=== PATIENT | female | born 1945 | race Caucasian/White ===

== ENCOUNTER 2023-04-15 13:40 | Outpatient (AMB) | payer MEDICARE, SELFPAY ==
--- NOTE | 2023-04-15 13:45 | A.OFFVIS_ITS ---
Intake Vital Signs 04/15/23 14:01 Weight 102 lb BP 136/82 Blood Pressure Location Rt brachial Position Sitting Respiration 14 Pulse 86 Pulse Source Pulse Oximeter Pulse Oximetry (%) 94 Oxygen Delivery Method Nasal Cannula Oxygen Flow Rate 2 Intake Visit Reasons: Chronic Pain, ITDD Fill Consult Intake Note: patient comes in for initial visit was referred by [facility]. Allergies No Known Allergies Allergy (Verified 04/15/23 13:49) HPI HPI Comments History of Present Illness Details Vania is very pleasant 77 years old female who presents today in my office with complains on pain in the lumbar spine with radiation of the pain into the front of the suprapubic area. She reports this pain is result of postlaminectomy syndrome. She reported surgery was performed twice on her lumbar spine in 2015 and 2017. For the treatment of postlaminectomy syndrome she received implantation of the [employer] SynchroMed 2. Pain pump in 2017. She is here in my office today requesting assistance with pump refills and possibly pump replacement in 2024. Her past medical history significant for COPD which is severe enough with oxygen running 247 2 L through nasal cannula. She is under care of hotel associate and vascular surgeon for carotid artery she had left carotid stroke in 2012 and she had carotid stent and after that 1 year after she received carotid endarterectomy. She admits problems with diverticulosis diverticulitis she had a surgery on the diverticulitis in the past. She reports her pain in terms of tissue damage is pinching, cramping, crushing, sore, Ahmadi, heavy, tiring, exhausting. She reports that she is on tramadol mg 4 times a day to help her pain as well. Her past social history she is retired individual she stop smoking long time ago she denies drinking alcohol she denies recreational drugs. Review of Systems Const Reports fatigue, Reports lethargy, Reports weakness and Reports weight loss Card Reports as per HPI Resp Reports as per HPI GI Reports as per HPI Musc Reports as per HPI Neuro Reports as per HPI and Reports weakness Endo Reports fatigue Physical Exam Vital Signs: Last Vital Signs Pulse 86 04/15/23 14:01 Resp 14 04/15/23 14:01 BP 136/82 04/15/23 14:01 Pulse Ox 94 04/15/23 14:01 Oxygen Delivery Method Nasal Cannula 04/15/23 14:01 Oxygen Flow Rate 2 04/15/23 14:01 Const General: cooperative, comfortable and no acute distress Nutritional Appearance: thin and underweight Orientation/consciousness: patient oriented x3 Chest Chest palpation & inspection: normal inspection of the chest Resp Effort & Inspection: not able to speak in complete sentences, abnormal respiratory pattern, decreased respiratory effort, grunting, labored and nasal flaring Cardio Jugular venous distension: no JVD GI Other: On the SPECT plunkett of the patient's abdomen she has left-sided implanted int rathecal drug delivery system pain pump the scar of implantation is very well- healed. There is no swelling in the area of the pain pump. Back/Spine/Pelvis Other: There is 1 very long incision in the projection of the approximately L3-L4 L5 and S1 lumbar vertebra spinous processes of this patient's back. There also to incisions of iliac crest harvesting on bilaterally from the incision. There is also severe tenderness on palpation in the projection of the L4-5 S1 lumbar vertebras Neuro General: patient oriented x3 Assessment & Plan Assessment & Plan (1) Postlaminectomy syndrome: Code(s): M96.1 - Postlaminectomy syndrome, not elsewhere classified (2) Chronic pain syndrome: Code(s): G89.4 - Chronic pain syndrome (3) COPD (chronic obstructive pulmonary disease): Code(s): J44.9 - Chronic obstructive pulmonary disease, unspecified Plan I explained the patient that the fact that she is taking oral tramadol is increasing her tolerance on her pain pump. I recommended her to try to minimize tramadol doses or at the best wean herself off of it. She got schedule herself for the pump refill in [place]. After that when she will know the date of the next refill she needs to call us and we will order medication for her to be field the same concentration. She is currently on morphine 10 milligrams/mL and bupivacaine 20 milligrams/mL. Her pain pump is 40 cc of volume. She needs to give us a call and schedule her next refill appointment with us when her date of the refill will be known after her pump will be refilled in her previous [facility] office. Coding Level of Care Code New Pt Level 3 (59042) Diagnoses Postlaminectomy syndrome M96.1 Chronic pain syndrome G89.4 COPD (chronic obstructive pulmonary disease) J44.9
[2023-04-15 14:01] VITALS: BP 136/82; PULSE 86; RESP 14; O2SAT 94
== END 2023-04-15 14:20 | disposition home or self-care (01) ==
PROVIDERS: PCP Internal Medicine; Visit Provider Anesthesiology
DX: M96.1 Postlaminectomy syndrome, not elsewhere classified (principal); G89.4 Chronic pain syndrome; J44.9 Chronic obstructive pulmonary disease, unspecified
CPT/HCPCS: 99203

== ENCOUNTER → 2023-04-15 13:40 | Outpatient (BNVA) | payer MEDICARE, SELFPAY | PROVIDERS: PCP Internal Medicine; Visit Provider Anesthesiology ==

== ENCOUNTER 2023-07-01 09:42 | Outpatient (AMB) | payer MEDICARE, SELFPAY ==
--- NOTE | 2023-07-01 09:45 | A.OFFVIS_ITS ---
Intake Vital Signs 07/01/23 10:05 Weight 103 lb BP 130/60 Blood Pressure Location Lt brachial Position Sitting Respiration 14 Pulse 77 Pulse Source Pulse Oximeter Pulse Oximetry (%) 97 Oxygen Delivery Method Nasal Cannula Oxygen Flow Rate 2 Intake Visit Reasons: Review pain pump refill/lvm Allergies No Known Allergies Allergy (Verified 07/01/23 10:04) HPI HPI Comments History of Present Illness Details Vania is very pleasant 77 years old female who recently moved to [place] from [facility]. She is intrathecal pain pump patient, she is suffering from postlaminectomy syndrome. The pump was implanted 1 year ago. April 16 she came here for than appointment with request to assume care of her intrathecal pain pump. She reported to us that she has her last refill scheduled on [place]. She told us that she will attend that refilled. Today she came to the office and her pump was read. It demonstrated warning sign that pump is completely empty. In this situation unfortunately I cannot safely perform pump refill without fluoroscopy. I need to take patient to the operating room. I need to position her on the operating table. I need to observe the intrathecal pump action. On itself it is not guaranteed that normal action of the rotor in the pump with resulted in normal delivery of the intrathecal medication however it would give us some assurance that the pump is not completely damaged. Also if on the operating table I will place the noncoring needle inside the pump in will not be a able to aspirate any medicine back into my syringe injection of the contrast into the pump potentially could assure me that my needle is located in the proper position inside the reservoir of the pump. It is even more important because the concentration of the morphine in this patient's medication is 10 milligrams/milliliter it means that if I will administer 40 cc of 10 mg of morphine outside of the intrathecal pump patient will receive 400 mg of morphine into soft tissues. This may result in immediate respiratory arrest and heart arrest and it may require immediate resuscitation, intubation, and placement of the patient on the ventilatory support and cardiac support until the medication is not longer in the system of the patient. I will schedule this patient for the refill of the intrathecal pump under fluoroscopy guidance, I will request assistance of the [employer] patient account representative Adina to be present with me during this procedure. Review of Systems Const Reports fatigue, Reports lethargy, Reports weakness and Reports weight loss Card Reports as per HPI Resp Reports as per HPI GI Reports as per HPI Musc Reports as per HPI Neuro Reports as per HPI and Reports weakness Endo Reports fatigue Physical Exam Vital Signs: Last Vital Signs Pulse 77 07/01/23 10:05 Resp 14 07/01/23 10:05 BP 130/60 07/01/23 10:05 Pulse Ox 97 07/01/23 10:05 Oxygen Delivery Method Nasal Cannula 07/01/23 10:05 Oxygen Flow Rate 2 07/01/23 10:05 Const General: cooperative, comfortable and no acute distress Nutritional Appearance: thin and underweight Orientation/consciousness: patient oriented x3 Chest Chest palpation & inspection: normal inspection of the chest Resp Effort & Inspection: not able to speak in complete sentences, abnormal respiratory pattern, decreased respiratory effort, grunting, labored and nasal flaring Cardio Jugular venous distension: no JVD GI Other: Inspection of the patient's abdomen she has left-sided implanted intrathecal [employer]eron[employer] g delivery system pain pump the scar of implantation is very well-healed. There is no swelling in the area of the pain pump. Back/Spine/Pelvis Other: There is 1 very long incision in the projection of the approximately L3-L4 L5 and S1 lumbar vertebra spinous processes of this patient's back. There also to incisions of iliac crest harvesting on bilaterally from the incision. There is also severe tenderness on palpation in the projection of the L4-5 S1 lumbar vertebras Neuro General: patient oriented x3 Assessment & Plan Assessment & Plan (1) Postlaminectomy syndrome: Code(s): M96.1 - Postlaminectomy syndrome, not elsewhere classified (2) Chronic pain syndrome: Code(s): G89.4 - Chronic pain syndrome (3) COPD (chronic obstructive pulmonary disease): Code(s): J44.9 - Chronic obstructive pulmonary disease, unspecified Plan I will schedule this patient for an appointment in the operating room to perform the refill procedure. My argument for performance of this procedure in the operating room is as above. From that day on I will assume care of the patient. We would need to see if her pain pump is in working condition. If not it needs to be replaced. Patient Instructions: I here by testify that this visit today of this patient to my office took significant period of time an argument about patient's condition, patient's requirements, scheduling patient in the operating room, ordering new medication for the patient, and planning the procedure on Thursday which would require at least 50 minutes in total and some additional time to organized this note. Coding Level of Care Code Est Pt Level 5 (80180) Diagnoses Postlaminectomy syndrome M96.1 Chronic pain syndrome G89.4 COPD (chronic obstructive pulmonary disease) J44.9
[2023-07-01 10:05] VITALS: BP 130/60; PULSE 77; RESP 14; O2SAT 97
== END 2023-07-01 10:29 | disposition home or self-care (01) ==
PROVIDERS: PCP Internal Medicine; Visit Provider Anesthesiology
DX: M96.1 Postlaminectomy syndrome, not elsewhere classified (principal); G89.4 Chronic pain syndrome; J44.9 Chronic obstructive pulmonary disease, unspecified; Z45.1 Encounter for adjustment and management of infusion pump
CPT/HCPCS: 99215

== ENCOUNTER → 2023-07-01 09:42 | Outpatient (BNVA) | payer MEDICARE, SELFPAY | PROVIDERS: PCP Internal Medicine; Visit Provider Anesthesiology | DX: M96.1 Postlaminectomy syndrome, not elsewhere classified (principal); J44.9 Chronic obstructive pulmonary disease, unspecified; G89.4 Chronic pain syndrome; Z96.89 Presence of other specified functional implants | CPT/HCPCS: 99212 ==

== ENCOUNTER 2023-07-03 10:47 | Day surgery (SDC) | payer MEDICARE, SELFPAY ==
--- NOTE | ~2023-07-03 | FL_ITS ---
EXAMINATION: XR FLUOROSCOPY WITH IMAGES CLINICAL INFORMATION: ITDD dye study and pump refill. COMPARISON: None available. TECHNIQUE: Fluoroscopy Supervised By: Dr. Thaddeus Rainey. Fluoroscopy Time: 0.0 (less than 1 minute). Cumulative Dose: 0.631 mGy. DAP: 0.172 Gycm2. Images: 1. FINDINGS: Fluoroscopy guidance provided for ITDD dye study and pump refill. See procedure note for details. FL/FL guidance in OR IMPRESSION: Fluoroscopy guidance provided for ITDD dye study and pump refill.
[2023-07-03 10:51] VITALS: BMI 21.5
[2023-07-03 11:27] VITALS: BP 138/72; PULSE 71; RESP 16; TEMP 37.2; O2SAT 96
[2023-07-03 13:00] VITALS: BP 102/56; PULSE 72; RESP 16; TEMP 37.2; O2SAT 97
--- NOTE | 2023-07-03 13:10 | PM.OP ---
Brief Operative Note Date of Service: 07/03/23 Pre-op diagnosis: postlaminectomy syndrome, chronic pain syndrome, presence of the intrathecal drug delivery pain pump. Post-op diagnosis: same Surgeon: Thaddeus Rainey MD Anesthesia: local Was an Statistical Technician used for this Procedure?: No Estimated blood loss (mL): 0 Condition: stable Disposition: PACU
--- NOTE | 2023-07-03 13:11 | P.OP_ITS ---
Operative Note Operative Note Date of Service: 07/03/23 Narrative: Intrathecal pump refill. THE PATIENT CAME TODAY in the OR FOR THE CHANGE OF THE MEDICATION IN her PAIN PUMP. SHE IS VERY PLEASANT 77 YEARS OLD FEMALE WHO JUST RECENTLY MOVED FROM [place] TO [facility]. Last time she had her pump refilled in [facility]. Two days ago she came to my office for pump refill in her pump refill was not done because the reading of the pump demonstrated that pump was empty. To prevent inadvertent administration of the wrong medication to run direction we brought her today to the operating room to perform the refill of the intrathecal pump. The informed consent was obtained from the patient. Risks and benefits were explained.The name and date of were verified . ?The pump was interrogated again and device showed at the pump is empty. The patient was positioned supine on the operating table AND THE AREA OF THE INTRATHECAL PUMP WAS PREPPED WITH CHLORAPREP twice. the pump area was draped with sterile safe adhesive utility towels. C-arm was brought of the operating field and sq picture of the pain pump was demonstrated on the screen. Under live x-ray guidance 22 gauge 2 in noncoring needle was directed to the center of the plug of the intrathecal pump. Sterile gloves were worn and of the aspiration system was assembled containing 2 in 22 gauge noncoring needle, the needle was connected to extension tubing which was connected to the 20 cc sterile syringe. Under live x-ray guidance 22 gauge 2 in noncoring needle was directed to the center of the plug of the intrathecal pump. when needle med the resistance the the operation was performed and 1.8 cc of the medication was aspirated from the intrathecal pump. 10 cc of preservative-free normal saline was sterilely obtained and it was injected into the needle / Tubing assembly. Immediately after that it was aspirated back into the syringe and I was able to remove 9.8 mL of saline back into the syringe. That gave me assurance that my needle in fact is in the reservoir of the pump. After that a new batch? of medication was obtained which was containing medication Morphine in concentration 10 mg per mL with bupivacaine 20 milligrams/mL. The admixture was made in the two 20 cc syringe prepared by [facility] compounding pharmacy. The syringe was connected to the bacterial filter, and then connected to the extension tubing. After that the medication in the syringe was slowly instilled into the pump with aspirations at 35, 25, 15 and 5 cc soriano.? The pump was reprogrammed for the doses of morphine 5.534 (?) mg a day with corresponding dose of bupivacaine continuous rate. she lost her PTM device and therefore PTM was not program today. She will be getting into contact with [employer] and she will be set up with new PTM device.
[2023-07-03 13:15] VITALS: BP 117/53; PULSE 70; RESP 16; TEMP 37.3; O2SAT 97
== END 2023-07-03 13:25 | disposition home or self-care (01) ==
PROVIDERS: PCP Internal Medicine; Visit Provider Anesthesiology
PROC: (CPT 62370; principal; 2023-07-03 12:40)
DX: Z45.1 Encounter for adjustment and management of infusion pump (principal); Z46.89 Encounter for fitting and adjustment of other specified devices; M96.1 Postlaminectomy syndrome, not elsewhere classified; G89.4 Chronic pain syndrome; Z97.8 Presence of other specified devices
CPT/HCPCS: 62370; Q9965; Q9967

== ENCOUNTER → 2023-07-03 10:47 | Outpatient (BNV) | payer MEDICARE, SELFPAY | PROVIDERS: PCP Internal Medicine; Visit Provider Anesthesiology | DX: Z45.1 Encounter for adjustment and management of infusion pump (principal) | CPT/HCPCS: 62370 ==

== ENCOUNTER 2023-09-10 09:57 | Outpatient (AMB) | payer MEDICARE, SELFPAY ==
--- NOTE | 2023-09-10 10:00 | MHC.OFFVIS ---
Intake Vital Signs 09/10/23 11:28 Height 4 ft 10 in Weight 114 lb 2 oz BMI 23.8 BP 122/66 Blood Pressure Location Lt brachial Position Sitting Respiration 12 Pulse 78 Pulse Source Pulse Oximeter Pulse Oximetry (%) 90 L Oxygen Delivery Method Nasal Cannula Oxygen Flow Rate 1.5 Intake Visit Reasons: ITDD refill/lvm Intake Note: Patient comes in for intrathecal medication refill. Reports pain 08/29. Allergies No Known Allergies Allergy (Verified 09/10/23 11:30) HPI HPI Comments History of Present Illness Details Vania is very pleasant 77 years old female who recently moved to [place] from [facility]. She is intrathecal pain pump patient, she is suffering from postlaminectomy syndrome. The pump was implanted 1 year ago. She came today to the office for the refill of the pain pump. Her medications are morphine 10 milligrams/mL and bupivacaine 20 milligrams/mL. She came today for the pump refill and we discovered the almost 3 mL of the difference between the calculated injected does and the actual residual amount of the medication which was taken out of the pump. See the full refill report below. I discussed with the patient possibility of granuloma of the catheter. I told her that the next time if she will exhibit the same deficit of the medication I would be compelled to perform a dye study. I also explained to the patient possibility of treatment of her pain with Prialt/ziconotide. I explained to her that the refill might be 4 times a year, the pain relief might be better than morphine, the co-pay would be 600 dollars or less if she will provide her tax returned to my compounding intrathecal drug company. She appears to be interested but she wants to research this medication. I told her that she needs to give me a call before October 21, 2023 so I can order the Prialt medication on time. She is also currently not on PTM because she lost 1 of the components of the PTM. She wants me to sign the script for PTM and then she can purchase it. [facility] Social History Patient Tobacco Use Status: Never used Tobacco Review of Systems Const All systems reviewed & are unremarkable except as noted in HPI and below Physical Exam Vital Signs: Last Vital Signs Pulse 78 09/10/23 11:28 Resp 12 09/10/23 11:28 BP 122/66 09/10/23 11:28 Pulse Ox 90 L 09/10/23 11:28 Oxygen Delivery Method Nasal Cannula 09/10/23 11:28 Oxygen Flow Rate 1.5 09/10/23 11:28 BMI result Body Mass Index 23.8 Const General: cooperative, comfortable and no acute distress Nutritional Appearance: thin and underweight Orientation/consciousness: patient oriented x3 Chest Chest palpation & inspection: normal inspection of the chest Resp Effort & Inspection: not able to speak in complete sentences, abnormal respiratory pattern, decreased respiratory effort, grunting, labored and nasal flaring Cardio Jugular venous distension: no JVD GI Other: Inspection of the patient's abdomen she has left-sided implanted intrathecal drug delivery system pain pump the scar of implantation is very well-healed. There is no swelling in the area of the pain pump. Back/Spine/Pelvis Other: There is 1 very long incision in the projection of the approximately L3-L4 L5 and S1 lumbar vertebra spinous processes of this patient's back. There also to incisions of iliac crest harvesting on bilaterally from the incision. There is also severe tenderness on palpation in the projection of the L4-5 S1 lumbar vertebras Neuro General: patient oriented x3 Assessment & Plan Assessment & Plan (1) Postlaminectomy syndrome: Code(s): M96.1 - Postlaminectomy syndrome, not elsewhere classified (2) Chronic pain syndrome: Code(s): G89.4 - Chronic pain syndrome Plan: The PTM device is lost. I will write a script for her to get her PTM device purchased. Stephane discussed. She thinks that the co-payment cost is acceptable for her. She will research [employer] and let me know. I will schedule her for next pump refill on on before 11/20/2023. The deficiency needs to be addressed today she came with 3 cc extra in her pump compared to the electronic record. If this will continue I would be compelled to do a dye study and possibly MRI to rule out granuloma. (3) COPD (chronic obstructive pulmonary disease): Code(s): J44.9 - Chronic obstructive pulmonary disease, unspecified Plan ? Intrathecal pump refill. The patient came today in the office FOR THE CHANGE OF THE MEDICATION IN her PAIN PUMP. The name and date of were verified and informed consent was obtained for the procedure. The pump was interrogated and the residual amount of fluid was found to be 3.3 mL. She was positioned prone on the bed AND THE AREA OF THE INTRATHECAL PUMP WAS PREPPED WITH CHLORAPREP. The fenestrated drape was sterilely applied over the area of the pump. Sterile gloves were worn and of the aspiration system was assembled containing 2 in 22 gauge noncoring needle, the needle was connected to extension tubing which was connected to the 20 cc sterile syringe. The pain pump was palpated under the skin in the patient's left abdominal area. The needle was inserted through the skin and the central plug of the pain pump and fluid was aspirated. The clear fluid was going into the syringe the total amount of the fluid was 6.1 mL .. After that a new batch? of medication was obtained which was containing morphine 10 milligrams/mL and bupivacaine 20 milligrams/mL. The syringe was connected to the bacterial filter, and then connected to the extension tubing. After that the medication in the syringe was slowly instilled into the pump with aspirations at 15 and 5 cc soriano.? The pump was reprogrammed for the doses of morphine 5.341 mg per day with corresponding dose of bupivacaine of 10.682 mg per day. Unfortunately at this time patient does not have the personal speech therapy director device and she requests me to sign the script for her for her insurance company to provide the payment for [employer] which will issue the replacement of PTM. Coding Level of Care Code Est Pt Level 4 (34486) Procedure Only Diagnoses Postlaminectomy syndrome M96.1 Chronic pain syndrome G89.4 COPD (chronic obstructive pulmonary disease) J44.9
[2023-09-10 11:28] VITALS: BP 122/66; PULSE 78; RESP 12; O2SAT 90; BMI 23.8
== END 2023-09-10 10:41 | disposition home or self-care (01) ==
PROVIDERS: PCP Internal Medicine; Visit Provider Anesthesiology
DX: M96.1 Postlaminectomy syndrome, not elsewhere classified (principal); G89.4 Chronic pain syndrome; J44.9 Chronic obstructive pulmonary disease, unspecified; Z45.1 Encounter for adjustment and management of infusion pump
CPT/HCPCS: 62370; 99214

== ENCOUNTER → 2023-09-10 09:57 | Outpatient (BNVA) | payer MEDICARE, SELFPAY | PROVIDERS: PCP Internal Medicine; Visit Provider Anesthesiology | DX: M96.1 Postlaminectomy syndrome, not elsewhere classified (principal); J44.9 Chronic obstructive pulmonary disease, unspecified; G89.4 Chronic pain syndrome | CPT/HCPCS: 62370; 99212 ==

== ENCOUNTER 2023-11-19 10:10 | Outpatient (AMB) | payer MEDICARE, SELFPAY ==
--- NOTE | 2023-11-19 10:11 | A.OFFVIS_ITS ---
Vital Signs 11/19/23 11:00 Height 40 ft 1 in Weight 113 lb 8 oz BMI 0.3 BP 136/82 Blood Pressure Location Lt brachial Position Sitting Respiration 12 Pulse 74 Pulse Source Pulse Oximeter Pulse Oximetry (%) 92 Oxygen Delivery Method Nasal Cannula Oxygen Flow Rate 2 Intake Visit Reasons: ITDD Refill Intake Note: Patient comes in for intrathecal medication refill. Reports pain 5/10. Allergies No Known Allergies Allergy (Verified 11/19/23 11:02) HPI Comments Details: Vania is back in my office for pump refill. She is currently under observation and medication refill with morphine and bupivacaine. The concentration of morphine is 10 milligrams/mL the concentration of bupivacaine 20 milligrams/mL. She is interested in addition of the Prialt in her admixture. She reports that she can afford co-pay of 600 dollars on Prialt. I will start her next time on Prialt 1 micro g a day and for that purpose I need to add to admixture 1.827 micro g of ziconotide/Prialt per mL in her next admixture. She has 40 cc pump. There was also 3 mL discrepancy between the pump reading and actual medication obtained from the pump. Therefore there is some obstacle on the medication delivery most likely in the catheter or maybe granuloma outside of the catheter. We discussed possibility of investigating this in the future. She is very reluctant to go for dye study however she understood today that it might be nec essary if the discrepancy will increase in the future. She also was prescribed PTM device but if she is good on continuous Prialt administration she might not need PTM after all. Prior: very pleasant 77 years old female who recently moved to [place] from [facility]. History of postlaminectomy syndrome. The pump was implanted 1 year ago. [facility] Social History Patient Tobacco Use Status: Never used Tobacco Review of Systems Const All systems reviewed & are unremarkable except as noted in HPI and below Physical Exam Vital Signs: Last Vital Signs Pulse 74 11/19/23 11:00 Resp 12 11/19/23 11:00 BP 136/82 11/19/23 11:00 Pulse Ox 92 11/19/23 11:00 Oxygen Delivery Method Nasal Cannula 11/19/23 11:00 Oxygen Flow Rate 2 11/19/23 11:00 BMI result Body Mass Index 0.3 Const General: cooperative, comfortable and no acute distress Nutritional Appearance: thin and underweight Orientation/consciousness: patient oriented x3 Chest Chest palpation & inspection: normal inspection of the chest Resp Effort & Inspection: not able to speak in complete sentences, abnormal respiratory pattern, decreased respiratory effort, grunting, labored and nasal flaring Cardio Jugular venous distension: no JVD GI Other: Inspection of the patient's abdomen she has left-sided implanted intrathecal drug delivery system pain pump the scar of implantation is very well-healed. There is no swelling in the area of the pain pump. Back/Spine/Pelvis Other: There is 1 very long incision in the projection of the approximately L3-L4 L5 and S1 lumbar vertebra spinous processes of this patient's back. There also to incisions of iliac crest harvesting on bilaterally from the incision. There is also severe tenderness on palpation in the projection of the L4-5 S1 lumbar vertebras Neuro General: patient oriented x3 Assessment & Plan Assessment & Plan (1) Postlaminectomy syndrome: Code(s): M96.1 - Postlaminectomy syndrome, not elsewhere classified Category: Medical (2) Chronic pain syndrome: Code(s): G89.4 - Chronic pain syndrome Category: Medical Plan: The PTM device is lost. I will write a script for her to get her PTM device purchased. Stephane discussed. She thinks that the co-payment cost is acceptable for her. I will schedule her for next pump refill on on before 11/20/2023. The deficiency needs to be addressed today she came with 3 cc extra in her pump compared to the electronic record. If this will continue I would be compelled to do a dye study and possibly MRI to rule out granuloma. (3) COPD (chronic obstructive pulmonary disease): Code(s): J44.9 - Chronic obstructive pulmonary disease, unspecified Category: Medical Plan ? Intrathecal pump refill. The patient came today in the office FOR THE CHANGE OF THE MEDICATION IN her PAIN PUMP. The name and date of were verified and informed consent was obtained for the procedure. The pump was interrogated and the residual amount of fluid was found to be 2.2mL. She was positioned prone on the bed AND THE AREA OF THE INTRATHECAL PUMP WAS PREPPED WITH CHLORAPREP. The fenestrated drape was sterilely applied over the area of the pump. Sterile gloves were worn and of the aspiration system was assembled containing 2 in 22 gauge noncoring needle, the needle was connected to extension tubing which was connected to the 20 cc sterile syringe. The pain pump was palpated under the skin in the patient's left abdominal area. The needle was inserted through the skin and the central plug of the pain pump and fluid was aspirated. The clear fluid was going into the syringe the total amount of the fluid was 5.2 mL .. After that a new batch? of medication was obtained which was containing morphine 10 milligrams/mL and bupivacaine 20 milligrams/mL. The syringe was connected to the bacterial filter, and then connected to the extension tubing. After that the medication in the syringe was slowly instilled into the pump with aspirations at 15 and 5 cc soriano.? The pump was reprogrammed for the doses of morphine 5.341 mg per day with corresponding dose of bupivacaine of 10.682 mg per day. She might not have to use ptm on prialt therapy. Coding Level of Care Code Est Pt Level 3 (70465) Procedure Only Diagnoses Postlaminectomy syndrome M96.1 Chronic pain syndrome G89.4 COPD (chronic obstructive pulmonary disease) J44.9
[2023-11-19 11:00] VITALS: BP 136/82; PULSE 74; RESP 12; O2SAT 92
== END 2023-11-19 10:48 | disposition home or self-care (01) ==
PROVIDERS: PCP Internal Medicine; Visit Provider Anesthesiology
DX: M96.1 Postlaminectomy syndrome, not elsewhere classified (principal); G89.4 Chronic pain syndrome; J44.9 Chronic obstructive pulmonary disease, unspecified; Z45.1 Encounter for adjustment and management of infusion pump
CPT/HCPCS: 62370; 99213

== ENCOUNTER → 2023-11-19 10:10 | Outpatient (BNVA) | payer MEDICARE, SELFPAY | PROVIDERS: PCP Internal Medicine; Visit Provider Anesthesiology | DX: M96.1 Postlaminectomy syndrome, not elsewhere classified (principal); J44.9 Chronic obstructive pulmonary disease, unspecified; G89.4 Chronic pain syndrome | CPT/HCPCS: 62370; 99212 ==

== ENCOUNTER 2024-01-28 10:57 | Outpatient (AMB) | payer MEDICARE, SELFPAY ==
--- NOTE | 2024-01-28 11:00 | MHC.OFFVIS ---
Vital Signs 01/28/24 11:15 Height 4 ft 10 in Weight 113 lb 8 oz BMI 23.7 BP 140/72 H Blood Pressure Location Lt brachial Position Sitting Respiration 12 Pulse 68 Pulse Source Pulse Oximeter Pulse Oximetry (%) 94 Oxygen Delivery Method Nasal Cannula Oxygen Flow Rate 2 Intake Visit Reasons: ITDD REFILL Allergies No Known Allergies Allergy (Verified 01/28/24 11:15) HPI Comments Details: Vania came today to my office with the hope to receive her new medication containing Prialt. Unfortunately [facility] pharmacy was not able to dispatch the medication. The issue was that the patient's insurance did not approve the medication. However the patient was able to cover medication out of pocket. No information was sent to the patient. [facility] states that they sent the notification email to [facility] pain management staff however no one received the email from [facility]. I contacted [facility] today the patient will be able to pay for the medication and it will be cali in service tomorrow. I will fill up her pump tomorrow. This is new medication containing Prialt. It needs to be refrigerated. I will fill it up tomorrow. is back in my office for pump refill. Prior: very pleasant 77 years old female who recently moved to [place] from [facility]. History of postlaminectomy syndrome. The pump was implanted 1 year ago. [facility] Social History Patient Tobacco Use Status: Never used Tobacco Review of Systems Const All systems reviewed & are unremarkable except as noted in HPI and below Physical Exam Vital Signs: Last Vital Signs Pulse 68 01/28/24 11:15 Resp 12 01/28/24 11:15 BP 140/72 H 01/28/24 11:15 Pulse Ox 94 01/28/24 11:15 Oxygen Delivery Method Nasal Cannula 01/28/24 11:15 Oxygen Flow Rate 2 01/28/24 11:15 BMI result Body Mass Index 23.7 Const General: cooperative, comfortable and no acute distress Nutritional Appearance: thin and underweight Orientation/consciousness: patient oriented x3 Chest Chest palpation & inspection: normal inspection of the chest Resp Effort & Inspection: not able to speak in complete sentences, abnormal respiratory pattern, decreased respiratory effort, grunting, labored and nasal flaring Cardio Jugular venous distension: no JVD GI Other: Inspection of the patient's abdomen she has left-sided implanted intrathecal drug delivery system pain pump the scar of implantation is very well-healed. There is no swelling in the area of the pain pump. Back/Spine/Pelvis Other: There is 1 very long incision in the projection of the approximately L3-L4 L5 and S1 lumbar vertebra spinous processes of this patient's back. There also to incisions of iliac crest harvesting on bilaterally from the incision. There is also severe tenderness on palpation in the projection of the L4-5 S1 lumbar vertebras Neuro General: patient oriented x3 Assessment & Plan Assessment & Plan (1) Postlaminectomy syndrome: Code(s): M96.1 - Postlaminectomy syndrome, not elsewhere classified Category: Medical (2) Chronic pain syndrome: Code(s): G89.4 - Chronic pain syndrome Category: Medical Plan: The medication will be delivered tomorrow. I will refill this medication into her pump tomorrow. (3) COPD (chronic obstructive pulmonary disease): Code(s): J44.9 - Chronic obstructive pulmonary disease, unspecified Category: Medical Plan I here by testify that I spent 1 hour today in conversation with this patient as well as [facility], as well as trying to adjust the schedule to refill her medication tomorrow. Coding Level of Care Code Est Pt Level 5 (67200) Diagnoses Postlaminectomy syndrome M96.1 Chronic pain syndrome G89.4 COPD (chronic obstructive pulmonary disease) J44.9
[2024-01-28 11:15] VITALS: BP 140/72; PULSE 68; RESP 12; O2SAT 94; BMI 23.7
== END 2024-01-28 12:07 | disposition home or self-care (01) ==
PROVIDERS: PCP Internal Medicine; Visit Provider Anesthesiology
DX: M96.1 Postlaminectomy syndrome, not elsewhere classified (principal); G89.4 Chronic pain syndrome; J44.9 Chronic obstructive pulmonary disease, unspecified
CPT/HCPCS: 99215

== ENCOUNTER → 2024-01-28 10:57 | Outpatient (BNVA) | payer MEDICARE, SELFPAY | PROVIDERS: PCP Internal Medicine; Visit Provider Anesthesiology | DX: M96.1 Postlaminectomy syndrome, not elsewhere classified (principal); J44.9 Chronic obstructive pulmonary disease, unspecified; G89.4 Chronic pain syndrome | CPT/HCPCS: 99212 ==

== ENCOUNTER 2024-01-29 15:00 | Outpatient (AMB) | payer MEDICARE, SELFPAY ==
--- NOTE | 2024-01-29 15:06 | A.OFFVIS_ITS ---
Vital Signs 01/29/24 15:13 Height 4 ft 10 in Weight 113 lb BMI 23.6 BP 146/67 H Blood Pressure Location Lt brachial Position Sitting Pulse 76 Pulse Source Pulse Oximeter Pulse Oximetry (%) 92 Oxygen Delivery Method Nasal Cannula Oxygen Flow Rate 2 Intake Visit Reasons: ITDD refill Intake Note: Pain today 10/27 Cmm Programmer Required: No Accompanied by: Self / Same As Patient Allergies No Known Allergies Allergy (Verified 01/29/24 15:14) HPI Comments Details: Vania came today to my office with the hope to receive her new medication containing Prialt. I have chosen Prialt for this patient because she is suffering from severe COPD, oxygen dependent, obviously on high oxygen flow, her tape weaver is planning to supplement her with CPAP machine to decrease the level of carbon dioxide in her blood. Her brain is functioning on high level of the carbon dioxide and therefore very susceptible for respiratory depression. Prolonged and careful discussion was held today. Risks of the Prialt were explained to the patient. However in my opinion they are outweighing the risk of continuous escalation of the opioid medication with revision of the patient to have PTM device. The pump refill is as below. The concentrations are as below. There is also small discrepancy between the recorded delivery of the medication and actual left over of the medication in the pump. In the future if this will continue we would have to consider catheter dye study. Prior: very pleasant 77 years old female who recently moved to [place] from [facility]. History of postlaminectomy syndrome. The pump was implanted 1 year ago. PFS Social History Patient Tobacco Use Status: Never used Tobacco Review of Systems Const All systems reviewed & are unremarkable except as noted in HPI and below Physical Exam Vital Signs: Last Vital Signs Pulse 76 01/29/24 15:13 BP 146/67 H 01/29/24 15:13 Pulse Ox 92 01/29/24 15:13 Oxygen Delivery Method Nasal Cannula 01/29/24 15:13 Oxygen Flow Rate 2 01/29/24 15:13 BMI result Body Mass Index 23.6 Const General: cooperative, comfortable and no acute distress Nutritional Appearance: thin and underweight Orientation/consciousness: patient oriented x3 Chest Chest palpation & inspection: normal inspection of the chest Resp Effort & Inspection: not able to speak in complete sentences, abnormal respiratory pattern, decreased respiratory effort, grunting, labored and nasal flaring Cardio Jugular venous distension: no JVD GI Other: Inspection of the patient's abdomen she has left-sided implanted intrathecal drug delivery system pain pump the scar of implantation is very well-healed. There is no swelling in the area of the pain pump. Back/Spine/Pelvis Other: There is 1 very long incision in the projection of the approximately L3-L4 L5 and S1 lumbar vertebra spinous processes of this patient's back. There also to incisions of iliac crest harvesting on bilaterally from the incision. There is also severe tenderness on palpation in the projection of the L4-5 S1 lumbar vertebras Neuro General: patient oriented x3 Assessment & Plan Assessment & Plan (1) Postlaminectomy syndrome: Code(s): M96.1 - Postlaminectomy syndrome, not elsewhere classified Category: Medical (2) Chronic pain syndrome: Code(s): G89.4 - Chronic pain syndrome Category: Medical Plan: She received the PTM device however I am reluctant to introduce the PTM doses for this patient because of her severe COPD. We will try Prialt 1st. If no side effects escalation of the Prialt may provide necessary pain relief for the patient. We will also contact Prialt visual display manager [employer] and try to reduce the cost of the therapy for the patient. The deficiency needs to be addressed: today she came with 3.5 cc extra in her pump compared to the electronic record. If this will continue I would be compelled to do a dye study and possibly MRI to rule out granuloma. (3) COPD (chronic obstructive pulmonary disease): Code(s): J44.9 - Chronic obstructive pulmonary disease, unspecified Category: Medical Plan ? Intrathecal pump refill. The patient came today in the office FOR THE CHANGE OF THE MEDICATION IN her PAIN PUMP. The name and date of were verified and informed consent was obtained for the procedure. The pump was interrogated and the residual amount of fluid was found to be 1.5 mL. She was positioned prone on the bed AND THE AREA OF THE INTRATHECAL PUMP WAS PREPPED WITH CHLORAPREP. The fenestrated drape was sterilely applied over the area of the pump. Sterile gloves were worn and of the aspiration system was assembled containing 2 in 22 gauge noncoring needle, the needle was connected to extension tubing which was connected to the 20 cc sterile syringes. The pain pump was palpated under the skin in the patient's left abdominal area. The needle was inserted through the skin and the central plug of the pain pump and fluid was aspirated. The clear fluid was going into the syringe the total amount of the fluid was 4.9 mL .. After that a new batch? of medication was obtained which was containing morphine 10 milligrams/mL and bupivacaine 20 milligrams/mL, Prialt 1.8 micro g per mL. . The syringe was connected to the bacterial filter, and then connected to the extension tubing. After that the medication in the syringe was slowly instilled into the pump with aspirations at 15 and 5 cc soriano.? The pump was reprogrammed for the doses of morphine 5.341 mg per day with corresponding dose of bupivacaine of 10.682 mg per day. This time she will also receive 0.9614 micro g of Prialt a day. She might not have to use ptm on prialt therapy. Patient Instructions: I here by testify that I spent 35 minutes in conversation with this patient as well as planning her care and organizing this note. Coding Level of Care Code Est Pt Level 4 (55161) Procedure Only Diagnoses Postlaminectomy syndrome M96.1 Chronic pain syndrome G89.4 COPD (chronic obstructive pulmonary disease) J44.9
[2024-01-29 15:13] VITALS: BP 146/67; PULSE 76; O2SAT 92; BMI 23.6
== END 2024-01-29 16:06 | disposition home or self-care (01) ==
PROVIDERS: PCP Internal Medicine; Visit Provider Anesthesiology
DX: M96.1 Postlaminectomy syndrome, not elsewhere classified (principal); G89.4 Chronic pain syndrome; J44.9 Chronic obstructive pulmonary disease, unspecified; Z45.1 Encounter for adjustment and management of infusion pump
CPT/HCPCS: 62370; 99214

== ENCOUNTER → 2024-01-29 15:00 | Outpatient (BNVA) | payer MEDICARE, SELFPAY | PROVIDERS: PCP Internal Medicine; Visit Provider Anesthesiology | DX: Z45.89 Encounter for adjustment and management of other implanted devices (principal); M96.1 Postlaminectomy syndrome, not elsewhere classified; J44.9 Chronic obstructive pulmonary disease, unspecified; G89.4 Chronic pain syndrome | CPT/HCPCS: 62370; 99212 ==

== ENCOUNTER 2024-04-08 11:06 | Outpatient (AMB) | payer MEDICARE, SELFPAY ==
--- NOTE | 2024-04-08 13:22 | MHC.OFFVIS ---
Intake Visit Reasons: ITDD refill Allergies No Known Allergies Allergy (Verified 04/11/24 12:13) HPI HPI ITDD refill: Details: 78-year-old female who presents today to the office for an ITDD refill. She states that she does not want intrathecal medication with Prialt. She states that she has informed this to Dr. Rainey on the last visit. She discussed different medication alternatives without Prialt. [facility] Social History Patient Tobacco Use Status: Never used Tobacco Review of Systems Const All systems reviewed & are unremarkable except as noted in HPI and below Physical Exam General: Appears afebrile. Alert and oriented. Mood and affect appropriate. Follows and participates in conversation appropriately. Respiratory effort is unlabored. Able to transition from sit to stand unassisted. Ambulates with bilaterally normal heel strike and toe off. Results Reviewed Results Reviewed: No imaging is available for review. Assessment & Plan Assessment & Plan (1) Chronic pain syndrome: Code(s): G89.4 - Chronic pain syndrome Category: Medical Plan She requested ordering intrathecal medication without Prialt. We ordered that medication for her and it will arrive on Thursday. She will follow up on Thursday for refill. ? Scribed for Dr. Drummond by Matthew Antony, biomedical repair technician, on 04/08/2024. I, Dr. Drummond, have personally reviewed and agree with the information entered by the scribe. Coding Level of Care Code Est Pt Level 3 (95269) Diagnoses Chronic pain syndrome G89.4
== END 2024-04-08 12:10 | disposition home or self-care (01) ==
PROVIDERS: PCP Internal Medicine; Visit Provider Internal Medicine
DX: G89.4 Chronic pain syndrome (principal)
CPT/HCPCS: 99213

== ENCOUNTER → 2024-04-08 11:06 | Outpatient (BNVA) | payer MEDICARE, SELFPAY | PROVIDERS: PCP Internal Medicine; Visit Provider Internal Medicine | DX: G89.4 Chronic pain syndrome (principal) | CPT/HCPCS: 99212 ==

== ENCOUNTER 2024-04-11 11:47 | Outpatient (AMB) | payer MEDICARE, SELFPAY ==
--- NOTE | 2024-04-11 12:07 | MHC.OFFVIS ---
Vital Signs 04/11/24 12:09 Height 4 ft 10 in BP 145/63 H Blood Pressure Location Lt brachial Position Sitting Respiration 16 Pulse 73 Pulse Source Pulse Oximeter Intake Visit Reasons: ITDD REFILL Allergies No Known Allergies Allergy (Verified 04/11/24 12:13) Medication List - Last Reconciled 04/11/24 by Ramila Belle LPN albuterol sulfate 90 mcg/actuation inhalation atorvastatin 20 mg PO DAILY biotin 10,000 mcg PO DAILY zrchdowlgz-otkrelqq-fzfbllhjzc 160-9-4.8 mcg/actuation (Breztri Aerosphere) inhalations inhalation clopidogrel 75 mg PO DAILY duloxetine 60 mg PO DAILY folic acid 0.8 mg PO DAILY gabapentin 600 mg PO TID latanoprost 0.005% drps ophthalmic (eye) mirtazapine 45 mg PO BEDTIME mirtazapine mg PO multivitamin (Daily Multi-Vitamin tablet) 1 tab PO DAILY tramadol 50 mg PO NEEDED HPI HPI ITDD REFILL: Details: 78-year-old female who presents today to the office for a ITDD refill. Denies any recent cough, cold, infection, fever or other significant changes in medical history since last office visit.? PFSH Social History Patient Tobacco Use Status: Never used Tobacco Review of Systems Const All systems reviewed & are unremarkable except as noted in HPI and below Physical Exam Vital Signs: Last Vital Signs Pulse 73 04/11/24 12:09 Resp 16 04/11/24 12:09 BP 145/63 H 04/11/24 12:09 General: Appears afebrile. Alert and oriented. Mood and affect appropriate. Follows and participates in conversation appropriately. Respiratory effort is unlabored. Able to transition from sit to stand unassisted. Ambulates with bilaterally normal heel strike and toe off. Office Procedures Details: The name and date of were verified, and informed consent was obtained for the procedure. The pump was interrogated, and the residual amount of fluid was removed. Patient was positioned prone on the bed and the area of the intrathecal pump was prepped with chloraprep. The fenestrated drape was sterilely applied over the area of the pump. Sterile gloves were worn and the aspiration system was assembled containing 2 22-gauge noncoring needle; the needle was connected to extension tubing which was connected to the 20-cc sterile syringe. The extension tubing was clamped. The pain pump was palpated under the skin in the patient's buttock. The needle was inserted through the skin and the central plug of the pain pump and clear fluid was aspirated. After that, a new batch of medication was obtained. The admixture was premixed in a 40cc syringe by [facility] compounding pharmacy. The syringe was connected to the bacterial filter, and then connected to the extension tubing. After that, the medication in the syringe was slowly instilled into the pump with aspirations. 20 mL?of?morphine at 10?milligrams?per?mL?and?bupivacaine?20?milligrams?per?mL. The pump was programmed and updated per the latest parameters. The details of this program are available in the pump log that was saved and uploaded to the EMR. 37055 - Refill Procedure code (CPT) selection complete Results Reviewed Results Reviewed: No imaging is available for review. Assessment & Plan Assessment & Plan (1) Postlaminectomy syndrome: Code(s): M96.1 - Postlaminectomy syndrome, not elsewhere classified Category: Medical (2) Chronic pain syndrome: Code(s): G89.4 - Chronic pain syndrome Category: Medical Plan Patient is status post intrathecal pump relief. Patient tolerated procedure well and was discharged home in stable condition with discharge instructions.? All questions were answered. We will follow-up in two months for refill. I increased her simple continuous infusion by 5% and removed Prialt from her drug mixture, So, it only contains 40 mL of morphine at 10 milligrams per mL and bupivacaine 20 milligrams per mL. Scribed for Dr. Drummond by Matthew Antony, behavioral medical director, on 04/11/2024. I, Dr. Drummond, have personally reviewed and agree with the information entered by the scribe. Coding Level of Care Code Procedure Only Diagnoses Postlaminectomy syndrome M96.1 Chronic pain syndrome G89.4 CPT Codes Intraethecal Drug Delivery System - CPT: 26241 - Refill ([id number])
[2024-04-11 12:09] VITALS: BP 145/63; PULSE 73; RESP 16
== END 2024-04-11 12:58 | disposition home or self-care (01) ==
PROVIDERS: PCP Internal Medicine; Visit Provider Internal Medicine
DX: M96.1 Postlaminectomy syndrome, not elsewhere classified (principal); G89.4 Chronic pain syndrome; Z45.1 Encounter for adjustment and management of infusion pump
CPT/HCPCS: 62370

== ENCOUNTER → 2024-04-11 11:47 | Outpatient (BNVA) | payer MEDICARE, SELFPAY | PROVIDERS: PCP Internal Medicine; Visit Provider Internal Medicine | DX: M96.1 Postlaminectomy syndrome, not elsewhere classified (principal); G89.4 Chronic pain syndrome; Z45.1 Encounter for adjustment and management of infusion pump | CPT/HCPCS: 62370 ==

== ENCOUNTER 2024-06-08 12:50 | Outpatient (AMB) | payer MEDICARE, SELFPAY ==
--- NOTE | 2024-06-08 12:51 | MHC.OFFVIS ---
Vital Signs 06/08/24 12:55 Height 4 ft 10 in Weight 113 lb BMI 23.6 BP 141/65 H Blood Pressure Location Lt brachial Position Sitting Respiration 16 Pulse 77 Pulse Source Pulse Oximeter Pulse Oximetry (%) 93 Oxygen Delivery Method Nasal Cannula Intake Visit Reasons: Pump refill Allergies No Known Allergies Allergy (Verified 06/08/24 12:56) Medication List - Last Reconciled 06/08/24 by Ramila Belle LPN albuterol sulfate 90 mcg/actuation inhalation atorvastatin 20 mg PO DAILY biotin 10,000 mcg PO DAILY vfblvzerqj-oojldzpa-pdghpakhgf 160-9-4.8 mcg/actuation (Breztri Aerosphere) inhalations inhalation clopidogrel 75 mg PO DAILY duloxetine 60 mg PO DAILY folic acid 0.8 mg PO DAILY gabapentin 600 mg PO TID latanoprost 0.005% drps ophthalmic (eye) mirtazapine 45 mg PO BEDTIME mirtazapine mg PO multivitamin (Daily Multi-Vitamin tablet) 1 tab PO DAILY tramadol 50 mg PO NEEDED HPI Comments Details: Vania came today to my office for the medication exchange in her intrathecal pain pump. She does not complain on increase level of pain. The intrathecal pain pump refill is as below. Prior: very pleasant 77 years old female who recently moved to [place] from [facility]. History of postlaminectomy syndrome. The pump was implanted 1 year ago. [facility] Social History Patient Tobacco Use Status: Never used Tobacco Review of Systems Const All systems reviewed & are unremarkable except as noted in HPI and below Physical Exam Vital Signs: Last Vital Signs Pulse 77 06/08/24 12:55 Resp 16 06/08/24 12:55 BP 141/65 H 06/08/24 12:55 Pulse Ox 93 06/08/24 12:55 Oxygen Delivery Method Nasal Cannula 06/08/24 12:55 BMI result Body Mass Index 23.6 Const General: cooperative, comfortable and no acute distress Nutritional Appearance: thin and underweight Orientation/consciousness: patient oriented x3 Chest Chest palpation & inspection: normal inspection of the chest Resp Effort & Inspection: not able to speak in complete sentences, abnormal respiratory pattern, decreased respiratory effort, grunting, labored and nasal flaring Cardio Jugular venous distension: no JVD GI Other: Inspection of the patient's abdomen she has left-sided implanted intrathecal drug delivery system pain pump the scar of implantation is very well-healed. There is no swelling in the area of the pain pump. Back/Spine/Pelvis Other: There is 1 very long incision in the projection of the approximately L3-L4 L5 and S1 lumbar vertebra spinous processes of this patient's back. There also to incisions of iliac crest harvesting on bilaterally from the incision. There is also severe tenderness on palpation in the projection of the L4-5 S1 lumbar vertebras Neuro General: patient oriented x3 Assessment & Plan Assessment & Plan (1) Postlaminectomy syndrome: Code(s): M96.1 - Postlaminectomy syndrome, not elsewhere classified Category: Medical (2) Chronic pain syndrome: Code(s): G89.4 - Chronic pain syndrome Category: Medical Plan: The patient did not want Prialt as a part of her therapy. She does not complain on worsening of the pain in the continuous treatment with morphine and bupivacaine. Her PTM device is disconnected. (3) COPD (chronic obstructive pulmonary disease): Code(s): J44.9 - Chronic obstructive pulmonary disease, unspecified Category: Medical Plan ? Intrathecal pump refill. The patient came today in the office FOR THE CHANGE OF THE MEDICATION IN her PAIN PUMP. The name and date of were verified and informed consent was obtained for the procedure. The pump was interrogated and the residual amount of fluid was found to be 7.5 mL. She was positioned prone on the bed AND THE AREA OF THE INTRATHECAL PUMP WAS PREPPED WITH CHLORAPREP. The fenestrated drape was sterilely applied over the area of the pump. Sterile gloves were worn and of the aspiration system was assembled containing 2 in 22 gauge noncoring needle, the needle was connected to extension tubing which was connected to the 20 cc sterile syringes. The pain pump was palpated under the skin in the patient's left abdominal area. The needle was inserted through the skin and the central plug of the pain pump and fluid was aspirated. The clear fluid was going into the syringe the total amount of the fluid was 10 mL .. After that a new batch? of medication was obtained which was containing morphine 10 milligrams/mL and bupivacaine 20 milligrams/mL . The syringe was connected to the bacterial filter, and then connected to the extension tubing. After that the medication in the syringe was slowly instilled into the pump with aspirations at 15 and 5 cc soriano.? The pump was reprogrammed for the doses of morphine 5.608 mg per day with corresponding dose of bupivacaine of 11.216 mg per day. Coding Level of Care Code Est Pt Level 3 (76161) Procedure Only Diagnoses Postlaminectomy syndrome M96.1 Chronic pain syndrome G89.4 COPD (chronic obstructive pulmonary disease) J44.9
[2024-06-08 12:55] VITALS: BP 141/65; PULSE 77; RESP 16; O2SAT 93; BMI 23.6
== END 2024-06-08 13:22 | disposition home or self-care (01) ==
PROVIDERS: PCP Internal Medicine; Visit Provider Anesthesiology
DX: G89.4 Chronic pain syndrome (principal); M96.1 Postlaminectomy syndrome, not elsewhere classified; J44.9 Chronic obstructive pulmonary disease, unspecified; Z45.1 Encounter for adjustment and management of infusion pump
CPT/HCPCS: 62370; 99213

== ENCOUNTER → 2024-06-08 12:50 | Outpatient (BNVA) | payer MEDICARE, SELFPAY | PROVIDERS: PCP Internal Medicine; Visit Provider Anesthesiology | DX: Z45.1 Encounter for adjustment and management of infusion pump (principal); M96.1 Postlaminectomy syndrome, not elsewhere classified; G89.4 Chronic pain syndrome; J44.9 Chronic obstructive pulmonary disease, unspecified | CPT/HCPCS: 62370; 99212 ==

== ENCOUNTER 2024-08-15 13:28 | Outpatient (AMB) | payer MEDICARE, SELFPAY ==
--- NOTE | 2024-08-15 13:59 | MHC.OFFVIS ---
Vital Signs 08/15/24 14:00 Height 4 ft 10 in Weight 111 lb BMI 23.2 BP 158/70 H Blood Pressure Location Lt brachial Position Sitting Pulse 85 Pulse Source Pulse Oximeter Pulse Oximetry (%) 95 Oxygen Delivery Method Nasal Cannula Oxygen Flow Rate 2 Intake Visit Reasons: ITDD refill Intake Note: Pain today Bilingual Speech Therapist Required: No Accompanied by: Self / Same As Patient Allergies No Known Allergies Allergy (Verified 08/15/24 14:00) HPI Comments Details: Vania came today to my office for the medication exchange in her intrathecal pain pump. She does not complain on increase level of pain. The intrathecal pain pump refill is as below. Today she expressed concern that she is running low on her medication. I do not mind to see her days earlier to prevent this from happening. For example today the pump refill will be scheduled 10/21/2024 instead I will invite her refill the pump on 10/17/2024. Prior: very pleasant 77 years old female who recently moved to [place] from [facility]. History of postlaminectomy syndrome. [facility] Social History Patient Tobacco Use Status: Never used Tobacco Review of Systems Const All systems reviewed & are unremarkable except as noted in HPI and below Physical Exam Vital Signs: Last Vital Signs Pulse 85 08/15/24 14:00 BP 158/70 H 08/15/24 14:00 Pulse Ox 95 08/15/24 14:00 Oxygen Delivery Method Nasal Cannula 08/15/24 14:00 Oxygen Flow Rate 2 08/15/24 14:00 BMI result Body Mass Index 23.2 Const General: cooperative, comfortable and no acute distress Nutritional Appearance: thin and underweight Orientation/consciousness: patient oriented x3 Chest Chest palpation & inspection: normal inspection of the chest Resp Effort & Inspection: not able to speak in complete sentences, abnormal respiratory pattern, decreased respiratory effort, grunting, labored and nasal flaring Cardio Jugular venous distension: no JVD GI Other: Inspection of the patient's abdomen she has left-sided implanted intrathecal drug delivery system pain pump the scar of implantation is very well-healed. There is no swelling in the area of the pain pump. Back/Spine/Pelvis Other: There is 1 very long incision in the projection of the approximately L3-L4 L5 and S1 lumbar vertebra spinous processes of this patient's back. There also to incisions of iliac crest harvesting on bilaterally from the incision. There is also severe tenderness on palpation in the projection of the L4-5 S1 lumbar vertebras Neuro General: patient oriented x3 Assessment & Plan Assessment & Plan (1) Postlaminectomy syndrome: Code(s): M96.1 - Postlaminectomy syndrome, not elsewhere classified Category: Medical (2) Chronic pain syndrome: Code(s): G89.4 - Chronic pain syndrome Category: Medical Plan: Continue as previous doses of the morphine and bupivacaine. Continue with the same concentration. Next pump refill is 10/17/2024. (3) COPD (chronic obstructive pulmonary disease): Code(s): J44.9 - Chronic obstructive pulmonary disease, unspecified Category: Medical Plan ? Intrathecal pump refill. The patient came today in the office FOR THE CHANGE OF THE MEDICATION IN her PAIN PUMP. The name and date of were verified and informed consent was obtained for the procedure. The pump was interrogated and the residual amount of fluid was found to be 1.5 mL. She was positioned prone on the bed AND THE AREA OF THE INTRATHECAL PUMP WAS PREPPED WITH CHLORAPREP. The fenestrated drape was sterilely applied over the area of the pump. Sterile gloves were worn and of the aspiration system was assembled containing 2 in 22 gauge noncoring needle, the needle was connected to extension tubing which was connected to the 20 cc sterile syringes. The pain pump was palpated under the skin in the patient's left abdominal area. The needle was inserted through the skin and the central plug of the pain pump and fluid was aspirated. The clear fluid was going into the syringe the total amount of the fluid was 5.5 mL .. After that a new batch? of medication was obtained which was containing morphine 10 milligrams/mL and bupivacaine 20 milligrams/mL . The syringe was connected to the bacterial filter, and then connected to the extension tubing. After that the medication in the syringe was slowly instilled into the pump with aspirations at 15 and 5 cc soriano.? The pump was reprogrammed for the doses of morphine 5.608 mg per day with corresponding dose of bupivacaine of 11.216 mg per day. Coding Level of Care Code Est Pt Level 3 (85559) Procedure Only Diagnoses Postlaminectomy syndrome M96.1 Chronic pain syndrome G89.4 COPD (chronic obstructive pulmonary disease) J44.9
[2024-08-15 14:00] VITALS: BP 158/70; PULSE 85; O2SAT 95; BMI 23.2
--- OUTSIDE RECORDS SUMMARY | 2024-08-15 18:13 | XMS_ITS | Referral Summary ---
Author Organization [facility] Address [address] [place] [address] Care Team Providers Care Grinder Set Up Operator Gear Tool Name Role Phone Sophie Parikh MD Primary Care Provider [phone] Encounters Date Type Department Care Team Description 07/04/2024 2:00 PM EST Office Visit [facility] [address] [place] [address] [phone] Angela Andrews MD Chronic pain syndrome (Primary Dx); Chronic obstructive pulmonary disease, unspecified COPD type (HCC); Impaired mobility from Last 3 Months Medications No known medications Active Problems Problem Noted Date Diagnosed Date Chronic pain syndrome 07/04/2024 COPD (chronic obstructive pulmonary disease) Impaired mobility 07/04/2024 Social History Tobacco Use Types Packs/Day Years Used Date Smoking Tobacco: Never Assessed Comments Unknown Sex and Gender Information Value Date Recorded Sex Assigned at Female 02/23/2024 12:04 PM EDT Legal Sex Female 12:01 PM EDT Gender Identity Female 05/11/2024 10:42 AM EDT Sexual Orientation Not on file Last Filed Vital Signs Vital Sign Reading Time Taken Comments Blood Pressure 151/55 07/04/2024 3:33 PM EST Pulse 87 07/04/2024 3:33 PM EST Temperature - - Respiratory Rate - - Oxygen Saturation - - Inhaled Oxygen Concentration - - Weight - - Height - - Body Mass Index - - Plan of Treatment Not on file Insurance MEDICARE [facility] MCR SUPP AARP Care Teams Grinder Set Up Operator Gear Tool Relationship Specialty Start Date End Date Sophie Parikh MD [address] [place] [phone] PCP - General 02/23/24
--- OUTSIDE RECORDS SUMMARY | 2024-08-15 18:13 | XMS_ITS | Clinical Summary ---
Author Organization [facility] Address [address] [place] [address] Care Team Providers Care Business Office Technology Instructor Name Role Phone Sophie Parikh MD Primary Care Provider [phone] Medications No known medications Active Problems Problem Noted Date Diagnosed Date Chronic pain syndrome 07/04/2024 COPD (chronic obstructive pulmonary disease) Impaired mobility 07/04/2024 Encounters Date Type Department Care Team Description 07/04/2024 2:00 PM EST Office Visit [facility] [address] [place] [address] [phone] Angela Andrews MD Chronic pain syndrome (Primary Dx); Chronic obstructive pulmonary disease, unspecified COPD type (HCC); Impaired mobility from Last 3 Months Social History Tobacco Use Types Packs/Day Years [...] Mass Index - - Plan of Treatment Health Maintenance Due Date Last Done Comments Hepatitis C Screening 1945 Pneumococcal Vaccine: 65+ Ye ars (1 of 2 - PCV) 1952 DTaP,Tdap,and Td Vaccines (1 - Tdap) 1968 Osteoporosis Screening 1996 Zoster Vaccines (1 of 2) 1996 RSV Vaccine (60+ years old a nd patients) (1 - 1-dose 75+ series) 2021 COVID-19 Vaccine (1 - 2023-2 5 season) 2024 Influenza Vaccine (#1) 2024 Alcohol/Substance Use Screening 07/20/2024 Depression Screening and Follow-Up 07/20/2024 Health Care Proxy Review 07/20/2024 Social Drivers of Health Tiffanie ual Screening 07/20/2024 Hepatitis B Vaccines Aged Out No long er eligible based on patient's age to complete this topic Insurance MEDICARE [facility] Care Teams Business Office Technology Instructor Relationship Specialty Start Date End Date Sophie Parikh MD [address] [place] [address] [phone] PCP - General 02/23/24
--- OUTSIDE RECORDS SUMMARY | 2024-08-15 18:14 | XMS_ITS | Data Portability ---
Author Organization [facility] [employer], [employer] Address [address] [place] [address] [place] [address] Care Team Providers Care Director Of Instrumental Music Name Role Phone DANIELLE WATERS Primary Care Provider [phone] Assessment Encounter Date Assessment Date Assessment LastModified by Organization Details LastModified Time 2023 2023 IMPRESSION: Possible myelopathy as explanation of: ? Summer 2022 gradual onset of sensory abnormality in the lower part of her body, first with prickly and soon after with numbness, starting distally but since progressing and now intermittently all the way up to her lateral hip and inferior abdomen. Medications per patient: Morphine infusion Wolfram pouch in her left abdomen; atorvastatin 20 mg daily, clopidogrel 75 mg daily, duloxetine 60 mg daily, gabapentin 600 mg tablet, eyedrops, mirtazapine 30 mg daily. Amoxicillin. Thoracic myelopathy would explain symptoms that came up all the way to inferior abdomen. With this proximal progression, even high lumbar stenosis could not explain all the symptoms. In addition, reflexes are quite brisk at the knees and there is mild crossed adductors. As this is all symmetric, this is not pathological but it is more consistent with a myelopathic abnormality that lower motor neuron abnormality that might come from neuropathy or lumbar pathology affecting nerve roots. She cannot have MRI, she says, because of her morphine pouching her left lower abdomen. We will get CT of the thoracic spine and appropriate blood work for metabolic myelopathy, therefore. We will get contrast to identify mass or inflammatory abnormality that might otherwise be occult to CT imaging. The differential also includes tingling discomfort that may arise from chronic morphine treatment. This is a diagnosis of exclusion at this time. >>>>>>>>>>>> PLAN Vania Michellenar 2023 CT C-spine with and without contrast with concern for thoracic myelopathy with sensory changes symmetrically worsening, now to lower abdomen, brisk reflexes, history of lumbar stenosis, chronic lower back pain pain with morphine pouch and abdomen? and so per patient MRI contraindicated; no middle back or neck pain. Laboratories for metabolic myelopathy as detailed below Follow-up after studies mrossen Not available 2023 19:29:51 04/26/2024 04/26/2024 IMPRESSION: Possible myelopathy as explanation of: ? Summer 2022 gradual onset of sensory abnormality in the lower part of her body, first with prickly and soon after with numbness, starting distally but since progressing and now intermittently all the way up to her lateral hip and inferior abdomen. Medications per patient, 2023 : Morphine infusion Wolfram pouch in her left abdomen; atorvastatin 20 mg daily, clopidogrel 75 mg daily, duloxetine 60 mg daily, gabapentin 600 mg tablet, eyedrops, mirtazapine 30 mg daily. Amoxicillin. >>>>>>>>>>>>DATA REVIEW >>>>>>IMAGING CT thoracic spine with and without contrast, March 03, 2024, per dictation Dr. Nancy Ortiz [facility] neuroradiology: Multilevel degenerative changes without acute fracture or high-grade or significant stenosis. No abnormality is seen in the partially visualized upper thoracic posterior fusion hardware. There is no abnormal enhancement. Note is made of narrowing of trachea suggestive of tracheomalacia. >>>>>>LABORATORIE S March 31, 2024 & April 07, 2024: Copper 92? normal, Lyme IgG and IgM antibodies negative, vitamin B12 greater than 2000, homocysteine 5.9, MMA 0.24, vitamin E11.6? normal, CMP without relevant abnormalities, iron studies normal, TSH 0.98, CBC with borderline low WBC, hematocrit, MCV high? 103.5. >>>>>>COGNITION >>>>>>>>>>>>END DATA REVIEW >>>>>>>>>>>>Octob er 2023 There is no relevant or concerning abnormality on CT thoracic spine and this is discussed. There is no relevant abnormality on the lab work. I defer CBC abnormalities And a possible tracheomalacia to primary care. Thoracic myelopathy therefore becomes on likely. Cervical myelopathy is still in the differential. I offered return for additional imaging, CT cervical spine with and without contrast. To review, because of her morphine pouch, she cannot have MRI studies. She accepts the CT cervical spine. If CT cervical spine is again unrevealing, myelopathy is not excluded. There remains the possibility of a nonenhancing mass occult to CT imaging. As MRI is not feasible, the only option to look for this would be myelogram. The studies, typically do not do by neurosurgery, occasionally by radiology, are not comfortable. I am not clear that such intervention would be worth the morbidity of the investigation given that we are just investigating sensory abnormality, not weakness. This can be discussed at a follow-up if it becomes an issue. Morphine chronic treatment may cause tingling discomfort. This remains a diagnosis of exclusion. Chronic lumbar radiculopathy may certainly cause lower extremity tingling/numbness but cannot because such symptoms extending to the abdomen as with this patient and would cause decreased reflexes, not the increased reflexes that she has. Small fiber neuropathy is in the differential. Again this would not explain the patient's increased reflexes. Yet, skin biopsy could be considered and this has minimal morbidity. >>>>>>>>>>>>2023 Inititial diagnostic pathway Thoracic myelopathy would explain symptoms that came up all the way to inferior abdomen. With this proximal progression, even high lumbar stenosis could not explain all the symptoms. In addition, reflexes are quite brisk at the knees and there is mild crossed adductors. As this is all symmetric, this is not pathological but it is more consistent with a myelopathic abnormality that lower motor neuron abnormality that might come from neuropathy or lumbar pathology affecting nerve roots. She cannot have MRI, she says, because of her morphine pouching her left lower abdomen. We will get CT of the thoracic spine and appropriate blood work for metabolic myelopathy, therefore. We will get contrast to identify mass or inflammatory abnormality that might otherwise be occult to CT imaging. The differential also includes tingling discomfort that may arise from chronic morphine treatment. This is a diagnosis of exclusion at this time. >>>>>>>>>>>> KAYLA Vaniatelly Castellanos April 26, 2024 CT C-spine with and without contrast with concern for cervical myelopathy with sensory changes symmetrically worsening, now to lower abdomen, brisk reflexes, history of lumbar stenosis, chronic lower back pain pain with morphine pouch and abdomen? and so per patient MRI contraindicated; no middle back or neck pain. Folate is pending; I will investigate Follow-up after studies mrossen Not available 04/26/2024 12:17:54 06/15/2024 06/15/2024 IMPRESSION: Possible myelopathy as explanation of: ? Summer 2022 gradual onset of sensory abnormality in the lower part of her body, first with prickly and soon after with numbness, starting distally but since progressing and now intermittently all the way up to her lateral hip and inferior abdomen. Medications per patient, 2023 : Morphine infusion Wolfram pouch in her left abdomen; atorvastatin 20 mg daily, clopidogrel 75 mg daily, duloxetine 60 mg daily, gabapentin 600 mg tablet, eyedrops, mirtazapine 30 mg daily. Amoxicillin. >>>>>>>>>>>>DATA REVIEW >>>>>>IMAGING >>>CT C-spine with contrast to assess for potential cord compression, May 23, 2024, per dictation Dr. Phill Hedrick, neuroradiology: Degenerative changes of the cervical spine without significant central canal narrowing or suspected cord compression. Multilevel foraminal stenoses are present, which can be correlated with the patient's symptoms and neurological examination. Degenerative changes include at least moderate right C5-6 foraminal stenosis and no other changes more than moderate and foraminal narrowing, and no central spinal canal narrowing at all. Please see that dictation for details. >>>CT thoracic spine with and without contrast, March 03, 2024, per dictation Dr. Nancy Ortiz [facility] neuroradiology: Multilevel degenerative changes without acute fracture or high-grade or significant stenosis. No abnormality is seen in the partially visualized upper thoracic posterior fusion hardware. There is no abnormal enhancement. Note is made of narrowing of trachea suggestive of tracheomalacia. >>>>>>LABORATORIE S March 31, 2024 & April 07, 2024: Copper 92? normal, Lyme IgG and IgM antibodies negative, vitamin B12 greater than 2000, homocysteine 5.9, MMA 0.24, vitamin E11.6? normal, CMP without relevant abnormalities, iron studies normal, TSH 0.98, CBC with borderline low WBC, hematocrit, MCV high? 103.5. >>>>>>COGNITION >>>>>>>>>>>>END DATA REVIEW >>>>>>>>>>>>Novem [address] spine, and thoracic spine CT previously both providing no answer for her lower body sensory symptoms, the differential is not remote from the neurological perspective: Small fiber exclusive neuropathy versus side effect from morphine. Skin biopsy may diagnose small fiber neuropathy. We discussed the procedure and brought brush? I would defer the details of such a discussion to the general surgeon to whom I refer such cases. She wants to know what the outcome could be if it is abnormal and particularly if there would be something dangerous. We discussed that only one outcome would be dangerous and this is extremely rare (I have never encountered a case investigating her neuropathy): Systemic amyloidosis. Otherwise, outcome would be just a yes or no as to whether there was a small fiber neuropathy present. If the answer was yes, this would quite possibly correlate with her symptomatology. I would then check additional blood work to what I have already sent for systemic issues that could relate: Sjogren's syndrome, vitamin B6. Of note, she has no dry eyes or dry mouth. At this point, I defer to primary care for such directions of laboratory assay. The only additional management direction indicated from small fiber neuropathy diagnosis would be the indication for symptomatic treatment for neuropathic discomfort. Two of her medications are already at fairly large although not maximum doses for neuropathic pain: Gabapentin and duloxetine. Increases of these medications are trials up other medications similarly indicated would be on the table in such an eventuality. After this discussion, she declines skin biopsy but understands that if she changes her mind in the next few days, I can order that without her coming back to the office. >>>>>>>>>>>>Octob er 2023 There is no relevant or concerning abnormality on CT thoracic spine and this is discussed. There is no relevant abnormality on the lab work. I defer CBC abnormalities And a possible tracheomalacia to primary care. Thoracic myelopathy therefore becomes on likely. Cervical myelopathy is still in the differential. I offered return for additional imaging, CT cervical spine with and without contrast. To review, because of her morphine pouch, she cannot have MRI studies. She accepts the CT cervical spine. If CT cervical spine is again unrevealing, myelopathy is not excluded. There remains the possibility of a nonenhancing mass occult to CT imaging. As MRI is not feasible, the only option to look for this would be myelogram. The studies, typically do not do by neurosurgery, occasionally by radiology, are not comfortable. I am not clear that such intervention would be worth the morbidity of the investigation given that we are just investigating sensory abnormality, not weakness. This can be discussed at a follow-up if it becomes an issue. Morphine chronic treatment may cause tingling discomfort. This remains a diagnosis of exclusion. Chronic lumbar radiculopathy may certainly cause lower extremity tingling/numbness but cannot because such symptoms extending to the abdomen as with this patient and would cause decreased reflexes, not the increased reflexes that she has. Small fiber neuropathy is in the differential. Again this would not explain the patient's increased reflexes. Yet, skin biopsy could be considered and this has minimal morbidity. >>>>>>>>>>>>2023 Inititial diagnostic pathway Thoracic myelopathy would explain symptoms that came up all the way to inferior abdomen. With this proximal progression, even high lumbar stenosis could not explain all the symptoms. In addition, reflexes are quite brisk at the knees and there is mild crossed adductors. As this is all symmetric, this is not pathological but it is more consistent with a myelopathic abnormality that lower motor neuron abnormality that might come from neuropathy or lumbar pathology affecting nerve roots. She cannot have MRI, she says, because of her morphine pouching her left lower abdomen. We will get CT of the thoracic spine and appropriate blood work for metabolic myelopathy, therefore. We will get contrast to identify mass or inflammatory abnormality that might otherwise be occult to CT imaging. The differential also includes tingling discomfort that may arise from chronic morphine treatment. This is a diagnosis of exclusion at this time. >>>>>>>>>>>> KAYLA Castellanos June 15, 2024 I remain without the results of the folate assay that I sent initially, summer 2023. At this point I defer to primary care on that issue. We agree that she will follow-up as needed, As detailed above. [email or web address] Not available 06/15/2024 12:50:25 Plan of Treatment Reminders Order Date Submit Date Provider Last Modified By Organization Details Last Modified Time Details Appointments None recorded. Lab vitamin B12, serum 2023 [address] , [place], [address], 16:40:51 folate, serum 2023 [address]24 vlefebvre [address] [place], [address], 16:40:51 mma (methylmalo brian acid), serum - lab code [id number], if [facility] 2023 024 vle[address] [place], [address], 16:40:51 homocystein e, serum or plasma 2023 024 vlefebvre [address] [place], [address], 4 16:40:51 lyme antibody screen, EIA/joaquin, serum - A69.20Labco r [id number]= Lyme Antibodies, Modified 2-Tier Testing Profile, Serum / Plasma 2023 024 vlefebvre [address] [place], [address], 16:40:51 vitamin E, serum - E56.0 2023 024 vlefebvre [address] [place] [address] [place], [address], 16:40:52 copper, serum or plasma - E83.00 2023 024 vlefebvre [address] [place], [address], 4 16:40:51 Referral None recorded. Procedures None recorded. Surgeries None recorded. Imaging CT, thoracic spine, w/wo contrast - CT C-spine with and without contrast with concern for thoracic myelopathy with sensory changes symmetrical ly worsening, now to lower abdomen, brisk reflexes, history of lumbar stenosis, chronic lower back pain pain with morphine pouch and abdomen? and so per patient MRI contraindic ated; no middle back or neck pain. 2023 024 vlefebvre 1 [facility] [address] [place], [address], 4 16:37:27 CT, cervical spine, w/wo contrast - CT C-spine with and without contrast with concern for cervical myelopathy with sensory changes symmetrical ly worsening, now to lower abdomen, brisk reflexes, history of lumbar stenosis, chronic lower back pain pain with morphine pouch and abdomen? and so per patient MRI contraindic ated; no middle back or neck pain. CT T-spine unrevealing . 2023 024 [email or web address] 1 [facility] [address] [place], [address], 5 15:05:12 Medication Orders None recorded. Patient TargetsNo targets recorded. Patient Instructions Encounter Date Encounter Id Patient Instructions Last Modified By Organization Details Last Modified Time 2023 [id number] Discussion acros s issues of diagnoses and management and same day associated chart review and management greater than 50% greater than 90 minutes [email or web address] Not available 2023 19:29:59 04/26/2024 [id number] Discussion acros s issues of diagnoses and management and same day associated chart review and management greater than 50% greater than 40 minutes [email or web address] Not available 04/26/2024 12:17:39 06/15/2024 [id number] Discussion acros s issues of diagnoses and management and same day associated chart review and management greater than 50% greater than 40 minutes [email or web address] Not available 06/15/2024 12:17:59 Reason for Referral None Reported. Results Created Date Observation Date Name Description Value Unit Range Abnormal Flag Note LastModifiedBy Organization Detail LastModifiedTime 04/14/2004/14/2024 lab* homocysteine 5.9 Not Astrid ilable [facility] [address] [place], [address], 04/19/2024 08:42:16 04/14/2004/14/2024 lab* copper 92 Not Available [facility] [address] [place], [address], 04/19/2024 08:42:16 04/14/20 24 04/14/2024 lab* lyme Ab IgG neg Not [facility] [address] [place], [address], 04/19/2024 08:42:16 04/14/20 24 04/14/2024 lab* lyme Ab IgM neg [facility] [address] [place], [address], 04/19/2024 08:42:16 04/14/20 24 04/14/2024 lab* B12 >2000 Not Available [facility] [address] [place], [address], 04/19/2024 08:42:16 04/14/20 24 04/14/2024 lab* mma .24 Not Available [facility] [address] [place], [address], 04/19/2024 08:42:16 04/14/20 24 04/14/2024 lab* vit E 11.6 Not Available [facility] [address] [place], [address], 04/19/2024 08:42:16 04/14/20 24 04/14/2024 lab* TSH .99 Not Available [facility] [address] [place], [address], 04/19/2024 08:42:16 04/14/20 24 04/14/2024 lab* complete metabolic panel Not Available [facility] [address] [place] [address], [address], 04/19/2024 08:42:16 03/03/20 24 03/03/2024 CT thora cic spine W+w/o contr ast CT Thorac ic Spine W+W/O Contra st INDICA TION: Reason : M51.4 THORAC IC PAIN; Clinic al [facility](s): Other TECHNI QUE: Spiral CT of the thorac ic spine was perfor med before and after the admini strati on of intrav enous contra st. Bone and soft tissue algori thms were recons tructe d along with carrera l and sagitt al comput ations . 100 cc of Omnipa que 300 was admini stered intrav enousl y. Weight -based protoc ol using automa tic tube modula tion was used to optimi ze exposu re parame ters. RADIAT ION DOSE PARAME TERS: CTDIvo l Body: 9.43 mGy, DLP Body: 672 mGy*cm . COMPAR LOGAN: None. FINDIN GS: Spine: A cathet er is in place in the spinal canal, with tip locate d dorsal ly at the level of T10, and visual ized in the electric distribution checker ior and left thecal sac to at least level of L2, extend ing below the field of view There is mild diffus e osteop enia. No acute fractu re line or suspic ious bony lesion is seen. There is mild loss of height of the T10 verteb ral body associ ated with superi or and inferi or endpla te Schmor l's nodes, as well as mild superi or endpla te concav ity of T11 and T12 associ ated with Schmor l's nodes. Verteb ral body height s are otherw ise preser dewayne. There is mild upper thorac ic levoco nvex curvat ure in mild dextro convex curvat ure in the lower thorac ic spine. In the sagitt al plane, there is minima l stairs tep retrol isthes is betwee n T10 and T12. There is partia l visual izatio n of upper thorac ic electric distribution checker ior fusion hardwa re. The visual ized pedicl e screws at L1-L2 demons trate no peripr osthet ic lucenc y or fractu re. There is multil evel modera te to severe loss of disc space throug hout the thorac ic spine, with vacuum disc phenom enon noted at T8-9, T10-11 , T11-12 , and T12-L1 . There is sclero sis the opposi ng endpla radha at T12-L1 . Scatte red mild electric distribution checker ior disc osteop hyte are presen t, but there is no signif icant spinal stenos is at any level in the lumbar spine. No abnorm al mass enhanc ement is seen in the spinal canal or parasp inal soft tissue s. Soft tissue s: No acute abnorm ality in the parave rtebra l soft tissue s. There is a cresce ntic shape of the trache a with narrow ing in AP diamet er, sugges tive of trache omalac ia. Lungs are somewh at blurre d by respir atory motion , with modera te to marked emphys ematou s change in the apices as well as mild depend ent atelec tasis. Severa l low-de nsity lesion s compat ible with cysts are presen t in the visual ized liver. Modera te athero sclero tic calcif icatio n of the visual ized aorta is noted. There is also at least modera te calcif icatio n of the carrera ry arteri es. Remain ing visual ized parasp inal soft tissue s are unrema rkable . IMPRES VU: Multil evel degene rative change s of the thorac ic spine as detail ed above. No eviden ce of acute fractu re or high-g rade stenos is. WSN: [id number] Orderi ng Physic regis: Toni Morrow Dictat ed By: Freddy Ortiz MD Dictat ed Date/T mimi: 4:34 pm Review ed By: Freddy Ortiz MD Signed By: Freddy Ortiz MD Signed Date/T mimi: 4:34 pm Transc ribed By: KRISTIE Transc ribed Date/T mimi: 3:41 pm Patien t Class: 101 [email or web address] [facility]) [address] , [place], [address], 03/08/2024 10:11:01 05/25/20 24 05/23/2024 CT, cervi julius spine , w/ contr ast HISTOR Y: Reason : M50.02 1 CERVIC AL DISK DISORD ER AT C4 C5 LEVEL WITH MYELOP ATHY; [facility](s): Other: TECHNI QUE: A contra st-enh anced multid etecto r helica l CT scan of the cervic al spine was perfor med after the admini strati on of 100 cc of Omnipa que 300. Multip lanar recons tructi ons were genera mihcael and review ed. Dose reduct ion techni que was utiliz ed. COMPAR LOGAN: No prior studie s are availa ble for compar logan at the time of interp retati on. FINDIN GS: There is revers al of the cervic al lordos is with degene rative pili listhe sis of C4 on C5 measur ing 3.6 mm and C5 on C6 measur ing 2.5 mm. Slight degene rative pili listhe sis of C7 on T1 is also noted. The cervic al verteb ral bodies are normal in height . No perche d or jumped facets . The occipi minh condyl es and dens are intact , and there is no atlant odenta l interv al wideni ng. Severe loss of height of C6-C7 with margin al spurri ng and mild discog enic sclero sis. Modera te loss of height at C4-C5 and C5-C6. Margin al osteop hytes and facet arthro ses are presen t at multip le levels . The cervic al spinal canal is widely patent . No intras braeden enhanc ement is suspec michael. The parasp inal soft tissue s are unrema rkable . Emphys ematou s change s of the visual ized lungs. Mosaic attenu ation of the right lung apex may repres ent air trappi ng. C2-C3: Facet arthro sis. No centra l canal or forami nal stenos is. C3-C4: Mild broad- based electric distribution checker ior disc-o steoph yte comple x and facet arthro sis. No signif icant centra l canal narrow ing. Mild-m oderat e right and mild left forami nal narrow ing. C4-C5: Degene rative pili listhe sis and facet arthro sis. No centra l canal stenos is. Probab le modera te right and mild left forami nal stenos is. C5-C6: Mild degene rative pili listhe sis. No signif icant centra l canal narrow ing. At least modera te right and mild left forami nal stenos is. C6-C7: Concen tric margin al spurri ng. No centra l canal stenos is. Probab le mild right and mild to mild-m oderat e left forami nal narrow ing. C7-T1: Mild degene rative pili listhe sis. Facet arthro sis. No centra l canal stenos is. Mild forami nal narrow ing. IMPRES VU: Degene rative change s of the cervic al spine withou t signif icant centra l canal narrow ing or suspec michael cord compre ssion. Multil evel forami nal stenos es are presen t, which can be correl ated with the patien t's sympto ms and [facility] WSN: [id number] Orderi ng Physic regis: Toni Morrow Dictat ed By: Phill Hedrick MD Dictat ed Date/T mimi: 3:21 pm Review ed By: Phill Hedrick MD Signed By: Phill Hedrick MD Signed Date/T mimi: 3:21 pm Transc ribed By: KRISTIE Transc ribed Date/T mimi: 3:12 pm Patien t Class: 101 [facility] ([facility]) [address] [place], [address], 05/30/2024 10:54:37 Result Notes None recorded. Procedures Surgical History None recorded. Imaging Results Imaging Date Name Status [facility]Modified by [facility] Details LastModified Time 03/03/2024 CT thoracic spine W+w/o contrast completed [email or web address] (Outpt Imaging) [address] [place], [address], 03/08/2024 10:11:01 05/23/2024 CT, cervical spine, w/ contrast completed [facility] (Outpt Imaging) [address] [place], [address], 05/30/2024 10:54:37 Procedure Notes None recorded. Medical Equipment None Reported. Allergies No known drug allergies Medications Name Sig Start Date Stop Date Status Note LastModified by Organization Details LastModified Time amoxicillin 500 mg capsule active Not Available Not Available N ot Available latanoprost 0.005 % eye drops active Not Available Not Available Not Available gabapentin 600 mg tablet active Not Available Not Available No t Available atorvastatin 20 mg tablet active Not Available Not Available No t Available acetaminophen 300 mg-codeine 30 mg tablet active Not Available Not Available Not Available clopidogrel 75 mg tablet active Not Available Not Available No t Available amoxicillin 500 mg tablet active Not Available Not Available No t Available mirtazapine 30 mg tablet active Not Available Not Available No t Available albuterol sulfate HFA 90 mcg/actuation aerosol inhaler active Not Available Not Availa ble Not Available duloxetine 60 mg capsule,delayed release active Not Available Not Available Not Available Vitals Date Recorded Body height Body mass index (BMI) Body weight Respiratory rate Provider Name and Address Organization Details Last Updated DateTime 2023 154.94 cm 21.2 kg/m2 12926.35 g 12 /min June Lebron [facility] 2023 16:16:31 Social History Question Answer Notes LastModified by Organizat ion Details LastModified Time Tobacco Smoking Status Former Smoker June Lebron [facility] 2023 16:17:13 What Is Your Level Of Alcohol Consumption? None Information not available 2023 What Is Your Level Of Caffeine Consumption? None Information not available 2023 What Is The Highest Grade Or Level Of School You Have Completed Or The Highest Degree You Have Received? [id number] Information not available 2023 Which Of Your Hands Is Dominant? Right Information not available 2023 Sex: Unknown Functional Status None recorded. Mental Status None recorded. Family History Relationship Description Onset Age of this Age Resolved Age Notes LastModified by Organization Details LastModified Time Father Dementia Not available 0 2023 16:16:45 Father Diabetes mellitus Not available 2023 16:16:50 Father Heart disease Not available 2023 16:16:57 Mother Heart disease Not available 2023 16:16:57 Medical History Condition Response Claustrophobia N Hospitalizations N Head Trauma/Injury N High Blood Pressure or Hypertension N Thyroid Problems N Brain Tumors N Depression N Lung Disease N COPD or emphysema Y Encephalitis N Vitamin B12 deficiency N PTSD N Heart Attack (DE) N Spine Problems N Obstructive Sleep Apnea N Alcoholism N Diabetes N Autoimmune disease N Bleeding Disorder N Arthritis N Tuberculosis N Cerebral Palsy N Developmental Problems N Neck Problems N Cancer N Back Problems N Stroke Y Asthma N Heartburn, acid reflux, GERD N Vitamin D Deficiency N Epilepsy/Seizures N Bipolar Disorder N Sleep Disorder N Hepatitis N Aneurysm N Liver Disease N Heart Disease N Headaches N Fibromyalgia N High Cholesterol or Hyperlipidemia N Osteoporosis N Kidney Disease N Gynecological HistoryNo gynecological history recorded. Obstetrics History GPAL:G 0 P 0 0 0 0 Past Encounters Encounter ID Performer Location Encounter Start Date Encounter Closed Date Diagnosis/Indication Diagnosis SNOMED-CT Code Diagnosis ICD10 Code Diagnosis Note [id number] Mike Morrow MD [facility] [address] [place] [address] [place] [address] 2023 14:39:18 01/04/2024 09:45:15 Thoracic disc prolapse with myelopathy 454170693 M51.04 Unsteadiness present 267 496600 R26.81 Vitamin B1 2 deficiency anemia due to dietary causes 699983496 D51.0 Serum chandrakant er level outside reference range 236226386 R79.0 Acute lyme disease 41072 7005 A69.20 [id number] Mike Morrow MD [facility] [address] [place] [address] [place] [phone] 04/26/2024 11:18:37 04/26/2024 12:24:17 Unsteadiness present 322706161 R26.81 Cervical d isc prolapse with myelopathy 452219551 M50.021 [id number] Mike Morrow MD [facility] [address] [place] [address] [place] [address] 06/15/2024 12:02:25 06/15/2024 15:30:51 Unsteadiness present 468280092 R26.81 Cervical d isc prolapse with myelopathy 807517703 M50.021 Health Concerns Section Related Observation LastModified by Organization Detai ls LastModified Time None Recorded Concern Status LastModified by Organization Details LastModified Time None Recorded Advance Directives Directive None Recorded Payers Encounter Date Sequence Insurance Name Policy Number Policy Johnson Covered Member ID Johnson Member ID Guarantor Name [id number] 1 [facility] (MEDICARE REPLACEMENT/A DVANTAGE - PPO) Vania Castellanos [id number] Vania Castellanos 04/26/2024 2 [facility] (HMO) Vania Castellanos [id number] Vania Castellanos 04/26/2024 1 [place] [employer] Vania Castellanos [id number] Vania Castellanos 06/15/2024 1 [place] [employer] Vania Castellanos [id number] Vania Castellanos 06/15/2024 2 [facility] (MEDICARE SUPPLEMENT) Vania Castellanos [id number] Vania Castellanos Notes Date Note Type Note Provider Name and Address Organization Details Recorded Time 2023 text/html >>>>>>>>>>>>2023 presenting symptomotology:Vania Castellanos presents for initial neurology consultation for assessment and management of summer 2022 gradual onset of sensory abnormality in the lower part of her body, first with prickly and soon after with numbness, starting distally but since progressing and now intermittently all the way up to her lateral hip and inferior abdomen.? Past history includes dyslipidemia, carotid artery stenosis, failed back syndrome context spinal stenosis status post lumbar fusion, on morphine from left lower abdominal morphine pouch, hip fracture status post ORIF 2022, depression, constipation.? She lives in the [facility], and is recently moved from [place].? She is unaccompanied in the exam room but has been brought here by her sister.She provides Prelude to her chief complaint, stating that she has COPD on oxygen and that she has chronic lower back pain treated by morphine 09/02, which helps but does not eliminate the pain, with pain starting in the late 2009s about 7 years ago, with two lumbar fusion surgeries ~2018, about 5 years ago, providing insufficient benefit.In addition, still as prelude, she has very poor balance, which she thinks she remembers emerging in the few years following her to back fusions in ~2019, at some point when she was still living in [place], before her 2022 move to [facility] the [place].Her chief issue relates to new symptoms, symptoms that she has self diagnosed as neuropathy although she would like my input. The symptoms involved summer 2022 onset of numbness and prickling in her lower part of her body that she has never previously had before, neither during the ~7-year course of her lower back pain nor before. The symptoms seemed to emerge in time correlation with her moved from [place] to [place]. She provides details:In summer 2022 she had gradual onset of prickling bilaterally in her feet which has slowly worsened with progression proximally. In recent times it has been continuous although it fluctuates in extent and intensity. Shortly after prickling emerged she had onset of numbness bilaterally in feet ankles and below knees which has also slowly worsened and progressed proximally.The prickling has progressed proximally to between her thighs and occasionally up to the tops of her hips and the inferior lateral abdomen bilaterally. It can be mild, as it is at this encounter, and just up to her ankles, as that is at this encounter. At other times it can be more intense and all the way up to her lateral hips. This is usually in the evening/night. Putting her feet up sometimes helps.The numbness is intermittent. She cannot identify any triggers. It is more likely to be present at nighttime when the prickling is most intense.She has not noticed any worsening of balance that she can attribute to these new sensory symptoms. This is despite the fact that she fell and broke her right hip in the bathroom just outside the shower, a trauma from which she is still recovering with rehab.She has no sensory abnormality in her arms or upper trunk. She has no middle back pain or neck pain? just lower back pain. Her feet and toes feel strong.She has not bladder dyscontrol that started late summer/early , well after the onset of her sensory symptoms before her right hip fracture. There has been subsequent slow worsening. The bladder dyscontrol results and some leakage, for which she wears a pad at night. She has had no change in her bowel control, with stable occasional constipation. Mike Morrow MD [address] [place] [address] [place], [phone], formerly [facility] 2023 19:30:37 04/26/2024 text/html Neurology follow-up of summer 2022 gradual onset of sensory abnormality in the lower part of her body, first with prickly and soon after with numbness, starting distally but since progressing and now intermittently all the way up to her lateral hip and inferior abdomen.? Past history includes dyslipidemia, carotid artery stenosis, failed back syndrome context spinal stenosis status post lumbar fusion, on morphine from left lower abdominal morphine pouch, hip fracture status post ORIF 2022, depression, constipation.? She lives in the [facility], and is recently moved from [place].? She is unaccompanied in the exam room; she has previously been brought here by her sister. >>>>>>>>>>>>April 26, 2024Since 2023 Inititial neurology consultation, prickly this/numbness throughout feet, legs and up to abdomen continues without change. She adds that her feet just feel ice stone cold. >>>>>>>>>>>>2023 presenting symptomotology: She provides Prelude to her chief complaint, stating that she has COPD on oxygen and that she has chronic lower back pain treated by morphine 09/02, which helps but does not eliminate the pain, with pain starting in the late about 7 years ago, with two lumbar fusion surgeries ~2018, about 5 years ago, providing insufficient benefit.In addition, still as prelude, she has very poor balance, which she thinks she remembers emerging in the few years following her to back fusions in ~2019, at some point when she was still living in [place], before her 2022 move to [facility] [place].Her chief issue relates to new symptoms, symptoms that she has self diagnosed as neuropathy although she would like my input. The symptoms involved summer 2022 onset of numbness and prickling in her lower part of her body that she has never previously had before, neither during the ~7-year course of her lower back pain nor before. The symptoms seemed to emerge in time correlation with her moved from [place] to [place]. She provides details:In summer 2022 she had gradual onset of prickling bilaterally in her feet which has slowly worsened with progression proximally. In recent times it has been continuous although it fluctuates in extent and intensity. Shortly after prickling emerged she had onset of numbness bilaterally in feet ankles and below knees which has also slowly worsened and progressed proximally.The prickling has progressed proximally to between her thighs and occasionally up to the tops of her hips and the inferior lateral abdomen bilaterally. It can be mild, as it is at this encounter, and just up to her ankles, as that is at this encounter. At other times it can be more intense and all the way up to her lateral hips. This is usually in the evening/night. Putting her feet up sometimes helps.The numbness is intermittent. She cannot identify any triggers. It is more likely to be present at nighttime when the prickling is most intense.She has not noticed any worsening of balance that she can attribute to these new sensory symptoms. This is despite the fact that she fell and broke her right hip in the bathroom just outside the shower, a trauma from which she is still recovering with rehab.She has no sensory abnormality in her arms or upper trunk. She has no middle back pain or neck pain? just lower back pain. Her feet and toes feel strong.She has not bladder dyscontrol that started late summer/early , well after the onset of her sensory symptoms before her right hip fracture. There has been subsequent slow worsening. The bladder dyscontrol results and some leakage, for which she wears a pad at night. She has had no change in her bowel control, with stable occasional constipation. Mike Morrow MD [address] [place] [address], [phone], formerly [facility] 04/26/2024 12:18:21 06/15/2024 text/html Neurology follow-up of summer 2022 gradual onset of sensory abnormality in the lower part of her body, first with prickly and soon after with numbness, starting distally but since progressing and now intermittently all the way up to her lateral hip and inferior abdomen.? Past history includes dyslipidemia, carotid artery stenosis, failed back syndrome context spinal stenosis status post lumbar fusion, on morphine from left lower abdominal morphine pouch, hip fracture status post ORIF 2022, depression, constipation.? She lives in the [facility], and is recently moved from [place].? She is unaccompanied in the exam room; she has previously been brought here by her sister. >>>>>>>>>>>>June 15, 2024Since April 26, 2024 Neurology follow-up encounter, , prickly /numbness throughout feet, legs and up to abdomen continues without change, as does intermittent ice cold feeling in her feet. >>>>>>>>>>>>April 26, 2024Since 2023 Inititial neurology consultation, prickly this/numbness throughout feet, legs and up to abdomen continues without change. She adds that her feet just feel ice stone cold. >>>>>>>>>>>>2023 presenting symptomotology: She provides Prelude to her chief complaint, stating that she has COPD on oxygen and that she has chronic lower back pain treated by morphine 09/02, which helps but does not eliminate the pain, with pain starting in the late about 7 years ago, with two lumbar fusion surgeries ~2018, about 5 years ago, providing insufficient benefit.In addition, still as prelude, she has very poor balance, which she thinks she remembers emerging in the few years following her to back fusions in ~2019, at some point when she was still living in [place], before her 2022 move to [facility] [place].Her chief issue relates to new symptoms, symptoms that she has self diagnosed as neuropathy although she would like my input. The symptoms involved summer 2022 onset of numbness and prickling in her lower part of her body that she has never previously had before, neither during the ~7-year course of her lower back pain nor before. The symptoms seemed to emerge in time correlation with her moved from [place] to [place]. She provides details:In summer 2022 she had gradual onset of prickling bilaterally in her feet which has slowly worsened with progression proximally. In recent times it has been continuous although it fluctuates in extent and intensity. Shortly after prickling emerged she had onset of numbness bilaterally in feet ankles and below knees which has also slowly worsened and progressed proximally.The prickling has progressed proximally to between her thighs and occasionally up to the tops of her hips and the inferior lateral abdomen bilaterally. It can be mild, as it is at this encounter, and just up to her ankles, as that is at this encounter. At other times it can be more intense and all the way up to her lateral hips. This is usually in the evening/night. Putting her feet up sometimes helps.The numbness is intermittent. She cannot identify any triggers. It is more likely to be present at nighttime when the prickling is most intense.She has not noticed any worsening of balance that she can attribute to these new sensory symptoms. This is despite the fact that she fell and broke her right hip in the bathroom just outside the shower, a trauma from which she is still recovering with rehab.She has no sensory abnormality in her arms or upper trunk. She has no middle back pain or neck pain? just lower back pain. Her feet and toes feel strong.She has not bladder dyscontrol that started late summer/early ruma, well after the onset of her sensory symptoms before her right hip fracture. There has been subsequent slow worsening. The bladder dyscontrol results and some leakage, for which she wears a pad at night. She has had no change in her bowel control, with stable occasional constipation. Mike Morrow MD [address] [place] [address] [place], [phone], formerly [facility] 06/15/2024 12:50:30 OBGyn Episode No OBEpisode recorded.
--- OUTSIDE RECORDS SUMMARY | 2024-08-15 18:14 | XMS_ITS | Clinical Summary ---
Author Organization [address] Address [address] [place] [address] Phone Care Team Providers Care Retirement Officer Name Role Phone Jeffery Villegas MD Primary Care Provider [phone] Allergies No known active allergies Family History Relation Name Status Comments Father Mother Social History Tobacco Use Types Packs/Day Years Used Date Smoking Tobacco: Former Cigarettes Alcohol Use Standard Drinks/Week Comments Not Currently 0 (1 standard drink = 0.6 oz pur e alcohol) Comments No Sex and Gender Information Value Date Recorded Sex Assigned at Not on file Legal Sex Female 9:33 PM EDT Gender Identity Not on file Sexual Orientation Not on file Last Filed Vital Signs Vital Sign Reading Time Taken Comments Blood Pressure 110/53 01/16/2023 2:30 AM EDT Pulse 74 01/16/2023 2:30 AM EDT Temperature 36.7 ??C (98.1 ??F) 01/15/2023 9:47 PM ED T Respiratory Rate 14 01/16/2023 2:30 AM EDT Oxygen Saturation 95% 01/16/2023 2:30 AM EDT Inhaled Oxygen Concentration - - Weight - - Height - - Body Mass Index - - Plan of Treatment Health Maintenance Due Date Last Done Comments HIV screening 01/01/1960 Hepatitis C screening 1964 Tetanus adult (Td q 10,TDAP once) 1966 Lipid disorder screening 1986 Diabetes screening 01/01/1992 Shingles vaccine (Shingrix) (1 of 2 - Shingrix (RZV) 2 Dose Standard Series) 1996 Osteoporosis screening (bone density) 01/01/2012 Pneumo Vaccine 65+ (1 of 1 - PCV) 01/01/2012 RSV Discussion (1 - 1-dose 7 5+ series) 2021 Influenza vaccine 02/18/2024 Covid-19 vaccine series ( - 2023-25 season) 2024 Breast cancer screening Discontinued Cervical cancer screening Discontinued Meningococcal Vaccine Aged Out No sirena mary eligible based on patient's age to complete this topic Insurance MEDICARE [facility] MEDICARE [facility] MEDICARE [facility] Care Teams Retirement Officer Relationship Specialty Start Date End Date Jeffery Villegas MD [address] [place] [id number] PCP - General Family Medicine 01/15/23
--- OUTSIDE RECORDS SUMMARY | 2024-08-15 18:14 | XMS_ITS | Data Portability ---
Author Organization [facility] [address] Address [address] [place] [address] Assessment No assessment recorded. Plan of Treatment Reminders Order Date Submit Date Provider Last Modified By Organization Details Last Modified Time Details Appointments None recorded. Lab None recorded. Referral None recorded. Procedures None recorded. Surgeries None recorded. Imaging None recorded. Medication Orders tobramycin 0.3 %-dexametha sone 0.1 % eye drops,suspe nsion 2022 023 [facility]/Pharmacy #[id number], [address] [facility], [place], [address], 3 15:27:43 Patient TargetsNo targets recorded. Patient Instructions Encounter Date Encounter Id Patient Instructions Last Modified By Organization Details Last Modified Time 02/24/2023 [id number] karina: care instructions [email or web address] Not available 02/24/2023 19:44:47 Reason for Referral None Reported. Problems Name Problem SNOMED Code Status Onset Date Resolution Date Notes Provider Name and Address Organization Details Recorded Time Chronic obstructive pulmonary disease 92229575 Active 023 [facility] 3 15:08:15 Problem Notes None recorded. Medical Equipment None Reported. Allergies No known drug allergies Medications Name Sig Start Date Stop Date Status Note LastModified by Organization Details LastModified Time latanoprost 0.005 % eye drops INSTILL 1 DROP INTO AFFECTED EYE(S) BY OPHTHALMIC ROUTE ONCE DAILY INTHE EVENING active Not Available Not Available No t Available atorvastatin 20 mg tablet Take 1 tablet every day by oral route. active Not Available Not Available No t Available mirtazapine 45 mg disintegrati ng tablet Take 1 tablet every day by oral route. active Not Available Not Available No t Available clopidogrel 75 mg tablet Take 1 tablet every day by oral route. active Not Available Not Available No t Available tramadol 50 mg tablet Take 1 tablet every 6 hours by oral route. active Not Available Not Available Not Available gabapentin 300 mg capsule Take 2 capsules 3 times a day by oral route. active Not Available Not Available No t Available tobramycin 0.3 %-dexamethas one 0.1 % eye drops,suspen taya INSTILL 1 DROP INTO AFFECTED EYE(S) BY OPHTHALMIC ROUTE EVERY 6 HOURS 2022 active Not Available Not Available Not Avai lable duloxetine 60 mg capsule,cedrick yed release Take 1 capsule every day by oral route. active Not Available Not Available No t Available folic acid active Not Available Not Av ailable Not Available biotin active Not Available Not Availa ble Not Available Vitamin D3 active Not Available Not Av ailable Not Available multivitamin active Not Available Not Available Not Available Vitamin B12 active Not Available Not A vailable Not Available morphine (PF) 100 mg/100 mL(1 mg/mL) in 0.9% sod.chloride IV pump resv Inject by intravenous route. active Not Available Not Available No t Available Breztri Aerosphere 160 mcg-9mcg-4.8 mcg/actuatio n HFA aerosol inhaler Inhale 2 puffs every day by inhalation route. active Not Available Not Available No t Available Vitals Date Recorded Body height Provider Name an d Address Organization Details Last Updated DateTime 02/24/2023 147.32 cm Janessa Poole [employer] - [facility] 02/24/2023 15:09:46 Date Recorded Body mass index (BMI) Body weight Provider Name and Address Organization Details Last Updated DateTime 02/24/2023 21.5 kg/m2 68404.01 g Janessa Poole PA - [facility] 02/24/2023 15:09:57 Date Recorded Pain severity - 0-10 verbal numeric rating [Score] - Reported Provider Name and Address Organization Details Last Updated DateTime 02/24/2023 0 Janessa Poole PA - [facility] 02/24/2023 15:09:59 Date Recorded Respiratory rate Provider Name a nd Address Organization Details Last Updated DateTime 02/24/2023 18 /min Janessa Poole PA - [facility] 02/24/2023 15:10:51 Date Recorded Oxygen saturation Oxygen saturation in Arterial blood by Pulse oximetry Provider Name and Address Organization Details Last Updated DateTime 02/24/2023 87 % 87 % Janessa Poole PA - [facility] 02/24/2023 15:11:53 Date Recorded Heart rate Provider Name an d Address Organization Details Last Updated DateTime 02/24/2023 73 /min Janessa Wolfzahida PA - [facility] 02/24/2023 15:12:19 Date Recorded Body temperature Provider Name a nd Address Organization Details Last Updated DateTime 02/24/2023 98.2 [degF] Janessa Stubbswinifred PA - [facility] 02/24/2023 15:13:18 Date Recorded Systolic blood pressure Diastolic blood pressure Provider Name and Address Organization Details Last Updated DateTime 02/24/2023 153 mm[Hg] 64 mm[Hg] Janessa Bowsermagy PA - [facility] 02/24/2023 15:13:14 Social History Question Answer Notes LastModified by Organizat ion Details LastModified Time Tobacco Smoking Status Former Smoker Janessa Bowsermagy tyler PA - [facility] 02/24/2023 15:09:35 What Is Your Level Of Alcohol Consumption? None Information not available 02/24/2023 When Did You Quit Smoking? 11-15yearss incelastcig arette Information not available 02/24/2023 Do You Use Any Illicit Or Recreational Drugs? No Information not available 02/24/2023 Have You Recently Traveled Abroad? No Information not available 02/24/2023 Do You Or Have You Ever Used Any Other Forms Of Tobacco Or Nicotine? No Information not available 02/24/2023 Sex: Unknown Functional Status None recorded. Mental Status None recorded. Family History Relationship Description Onset Age of this Age Resolved Age Notes LastModified by Organization Details LastModified Time Father Myocardial infarction [email or web address] Not available 02/24 15:08:58 Father Diabetes mellitus [email or web address] Not available 2022 15:09:03 Mother Myocardial infarction [email or web address] Not available 02/24 15:08:58 Sister Cerebrovascu lar accident [email or web address] Not available 02/2023 15:09:11 Medical History No medical history recorded. Gynecological HistoryNo gynecological history recorded. Obstetrics History GPAL:G 0 P 0 0 0 0 Past Encounters Encounter ID Performer Location Encounter Start Date Encounter Closed Date Diagnosis/Indication Diagnosis SNOMED-CT Code Diagnosis ICD10 Code Diagnosis Note [id number] [address] [place] [address] 07/16/2018 17:52:56 07/16/2018 18:39:22 [id number] Sharon Garner, SECONDARY TEACHER [address] [place] [address] 02/24/2023 14:55:33 02/24/2023 15:28:26 Acute conjunctivitis 91604973 H10.33 Based on your presentati on and exam, you are going diagnosed with Conjunctiv itis. I am going to cover you for a bacterial infection in the eye with antibiotic eye drops. Sometimes these symptoms can be caused by a virus or allergies. Viral infections with spontaneou sly resolve after 7-10 days and do not require treatment. If it is an allergy cause sometime oral allergy medication s will help with these symptoms or a allergy eye drop that can be purchased OTC. The following are my recommenda tions to help with your symptoms and this diagnosis: 1. Do not rub your eyes this can cause it to spread or damage the cornea of your eye.2. Wash surfaces such as cell phones, remotes, door knob frequently , because this is how it is transmitte d to others.3. Do not wear contacts for at least 1 week if you have contacts.4 . No makeup5. You can take Ibuprofen or Tylenol for discomfort if you are not allergic to them.6. If you get lubricatin g eye drops and put them in the refrigerat or - this can help with itching and discomfort . You should be seen again if you develop any of the following symptoms1. Eye pain or pressure behind the eye.2. Redness or significan t swelling of the eyelid or around the eye3. Headache4. Fever > 100.55. No improvemen t in current symptoms in the next 1 week. Thank you for using [facility] today, please feel free to contact us with any questions or concerns. Health Concerns Section Related Observation LastModified by Organization Detai ls LastModified Time None Recorded Concern Status LastModified by Organization Details LastModified Time None Recorded Advance Directives Directive None Recorded Payers Encounter Date Sequence Insurance Name Policy Number Policy Johnson Covered Member ID Johnson Member ID Guarantor Name 07/16/2018 1 MEDICARE B-NE: [facility] Vania Castellanos [id number] Vania Castellanos 07/16/2018 2 [facility] OPTIONS Vania Castellanos [id number] Vania Castellanos 02/24/2023 1 MEDICARE B-NE: [facility] Vania Castellanos [id number] Vania Castellanos 02/24/2023 2 [facility] [employer] Vania Castellanos [id number] Vania Castellanos Notes Date Note Type Note Provider Name and Address Organization Details Recorded Time 3 text/html Eye problemsReported bypatient.source of patient informationInformation obtained from patient; Patient arrived at Urgent Care ambulatory Location:bilateral Eye Symptoms:no sensitivity to light;redness;discharge;itc shon Severity:moderate Onset/Timindays Modifying Factors:nothing gives relief Sharon Garner NP [address] [place], [address], [place] - [facility] 02/24/2023 19:45:01 OBGyn Episode No OBEpisode recorded.
== END 2024-08-15 14:28 | disposition home or self-care (01) ==
PROVIDERS: PCP Internal Medicine; Visit Provider Anesthesiology
DX: M96.1 Postlaminectomy syndrome, not elsewhere classified (principal); G89.4 Chronic pain syndrome; J44.9 Chronic obstructive pulmonary disease, unspecified; Z45.1 Encounter for adjustment and management of infusion pump
CPT/HCPCS: 62370; 99213

== ENCOUNTER → 2024-08-15 13:28 | Outpatient (BNVA) | payer MEDICARE, SELFPAY | PROVIDERS: PCP Internal Medicine; Visit Provider Anesthesiology | DX: M96.1 Postlaminectomy syndrome, not elsewhere classified (principal); G89.4 Chronic pain syndrome; J44.9 Chronic obstructive pulmonary disease, unspecified; Z45.1 Encounter for adjustment and management of infusion pump; Z79.899 Other long term (current) drug therapy | CPT/HCPCS: 62370; 99212 ==

== ENCOUNTER 2024-10-17 13:50 | Outpatient (AMB) | payer MEDICARE, SELFPAY ==
[2024-10-17 13:56] VITALS: BP 194/77; PULSE 85; RESP 16; O2SAT 88; BMI 23.2
--- NOTE | 2024-10-17 13:56 | A.OFFVIS_ITS ---
Vital Signs 10/17/24 13:56 Height 4 ft 10 in Weight 111 lb BMI 23.2 BP 194/77 H Blood Pressure Location Lt brachial Position Sitting Respiration 16 Pulse 85 Pulse Source Pulse Oximeter Pulse Oximetry (%) 88 L Oxygen Delivery Method Nasal Cannula Intake Visit Reasons: ITDD Refill Scientific Process Operator Required: No Regulator Mechanic: Regulator Mechanic Present Accompanied by: Romario Maradiaga Allergies No Known Allergies Allergy (Verified 10/17/24 13:57) Medication List - Last Reconciled 10/17/24 by Ramila Belle LPN albuterol sulfate 90 mcg/actuation inhalation atorvastatin 20 mg PO DAILY biotin 10,000 mcg PO DAILY bkfkyntnhz-ewexdpyr-olwkpxsbzy 160-9-4.8 mcg/actuation (Breztri Aerosphere) inhalations inhalation clopidogrel 75 mg PO DAILY duloxetine 60 mg PO DAILY folic acid 0.8 mg PO DAILY gabapentin 600 mg PO TID latanoprost 0.005% drps ophthalmic (eye) mirtazapine 45 mg PO BEDTIME mirtazapine mg PO multivitamin (Daily Multi-Vitamin tablet) 1 tab PO DAILY tramadol 50 mg PO NEEDED HPI Comments Details: Vania came today to my office for the medication exchange in her intrathecal pain pump. Her level of pain today as 2 to 3/10. She reports the pain is aggravated when she stands up. The intrathecal pain pump refill is as below. There is discrepancy of 4 cc in between delivered and escalated doses. With 40 cc pump I do not think it is a significant number however we will be continuing observation. Prior: very pleasant 77 years old female who recently moved to [place] from [facility]. History of postlaminectomy syndrome treated with implantation of the pain pump elsewhere.. PFSH Social History Patient Tobacco Use Status: Never used Tobacco Review of Systems Const All systems reviewed & are unremarkable except as noted in HPI and below Physical Exam Vital Signs: Last Vital Signs Pulse 85 10/17/24 13:56 Resp 16 10/17/24 13:56 BP 194/77 H 10/17/24 13:56 Pulse Ox 88 L 10/17/24 13:56 Oxygen Delivery Method Nasal Cannula 10/17/24 13:56 BMI result Body Mass Index 23.2 Const General: cooperative, comfortable and no acute distress Nutritional Appearance: thin and underweight Orientation/consciousness: patient oriented x3 Chest Chest palpation & inspection: normal inspection of the chest Resp Effort & Inspection: not able to speak in complete sentences, abnormal respiratory pattern, decreased respiratory effort, grunting, labored and nasal flaring Cardio Jugular venous distension: no JVD GI Other: Inspection of the patient's abdomen she has left-sided implanted intrathecal drug delivery system pain pump the scar of implantation is very well-healed. There is no swelling in the area of the pain pump. Back/Spine/Pelvis Other: There is 1 very long incision in the projection of the approximately L3-L4 L5 and S1 lumbar vertebra spinous processes of this patient's back. There also to incisions of iliac crest harvesting on bilaterally from the incision. There is also severe tenderness on palpation in the projection of the L4-5 S1 lumbar vertebras Neuro General: patient oriented x3 Assessment & Plan Assessment & Plan (1) Postlaminectomy syndrome: Code(s): M96.1 - Postlaminectomy syndrome, not elsewhere classified Category: Medical (2) Chronic pain syndrome: Code(s): G89.4 - Chronic pain syndrome Category: Medical Plan: Continue as previous doses of the morphine and bupivacaine. Continue with the same concentration. Next pump refill is 12/26/2024. (3) COPD (chronic obstructive pulmonary disease): Code(s): J44.9 - Chronic obstructive pulmonary disease, unspecified Category: Medical Plan ? Intrathecal pump refill. The patient came today in the office FOR THE CHANGE OF THE MEDICATION IN her PAIN PUMP. The name and date of were verified and informed consent was obtained for the procedure. The pump was interrogated and the residual amount of fluid was found to be 3.8 mL. She was positioned prone on the bed AND THE AREA OF THE INTRATHECAL PUMP WAS PREPPED WITH CHLORAPREP. The fenestrated drape was sterilely applied over the area of the pump. Sterile gloves were worn and of the aspiration system was assembled containing 2 in 22 gauge noncoring needle, the needle was connected to extension tubing which was connected to the 20 cc sterile syringes. The pain pump was palpated under the skin in the patient's left abdominal area. The needle was inserted through the skin and the central plug of the pain pump and fluid was aspirated. The clear fluid was going into the syringe the total amount of the fluid was 7.3 mL .. After that a new batch? of medication was obtained which was containing morphine 10 milligrams/mL and bupivacaine 20 milligrams/mL . The syringe was connected to the bacterial filter, and then connected to the extension tubing. After that the medication in the syringe was slowly instilled into the pump with aspirations at 15 and 5 cc soriano.? The pump was programmed for the doses of morphine 5.608 mg per day with corresponding dose of bupivacaine of 11.216 mg per day. Coding Level of Care Code Est Pt Level 3 (55112) Procedure Only Diagnoses Postlaminectomy syndrome M96.1 Chronic pain syndrome G89.4 COPD (chronic obstructive pulmonary disease) J44.9
--- OUTSIDE RECORDS SUMMARY | 2024-10-17 15:33 | XMS_ITS | Referral Summary ---
Author Organization [facility] Address [address] [place] [address] Care Team Providers Care Cvor Nurse Name Role Phone Sophie Parikh MD Primary Care Provider [phone] Medications No known medications Active Problems Problem [...] of Treatment Not on file Insurance MEDICARE U[employer] MCR SUPP AARP Care Teams Cvor Nurse Relationship Specialty Start Date End Date Sophie Parikh MD [address] [address] PCP - General 02/23/24
--- OUTSIDE RECORDS SUMMARY | 2024-10-17 15:33 | XMS_ITS | Clinical Summary ---
Author Organization [address] Address [address] [place] [address] Phone Care Team Providers Care Sr. Logistics Analyst Name Role Phone Jeffery Villegas MD Primary Care Provider [phone] Allergies No known active allergies Family History [...] Series) 1996 Osteoporosis screening (bone density) 01/01/2012 Pneumococcal Vaccine (50+ ye ars) (1 of 1 - PCV) 01/01/2012 RSV Immunization (1 - 1-dose 75+ series) 2021 Influenza vaccine 02/18/2024 Covid-19 vaccine series (1 - 2023-25 season) 2024 Breast cancer screening Discontinued Cervical cancer screening Discontinued Meningococcal Vaccine Aged Out No sirena mary eligible based on patient's age to complete this topic Insurance MEDICARE [facility] MEDICARE [facility] MEDICARE [facility] Care Teams Sr. Logistics Analyst Relationship Specialty Start Date End Date Jeffery Villegas MD [address] [place] [phone] PCP - General Family Medicine 01/15/23
--- OUTSIDE RECORDS SUMMARY | 2024-10-17 15:33 | XMS_ITS | Clinical Summary ---
Author Organization [facility] Address [address] [place] [address] Care Team Providers Care Sand Cutter Name Role Phone Sophie Parikh MD Primary Care Provider [phone] Medications No known medications Active Problems Problem [...] Last Done Comments Hepatitis C Screening 1945 Medicare AWV 01/01/1947 Pneumococcal Vaccine: 50+ Ye ars (1 of 2 - PCV) 1965 DTaP,Tdap,and Td Vaccines (1 - Tdap) 1968 Osteoporosis Screening 1996 Zoster Vaccines (1 of 2) 1996 RSV Vaccine (60+ years old a nd patients) (1 - 1-dose 75+ series) 2021 COVID-19 Vaccine ( - 2023-2 5 season) 2024 Influenza Vaccine (#1) 2024 Alcohol/Substance Use Screening 07/20/2024 Depression Screening and Follow-Up 07/20/2024 Health Care Proxy Review 07/20/2024 Social Drivers of Health Tiffanie ual Screening 07/20/2024 Hepatitis B Vaccines Aged Out No long er eligible based on patient's age to complete this topic Insurance MEDICARE [facility] Care Teams Sand Cutter Relationship Specialty Start Date End Date Sophie Parikh MD [address] [place] [phone] PCP - General 02/23/24
--- OUTSIDE RECORDS SUMMARY | 2024-10-17 15:33 | XMS_ITS | Data Portability ---
Author Organization [facility] [address] Address [address] [place] [address] Assessment No assessment recorded. Plan of Treatment Reminders Order Date Submit Date Provider Last Modified By Organization Details Last Modified Time Details Appointments None recorded. Lab None recorded. Referral None recorded. Procedures None recorded. Surgeries None recorded. Imaging None recorded. Medication Orders tobramycin 0.3 %-dexametha sone 0.1 % eye drops,suspe nsion 2022 023 [facility]/Pharmacy #[id number], [address] [facility], [place], [address], 3 15:27:43 Patient TargetsNo targets recorded. Patient Instructions Encounter Date Encounter Id Patient Instructions Last Modified By Organization Details Last Modified Time 02/24/2023 [id number] karina: care instructions [email or web address] Not available 02/24/2023 19:44:47 Reason for Referral None Reported. Problems Name Problem SNOMED Code Status Onset Date Resolution Date Notes Provider Name and Address Organization Details Recorded Time Chronic obstructive pulmonary disease 50643777 Active 023 [facility] 3 15:08:15 [...] t Available Vitals Date Recorded Body height Body mass index (BMI) Body weight Pain severity - 0-10 verbal numeric rating [Score] - Reported Respiratory rate Oxygen saturation Oxygen saturation in Arterial blood by Pulse oximetry Heart rate Body temperature Systolic blood pressure Diastolic blood pressure Provider Name and Address Organization Details Last Updated DateTime 3 147.32 cm 21.5 kg/m2 22611.0 1 g 0 18 /min 87 % 87 % 73 /min 98.2 [degF] 153 mm[Hg] 64 mm[Hg] [facility] 3 15:13:14 Social History Question Answer Notes LastModified by Organizat ion Details LastModified Time Tobacco Smoking Status Former Smoker [facility] 02/24/2023 15:09:35 What Is Your Level Of Alcohol Consumption? None Information not available 02/24/2023 When Did You Quit Smoking? 11-15yearss incelastcijoshua preciadoe Information not available 02/24/2023 Do You Use [...] SNOMED-CT Code Diagnosis ICD10 Code Diagnosis Note [id number] [address] [place] [address] 07/16/2018 17:52:56 07/16/2018 18:39:22 [id number] [place] [address] [place] [address] 02/24/2023 14:55:33 02/24/2023 15:28:26 Acute conjunctivitis 79902595 H10.33 Based on your presentati on and [...] next 1 week. Thank you for using [facility] today, please feel free to contact us with any questions or concerns. Health Concerns Section Related Observation LastModified by Organization Detai ls LastModified Time None Recorded Concern Status LastModified by Organization Details LastModified Time None Recorded Advance Directives Directive None Recorded Payers Encounter Date Sequence Insurance Name Policy Number Policy Johnson Covered Member ID Johnson Member ID Guarantor Name 07/16/2018 1 MEDICARE B-DE: [employer] Vania Nayana Jasmin [id number] Vania Castellanos 07/16/2018 2 [facility] OPTIONS Vania Castellanos [id number] Vania Casetllanos 02/24/2023 1 MEDICARE B-DE: [employer] Vania Castellanos [id number] Vania Castellanos 02/24/2023 2 [facility] [employer] Vania Castellanos [id number] Vania Castellanos Notes Date Note Type Note Provider Name and Address Organization Details Recorded Time 3 text/html Eye problemsReported bypatient.source of patient informationInformation obtained from patient; Patient arrived at Urgent Care ambulatory Location:bilateral Eye Symptoms:no sensitivity to light;redness;discharge;itc shon Severity:moderate Onset/Timindays Modifying Factors:nothing gives relief Sharon Garner NP [address] [place], [address], [place] - [facility] 02/24/2023 19:45:01 OBGyn Episode No OBEpisode recorded.
--- OUTSIDE RECORDS SUMMARY | 2024-10-17 15:33 | XMS_ITS | Data Portability ---
Author Organization Formerly [facility], [employer] Address [address] [place] [address] [place] [address] Care Team Providers Care Insurance Counsel Name Role Phone DANIELLE WATERS Primary Care Provider [phone] Assessment Encounter Date Assessment Date Assessment LastModified [...] exclusion at this time. >>>>>>>>>>>> PLAN Vania Jasmin 2023 CT C-spine with and without contrast [...] 03, 2024, per dictation Dr. Nancy Ortiz [facility]: Multilevel degenerative changes without acute fracture [...] 03, 2024, per dictation Dr. Nancy Ortiz [facility]: Multilevel degenerative changes without acute fracture [...] vitamin B12, serum 2023 024 shamar [address] , [place], [address], 16:40:51 folate, serum 2023 024 vlefebvre [address] [place], [address], 16:40:51 mma (methylmalo brian acid), serum - lab code [id number], if [facility] 2023 024 vlefebvre [address] [place], [address], 16:40:51 homocystein e, serum or plasma 2023 024 vlefebvre [address] [place], [address], 4 16:40:51 lyme antibody screen, EIA/joaquin, serum - A69.20Labco r [id number]= Lyme Antibodies, Modified 2-Tier Testing Profile, Serum / Plasma 2023 024 vlefebvre [address] [place], [address], 16:40:51 vitamin E, serum - E56.0 2023 024 vlefebvre 1 [place] [address] [place], [address], 16:40:52 copper, serum or plasma - E83.00 2023 024 vlefebvre [address] [place], [address], 4 16:40:51 Referral None recorded. Procedures None recorded. Surgeries None recorded. Imaging CT, cervical spine, w/wo contrast - CT C-spine with and without contrast with concern for cervical myelopathy with sensory changes symmetrical ly worsening, now to lower abdomen, brisk reflexes, history of lumbar stenosis, chronic lower back pain pain with morphine pouch and abdomen? and so per patient MRI contraindic ated; no middle back or neck pain. CT T-spine unrevealing . 2023 024 [email or web address] 1 [facility] (Outpt Imaging), [address] [place], [address], 5 15:05:12 CT, thoracic spine, w/wo contrast - CT C-spine with and without contrast with concern for thoracic myelopathy with sensory changes symmetrical ly worsening, now to lower abdomen, brisk reflexes, history of lumbar stenosis, chronic lower back pain pain with morphine pouch and abdomen? and so per patient MRI contraindic ated; no middle back or neck pain. 2023 024 [email or web address] 1 [facility] (Out[facility] Imaging), [address] [place], [address], 4 16:37:27 Medication Orders None recorded. Patient TargetsNo targets recorded. Patient Instructions Encounter Date Encounter Id Patient Instructions Last Modified By Organization Details Last Modified Time 2023 [id number] Discussion acros s issues of diagnoses and management and same day associated chart review and management greater than 50% greater than 90 minutes [email or web address] Not available 2023 19:29:59 04/26/2024 [id number] Discussion acros s issues of diagnoses and management and same day associated chart review and management greater than 50% greater than 40 minutes mrossen Not available 04/26/2024 12:17:39 06/15/2024 [id number] Discussion acros s issues of diagnoses and management and same day associated chart review and management greater than 50% greater than 40 minutes [email or web address] Not available 06/15/2024 12:17:59 Reason for Referral None Reported. Results Created Date Observation Date Name Description Value Unit Range Abnormal Flag Note LastModifiedBy Organization Detail LastModifiedTime 04/14/2004/14/2024 lab* homocysteine 5.9 Not Astrid ilable [facility] [address] [place], [address], 04/19/2024 08:42:16 04/14/2004/14/2024 lab* copper 92 Not Available [facility] [address] [place], [address], 04/19/2024 08:42:16 04/14/20 24 04/14/2024 lab* lyme Ab IgG neg Not [facility] [address] [place], [address], 04/19/2024 08:42:16 04/14/20 24 04/14/2024 lab* [facility] Ab [facility] neg [facility] [address] [place], [address], 04/19/2024 08:42:16 04/14/20 24 04/14/2024 lab* B12 >2000 Not Available [facility] [address] [place], [address], 04/19/2024 08:42:16 04/14/20 24 04/14/2024 lab* mma .24 Not Available [facility] [address] [place], [address], 04/19/2024 08:42:16 04/14/20 24 04/14/2024 lab* vit E 11.6 Not Available [facility] [address] [place], [address], 04/19/2024 08:42:16 04/14/20 24 04/14/2024 lab* TSH .99 Not Available [facility] [address] [place], [address], 04/19/2024 08:42:16 04/14/20 24 04/14/2024 lab* complete metabolic panel Not Available [facility] [address] [place] [address], [address], 04/19/2024 08:42:16 03/03/20 24 03/03/2024 CT thora [...] of T10, and visual ized in the chief operating engineer ior and left thecal sac to at [...] visual izatio n of upper thorac ic chief operating engineer ior fusion hardwa re. The visual ized [...] radha at T12-L1 . Scatte red mild chief operating engineer ior disc osteop hyte are presen t, [...] re or high-g rade stenos is. WSN: [id number] Orderi ng Physic regis: Toni Morrow Dictat ed By: Freddy Ortiz MD Dictat ed Date/T mimi: 4:34 pm Review ed By: Freddy Ortiz MD Signed By: Freddy Ortzi MD Signed Date/T mimi: 4:34 pm Transc ribed By: KRISTIE Transc ribed Date/T mimi: 3:41 pm Patien t Class: 101 [email or web address] [facility] (Outpt Imaging) [address] , [place], [address], 03/08/2024 10:11:01 05/25/20 24 05/23/2024 CT, cervi [...] Multip lanar recons tructi ons were genera michael and review ed. Dose reduct ion techni [...] nal stenos is. C3-C4: Mild broad- based chief operating engineer ior disc-o steoph yte comple x and [...] t's sympto ms [facility] WSN: [id number] Orderi ng Physic regis: Toni Morrow Dictat ed By: Phill Hedrick MD Dictat ed Date/T mimi: 3:21 pm Review ed By: Phill Hedrick MD Signed By: Phill Hedrick MD Signed Date/T mimi: 3:21 pm Transc ribed By: KRISTIE Transc ribed Date/T mimi: 3:12 pm Patien t Class: 101 [facility] (Outpt Imaging) [address] [place], [address], 05/30/2024 10:54:37 Result Notes None recorded. Procedures Surgical History None recorded. Imaging Results Imaging Date Name Status LastModified by [facility] Details LastModified Time 03/03/2024 CT thoracic spine W+w/o contrast completed [email or web address] (Outpt Imaging) [address] [place], [address], 03/08/2024 10:11:01 05/23/2024 CT, cervical spine, w/ contrast completed [facility] (Outpt Imaging) [address] [place], [address], 05/30/2024 10:54:37 Procedure Notes None recorded. Medical [...] Updated DateTime 2023 154.94 cm 21.2 kg/m2 84679.35 g 12 /min June Lebron [facility] 2023 16:16:31 Social History Question Answer Notes LastModified by Organizat ion Details LastModified Time Tobacco Smoking Status Former Smoker June Lebron [facility] 2023 16:17:13 What Is Your Level Of Alcohol Consumption? None Information not available 2023 What Is Your Level Of Caffeine Consumption? None Information not available 2023 What Is The Highest Grade Or Level Of School You Have Completed Or The Highest Degree You Have Received? [id number] Information not available 2023 Which Of Your [...] 16:16:57 Medical History Condition Response Claustrophobia N Head Trauma/Injury N Hospitalizations N High Blood Pressure or Hypertension N Thyroid Problems N Depression N Brain Tumors N Lung Disease N COPD or emphysema Y Encephalitis N PTSD N Vitamin B12 deficiency N Heart Attack ([place]) N Spine Problems N Obstructive Sleep Apnea N Alcoholism N Diabetes N Autoimmune disease N Bleeding Disorder N Arthritis N Cerebral Palsy N Tuberculosis N Developmental Problems N Neck Problems N Cancer N Back Problems N Stroke Y Asthma N Heartburn, acid reflux, GERD N Vitamin D Deficiency N Epilepsy/Seizures N Bipolar Disorder N Sleep Disorder N Aneurysm N Hepatitis N Liver Disease N Heart Disease N Fibromyalgia N Headaches N High Cholesterol or Hyperlipidemia N Osteoporosis N Kidney Disease N Gynecological HistoryNo gynecological history recorded. Obstetrics History GPAL:G 0 P 0 0 0 0 Past Encounters Encounter ID Performer Location Encounter Start Date Encounter Closed Date Diagnosis/Indication Diagnosis SNOMED-CT Code Diagnosis ICD10 Code Diagnosis Note [id number] Mike Morrow MD [facility] [address] [place] [address] [place] [address] 2023 14:39:18 01/04/2024 09:45:15 Thoracic disc prolapse with myelopathy 988572626 M51.04 Unsteadiness present 267 008717 R26.81 Vitamin B1 2 deficiency anemia due to dietary causes 086530342 D51.0 Serum chandrakant er level outside reference range 467617001 R79.0 Acute lyme disease 64064 7005 A69.20 [id number] Mike Morrow MD [facility] [address] [place] [address] [place] [address] 04/26/2024 11:18:37 04/26/2024 12:24:17 Unsteadiness present 770906720 R26.81 Cervical d isc prolapse with myelopathy 825886799 M50.021 [id number] Mike Morrow MD [facility] [address] [place] [address] [place] [address] 06/15/2024 12:02:25 06/15/2024 15:30:51 Unsteadiness present 227046784 R26.81 Cervical d isc prolapse with myelopathy 641668826 M50.021 Health Concerns Section Related Observation LastModified by Organization Detai ls LastModified Time None Recorded Concern Status LastModified by Organization Details LastModified Time None Recorded Advance Directives Directive None Recorded Payers Encounter Date Sequence Insurance Name Policy Number Policy Johnson Covered Member ID Johnson Member ID Guarantor Name 2023 1 [facility] (MEDICARE REPLACEMENT/ ADVANTAGE - PPO) Vania Castellanos [id number] Vania Castellanos 04/26/2024 2 [facility] (HMO) Vania Castellanos [id number] Vania Castellanos 04/26/2024 1 [place] [employer] Vania Castellanos [id number] Vania Castellanos 06/15/2024 1 [place] Vania Castellanos [id number] Vania Castellanos 06/15/2024 2 [facility] (MEDICARE SUPPLEMENT) Vania Castellanos [id number] Vania Castellanos Notes Date Note Type Note [...] 2022, depression, constipation.? She lives in the [facility], and is recently moved from [place].? She is unaccompanied in the exam room [...] years ago, with two lumbar fusion surgeries ~2019, about 5 years ago, providing insufficient benefit.In addition, still as prelude, she has very poor balance, which she thinks she remembers emerging in the few years following her to back fusions in ~2019, at some point when she was still living in [place], before her 2022 move to [facility] [place].Her chief issue relates to new symptoms, symptoms [...] in time correlation with her moved from [place] to [place]. She provides details:In summer 2022 she had [...] with stable occasional constipation. Mike Morrow MD [address] [place] [address] [place], [address], [facility] 2023 19:30:37 04/26/2024 text/html Neurology follow-up of [...] 2022, depression, constipation.? She lives in the [facility], and is recently moved from [place].? She is unaccompanied in the exam room; [...] point when she was still living in [place], before her 2022 move to [facility].Her chief issue relates to new symptoms, symptoms [...] in time correlation with her moved from [place] to [place]. She provides details:In summer 2022 she had [...] with stable occasional constipation. Mike Morrow MD [address] [place] [address], [address], [facility] 04/26/2024 12:18:21 06/15/2024 text/html Neurology follow-up of [...] 2022, depression, constipation.? She lives in the [facility], and is recently moved from [place].? She is unaccompanied in the exam room; [...] point when she was still living in [place], before her 2022 move to [facility].Her chief issue relates to new symptoms, symptoms [...] in time correlation with her moved from [place] to [place]. She provides details:In summer 2022 she had [...] with stable occasional constipation. Mike Morrow MD [address] [place] [address] [place], [address], [facility] 06/15/2024 12:50:30 OBGyn Episode No OBEpisode recorded.
== END 2024-10-17 14:17 | disposition home or self-care (01) ==
PROVIDERS: PCP Internal Medicine; Visit Provider Anesthesiology
DX: M96.1 Postlaminectomy syndrome, not elsewhere classified (principal); G89.4 Chronic pain syndrome; J44.9 Chronic obstructive pulmonary disease, unspecified
CPT/HCPCS: 62370; 99213

== ENCOUNTER → 2024-10-17 13:50 | Outpatient (BNVA) | payer MEDICARE, SELFPAY | PROVIDERS: PCP Internal Medicine; Visit Provider Anesthesiology | DX: M96.1 Postlaminectomy syndrome, not elsewhere classified (principal); G89.4 Chronic pain syndrome; J44.9 Chronic obstructive pulmonary disease, unspecified; Z45.1 Encounter for adjustment and management of infusion pump; Z79.899 Other long term (current) drug therapy | CPT/HCPCS: 62370; 99212 ==

== ENCOUNTER 2024-12-20 06:15 | Outpatient (REF) | payer MEDICARE, SELFPAY ==
--- OUTSIDE RECORDS SUMMARY | 2024-12-20 06:18 | XMS_ITS | Referral Summary ---
Author Organization [facility] Address [address] [place] [address] Care Team Providers Care Amalgamator Name Role Phone Kati Sophie SCOTT Primary Care Provider Medications No known medications Active Problems Problem [...] of Treatment [place] [id number] UHC MCR SUPP AARP Care Teams Amalgamator Relationship Specialty Start Date End Date Sophie Parikh MD [address] [address] PCP - General 02/23/24
== END 2024-12-20 06:16 | disposition home or self-care (01) ==
LOC: CF 06:15
PROVIDERS: Visit Provider Anesthesiology
DX: Z45.1 Encounter for adjustment and management of infusion pump (principal); M96.1 Postlaminectomy syndrome, not elsewhere classified; G89.4 Chronic pain syndrome
CPT/HCPCS: 62370

== ENCOUNTER 2024-12-20 11:55 | Outpatient (AMB) | payer MEDICARE, SELFPAY ==
--- NOTE | 2024-12-20 12:02 | MHC.OFFVIS ---
Vital Signs 12/20/24 12:03 BP 156/95 H Blood Pressure Location Lt brachial Position Sitting Respiration 16 Pulse 86 Pulse Source Pulse Oximeter Pulse Oximetry (%) 93 Oxygen Delivery Method Nasal Cannula Intake Visit Reasons: ITDD PUMP refill Allergies No Known Allergies Allergy (Verified 12/20/24 12:03) Medication List - Last Reconciled 12/20/24 by Ramila Belle LPN albuterol sulfate 90 mcg/actuation inhalation atorvastatin 20 mg PO DAILY biotin 10,000 mcg PO DAILY zdswnpkroa-wrufczws-hqxqnyelgr 160-9-4.8 mcg/actuation (Breztri Aerosphere) inhalations inhalation clopidogrel 75 mg PO DAILY duloxetine 60 mg PO DAILY folic acid 0.8 mg PO DAILY gabapentin 600 mg PO TID latanoprost 0.005% drps ophthalmic (eye) mirtazapine 45 mg PO BEDTIME mirtazapine mg PO multivitamin (Daily Multi-Vitamin tablet) 1 tab PO DAILY tramadol 50 mg PO NEEDED PFSH Social History Patient Tobacco Use Status: Never used Tobacco Physical Exam Vital Signs: Last Vital Signs Pulse 86 12/20/24 12:03 Resp 16 12/20/24 12:03 BP 156/95 H 12/20/24 12:03 Pulse Ox 93 12/20/24 12:03 Oxygen Delivery Method Nasal Cannula 12/20/24 12:03 Assessment & Plan Assessment & Plan (1) Postlaminectomy syndrome: Code(s): M96.1 - Postlaminectomy syndrome, not elsewhere classified Category: Medical (2) Chronic pain syndrome: Code(s): G89.4 - Chronic pain syndrome Category: Medical Plan: Continue as previous doses of the morphine and bupivacaine. Continue with the same concentration. Next pump refill is 12/26/2024. (3) COPD (chronic obstructive pulmonary disease): Code(s): J44.9 - Chronic obstructive pulmonary disease, unspecified Category: Medical Plan ? Intrathecal pump refill. The patient came today in the office FOR THE CHANGE OF THE MEDICATION IN her PAIN PUMP. The name and date of were verified and informed consent was obtained for the procedure. The pump was interrogated and the residual amount of fluid was found to be 3.7 mL. She was positioned prone on the bed AND THE AREA OF THE INTRATHECAL PUMP WAS PREPPED WITH CHLORAPREP. The fenestrated drape was sterilely applied over the area of the pump. Sterile gloves were worn and of the aspiration system was assembled containing 2 in 22 gauge noncoring needle, the needle was connected to extension tubing which was connected to the 20 cc sterile syringes. The pain pump was palpated under the skin in the patient's left abdominal area. The needle was inserted through the skin and the central plug of the pain pump and fluid was aspirated. The clear fluid was going into the syringe the total amount of the fluid was 7.1 mL .. After that a new batch? of medication was obtained which was containing morphine 10 milligrams/mL and bupivacaine 20 milligrams/mL . The syringe was connected to the bacterial filter, and then connected to the extension tubing. After that the medication in the syringe was slowly instilled into the pump with aspirations at 15 and 5 cc soriano.? The pump was programmed for the doses of morphine 5.608 mg per day with corresponding dose of bupivacaine of 11.216 mg per day. Next appointment 02/27/2025. Coding Level of Care Code Procedure Only Diagnoses Postlaminectomy syndrome M96.1 Chronic pain syndrome G89.4 COPD (chronic obstructive pulmonary disease) J44.9
[2024-12-20 12:03] VITALS: BP 156/95; PULSE 86; RESP 16; O2SAT 93
== END 2024-12-20 12:30 | disposition home or self-care (01) ==
LOC: HO.PMCPRC 11:55
PROVIDERS: PCP Internal Medicine; Visit Provider Anesthesiology
DX: M96.1 Postlaminectomy syndrome, not elsewhere classified (principal); G89.4 Chronic pain syndrome; J44.9 Chronic obstructive pulmonary disease, unspecified; Z45.1 Encounter for adjustment and management of infusion pump
CPT/HCPCS: 62370

== ENCOUNTER 2025-02-27 13:07 | Outpatient (AMB) | payer MEDICARE, SELFPAY ==
--- NOTE | 2025-02-27 13:12 | MHC.OFFVIS ---
Vital Signs 02/27/25 13:49 Height 4 ft 10 in Weight 108 lb BMI 22.6 BP 144/67 H Blood Pressure Location Rt brachial Position Sitting Respiration 16 Pulse 73 Pulse Source Pulse Oximeter Pulse Oximetry (%) 95 Oxygen Delivery Method Nasal Cannula Oxygen Flow Rate 3 Intake Visit Reasons: ITDD Pump Fill Elevator Constructor Supervisor Required: No Accompanied by: Self / Same As Patient Allergies No Known Allergies Allergy (Verified 02/27/25 13:50) HPI Comments Details: The patient presents today with an implanted intrathecal drug delivery system requiring routine reservoir refill. She receives morphine 10 mg/bupivacaine 20mg/ml in 40 cc pain pump. She reports adequate analgesia for her chronic mid and lower back pain, rating it at 5/10. Denies any recent cough, cold, infection, fever or other significant changes in medical history since last office visit. PRIOR 10/17/24 Dr. Rainey: Vania came today to my office for the medication exchange in her intrathecal pain pump. Her level of pain today as 2 to 3/10. She reports the pain is aggravated when she stands up. The intrathecal pain pump refill is as below. There is discrepancy of 4 cc in between delivered and escalated doses. With 40 cc pump I do not think it is a significant number however we will be continuing observation. Prior: very pleasant 77 years old female who recently moved to [place] from [facility]. History of postlaminectomy syndrome treated with implantation of the pain pump elsewhere.. [facility] Medical History (Updated 02/27/25 @ 13:13 by ANNY Lawson) Presence of intrathecal pump Postlaminectomy syndrome Chronic pain syndrome COPD (chronic obstructive pulmonary disease) Social History Patient Tobacco Use Status: Never used Tobacco Review of Systems Const All systems reviewed & are unremarkable except as noted in HPI and below Physical Exam Vital Signs: Last Vital Signs Pulse 73 02/27/25 13:49 Resp 16 02/27/25 13:49 BP 144/67 H 02/27/25 13:49 Pulse Ox 95 02/27/25 13:49 Oxygen Delivery Method Room Air 02/27/25 13:49 BMI result Body Mass Index 22.6 General: Appears afebrile. Alert and oriented. Mood and affect appropriate. Follows and participates in conversation appropriately. Respiratory effort is unlabored. No cough. Able to transition from sit to stand unassisted. Ambulates with bilaterally normal heel strike and toe off. Psych Appearance: grossly normal Mental Status: mental status grossly normal Speech and movement: Normal speech and movement present Affect: normal affect Attitude: cooperative Thought process: Normal thought process present Thought content: Normal thought content present and Depressive thoughts present Insight: Good insight present (Psych) Judgement: Good judgement present (Psych) Office Procedures Details: - Obtained informed consent and patient agreement. - Patient was positioned in the supine position. - Pump pocket site identified in the left lower abdomen, cleaned with Chloraprep and prepared. - Accessed the pump with a 22-gauge needle to aspirate 5 mL of existing medication. - Connected new syringe for medication refill; injected Morphine in concentration 10 mg/ml and Bupivacaine 20 mg/ml was compounded by [facility] pharmacy and arrived in a 2-20cc syringes. -Delivery ensured through interval aspiration. Needle removed and site covered with sterile dressing. Pump programmed as per protocol with updated medication volume and same dose parameters. - Identified next refill date as May 05, 2025. - No complications encountered and discharged in stable condition. [address] - Refill Procedure code (CPT) selection complete Assessment & Plan Assessment & Plan (1) Postlaminectomy syndrome: Code(s): M96.1 - Postlaminectomy syndrome, not elsewhere classified Category: Medical (2) Chronic pain syndrome: Code(s): G89.4 - Chronic pain syndrome Category: Medical Plan Patient is status post ITDD pain pump refill. No changes to infusion parameters. Next refill scheduled for 05/04/[address] Rainey. Instructed patient to monitor for signs of infection, withdrawal symptoms, or pump alarms, and to seek immediate care if symptoms occur. All questions and concerns have been answered and patient agreed with the plan. Follow up as needed. Orders: Orders AMB Intrathecal Drug Delivery System Today G89.4 - Chronic pain syndrome, Z97.8 - Presence of other specified devices Coding Level of Care Code Est Pt Level 3 (52652) Procedure Only Diagnoses Postlaminectomy syndrome M96.1 Chronic pain syndrome G89.4 CPT Codes Intraethecal Drug Delivery System - CPT: 66342 - Refill ([id number])
--- OUTSIDE RECORDS SUMMARY | 2025-02-27 13:17 | XMS_ITS | Clinical Summary ---
Author Organization [address] Address [address] [place] [address] Phone Care Team Providers Care Offset Pressman Name Role Phone Jeffery Villegas MD Primary Care Provider [phone] Allergies No known active allergies Family History [...] 74 01/16/2023 2:30 AM EDT Temperature 36.7 C (98.1 F) 01/15/2023 9:47 PM EDT Respiratory Rate 14 01/16/2023 2:30 AM EDT Oxygen Saturation 95% 01/16/2023 2:30 AM EDT Inhaled Oxygen Concentration - - Weight - - Height - - Body Mass Index - - Plan of Treatment Health Maintenance Due Date Last Done Comments HIV screening 01/01/1960 Hepatitis C screening 1964 Tetanus adult (Td q 10,TDAP once) 1966 Lipid disorder screening 1986 Diabetes screening 01/01/1992 Pneumococcal Vaccine (50+ ye ars) (1 of 1 - PCV) 1996 Shingles vaccine (Shingrix) (1 of 2 - Shingrix (RZV) 2 Dose Standard Series) 1996 Osteoporosis screening (bone density) 01/01/2012 RSV Immunization (1 - 1-dose 75+ series) 2021 Covid-19 vaccine series ( - 2023- season) 2024 Influenza vaccine 03/20/2025 Breast cancer screening Discontinued Cervical cancer screening Discontinued Colon cancer screening, Colonoscopy Discontinued Meningococcal Vaccine Aged Out No sirena mary eligible based on patient's age to complete this topic Insurance MEDICARE [facility] MEDICARE [facility]ICARE [facility] Care Teams Offset Pressman Relationship Specialty Start Date End Date Jeffery Villegas MD [address] [place] [phone] PCP - General Family Medicine 01/15/23
--- OUTSIDE RECORDS SUMMARY | 2025-02-27 13:17 | XMS_ITS | Referral Summary ---
Author Organization [facility] Address [address] [place] [address] Care Team Providers Care Scouts Name Role Phone Sophie Parikh MD Primary Care Provider [phone] Medications No known medications Active Problems Problem [...] Treatment [place] [id number] UHC MCR SUPP AARP Care Teams Scouts Relationship Specialty Start Date End Date Sophie Parikh MD [address] [phone] PCP - General 02/23/24
--- OUTSIDE RECORDS SUMMARY | 2025-02-27 13:17 | XMS_ITS | Encounter Summary ---
Author Organization [facility] Address [address] [facility] [address] [place] [address] Phone Care Team Providers Care Analysis Manager Name Role Phone Kati Sophie Bueno MD Primary Care Provider Encounter Details Date Type Department Care Team (Late st Contact Info) Description 12/29/2023 Procedure Pass Echo [facility] [address] [place] [id number] Social History Tobacco Use Types Packs/Day Years Used Date Smoking Tobacco: Former Cigarettes Q uit: 07/31/2011 Passive Smoke Exposure: Past Smokeless Tobacco: Never Alcohol Use Standard Drinks/Week Comments Not Currently 0 (1 standard drink = 0.6 oz pur e alcohol) Education Answer Date Recorded Are you interested in more education? Not on lloyd e 01/16/2023 Are you concerned about learning? Not on file 01/16/2023 No 01/16/2023 No 01/16/2023 Digital Access Answer Date Recorded No 01/16/2023 No 01/16/2023 Reliable internet access at home? Not on file 01/16/2023 Device with a working camera? Not on file Intimate Partner Violence Answer Date R ecorded Are you denied basic needs s uch as food, clothing, or medical care? No 05/21/2023 In the past 12 months have y ou been in a relationship with a person who hurts, threatens, or tries to control you? No 05/21/2023 Are you denied basic needs s uch as food, clothing, or medical care? No 05/21/2023 In the past 12 months have y ou been in a relationship with a person who hurts, threatens, or tries to control you? No 05/21/2023 Comments Unknown Sex and Gender Information Value Date Recorded Sex Assigned at Not on file Legal Sex Female 7:51 PM EDT Gender Identity Not on file Sexual Orientation Not on file Occupation Industry Job Start Date Job End Date [employer] Not on file Not on file Not on file documented as of this encounter Plan of Treatment Upcoming Encounters Date Type Department Care Team (Late st Contact Info) Description 02/28/2025 11:30 AM EDT Office Visit [facility] [address] [place] [address] Reji Carter MD [address] [facility] 2nd [place] [address] [email or web address] 03/07/2025 11:00 AM EDT Office Visit [facility] [address] [facility] 3rd Floor, [address] [place] [address] Dorothy Kunz, DNP [address] [place] [address] [email or web address] documented as of this encounter Visit Diagnoses Not on filedocumented in this encounter Care Teams Analysis Manager Relationship Specialty Start Date End Date Sophie Martin MD [address] [place] [address] [email or web address] PCP - General Internal Medicine 03/25/23 documented as of this encounter Additional Source Comments The information contained in this document represents components of the legal health record. It is not the complete legal health record.[facility]
[2025-02-27 13:49] VITALS: BP 144/67; PULSE 73; RESP 16; O2SAT 95; BMI 22.6
== END 2025-02-27 13:47 | disposition home or self-care (01) ==
PROVIDERS: PCP Internal Medicine; Visit Provider Nurse Practitioner Family
DX: M96.1 Postlaminectomy syndrome, not elsewhere classified (principal); G89.4 Chronic pain syndrome; Z45.1 Encounter for adjustment and management of infusion pump
CPT/HCPCS: 62370; 99213

== ENCOUNTER → 2025-02-27 13:07 | Outpatient (BNVA) | payer MEDICARE, SELFPAY | PROVIDERS: PCP Internal Medicine; Visit Provider Nurse Practitioner Family | DX: M96.1 Postlaminectomy syndrome, not elsewhere classified (principal); G89.4 Chronic pain syndrome; Z45.1 Encounter for adjustment and management of infusion pump; Z79.891 Long term (current) use of opiate analgesic | CPT/HCPCS: 62370; 99212 ==

== ENCOUNTER 2025-05-04 13:11 | Outpatient (AMB) | payer MEDICARE, SELFPAY ==
--- OUTSIDE RECORDS SUMMARY | 2023-02-27 12:37 | XMS_ITS | Continuity of Care Document ---
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 Role Phone Jeffery Villegas MD Unavailable Unavailable Allergies, Adverse Reactions, Alerts Substance Reaction Status Criticality No Known Allergies Active No Inform ation No Known Allergies Active No Inform ation Medications Medication Instructions Dosage Effective Dates (start - stop) Status Comments tramadol 50 mg tablet take 1 tablet by oral route every 6 hours as needed 50 MG - Active AeroEclipse II Nebulizer for every 4 hour albuterol as needed - Active any nebulizer gabapentin 600 mg tablet take 1 tablet by oral route 3 times every day to prevent pain - Active atorvastatin 20 mg tablet take 1 tablet by oral route every day 20 MG - Active clopidogrel 75 mg tablet take 1 tablet by oral route every day 75 MG - Active mirtazapine 45 mg tablet take 1 tablet by oral route every day before bedtime 45 MG - Active latanoprost 0.005 % eye drops instill 1 drop by ophthalmic route every day into affected eye(s) in the evening 1.00 drop - Active duloxetine 60 mg capsule,delayed release take 1 capsule by oral route every day for Angina 60 MG - Active Breztri Aerosphere 160 mcg-9mcg-4.8mcg/ac tuation HFA aerosol inhaler inhale 2 puff by inhalation route 2 times every day in the morning and evening 2.00 puff - Active Ventolin HFA 90 mcg/actuation aerosol inhaler inhale 2 puff by inhalation route every 4 hours as needed for cough wheeze or shortness of breath - Active biotin 5,000 mcg sublingual tablet as needed - Active albuterol sulfate 2.5 mg/3 mL (0.083 %) solution for nebulization inhale 3 milliliter by nebulization route every 4 hours as needed for wheezing/asthma/co ugh 2.5 MG - Active 1 box = 25 ampules Vitamin D3 5,000 unit tablet take 1 Tablet by Oral route once 1 Tablet - Active VITAMIN B-12 (unknown strength) take 1 tablet by oral route every day for 30 days Not Available - Active folic acid 1 mg tablet take 1 tablet by oral route every day 1 MG - Active multivitamin tablet take 1 tablet by oral route every day with food - Active Advance Directives Directive Yes / No Effective Date File Name No Information Encounters Encounter Description Practice Location Reason(s) For Visit Diagnoses Date Provider [address], [id number], tel:[phone] [place] [address] No Information 3 Nelly Gil. [address] [place] [address], [id number], . tel:[phone] [place] [address], [id number], tel:[phone] [place] [address] No Information 3 Nelly Gil. [address] [place] [address], [id number], [place]. tel:[phone] [place] [address], [id number], tel:[phone] [place] [address] JOYCE (chief complaint) Asthma with COPDChronic midline low back pain without sciaticaOther chronic painElevated cholesterolSac ral wound, sequela 3 Nelly Castillo [address] [place] [address], [id number], [place]. tel:[phone] Hospitalists /Meeting [facility] [address], [place], [place], [id number], [place] tel:[phone] [facility] IP No Information 3 Jericho Guillen. [address] [place], [place], [id number], [place]. [facility], [facility] [address], [place], [place], [id number], [place] tel:[phone] [facility] IP No Information 3 Melchoralton Dill. [address] [place], [address], [place]. tel:[phone], [id number], [place] tel:[phone] [facility] No Information 3 Nelly Gil. [address] [place] [address], [id number], [place]. tel:[phone], [id number], [place] tel:[phone] [facility] No Information 3 Nelly Gil. [address] [place] [address], [id number], [place]. tel:[phone] [facility], [facility] [address], [place], [place], [id number], [place] tel:[phone] [facility] (chief complaint) Centrilobular emphysemaChron ic hypoxemic respiratory failure Mar- 3 Bellucci Leon. [address] [facility] [address], [place], [place], [id number], [place]. tel:[phone] [facility], [facility] [address], [place], [place], [id number], [place] tel:[phone] [facility] (chief complaint) Centrilobular emphysemaChron ic hypoxemic respiratory failure Feb-2 2 3 Bellucci Leon. [address] [facility] 2 [address], [place], [place], [id number], [place]. tel:[phone] [facility], [address] [place] [address], [id number], [place] tel:[phone] [facility] f/u (chief complaint)leg numbness (chief complaint) Hypoxemic respiratory failure, chronicChronic midline low back pain, unspecified whether sciatica presentOther chronic painHyperchole sterolemiaBila teral leg numbness 3 Villegas Jeffery. [address] [place] [address], [place], [place], [id number], [place]. tel:[phone] Hospitalists /Meeting [address], [id number], [place] tel:[phone] [facility] IP No Information 3 Sven Montero. [address] [place], [place], [id number], [place]. tel:[phone] Hospitalists /[facility] [address], [id number], [place] tel:[phone] [facility] IP No Information 3 Jericho Guillen. [address] [place], [place], [id number], [place]. Hospitalists /Meeting [facility] [address], [id number], [place] tel:[phone] [facility] IP No Information 2 Jericho Guillen. [address] [place], [place], [id number], [place]. [facility] , [facility] [address], [place], [id number], [place] tel:[phone] [facility] IP No Information 2 Percy De La Cruz. [address] [facility] 1, [place], [place], [id number], [place]. tel:[phone] [facility] , [facility] [address], [place], [id number], [place] tel:[phone] [facility] IP No Information 2 Ardenarsen Che. [address] [facility] [address], [place], [address], [place]. tel:[phone] Hospitalists /[facility] [address], [place], [place], [id number], [place] tel:[phone] [facility] IP No Information 2 Marquis Mckeon. [address] [place], [place], [id number], [place]. tel:[phone] [facility], [address], [place], [place], [id number], [place] tel:[phone] [place] [address] IP No Information 2 Jamshid Quintero. [address] [facility] [address], [place], [place], [id number], [place]. tel:[phone] [facility], [address] [address], [place], [place], [id number], [place] tel:[phone] [place] [address] IP No Information 2 Roslyn Rodney. [address] [address] [address], [place], [place], [id number], [place]. tel:[phone] [facility], [address] [address], [place], [place], [id number], [place] tel:[phone] [place] [address] IP No Information 2 Garcia Ross. [address] [address] [address], [place], [place], [id number], [place]. tel:[phone] [facility], [address] [place] [address], [id number], [place] tel:[phone] [facility] Insomnia (chief complaint)Follo w Up of back pain (chief complaint)Follo w Up of Asthma (chief complaint) Hypercholester olemiaAsthma with COPDChronic midline low back pain without sciaticaOther chronic painOther insomniaHypoxe miaOther hypotension 2 Villegas Jeffery. [address] [place] [address], [place], [place], [id number], [place]. tel:[phone], [id number], [place] tel:[phone] [place] [address] Primary Chronic bilateral low back pain, unspecified whether sciatica presentAsthma with COPDHyperchole sterolemiaHist ory of carotid endarterectomy 2 Nelly Gil. [address] [place] [address], [id number], [place]. tel:[phone], [id number], tel:[phone] [place] [address] Primary COPD (chief complaint)Hypox ia (chief complaint)Iron deficiency (chief complaint) HypoxiaHistory of colostomy reversalCOPD, severeBilatera l carotid artery disease, unspecified typeSpinal stenosis of lumbar region without neurogenic claudicationIr on deficiency anemia, unspecified iron deficiency anemia type 2 Nelly Gil. [address] [place] [address], [id number], [place]. tel:[phone], [id number], tel:[phone] [place] [address] Primary hair loss (chief complaint)Back pain (chief complaint)COPD (follow up) (chief complaint) Chronic midline low back pain without sciaticaOther chronic painHistory of spinal surgeryChronic obstructive pulmonary disease, unspecified COPD typeChronic respiratory failure with hypoxiaHair loss 2 Nelly Gil. [address] [place] [address], [id number], [place]. tel:[phone] [facility], [address], [place], [place], [id number], [place] tel:[phone] [facility] Follow Up of Aspiration pneumonia (chief complaint) Asthma with COPDHypoxemic respiratory failure, chronicRespira tory failure with hypercapnia, unspecified chronicityPulm onary emphysema, unspecified emphysema typePulmonary nodules/lesion s, multipleWeight lossAspiration pneumonia of both lower lobes, unspecified aspiration pneumonia typeBronchiect asis with acute lower respiratory infection 2 Percy De La Cruz. [address], [id number], [place]. tel:[phone] [phone], [id number], [place] tel:[phone] [place] [address] Primary BACK PAIN (chief complaint)WEIGH T LOSS (chief complaint) Unexplained weight lossAsthma with COPDChronic bilateral low back pain without sciaticaOther chronic painHypoxia 1 Nelly Gil. [address] [place] [address], [id number], [place]. tel:[phone] Meeting [facility], [address], [place], [place], [id number], tel:[phone] [facility] follow-up (chief complaint) Aspiration pneumonia of both lower lobes, unspecified aspiration pneumonia typeBronchiect asis with acute lower respiratory infectionAsthm a with COPDPulmonary emphysema, unspecified emphysema typePulmonary nodules/lesion s, multipleHypoxe janae respiratory failure, chronicWeight lossAnemia, unspecified typeRespirator y failure with hypercapnia, unspecified chronicity 1 Percy De La Cruz. [address], [id number], . tel:[phone] [address], [id number], [place] tel:[phone] [facility] JOYCE (chief complaint)anemi a (chief complaint) COPD exacerbationIr on deficiency anemia, unspecified iron deficiency anemia typeUnilateral carotid artery diseaseChronic bilateral low back pain with sciatica, sciatica laterality unspecifiedWei ght lossBenign colonic polypElevated CEAPrediabetes 1 Nelly Castillo [address] [place] [address], [id number], [place]. tel:[phone] Meeting [facility], [address], [id number], [place] tel:[phone] [facility] IP No Information Oct-2 1 Melchor Dill. [address] [place], [address], [place]. tel:[phone] [facility], [address], [id number], [place] tel:[phone] [facility] IP No Information Oct-2 1 Jamshid Quintero. [address] [facility] 2 [address], [place], [place], [id number], [place]. tel:[phone] [facility], [address], [id number], [place] tel:[phone] [facility] IP No Information Apr-2 0 1 Percy De La Cruz. [address], [id number], [place]. tel:[phone] Hospitalists /Meeting [address], [id number], [place] tel:[phone] [place] [address] IP No Information Apr-2 1 Mary Foreman. [address] [place], [place], [id number], [place]. Hospitalists /Meeting [address], [id number], [place] tel:[phone] [facility] IP No Information Apr- 1 James Delong. [address] [place], [address], [place]. [facility], [address], [id number], [place] tel:[phone] [facility] follow-up (chief complaint) Asthma with COPDHypoxemic respiratory failure, chronicHistory of prior cigarette smokingAnemia, unspecified typePulmonary nodules/lesion s, multipleWeight lossPulmonary emphysema, unspecified emphysema type Oct-0 1 Percy De La Cruz. [address] [facility] 1, [place], [place], [id number], [place]. tel:[phone] [facility], [address] [place] [address], [id number], [place] tel:[phone] [facility] JOYCE (chief complaint) Chronic respiratory failure with hypoxiaAbnorma l weight lossCardiovasc ular diseaseAsthma with COPDChronic midline low back pain without sciaticaOther chronic painAnemia, unspecified type Sep-3 1 Nelly Gil. [address] [place] [address], [place], [place], [id number], [place]. tel:[phone] [facility], [address] [place] [address], [id number], [place] tel:[phone] [facility] Fatigue (chief complaint) Low O2 saturationChro brian obstructive pulmonary disease, unspecified COPD type Sep-2 1 Lashon Abi. [address] [place] [address], [place], [place], [id number], [place]. tel:[phone] [facility], [address], [place], [id number], [place] tel:[phone] [facility] [address] Urinary complaints (chief complaint)abnor mal voiding pattern (chief complaint) Voiding dysfunctionChr onic low back pain, unspecified back pain laterality, unspecified whether sciatica presentOther chronic pain 1 Jennifer Cool. [address] [facility], [address], [place], [address], [place]. tel:[phone] [facility], [address], [place], [id number], [place] tel:[phone] [facility] COPD (follow up) (chief complaint) Asthma with COPDHistory of prior cigarette smoking 1 Percy De La Cruz. 325 [facility] 1, [place], [place], [id number], [place]. tel:[phone] [facility], [address], [place], [id number], [place] tel:[phone] [facility] Specialty chronic conditions (chief complaint) Elevated serum creatinineAnem ia, unspecified typeBilateral carotid artery stenosisImpair ed glucose regulationChro brian low back pain, unspecified back pain laterality, unspecified whether sciatica presentOther chronic painAbdominal fullness 1 Jose Croft. 325 [address] [facility], [facility] 2 [address], [place], [address], [place]. tel:[phone], [id number], [place] tel:[phone] [facility] UTI (chief complaint) Suspected UTIElevated serum creatinine 1 Fabien Schreiber [address] [place] [address], [address], [place]. tel:[phone] [place] [address], [address] [place] [address], [id number], [place] tel:[phone] [place] [address] Follow Up of COPD (chief complaint) Chronic obstructive pulmonary disease with acute exacerbation 1 Fabien Schreiber [address] [place] [address], [address], [place]. tel:[phone] [place] [address], [address] [place] [address], [id number], [place] tel:[phone] [facility] COPD (consult) (chief complaint)Urina ry symptoms (chief complaint) Chronic obstructive pulmonary disease with acute exacerbationHy poxia 1 Nelly Castillo [address] [place] [address], [id number], [place]. tel:[phone] [place] [address], [id number], [place] tel:[phone] [facility] Open surgery follow up (chief complaint) Low back pain of over 3 months durationAsthma with COPDEssential hypertensionPu re hypercholester olemiaStatus post carotid endarterectomy Elevated glucose 1 Nelly Castillo [address] [place] [address], [id number], [place]. tel:[phone] [place] [address], [address] [place] [address], [id number], [place] tel:[phone] [place] [address] No Information 1 Nelly Gil. [address] [place] [address], [id number], [place]. tel:[phone] [facility], [address] [place] [address], [id number], [place] tel:[phone] [place] [address] Medical Clearance (chief complaint) Chronic midline low back pain without sciaticaOther chronic painCoccydynia Pre-op evaluationEsse ntial hypertensionFu taya of lumbar spineHistory of carotid endarterectomy Mild intermittent asthma without complicationPu re hypercholester olemiaUTI (urinary tract infection), bacterial Oct- 1 Nelly Gil. [address] [place] [address], [place], [place], [id number], [place]. tel:[phone] [facility], [address], [id number], [place] tel:[phone] [facility] COPD (follow up) (chief complaint) Asthma with COPDHistory of prior cigarette smoking Oct- 1 Percy De La Cruz. [address], [id number], [place]. tel:[phone] [facility], [address], [id number], [place] tel:[phone] [facility] Surg No Information 1 Percy De La Cruz. [address], [id number], [place]. tel:[phone] [facility], [address], [id number], [place] tel:[phone] [facility] Surg No Information 1 Percy De La Cruz. [address], [id number], [place]. tel:[phone], [id number], [place] tel:[phone] [facility] Back pain (chief complaint) Chronic low back pain without sciatica, unspecified back pain lateralityOthe r chronic painHistory of carotid endarterectomy Mild persistent asthma without complicationPu re hypercholester olemia, unspecified Feb-0 1 Villegas Jeffery. [address] [place] [address], [id number], [place]. tel:[phone] [facility], [address], [place], [place], [id number], [place] tel:[phone] [facility] COPD (follow up) (chief complaint) Asthma with COPDHistory of prior cigarette smoking 0 Percy De La Cruz. 325 [facility], [facility] 1, [place], [place], [id number], [place]. tel:[phone] [address], [id number], [place] tel:[phone] [facility] Follow Up of hospitalization (chief complaint)Short ness of breath (chief complaint) Asthma with COPDStatus post carotid endarterectomy Cardiovascular diseaseChronic midline low back pain without sciaticaOther chronic painBilateral impacted cerumen Sep-2 0 Villegas Jeffery. [address] [place] [address], [id number], [place]. tel:[phone], [id number], [place] tel:[phone] [facility] MCL- Left carotid artery (chief complaint) Stenosis of left carotid artery without cerebral infarctionPre- op evaluationAsth ma, unspecified asthma severity, unspecified whether complicated, unspecified whether persistentHype rcholesterolem iaAbnormal EKG Sep-0 0 Villegas Jeffery. [address] [place] [address], [id number], [place]. tel:[phone] [place], [id number], [place] tel:[phone] [place] [address] Medical Clearance (chief complaint) Age-related cataract of both eyes, unspecified age-related cataract typePre-op evaluationMild intermittent asthma without complicationUn ilateral carotid artery disease 0 Nelly Gil. [address] [place] [address], [id number], [place]. tel:[phone] [place] [address], [id number], [place] tel:[phone] [place] [address] 3 month follow up (chief complaint)asthm a (chief complaint)COPD (chief complaint) Hypercholester olemiaChronic midline low back pain without sciaticaOther chronic painLumbar radiculopathy, chronicAsthma, unspecified asthma severity, unspecified whether complicated, unspecified whether persistent 0 Nelly Gil. [address] [place] [address], [id number], [place]. tel:[phone], [id number], [place] tel:[phone] [facility] Medical Clearance (chief complaint) Left carotid stenosisPreope rative clearanceChron ic low back pain without sciatica, unspecified back pain lateralityOthe r chronic pain 0 Nelly Gil. [address] [place] [address], [id number], [place]. tel:[phone] [facility] , [address], [place], [place], [id number], [place] tel:[phone] [facility] COPD (follow up) (chief complaint) Asthma with COPDEncounter for preoperative pulmonary examination 0 Percy De La Cruz. 325 [facility], [facility] 1, [place], [place], [id number], [place]. tel:[phone], [id number], [place] tel:[phone] [place] [address] hyperlipidemia (chief complaint)hyper tension (chief complaint) Hypercholester olemiaHip pain, bilateralPain in left hipLumbar radiculopathy, chronicMild asthma, unspecified whether complicated, unspecified whether persistent 9 Nelly Gil. [address] [place] [address], [id number], [place]. tel:[phone] [facility], [address] [place] [address], [id number], [place] tel:[phone] [place] [address] No Information 9 Nelly Gil. [address] [place] [address], [id number], [place]. tel:[phone] [facility], [address] [place] [address], [id number], [place] tel:[phone] [place] [address] Transition of Care (chief complaint) Chronic midline low back pain with sciatica, sciatica laterality unspecifiedFus ion of lumbar spineSpinal stenosis, site unspecifiedAst a with COPD 9 Nelly Gil. [address] [place] [address], [id number], [place]. tel:[phone] [facility], [address], [id number], tel:[phone] [facility] No Information 9 Breezy Rodney. [address] [place] [address], [address], [address], [place]. tel:[phone] [facility], [address] [facility], [place], [place], [id number], [place] tel:[phone] [facility] No Information 9 Breezy Rodney. [address] [place] [address], [address], [address], [place]. tel:[phone] Hospitalists /[address] [address], [place], [place], [id number], [place] tel:[phone] [facility] No Information 9 James Delong. [address] [place], [address], [place] [facility], [address] [address], [place], [place], [id number], [place] tel:[phone] [facility] IP No Information 9 Temo Manzanares. [address] [address], [place], [place], [id number], [place]. [address] [address], [place], [place], [id number], [place] tel:[phone] [facility] IP No Information 9 Melchor Dill. [address] [place], [address], [place]. tel:[phone] Hospitalists /[address] [address], [place], [place], [id number], [place] tel:[phone] [facility] IP No Information 9 Anil Martina. 325 [facility] [address], [id number]. tel:[phone] [facility], [address] [place] [address], [id number], [place] tel:[phone] [facility] Leg cramping (chief complaint) Leg cramp 9 [place] Abi. [address] [place] [address], [id number], [place]. tel:[phone], [id number], [place] tel:[phone] [facility] FOLLOW UP (chief complaint) Fusion of lumbar spineChronic midline low back pain with sciatica, sciatica laterality unspecifiedOth er chronic painSkin lesionNeuropat hic painMuscle spasmFollow up Sep- 9 Pepitodentekhushi Villela. 325 [facility] 2 [address] [facility], [place], [address], [place]. tel:[phone] [facility], 25 [place] [address], [id number], [place] tel:[phone] [facility] Follow up on lab test(s) (chief complaint)hyper tension (chief complaint)neuro pathic pain (chief complaint) Hypercholester olemiaChronic bilateral low back pain without sciaticaOther chronic painSacroiliac dysfunctionLow serum ferritin level 9 Nelly Gil. [address] [place] [address], [id number], [place]. tel:[phone] [facility], [address] [place] [address], [id number], [place] tel:[phone] [facility] follow up for pain (chief complaint) Chronic bilateral low back pain, with sciatica presence unspecifiedCon stipation due to opioid therapyFusion of lumbar spineNeuropath ic pain 9 Reyna Villela. 325 [facility] [address] [place] [address], [address], [place]. tel:[phone] [facility], [address] [place] [address], [id number], [place] tel:[phone] [facility] PAIN MANAGEMENT FOLLOW UP (chief complaint) Chronic bilateral low back pain, with sciatica presence unspecifiedCon stipation due to opioid therapyFusion of lumbar spineHistory of carotid artery diseaseHistory of spinal surgery 9 Vincenzokhushi Tika. 325 [facility] 2 Suite [facility], [place], [address], [place]. tel:[phone] [place] [address] [facility], [address] [place] [address], [id number], [place] tel:[phone] [facility] back pain (chief complaint)hyper lipidemia (chief complaint) Chronic bilateral low back pain, with sciatica presence unspecifiedCon stipation due to opioid therapyEssenti al hypertensionHi story of carotid artery diseaseSpinal stenosis, site unspecified 9 Villegas Alex. [address] [place] [address], [id number], [place]. tel:[phone] [facility], [address] [place] [address], [id number], [place] tel:[phone] [facility] follow up (chief complaint) Chronic bilateral low back pain, with sciatica presence unspecifiedFus ion of lumbar spineOther chronic pain 9 Caldentey Tika. [address] [place] [facility] [address] [place] [address], [id number], [place]. tel:[phone] [facility], [address], [place], [place], [id number], [place] tel:[phone] [facility] Follow Up of Pain Management (chief complaint) Occlusion and stenosis of unspecified carotid arteryConstipa tion due to opioid therapyFusion of lumbar spineHistory of spinal surgeryNeuropa thic painChronic bilateral low back pain, with sciatica presence unspecifiedOth er chronic pain 9 Caldentey Tika. [address] [facility] [address] [place] [address], [id number], [place]. tel:[phone] [facility], [id number], [place] tel:[phone] [facility] Low back pain with sciatica, sciatica laterality unspecified, unspecified back pain laterality, unspecified chronicity 9 Villegasmelanie Gil. [address] [place] [address], [id number], [place]. tel:[phone] [facility], [address], [place], [place], [id number], [place] tel:[phone] [facility] Follow Up of Pain Management (chief complaint) Constipation due to opioid therapyNeuropa thic painChronic bilateral low back pain without sciaticaOther chronic pain 8 Caldentey Tika. [address] [facility] 2 Suite [facility], [place], [address], [place]. tel:[phone] [facility], [address], [place], [id number], [place] tel:[phone] [facility] pain management (chief complaint) Constipation due to opioid therapyEssenti al hypertensionHi story of spinal surgeryChronic bilateral low back pain without sciaticaOther chronic pain 8 Pepitoashwincollinskhushi Villela. [address] [facility], [facility] [address], [place], [address], [place]. tel:[phone] [facility], [address] [place] [address], [id number], [place] tel:[phone] [facility] Follow Up of back pain (chief complaint)depre ssion (chief complaint) Spinal stenosis, site unspecifiedFus ion of lumbar spine 8 Torrey Alvaradoan. 386 [facility], [address], [place], [place], [id number], [place]. tel:[phone] [facility], [address] [place] [address], [id number], [place] tel:[phone] [facility] No Information 8 Nelly Gil. [address] [place] [address], [id number], [place]. tel:[phone] [place] [address], [address] [place] [address], [id number], [place] tel:[phone] [facility] Low back pain, unspecified back pain laterality, unspecified chronicity, with sciatica presence unspecified 8 Villegasmelanie Gil. [address] [place] [address], [id number], [place]. tel:[phone] [place] [address], [id number], [place] tel:[phone] [facility] No Information 8 Yung Harrison. [address] [place] [address], [id number], [place]. tel:[phone] [place] [address], [address] [place] [address], [id number], [place] tel:[phone] [facility] hyperlipidemia (chief complaint)hyper tension (chief complaint)back pain (chief complaint) Chronic bilateral low back pain, with sciatica presence unspecifiedOth er chronic painHyperchole sterolemiaAsth ma with COPDConstipati on due to opioid therapyAdverse effect of other opioids, initial encounter 8 Nelly Gil. [address] [place] [address], [id number], [place]. tel:[phone] [place] [address], [address] [place] [address], [id number], [place] tel:[phone] [facility] spinal surgery (chief complaint)medic ations refills (chief complaint)hyper lipidemia (chief complaint) Chronic midline low back pain without sciaticaOther chronic painHistory of spinal surgeryAsthma with COPDHyperchole sterolemiaColo stomy present 8 Nelly Gil. [address] [place] [address], [id number], [place]. tel:[phone] [place] [address], [address] [place] [address], [id number], [place] tel:[phone] [facility] Low back pain 8 Villegasmelanie Gil. [address] [place] [address], [id number], [place]. tel:[phone] [place] [address], [address] [place] [address], [id number], [place] tel:[phone] [facility] No Information 8 Villegas Alex. [address] [place] [address], [id number], [place]. tel:[phone] [place] [address], [address] [place] [address], [id number], [place] tel:[phone] [facility] Mixed hyperlipidemia 8 Villegas Alex. [address] [place] [address], [id number], [place]. tel:[phone] [place] [address], [address] [place] [address], [id number], [place] tel:[phone] [facility] No Information 8 Villegasmelanie Gil. [address] [place] [address], [id number], [place]. tel:[phone] [facility], [address] [place] [address], [id number], [place] tel:[phone] [facility] Medical clearance (chief complaint) Pre-op evaluationMild intermittent asthma without complicationPe ptic ulcer diseaseMixed hyperlipidemia Stenosis of right carotid arteryHistory of carotid endarterectomy Diverticulitis of large intestine without bleeding, unspecified complication statusElevated fasting glucoseMicrocy tic anemia 8 Giulia Negron. [address] [place] [address], [id number], [place]. tel:[phone] [facility], [address] [place] [address], [id number], [place] tel:[phone] [facility] No Information 8 Nelly Gil. [address] [place] [address], [id number], [place]. tel:[phone] [facility], [address] [place] [address], [id number], [place] tel:[phone] [facility] No Information 8 Nelly Gil. [address] [place] [address], [id number], [place]. tel:[phone] [facility] , [address], [place], [place], [id number], [place] tel:[phone] [facility] Surgical Office post OP (chief complaint) Encounter for other specified surgical aftercare 8 Ximena Fish. 240 [facility] [place], [place], [place], [id number], [place]. tel:[phone] [place] [address], [address] [place] [address], [id number], [place] tel:[phone] [facility] discharge (chief complaint) Essential hypertensionHo spital discharge follow-upRadic ulopathy, lumbar regionWeight lossH/O colostomy 8 Nelly Gil. [address] [place] [address], [id number], [place]. tel:[phone] [facility], [facility] [address], [place], [id number], [place] tel:[phone] [facility] Surgical Office post OP (chief complaint) Post-operative stateDiverticu litis 8 Ximena Fish. [address] [facility] [place], [id number], [place]. tel:[phone] [facility], [address] [place] [address], [id number], [place] tel:[phone] [facility] No Information 8 Nelly Gil. [address] [place] [address], [id number], [place]. tel:[phone] [facility], [facility] [address], [place], [id number], [place] tel:[phone] [facility] Surgical Office post OP (chief complaint) Encounter for other specified surgical aftercare 8 Ximena Fish. [address] [place], [id number], [place]. tel:[phone] [facility], [facility] [address], [place], [id number], [place] tel:[phone] [place] [address] IP No Information 8 Percy De La Cruz. [address] [facility] 1, [place], [place], [id number], [place]. tel:[phone] [facility], [facility] [address], [place], [id number], [place] tel:[phone] [facility] IP No Information 8 Ximena Fish. [address] [place], [id number], [place]. tel:[phone] [facility], [address], [place], [place], [id number], [place] tel:[phone] [facility] Surg No Information 8 Jairo Vitale. 325 [facility] 2, 2nd [facility], [place], [address], [place]. tel:[phone] [facility], [address] [place] [address], [id number], [place] tel:[phone] [facility] No Information 7 Villegas Alex. [address] [place] [address], [id number], [place]. tel:[phone] [facility], [address] [place] [address], [id number], [place] tel:[phone] [facility] clearance (chief complaint) Diverticulitis of large intestine with perforation and abscess without bleedingMild persistent asthma without complicationEs sential hypertensionOc clusion and stenosis of right carotid arteryAsymptom atic bacteriuria 7 Ivis Castro. [address] [place] [address], [place], [address], [place]. tel:[phone] Hospitalists /[address], [id number], [place] tel:[phone] [facility] Surg No Information 7 George Cui. 240 [place], [place], [id number], [place]. tel:[phone] [facility], [address] [place] [address], [id number], [place] tel:[phone] [facility] Gastro SH Diverticulitis (chief complaint) Diverticulitis Diverticulitis of large intestine with perforation and abscess without bleeding Jun- 7 Jairo Vitale. 325 [facility] 2, 2nd [facility], [place], [address], [place]. tel:[phone] [facility], [address] [place] [address], [id number], [place] tel:[phone] [facility] Surgical Office colostomy reversal (chief complaint) Dvtrcli of lg int w/o perforation or abscess w/o bleeding Ximena Fish. 240 [place], [place], [id number], [place]. tel:[phone] [facility], [address] [place] [address], [id number], [place] tel:[phone] [facility] No Information Villegas Jeffery. [address] [place] [address], [id number], [place]. tel:[phone] [facility], [address] [place] [address], [id number], [place] tel:[phone] [facility] No Information Villegas Jeffery. [address] [place] [address], [id number], [place]. tel:[phone] [facility], [facility] [address], [place], [place], [id number], [place] tel:[phone] [facility] No Information Ximena Fish. 240 [place], [place], [id number], [place]. tel:[phone] [facility], [address] [place] [address], [id number], [place] tel:[phone] [facility] No Information Villegas Jeffery. [address] [place] [address], [id number], [place]. tel:[phone] [facility], [address] [place] [address], [id number], [place] tel:[phone] [facility] No Information Villegas Jeffery. [address] [place] [address], [id number], [place]. tel:[phone] [facility], [address], [place], [place], [id number], [place] tel:[phone] [facility] Surgical Office Diverticulitis (chief complaint) Dvtrcli of lg int w/o perforation or abscess w/o bleeding Ximena Fish. [address] [place], [place], [id number], [place]. tel:[phone] [facility], [address] [place] [address], [id number], [place] tel:[phone] [facility] No Information 7 Nelly Gil. [address] [place] [address], [id number], [place]. tel:[phone] [facility], [address] [place] [address], [id number], [place] tel:[phone] [facility] colostomy (chief complaint)right gluteal wound (chief complaint)back pain (chief complaint)z93.3 (chief complaint) Decubitus ulcer of right buttock, stage 2Weight lossColostomy status 7 Torrey Bedoya. [address] [facility], [address], [place], [place], [id number], [place]. tel:[phone] [facility], [address], [place], [place], [id number], [place] tel:[phone] [facility] Wound Center No Information Ximena Fish. [address] [place], [place], [id number], [place]. tel:[phone] [facility], [address], [place], [place], [id number], [place] tel:[phone] [facility] Surgical Office post OP (chief complaint) Dvtrcli of lg int w/o perforation or abscess w/o bleeding 7 Ximena Fish. [address] [facility] [place], [place], [id number], [place]. tel:[phone] [facility], [address] [place] [address], [place], [place], [id number], [place] tel:[phone] [facility] and rehab fuv (chief complaint)ostom y (chief complaint) Diverticulitis of large intestine with perforation, unspecified bleeding statusColostom y careDrug-induc ed constipationOt her chronic painPain in thoracic spinePure hypercholester olemia, unspecified 0 7 Villegas Jeffery. [address] [place] [address], [place], [place], [id number], [place]. tel:[phone] Meeting [facility] , [address] [place] [address], [id number], [place] tel:[phone] [facility] Surgical Office Encounter for other specified surgical aftercare Mar-2 7 Ximena Fish. [address] [place], [id number], [place]. tel:[phone] Meeting [facility] , [address], [place], [place], [id number], [place] tel:[phone] [facility] Surgical Office post OP (chief complaint) Encounter for other specified surgical aftercare Mar-0 7 Ximena Fish. [address] [place], [place], [id number], [place]. tel:[phone] Meeting [facility], [address], [place], [id number], [place] tel:[phone] [facility] Surgical Office post OP (chief complaint) Encounter for other specified surgical aftercare Feb-2 7 Ximena Fish. [address] [place], [place], [id number], [place]. tel:[phone] Meeting [facility] , [address], [place], [id number], [place] tel:[phone] [facility] Surgical Office post OP (chief complaint) Encounter for other specified surgical aftercare Feb- 7 Ximena Fish. 240 [facility], [place], [place], [id number], [place]. tel:[phone] [facility] , [facility] [address], [place], [place], [id number], [place] tel:[phone] [facility] IP No Information 7 Yung Harrison. [address] [place] [address], [place], [place], [id number], [place]. tel:[phone] [facility] , [place] [address], [place], [place], [id number], [place] tel:[phone] [facility] IP No Information 7 Percy De La Cruz. [address] [address], [place], [place], [id number], [place]. tel:[phone] [facility], [address], [id number], [place] tel:[phone] [facility] IP No Information 7 Roslyn Rodney. 325 [facility] 2 [address], [place], [place], [id number], [place]. tel:[phone] [facility], [address], [id number], [place] tel:[phone] [facility] IP No Information 7 Melvin Edwards. [address] [address], [place], [place], [id number], [place]. tel:[phone] Hospitalists /[place] [address] [address], [place], [place], [id number], [place] tel:[phone] [facility] IP No Information 7 Fabby Rajan. [address] [place], [address], [place]. tel:[phone] [facility] , [address], [id number], [place] tel:[phone] [facility] IP No Information 7 Rolando Blum. [address] [address] [address], [place], [address], [place]. tel:[phone] Hospitalists /[address] [place] [address], [place], [place], [id number], [place] tel:[phone] [facility] IP No Information 7 Jericho Guillen. [address] [place], [place], [id number], [place]. Hospitalists /[address] [place] [address], [place], [place], [id number], [place] tel:[phone] [facility] IP No Information 7 Mary Foreman. [address] [place], [place], [id number], [place]. Meeting [facility], [place] [address], [place], [place], [id number], [place] tel:[phone] [facility] IP No Information 7 Ximena Fish. [address] [place], [place], [id number], [place]. tel:[phone] Meeting [facility], [address], [id number], [place] tel:[phone] [facility] IP No Information 7 Ximena Fish. [address] [place], [place], [id number], [place]. tel:[phone] [address] [facility], [address], [id number], [place] tel:[phone] [facility] Surgical Office abdominal pain (chief complaint) Diverticulitis of large intestine with abscess without bleeding Dec- 7 Keckeisen Abe. [address] [place], [place], [id number], [place]. tel:[phone] [facility], [address], [id number], [place] tel:[phone] [facility] Surgical Office Diverticulitis (chief complaint) Diverticulitis of large intestine with abscess without bleeding 7 Evelineitona Fish. [address] [place], [place], [id number], [place]. tel:[phone] [facility], [address] [place] [address], [id number], [place] tel:[phone] [facility] hip pain... (chief complaint)Hospi minh discharge (chief complaint)back pain (chief complaint) Hospital discharge follow-upRadic ulopathy, lumbar regionDivertic ulitis of large intestine with abscess without bleedingSpinal stenosis, lumbar regionAnteroli sthesis 7 Baldemar Hernandez. [address] [facility] [address], [place], [place], [id number], [place]. tel:[phone], [id number], [place] tel:[phone] [facility] Radiculopathy, lumbar region Nelly Gil. [address] [place] [address], [id number], [place]. tel:[phone] [address], [id number], [place] tel:[phone] [facility] hyperlipidemia (chief complaint)Back pain (chief complaint) Chronic bilateral low back pain without sciaticaOcclus ion and stenosis of unspecified carotid arteryPure hypercholester olemia, unspecifiedSpi nal stenosis, lumbar regionTransien t cerebral ischemic attack, unspecified Nelly Gil. [address] [place] [address], [id number], [place]. tel:[phone], [id number], [place] tel:[phone] [facility] medication alternative (chief complaint)back pain (chief complaint)Const ipation (chief complaint) Sacroiliac dysfunctionRad iculopathy, lumbar regionDrug-ind uced constipation Feb-0 Nelly Gil. [address] [place] [address], [id number], [place]. tel:[phone] [facility], [address] [place] [address], [id number], [place] tel:[phone] [facility] Back pain (chief complaint) Chronic bilateral low back pain without sciaticaHistor y of carotid artery diseasePure hypercholester olemiaRadiculo fartun, lumbar regionSacroili ac dysfunction Villegas Alex. [address] [place] [address], [id number], [place]. tel:[phone] [facility], [address], [place], [place], [id number], [place] tel:[phone] [facility] asthma (chief complaint) Asthma with COPD 7 Percy De La Cruz. [address] [address], [place], [place], [id number], [place]. tel:[phone], [id number], [place] tel:[phone] [facility] back pain (chief complaint) Chronic bilateral low back pain without sciaticaBilate ral buttock painHistory of carotid artery diseaseSpinal stenosis, lumbar regionVitamin D deficiency, unspecified 7 Villegasmelanie Gil. [address] [place] [address], [id number], [place]. tel:[phone], [id number], [place] tel:[phone] [facility] chronic pain (chief complaint) Sacroiliac dysfunctionPai n of both hip jointsEncounte r for immunizationPu re hypercholester olemia, unspecified 6 Maureen Hermelinda. [address] [place] [address], [address], [place], [address], [place]. tel:[phone] [facility], [address], [place], [id number], [place] tel:[phone] [facility] Specialty follow up (chief complaint) Sacroiliac dysfunction 6 Bishop Daly. [address] [place], [address], [place]. tel:[phone] [facility], [address] [place] [address], [id number], [place] tel:[phone] [facility] fall (chief complaint) Fall (on) (from) unspecified stairs and steps, initial encounterOcclu taya and stenosis of unspecified carotid arteryOcclusio n and stenosis of right carotid arteryPeptic ulcerPure hypercholester olemiaVitamin D deficiency, unspecifiedAst hma with COPDBilateral buttock painRight shoulder injury, initial encounter 6 Torrey eBdoya. [address] [place] [address], [address], [place], [place], [id number], [place]. tel:[phone] [facility], [address] [place] [address], [id number], [place] tel:[phone] [facility] back pain (chief complaint)const ipation (chief complaint) Slow transit constipationCh ronic bilateral low back pain without sciaticaOther chronic painPeptic ulcerPulmonary emphysema, unspecified emphysema type 6 Roz Epps. [address] [place] [address], [place], [address], [place]. tel:[phone] [facility], [address], [place], [place], [id number], [place] tel:[phone] [facility] [address] Follow Up of Weight loss (chief complaint) Peptic ulcerEsophagit is, Lipscomb grade AHiatal herniaWeight loss 6 Lai Mckeon. 182 [facility], [address], [place], [address], [place]. tel:[phone] [facility], [address] [place] [address], [id number], [place] tel:[phone] [facility] follow up (chief complaint)gastr ic ulcer (chief complaint) Acute gastric ulcer with bleedingOcclus ion and stenosis of unspecified carotid arteryHistory of TIA (transient ischemic attack)Low back painPure hypercholester olemiaWeight loss 6 Nelly Gil. [address] [place] [address], [place], [place], [id number], [place]. tel:[phone] [facility], [address], [place], [place], [id number], [place] tel:[phone] [facility] AMB Surg No Information 6 Lai Mckeon. 182 [facility], [address], [place], [place], [facility], [place]. tel:[phone] [facility], [address], [place], [place], [id number], [place] tel:[phone] [facility] [address] Screening Colonoscopy (chief complaint)Weigh t loss (chief complaint) Unexplained weight loss 6 Lai Mckeon. 182 [facility] [address], [place], [place], [facility], [place]. tel:[phone] [facility], [address], [place], [place], [id number], [place] tel:[phone] [facility] Specialty Lower back pain (chief complaint)initi al office visit (chief complaint)weigh t loss (chief complaint) Sacroiliac painWeight loss 6 Marialuisa Banerjee. [address] [place] [address], [address], [place], [place], [facility], . tel:[phone] [facility], [address] [place], [place] [address]u[address], [place], [place], [id number], [place] tel:[phone] [facility] Follow Up of Back pain (chief complaint)Butto cks pain. (chief complaint) Radiculopathy, lumbar regionBilatera l buttock painHip pain, bilateralPain in left hipPelvic floor tensionWeight loss, unintentionalD ecreased appetiteSegmen minh and somatic dysfunction of thoracic regionSegmenta l and somatic dysfunction of lumbar regionSegmenta l and somatic dysfunction of sacral regionSegmenta l and somatic dysfunction of pelvic regionSegmenta l and somatic dysfunction of lower extremitySegme ntal and somatic dysfunction of abdomen and other regionsSegment al and somatic dysfunction of rib cage 6 Quinn Cruz [address] [place] [address], [facility], [place]. tel:[phone] [place] [address], [address] [place] [address], [id number], [place] tel:[phone] [place] [address] Primary Follow Up (chief complaint) Low back painH/O screening mammographyOcc lusion and stenosis of unspecified carotid arteryPure hypercholester olemiaOcclusio n and stenosis of right carotid arterySpinal stenosis, lumbar region 6 Júnior Daly. [address] [place] [address], [facility], [place]. tel:[phone] [place] [address], [address] [place] [address], [id number], [place] tel:[phone] [facility] back pain (chief complaint)butto cks pain. (chief complaint) Low back painCoccydynia Psoas muscle strain, right, sequelaAcute pyelonephritis Personal history of spine surgery Quinn Cruz [address] [place] [address], [facility], [place]. tel:[phone] [place] [address], [id number], [place] tel:[phone] [facility] thoracolumbar back pain. (chief complaint) Low back painPain in thoracic spineRadiculop athy, lumbar regionSegmenta l and somatic dysfunction of sacral regionSegmenta l and somatic dysfunction of lumbar regionSegmenta l and somatic dysfunction of pelvic regionSegmenta l and somatic dysfunction of lower extremitySegme ntal and somatic dysfunction of abdomen and other regions 6 Quinn Cruz [address] [place] [address], [facility], [place]. tel:[phone] [place] [address], [id number], [place] tel:[phone] [facility] follow up (chief complaint)back pain (chief complaint) Midline low back pain without sciatica, unspecified chronicityTran sient cerebral ischemic attack, unspecifiedSpi nal stenosis, lumbar regionPain of both sacroiliac joints 4-201 6 Villegas Jeffery. [address] [place] [address], [id number], [place]. tel:[phone] [place] [address], [address] [place] [address], [id number], [place] tel:[phone] [place] [address] Follow Up of Back pain (chief complaint) Midline low back pain without sciatica, unspecified chronicityPain of both sacroiliac jointsSegmenta l and somatic dysfunction of cervical regionSegmenta l and somatic dysfunction of thoracic regionSegmenta l and somatic dysfunction of lumbar regionSegmenta l and somatic dysfunction of rib cageSegmental and somatic dysfunction of sacral regionSegmenta l and somatic dysfunction of pelvic region 6 [place] Sole. [address] [place] [address], [facility], [place]. tel:[phone] [address] [place] [address], [address] [place] [address], [id number], [place] tel:[phone] [place] [address] Mid to Low back pain. (chief complaint) Midline low back pain without sciatica, unspecified chronicityChro brian midline thoracic back painSpinal surgery in prior 3 monthsSegmenta l and somatic dysfunction of head regionSegmenta l and somatic dysfunction of cervical regionSegmenta l and somatic dysfunction of thoracic regionSegmenta l and somatic dysfunction of lumbar regionSegmenta l and somatic dysfunction of sacral regionSegmenta l and somatic dysfunction of pelvic regionSegmenta l and somatic dysfunction of lower extremitySegme ntal and somatic dysfunction of rib cageSegmental and somatic dysfunction of abdomen and other regions 0 6-201 6 Ramgodelroym Gloria. [address] [place] [address], [facility], [place]. tel:[phone] [phone] [place] [address], [address] [place] [address], [id number], [place] tel:[phone] [place] [address] Primary Thoracolumbar pain. (chief complaint) Spinal surgery in prior 3 monthsMidline low back pain without sciatica, unspecified chronicityPain of both sacroiliac jointsSegmenta l and somatic dysfunction of head regionSegmenta l and somatic dysfunction of cervical regionSegmenta l and somatic dysfunction of thoracic regionSegmenta l and somatic dysfunction of lumbar regionSegmenta l and somatic dysfunction of sacral regionSegmenta l and somatic dysfunction of pelvic regionSegmenta l and somatic dysfunction of lower extremitySegme ntal and somatic dysfunction of abdomen and other regions Oct- 6 Narcisa Castro. [address] [place] [address], [facility], . tel:[phone] [place] [address], [address] [place] [address], [id number], tel:[phone] [place] [address] Primary Follow Up of Chronic Pain (chief complaint) History of TIA (transient ischemic attack)History of carotid artery diseaseLumbar radiculopathy, chronicPure hypercholester olemiaSpinal stenosis, lumbar regionVitamin D deficiency, unspecifiedTra nsient cerebral ischemic attack, unspecified Oct- 6 Nelly Gil. [address] [place] [address], [id number], [place]. tel:[phone] [address] [place] [address], [address] [place] [address], [id number], [place] tel:[phone] [place] [address] Primary Follow Up of spinal surgery (chief complaint) DizzinessHisto ry of carotid artery diseaseChronic right-sided low back pain without sciatica Sep- 6 Roz Epps. [address] [place] [address], [id number], [place]. tel:[phone] [address] [place] [address], [address] [place] [address], [id number], [place] tel:[phone] [place] [address] Primary post op (chief complaint) Occlusion and stenosis of right carotid arteryPure hypercholester olemiaLumbar radiculopathy, chronicVitamin D deficiency, unspecifiedHis tory of TIA (transient ischemic attack) 6 Villegas Jeffery. [address] [place] [address], [id number], [place]. tel:[phone] [facility], [address] [place] [address], [id number], [place] tel:[phone] [facility] medical clearance (chief complaint) Lumbar radiculopathy, chronicOcclusi on and stenosis of right carotid arteryPure hypercholester olemiaTransien t cerebral ischemic attack, unspecifiedPre -op exam 6 Villegas Jeffery. [address] [place] [address], [id number], [place]. tel:[phone] [facility], [address], [place], [id number], tel:[phone] [facility] asthma (chief complaint) Asthma with COPDChronic low back pain 5 Percy De La Cruz. 325 [facility], [place], [place], [id number], [place]. tel:[phone], [id number], [place] tel:[phone] [facility] hypercholestero lemia (chief complaint)back pain (chief complaint) Hypercholester olemiaCarotid Artery Disease, UnilateralMala ise and fatigueInsomni a, OtherSpinal stenosis of lumbar regionVitamin D deficiencySusp icious nevusUTI (lower urinary tract infection) 5 Villegas Jeffery. [address] [place] [address], [id number], [place]. tel:[phone], [id number], [place] tel:[phone] [facility] Tick Bite (chief complaint) Insect bite 3 5 Duane Beltran. [address] [facility], [place], [address], [place]. tel:[phone] [facility], [address], [place], [place], [id number], [place] tel:[phone] [facility] COPD (follow up) (chief complaint) Asthma with COPD 5 Percy De La Cruz. 325 [facility] 1, [place], [place], [id number], [place]. tel:[phone], [id number], [place] tel:[phone] [facility] back pain (chief complaint)hyper cholesterolemia (chief complaint) Carotid Artery Disease, UnilateralSpin al stenosis of lumbar regionOther b-complex deficienciesVi tamin D deficiencyHype rcholesterolem iaAsthma 5 Nelly Gil. [address] [place] [address], [id number], [place]. tel:[phone] [address], [id number], [place] tel:[phone] [facility] Hypercholester olemiaVitamin D deficiencyMala ise and fatigue 5 Nelly Gil. [address] [place] [address], [id number], [place]. tel:[phone] [facility], [address] [place], [place], [id number], [place] tel:[phone] [facility] No Information 4 Kar Pool. [address] [place], [place], [id number]. tel:[phone], [id number], [place] tel:[phone] [facility] medical clearance (chief complaint) Preoperative clearanceCAD, UnspecifiedCar otid Artery Disease, UnilateralInso mnia, Other Nov- 4 Estefania Foreman. 386 [facility], [address], [place], [place], [id number], [place]. tel:[phone] [facility], [address], [place], [id number], [place] tel:[phone] [facility] Asthma w/ COPD (chief complaint) Asthma, unspecifiedChr onic airway obstruction, not elsewhere classifiedTIA (transient ischemic attack)Spinal stenosis 3 4 Percy De La Cruz. [address], [id number], [place]. tel:[phone], [id number], [place] tel:[phone] [facility] hypercholestero lemia (chief complaint)hip pain (chief complaint) Hypercholester olemiaCarotid Artery Disease, UnilateralCAD, UnspecifiedAst hmaSpinal stenosis of lumbar region 4 Villegas Jeffery. [address] [place] [address], [id number], [place]. tel:[phone], [id number], [place] tel:[phone] [facility] Tick bite 4 Villegas Jeffery. [address] [place] [address], [id number], [place]. tel:[phone] [facility], [address] [facility], [place], [id number], [place] tel:[phone] [facility] No Information 4 Percy De La Cruz. [address], [id number], [place]. tel:[phone], [id number], [place] tel:[phone] [facility] hypertension (follow up) (chief complaint)chron ic conditions (chief complaint)HIP PAIN (chief complaint) Carotid Artery Disease, UnilateralPain in joint involving pelvic region and thigh 0 4 Villegas Jeffery. [address] [place] [address], [id number], [place]. tel:[phone], [id number], [place] tel:[phone] [facility] hypercholestero lemia (chief complaint)asthm a (chief complaint) CAD, UnspecifiedHyp ercholesterole miaOther b-complex deficienciesIn somnia, Other 4 Villegas Jeffery. [address] [place] [address], [id number], [place]. tel:[phone] [facility], [address] [place] [address], [id number], [place] tel:[phone] [facility] IP No Information Mar- 3 Jessicasatinder Rodney. [address] [place], [place], [id number]. tel:[phone], [id number], [place] tel:[phone] [facility] IP No Information 3 Mira Tello. [address] [place], [place], [id number], [place]. tel:[phone] [facility], [address] [place] [address], [id number], [place] tel:[phone] [facility] hypercholestero lemia (chief complaint) Insomnia, OtherUrinary Tract InfectionCarot id Artery Disease, UnilateralAsth ma Sep- 3 Villegas Jeffery. [address] [place] [address], [id number], [place]. tel:[phone], [id number], [place] tel:[phone] [facility] UTI. (chief complaint) UTI (lower urinary tract infection) 3 Violettaor Chucho. [address] [place] [address], [id number], [place]. tel:[phone] [facility], [address] [place] [address], [id number], [place] tel:[phone] [facility] flu-like symptoms (chief complaint) Pyelonephritis Tick bite 3 Dimple Rodney. [address] [place] [address], [address], [place]. tel:[phone] [facility], [address] [place] [address], [id number], [place] tel:[phone] [facility] Coronary Artery Disease (chief complaint) Carotid Artery Disease, UnilateralAsth maCAD, Unspecified 3 Nelly Gil. [address] [place] [address], [id number], [place]. tel:[phone] [facility], [address] [place] [address], [id number], [place] tel:[phone] [facility] follow up (chief complaint)follo w up on lab test(s) (chief complaint)had aortic stent (chief complaint) Carotid Artery Disease, UnilateralHype rcholesterolem iaDizzinessSyn cope and collapseAsthma NEED FOR PROPHYLACTIC VACCINATION AND INOCULATION, OTHER VIRAL DISEASES 3 Nelly Gil. [address] [place] [address], [id number], [place]. tel:[phone], [id number], [place] tel:[phone] [facility] dizziness (chief complaint) Dizziness 3 Jasmin Kamara. 34 [facility] [address], [place], [address], [place]. tel:[phone] [facility], [address] [place] [address], [id number], [place] tel:[phone] [facility] hyperlipidemia (follow up) (chief complaint)heart disease (follow up) (chief complaint)carot id stenosis (chief complaint) Carotid Artery Disease, UnilateralUnsp ecified disorders of arteries and arteriolesAsth maInsomnia 2 Nelly Gil. [address] [place] [address], [id number], [place]. tel:[phone] [place] [address], [address] [place] [address], [id number], [place] tel:[phone] [place] [address] R carotid ctitically stenosd (chief complaint) Occlusion and stenosis of right carotid artery 2 Nelly Gil. [address] [place] [address], [id number], [place]. tel:[phone] [place] [address], [address] [place] [address], [id number], [place] tel:[phone] [place] [address] hyperlipidemia (follow up) (chief complaint)CT scan results (chief complaint)BW results (chief complaint)stres s and echo test results (chief complaint) Bilateral carotid artery diseaseSyncope and collapseHyperc holesterolemia Pneumonia Vaccine 2 Nelly Gil. [address] [place] [address], [id number], [place]. tel:[phone] [place] [address], [address] [place] [address], [id number], [place] tel:[phone] [place] [address] pt legs gave out on her the other day (chief complaint) Near syncopeOther b-complex deficienciesHy percholesterol emia 2 Nelly Gil. [address] [place] [address], [id number], [place]. tel:[phone] [place] [address], [id number], [place] tel:[phone] [place] [address] follow up on lab test(s) (chief complaint) Vitamin B12 deficiencyHype rcholesterolem ia 2 Nelly Gil. [address] [place] [address], [id number], [place]. tel:[phone] [place] [address], [address] [place] [address], [id number], [place] tel:[phone] [facility] cough x 2 weeks (chief complaint) SinusitisAsthm aElevated cholesterol Sep-2 8201 1 Villegas Jeffery. [address] [place] [address], [id number], [place]. tel:[phone] [place] [address], [address] [place] [address], [id number], [place] tel:[phone] [place] [address] No Information Oct-2 9201 1 Villegas Jeffery. [address] [place] [address], [id number], [place]. tel:[phone] [place] [address], [address] [place] [address], [id number], [place] tel:[phone] [place] [address] No Information Mar-3 0-201 1 Villegas Jeffery. [address] [place] [address], [id number], [place]. tel:[phone] [place] [address], [address] [place] [address], [id number], [place] tel:[phone] [place] [address] No Information Oct- 4-201 0 Villegas Jeffery. [address] [place] [address], [id number], [place]. tel:[phone] [place] [address], [address] [place] [address], [id number], [place] tel:[phone] [place] [address] No Information Sep-1 3-201 0 Villegas Jeffery. [address] [place] [address], [id number], [place]. tel:[phone] [place] [address], [address] [place] [address], [id number], [place] tel:[phone] [place] [address] No Information Aug-0 2-201 0 Villegas Jeffery. [address] [place] [address], [id number], [place]. tel:[phone] [facility], [address] [place] [address], [id number], [place] tel:[phone] [facility] No Information 0 0 Nelly Gil. [address] [place] [address], [place], [place], [id number], [place]. tel:[phone] [facility], [address], [place], [place], [id number], [place] tel:[phone] [facility] No Information 0 Winsomeolman De La Cruz. 325 [facility], [facility] 1, [place], [place], [id number], [place]. tel:[phone] Family History Family Member Type Diagnosis Age At Onset Problem (finding) No family history of De pression Problem (finding) No family history of Me ntal illness Problem (finding) No family history of Ca ncer, colon Father Problem (finding) Arthritis Father Problem (finding) High cholesterol Mother Problem (finding) Myocardial infarction ( Cause Of ) Father Problem (finding) Myocardial infarction ( Cause Of ) Sister Problem (finding) stroke 39 Mother Problem (finding) High cholesterol Father Problem (finding) Diabetes mellitus type 1 Father Problem (finding) diabetes melli tus in first degree relative Father Problem (finding) Alzheimer's disease Mother Problem (finding) Arthritis Immunizations Vaccine Date Status Comments PFIZER bivalent Booster administered Sour ce: Other Provider Influenza Vaccine High Dose 65+ administered Source: New Immuniza tion Record Influenza Vaccine High Dose 65+ administered Note: lluvia aidzahida hb ; Source: Other Registry COVID-19 Pfizer Vaccine administered Note : [facility] ; Source: Other Provider COVID-19 Pfizer Vaccine administered Sour ce: Other Registry COVID-19 Pfizer Vaccine administered Note : 10/10/2020 ; Source: Other Provider Influenza, quadrivalent, hig h dose, injectable, split virus, preservative free, 0.7 mL dose, Fluzone High-Dose Quad 6268-7001 administered Source: New Immuniza tion Record Influenza virus vaccine, injectable, quadrivalent, split virus, preservative free, 3 years or older Fluarix Quad administered Source: New Immuniza tion Record Influenza virus vaccine, injectable, quadrivalent, split virus, preservative free, 3 years or older Fluarix Quad administered Note: senior flu mily t at [employer] [facility] [employer] ; Source: Other Provider Shingrix administered Source: Other P rovider Shingrix administered Source: Other P rovider influenza, injectable, quadrivalent, (3 years or older) administered Source: Other Regist ry influenza, injectable, quadrivalent, (3 years or older) administered Source: New Immuniza tion Record Tdap administered Source: New Imm unization Record Pneumococcal conjugate PCV 13 administere d Source: New Immunization Record Zoster administered Source: New Imm unization Record Pneumo (2 yrs or older)(PPV) administered Source: New Immunization Record flu (split) (3 yrs or older) administered Source: New Immunization Record Payers Payer name Insurance type Covered libertarian ID Authoriza tion(s) Medicare MB [id number] AARP Healthcare Options CI [id number] Medicare MB [id number] AARP Healthcare Options CI [id number] Medicare MB [id number] AARP Healthcare Options CI [id number] Medicare MB [id number] AARP Healthcare Options CI [id number] Medicare MB [id number] AARP Healthcare Options CI [id number] Medicare [id number] AARP Healthcare Options CI [id number] Social History Type Description Quantity Date Captured Comments Alcohol Use Details Unknown Caffeine Use Details Unknown Tobacco Use Status No Information Smoking Status No Information Sex Female Sexual Orientation Straight or heterosexual Oct Gender Identity Female Chief Complaint And Reason For Visit No Information Plan Of Treatment Date Type Action Status Goal SHINGRIX due Goal Pneumococcal vaccine due Goal DEXA scan due Goal Zoster vaccine (1st) due Goal Hepatitis C screening due Goal Tobacco screenin g. Due on due Goal Unhealthy drug u se screening. Due on due Goal ECG. Due on due Goal Depression Follo w-Up. Due on due Goal Influenza vaccin e. Due on due Goal Shingrix (1st) due Goal Depression scree walt. Due on due Goal Zoster vaccine (2nd) due Goal Tobacco Follow-U p. Due on due Goal Shingrix (2nd) due Goal Zoster vaccine due Goal Cognitive Screen ing. Due on due Goal Zoster vaccine (2nd) due Goal Unhealthy drug u se screening. Due on due Goal Depression Follo w-Up. Due on due Goal Zoster vaccine (1st) due Goal Influenza vaccin e. Due on due Goal Tobacco screenin g. Due on due Goal Pneumococcal vaccine due Goal SHINGRIX due Goal Cognitive Screen ing. Due on due Goal Shingrix (2nd) due Goal Depression scree walt. Due on due Goal Shingrix (1st) due Goal Hepatitis C screening due Goal Zoster vaccine due Goal Tobacco Follow-U p. Due on due Goal ECG. Due on due Goal DEXA scan due Goal SHINGRIX due Goal Shingrix (1st) due Goal FIT. Due on due Goal Cognitive Screen ing. Due on due Goal Tobacco Follow-U p. Due on due Goal CT-Colonography. Due on due Goal Tobacco screenin g. Due on due Goal Zoster vaccine (1st) due Goal ECG. Due on due Goal Shingrix (2nd) due Goal Pneumococcal vaccine due Goal Hepatitis C screening due Goal Zoster vaccine (2nd) due Goal Depression Follo w-Up. Due on due Goal Depression scree walt. Due on due Goal Unhealthy drug u se screening. Due on due Goal FOBT. Due on due Goal Sigmoidoscopy. Due on due Goal Lipid panel. Due on 028 due Goal FIT-DNA (Cologua rd). Due on due Goal DEXA scan due Goal Influenza vaccin e. Due on due Goal Zoster vaccine due Goal FIT-DNA. Due on due Goal Influenza vaccin e. Due on due Goal Zoster vaccine (1st) due Goal Shingrix (1st) due Goal Depression scree walt. Due on due Goal Sigmoidoscopy. Due on due Goal DEXA scan due Goal Tobacco screenin g. Due on due Goal Depression Follo w-Up. Due on due Goal Hepatitis C screening due Goal FIT. Due on due Goal ECG. Due on due Goal Tobacco Follow-U p. Due on due Goal Unhealthy drug u se screening. Due on due Goal Cognitive Screen ing. Due on due Goal Zoster vaccine (2nd) due Goal FIT-DNA (Cologua rd). Due on due Goal FIT-DNA. Due on due Goal CT-Colonography. Due on due Goal Zoster vaccine due Goal SHINGRIX due Goal Shingrix (2nd) due Goal FOBT. Due on due Goal Lipid panel. Due on 028 due Goal Pneumococcal vaccine due Goal SHINGRIX due Goal FIT-DNA (Cologua rd). Due on due Goal Cognitive Screen ing. Due on due Goal Unhealthy drug u se screening. Due on due Goal Tobacco Follow-U p. Due on due Goal Sigmoidoscopy. Due on due Goal ECG. Due on due Goal Pneumococcal vaccine due Goal Zoster vaccine ( 2nd). Due on due Goal Zoster vaccine due Goal Zoster vaccine (1st) due Goal Lipid panel. Due on 028 due Goal Influenza vaccin e. Due on due Goal FIT. Due on due Goal CT-Colonography. Due on due Goal Depression Follo w-Up. Due on due Goal Depression scree walt. Due on due Goal Hepatitis C screening due Goal Tobacco screenin g. Due on due Goal FOBT. Due on due Goal Shingrix (2nd). Due on due Goal FIT-DNA. Due on due Goal DEXA scan due Goal Shingrix (1st) due Goal Pneumococcal vaccine due Goal Tobacco Follow-U p. Due on due Goal Sigmoidoscopy. Due on due Goal ECG. Due on due Goal Unhealthy drug u se screening. Due on due Goal FIT-DNA (Cologua rd). Due on due Goal Cognitive Screen ing. Due on due Goal FOBT. Due on due Goal Depression Follo w-Up. Due on due Goal FIT. Due on due Goal Influenza vaccin e. Due on due Goal Zoster vaccine ( 2nd). Due on due Goal Lipid panel. Due on 028 due Goal Zoster vaccine (1st) due Goal Depression scree walt. Due on due Goal CT-Colonography. Due on due Goal Shingrix (1st) due Goal Zoster vaccine due Goal Shingrix (2nd). Due on due Goal FIT-DNA. Due on due Goal DEXA scan due Goal Hepatitis C screening due Goal Tobacco screenin g. Due on due Goal Depression Follo w-Up. Due on due Goal Lipid panel. Due on 026 due Goal ECG. Due on due Goal Tobacco Follow-U p. Due on due Goal DEXA scan due Goal Shingrix (2nd). Due on due Goal Zoster vaccine (1st) due Goal FIT. Due on due Goal Tobacco screenin g. Due on due Goal Shingrix (1st) due Goal Pneumococcal vaccine due Goal Depression scree walt. Due on due Goal FOBT. Due on due Goal Sigmoidoscopy. Due on due Goal Zoster vaccine due Goal FIT-DNA (Cologua rd). Due on due Goal Cognitive Screen ing. Due on due Goal CT-Colonography. Due on due Goal FIT-DNA. Due on due Goal Unhealthy drug u se screening. Due on due Goal Zoster vaccine ( 2nd). Due on due Goal Influenza vaccin e. Due on due Goal Hepatitis C screening due Goal Pneumococcal vaccine due Goal Zoster vaccine ( ). Due on due Goal Sigmoidoscopy. Due on due Goal Tobacco screenin g. Due on due Goal FIT-DNA. Due on due Goal Influenza vaccin e. Due on due Goal Depression Follo w-Up. Due on due Goal Tobacco Follow-U p. Due on due Goal ECG. Due on due Goal Cognitive Screen ing. Due on due Goal CT-Colonography. Due on due Goal Zoster vaccine due Goal Depression scree walt. Due on due Goal SHINGRIX due Goal DEXA scan due Goal Unhealthy drug u se screening. Due on due Goal FIT. Due on due Goal Hepatitis C screening due Goal Zoster vaccine (1st) due Goal Lipid panel. Due on due Goal FOBT. Due on due Goal FIT-DNA (Cologua rd). Due on due Goal Lipid panel. Due on due Goal Depression scree walt. Due on due Goal FOBT. Due on due Goal Zoster vaccine due Goal ECG. Due on due Goal Colonoscopy. Due on due Goal Pneumococcal vaccine due Goal Zoster vaccine (1st) due Goal CT-Colonography. Due on due Goal Zoster vaccine ( 2nd). Due on due Goal Cognitive Screen ing. Due on due Goal FIT-DNA. Due on due Goal Influenza vaccin e. Due on due Goal FIT-DNA (Cologua rd). Due on due Goal SHINGRIX due Goal DEXA scan due Goal Sigmoidoscopy. Due on due Goal FIT. Due on due Goal ECG. Due on due Goal SHINGRIX due Goal FIT-DNA (Cologua rd). Due on due Goal Depression scree walt. Due on due Goal FIT. Due on due Goal Pneumococcal vaccine due Goal Zoster vaccine due Goal Colonoscopy. Due on due Goal Cognitive Screen ing. Due on due Goal CT-Colonography. Due on due Goal Sigmoidoscopy. Due on due Goal Zoster vaccine ( 2nd). Due on due Goal FOBT. Due on due Goal DEXA scan due Goal FIT-DNA. Due on due Goal Influenza vaccin e. Due on due Goal Zoster vaccine (1st) due Goal Zoster vaccine () due Goal FIT-DNA. Due on due Goal Colonoscopy. Due on due Goal SHINGRIX due Goal Pneumococcal vaccine due Goal Sigmoidoscopy. Due on due Goal Influenza vaccin e. Due on due Goal FOBT. Due on due Goal Depression scree walt. Due on due Goal ECG. Due on due Goal CT-Colonography. Due on due Goal FIT. Due on due Goal Cognitive Screen ing. Due on due Goal DEXA scan due Goal FIT-DNA (Cologua rd). Due on due Goal Mammogram. Due on due Goal Zoster vaccine ( 2nd). Due on due Goal Cologuard [employer]. Due on due Goal Zoster vaccine due Goal Zoster vaccine (1st) due Goal Sigmoidoscopy. Due on due Goal CT-Colonography. Due on due Goal Colonoscopy. Due on due Goal Influenza vaccin e. Due on due Goal Depression scree walt. Due on due Goal FIT-DNA. Due on due Goal FOBT. Due on due Goal SHINGRIX due Goal Zoster vaccine due Goal DEXA scan due Goal Zoster vaccine ( 2nd). Due on due Goal FIT-DNA (Cologua rd). Due on due Goal FIT. Due on due Goal ECG. Due on due Goal Cologuard [employer]. Due on due Goal Mammogram. Due on 0 due Goal Pneumococcal vaccine due Goal Cognitive Screen ing. Due on due Goal Sigmoidoscopy. Due on due Goal CT-Colonography. Due on due Goal Colonoscopy. Due on 022 due Goal ECG. Due on due Goal FIT. Due on due Goal Pneumococcal vaccine due Goal Cognitive Screen ing. Due on due Goal FOBT. Due on due Goal Influenza vaccin e. Due on due Goal Zoster vaccine due Goal SHINGRIX due Goal FIT-DNA. Due on due Goal DEXA scan due Goal Depression scree walt. Due on due Goal Zoster vaccine (1st) due Goal FIT-DNA (Cologua rd). Due on due Goal Zoster vaccine ( 2nd). Due on due Goal Lipid panel. Due on 026 due Goal Mammogram. Due on 0 due Goal FIT-DNA. Due on due Goal Sigmoidoscopy. Due on due Goal DEXA scan due Goal FOBT. Due on due Goal Pneumococcal vaccine due Goal Colonoscopy. Due on 021 due Goal Depression scree walt. Due on due Goal Mammogram. Due on 0 due Goal Zoster vaccine due Goal FIT. Due on due Goal Influenza vaccin e. Due on due Goal Zoster vaccine (1st) due Goal Cognitive Screen ing. Due on due Goal ECG. Due on due Goal CT-Colonography. Due on due Goal Cologuard [employer]. Due on due Goal SHINGRIX due Goal FIT-DNA (Cologua rd). Due on due Goal Zoster vaccine ( 2nd). Due on due Goal Lipid panel. Due on 026 due Goal FIT. Due on due Goal Colonoscopy. Due on due Goal Zoster vaccine due Goal Zoster vaccine (1st) due Goal Pneumococcal vaccine due Goal FIT-DNA. Due on due Goal SHINGRIX due Goal CT-Colonography. Due on due Goal Influenza vaccin e. Due on due Goal FIT-DNA (Cologua rd). Due on due Goal Depression scree walt. Due on due Goal Mammogram. Due on due Goal ECG. Due on due Goal Sigmoidoscopy. Due on due Goal DEXA scan due Goal Zoster vaccine ( 2nd). Due on due Goal FOBT. Due on due Goal Cognitive Screen ing. Due on due Goal Depression scree walt. Due on due Goal Colonoscopy. Due on due Goal FIT-DNA. Due on due Goal SHINGRIX due Goal Zoster vaccine (1st) due Goal Pneumococcal vaccine due Goal CT-Colonography. Due on due Goal FIT. Due on due Goal Zoster vaccine due Goal Mammogram. Due on 0 due Goal ECG. Due on due Goal FIT-DNA (Cologua rd). Due on due Goal Influenza vaccin e. Due on due Goal Sigmoidoscopy. Due on due Goal Cognitive Screen ing. Due on due Goal DEXA scan due Goal Zoster vaccine ( 2nd). Due on due Goal FOBT. Due on due Goal Cologuard [employer]. Due on due Goal FIT-DNA. Due on due Goal Zoster vaccine ( 2nd). Due on due Goal Mammogram. Due on [address]-Colon[address]. Due on due Goal Influenza vaccin e. Due on due Goal ECG. Due on due Goal FIT. Due on due Goal Zoster vaccine (1st) due Goal Zoster vaccine due Goal Sigmoidoscopy. Due on due Goal DEXA scan due Goal Pneumococcal vaccine due Goal Cognitive Screen ing. Due on due Goal Colonoscopy. Due on 021 due Goal Depression scree walt. Due on due Goal FIT-DNA (Cologua rd). Due on due Goal SHINGRIX due Goal FOBT. Due on due Goal Lipid panel. Due on 026 due Goal FOBT. Due on due Goal Sigmoidoscopy. Due on due Goal FIT-DNA. Due on due Goal Mammogram. Due on [address]-Colon[address]. Due on due Goal Zoster vaccine ( 2nd). Due on due Goal Zoster vaccine due Goal Zoster vaccine (1st) due Goal Cognitive Screen ing. Due on due Goal Pneumococcal vaccine due Goal SHINGRIX due Goal FIT. Due on due Goal DEXA scan due Goal FIT-DNA (Cologua rd). Due on due Goal Depression scree walt. Due on due Goal ECG. Due on due Goal Cologuard [employer]. Due on due Goal Colonoscopy. Due on due Goal Influenza vaccin e. Due on due Goal SHINGRIX due Goal Mammogram. Due on 0 due Goal Cognitive Screen ing. Due on due Goal Pneumococcal vaccine due Goal Zoster vaccine (1st) due Goal ECG. Due on due Goal Sigmoidoscopy. Due on due Goal FOBT. Due on due Goal FIT-DNA. Due on due Goal CT-Colonography. Due on due Goal DEXA scan due Goal Depression scree walt. Due on due Goal FIT-DNA (Cologua rd). Due on due Goal Zoster vaccine due Goal Influenza vaccin e. Due on due Goal Cologuard [employer]. Due on due Goal Zoster vaccine ( 2nd). Due on due Goal Colonoscopy. Due on 021 due Goal FIT. Due on due Goal Lipid panel. Due on 026 due Goal Cognitive Screen ing. Due on due Goal Mammogram. Due on 0 due Goal SHINGRIX due Goal Pneumococcal vaccine due Goal Sigmoidoscopy. Due on due Goal FIT-DNA. Due on due Goal ECG. Due on due Goal Depression scree walt. Due on due Goal CT-Colonography. Due on due Goal DEXA scan due Goal FIT. Due on due Goal Influenza vaccin e. Due on due Goal Zoster vaccine due Goal Zoster vaccine ( 2nd). Due on due Goal Colonoscopy. Due on due Goal FIT-DNA (Cologua rd). Due on due Goal FOBT. Due on due Goal Zoster vaccine (1st) due Goal Lipid panel. Due on 026 due Goal Zoster vaccine ( 2nd). Due on due Goal Mammogram. Due on 0 due Goal Influenza vaccin e. Due on due Goal Zoster vaccine (1st) due Goal FIT. Due on due Goal DEXA scan due Goal ECG. Due on due Goal Pneumococcal vaccine due Goal Colonoscopy. Due on due Goal FOBT. Due on due Goal Depression scree walt. Due on due Goal Cologuard [employer]. Due on due Goal Sigmoidoscopy. Due on due Goal Zoster vaccine due Goal FIT-DNA. Due on due Goal CT-Colonography. Due on due Goal SHINGRIX due Goal Zoster vaccine ( 2nd). Due on due Goal Mammogram. Due on 0 due Goal SHINGRIX due Goal CT-Colonography. Due on due Goal Zoster vaccine (1st) due Goal Depression scree walt. Due on due Goal FIT. Due on due Goal Influenza vaccin e. Due on due Goal ECG. Due on due Goal Zoster vaccine due Goal Cologuard [employer]. Due on due Goal FOBT. Due on due Goal Sigmoidoscopy. Due on due Goal DEXA scan due Goal Pneumococcal vaccine due Goal FIT-DNA. Due on due Goal Colonoscopy. Due on due Goal Pneumococcal vaccine due Goal Zoster vaccine ( 2nd). Due on due Goal Zoster vaccine (1st) due Goal DEXA scan due Goal Mammogram. Due on due Goal CT-Colonography. Due on due Goal FOBT. Due on due Goal Sigmoidoscopy. Due on due Goal Cologuard [employer]. Due on due Goal Colonoscopy. Due on due Goal Zoster vaccine due Goal SHINGRIX due Goal FIT-DNA. Due on due Goal ECG. Due on due Goal FIT. Due on due Goal Influenza vaccin e. Due on due Goal Depression scree walt. Due on due Goal SHINGRIX due Goal Colonoscopy. Due on 021 due Goal Influenza vaccin e. Due on due Goal Zoster vaccine due Goal FIT. Due on due Goal Sigmoidoscopy. Due on due Goal CT-Colonography. Due on due Goal DEXA scan due Goal Mammogram. Due on 0 due Goal FIT-DNA. Due on due Goal Depression scree walt. Due on due Goal Pneumococcal vaccine due Goal ECG. Due on due Goal Zoster vaccine (1st) due Goal FOBT. Due on due Goal Cologuard [employer]. Due on due Goal Zoster vaccine ( 2nd). Due on due Goal Lipid panel. Due on 026 due Goal Pneumococcal vaccine due Goal Zoster vaccine due Goal FOBT. Due on due Goal FIT. Due on due Goal Depression scree walt. Due on due Goal Sigmoidoscopy. Due on due Goal SHINGRIX due Goal Zoster vaccine ( 2nd). Due on due Goal Zoster vaccine (1st) due Goal FIT-DNA. Due on due Goal Colonoscopy. Due on 021 due Goal Cologuard [employer]. Due on due Goal Influenza vaccin e. Due on due Goal DEXA scan due Goal ECG. Due on due Goal CT-Colonography. Due on due Goal Mammogram. Due on 0 due Goal FIT. Due on due Goal Pneumococcal vaccine due Goal DEXA scan due Goal FIT-DNA. Due on due Goal Sigmoidoscopy. Due on due Goal Zoster vaccine ( 2nd). Due on due Goal Depression scree walt. Due on due Goal Zoster vaccine (1st) due Goal ECG. Due on due Goal CT-Colonography. Due on due Goal FOBT. Due on due Goal Mammogram. Due on 0 due Goal Zoster vaccine due Goal Influenza vaccin e. Due on due Goal Cologuard [employer]. Due on due Goal Colonoscopy. Due on 021 due Goal SHINGRIX due Goal Lipid panel. Due on 026 due Goal Zoster vaccine ( 2nd). Due on due Goal Sigmoidoscopy. Due on due Goal Depression scree walt. Due on due Goal Zoster vaccine (1st) due Goal CT-Colonography. Due on due Goal ECG. Due on due Goal Pneumococcal vaccine due Goal DEXA scan due Goal FIT. Due on due Goal FIT-DNA. Due on due Goal FOBT. Due on due Goal Cologuard [employer]. Due on due Goal Mammogram. Due on 0 due Goal Influenza vaccin e. Due on due Goal Zoster vaccine due Goal SHINGRIX due Goal Colonoscopy. Due on 021 due Goal Lipid panel. Due on 026 due Goal Pneumococcal vaccine due Goal Zoster vaccine ( 2nd). Due on due Goal CT-Colonography. Due on due Goal Influenza vaccin e. Due on due Goal FOBT. Due on due Goal FIT. Due on due Goal Mammogram. Due on 0 due Goal Zoster vaccine (1st) due Goal FIT-DNA. Due on due Goal ECG. Due on due Goal SHINGRIX due Goal DEXA scan due Goal Zoster vaccine due Goal Cologuard [employer]. Due on due Goal Depression scree walt. Due on due Goal Sigmoidoscopy. Due on due Goal Colonoscopy. Due on due Goal Zoster vaccine (1st) due Goal FOBT. Due on due Goal Pneumococcal vaccine due Goal CT-Colonography. Due on due Goal FIT. Due on due Goal Zoster vaccine ( 2nd). Due on due Goal Colonoscopy. Due on due Goal FIT-DNA. Due on due Goal SHINGRIX due Goal Cologuard [employer]. Due on due Goal Influenza vaccin e. Due on due Goal Depression scree walt. Due on due Goal DEXA scan due Goal Mammogram. Due on 0 due Goal ECG. Due on due Goal Sigmoidoscopy. Due on due Goal Zoster vaccine due Goal ECG. Due on due Goal Td vaccine. Due on due Goal Sigmoidoscopy. Due on due Goal Zoster vaccine due Goal Influenza vaccin e. Due on due Goal Pneumococcal vaccine due Goal DEXA scan due Goal Mammogram. Due on 0 due Goal Colonoscopy. Due on due Goal Zoster vaccine ( 2nd). Due on due Goal SHINGRIX due Goal Zoster vaccine (1st) due Goal FOBT. Due on due Goal Depression scree walt. Due on due Goal FIT. Due on due Goal CT-Colonography. Due on due Goal Cologuard [employer]. Due on due Goal FIT-DNA. Due on due Goal Influenza vaccin e. Due on due Goal Colonoscopy. Due on 020 due Goal SHINGRIX due Goal Sigmoidoscopy. Due on due Goal Cologuard [employer]. Due on due Goal FOBT. Due on due Goal ECG. Due on due Goal DEXA scan. Due on 9 due Goal Zoster vaccine due Goal Depression scree walt. Due on due Goal Mammogram. Due on 0 due Goal Pneumococcal vaccine due Goal Pneumococcal vaccine due Goal Cologuard [employer]. Due on due Goal Mammogram. Due on 0 due Goal Influenza vaccin e. Due on due Goal Td vaccine. Due on 26 due Goal Depression scree walt. Due on due Goal SHINGRIX due Goal DEXA scan. Due on 9 due Goal FOBT. Due on due Goal Zoster vaccine due Goal Sigmoidoscopy. Due on due Goal ECG. Due on due Goal Colonoscopy. Due on due Goal ECG. Due on due Goal Td vaccine. Due on due Goal Pneumococcal vaccine due Goal Depression scree walt. Due on due Goal Zoster vaccine due Goal Sigmoidoscopy. Due on due Goal SHINGRIX due Goal Influenza vaccin e. Due on due Goal Colonoscopy. Due on due Goal FOBT. Due on due Goal Mammogram. Due on 0 due Goal Cologuard [employer]. Due on due Goal DEXA scan. Due on 9 due Goal Td vaccine. Due on due Goal Sigmoidoscopy. Due on due Goal Pneumococcal vaccine due Goal Depression scree walt. Due on due Goal Colonoscopy. Due on due Goal ECG. Due on due Goal FOBT. Due on due Goal Influenza vaccin e. Due on due Goal Cologuard [employer]. Due on due Goal Zoster vaccine due Goal Mammogram. Due on 0 due Goal SHINGRIX due Goal DEXA scan. Due on 9 due Goal Colonoscopy. Due on due Goal Depression scree walt. Due on due Goal SHINGRIX due Goal Cologuard [employer]. Due on due Goal ECG. Due on due Goal DEXA scan. Due on 9 due Goal Pneumococcal vaccine due Goal Td vaccine. Due on due Goal Sigmoidoscopy. Due on due Goal Zoster vaccine due Goal FOBT. Due on due Goal Influenza vaccin e. Due on due Goal Mammogram. Due on 0 due Goal Lipid panel. Due on 024 due Goal Colonoscopy. Due on 020 due Goal Influenza vaccin e. Due on due Goal Sigmoidoscopy. Due on due Goal Pneumococcal vaccine due Goal Zoster vaccine due Goal Cologuard [employer]. Due on due Goal DEXA scan. Due on 9 due Goal Td vaccine. Due on due Goal ECG. Due on due Goal Mammogram. Due on 0 due Goal FOBT. Due on due Goal SHINGRIX due Goal Depression scree walt. Due on due Goal Depression scree walt. Due on due Goal SHINGRIX due Goal Mammogram. Due on 0 due Goal ECG. Due on due Goal DEXA scan. Due on 9 due Goal Influenza vaccin e. Due on due Goal Cologuard [employer]. Due on due Goal FOBT. Due on due Goal Colonoscopy. Due on 020 due Goal Sigmoidoscopy. Due on due Goal Pneumococcal vaccine due Goal Zoster vaccine due Goal FOBT. Due on due Goal Sigmoidoscopy. Due on due Goal Cologuard [employer]. Due on due Goal SHINGRIX due Goal Influenza vaccin e. Due on due Goal Zoster vaccine due Goal Mammogram. Due on 0 due Goal ECG. Due on due Goal Td vaccine. Due on 26 due Goal DEXA scan. Due on 9 due Goal Depression scree walt. Due on due Goal Colonoscopy. Due on 019 due Goal Pneumococcal vaccine due Goal Lipid panel. Due on 024 due Goal FOBT. Due on due Goal Sigmoidoscopy. Due on due Goal Influenza vaccin e. Due on due Goal Mammogram. Due on 0 due Goal Depression scree walt. Due on due Goal Pneumococcal vaccine due Goal Cologuard [employer]. Due on due Goal Colonoscopy. Due on due Goal DEXA scan. Due on 9 due Goal ECG. Due on due Goal Zoster vaccine due Goal SHINGRIX due Goal Depression scree walt. Due on due Goal Colonoscopy. Due on 019 due Goal Sigmoidoscopy. Due on due Goal Influenza vaccin e. Due on due Goal FOBT. Due on due Goal Cologuard [employer]. Due on due Goal Mammogram. Due on 0 due Goal DEXA scan. Due on 9 due Goal Influenza vaccin e. Due on due Goal Depression scree walt. Due on due Goal Mammogram. Due on 0 due Goal Colonoscopy. Due on due Goal Cologuard [employer]. Due on due Goal DEXA scan. Due on 9 due Goal Mammogram. Due on 0 due Goal DEXA scan. Due on 9 due Goal Influenza vaccin e. Due on due Goal Depression scree walt. Due on due Goal Cologuard [employer]. Due on due Goal Colonoscopy. Due on due Goal Depression scree walt. Due on due Goal Colonoscopy. Due on due Goal Mammogram. Due on 0 due Goal DEXA scan. Due on 9 due Goal Influenza vaccin e. Due on due Goal Cologuard [employer]. Due on due Goal Colonoscopy. Due on due Goal Influenza vaccin e. Due on due Goal DEXA scan. Due on 9 due Goal Depression scree walt. Due on due Goal Cologuard [employer]. Due on due Goal Mammogram. Due on 0 due Goal Influenza vaccin e. Due on due Goal Mammogram. Due on 0 due Goal ECG due Goal Depression scree walt. Due on due Goal DEXA scan. Due on 9 due Goal Cologuard [employer]. Due on due Goal Lipid panel due Goal Colonoscopy. Due on due Goal ECG. Due on due Goal Influenza vaccin e. Due on due Goal Depression scree walt. Due on due Goal DEXA scan. Due on 9 due Goal Lipid panel. Due on 018 due Goal Cologuard [employer]. Due on due Goal Colonoscopy. Due on due Goal Mammogram. Due on 0 due Goal Depression scree walt. Due on due Goal ECG. Due on due Goal Influenza vaccin e. Due on due Goal Mammogram. Due on 0 due Goal Colonoscopy. Due on due Goal DEXA scan. Due on 9 due Goal Cologuard [employer]. Due on due Goal Mammogram. Due on 0 due Goal DEXA scan. Due on 9 due Goal Depression scree walt. Due on due Goal Colonoscopy. Due on due Goal ECG. Due on due Goal Influenza vaccin e. Due on due Goal Lipid panel. Due on due Goal Mammogram. Due on 0 due Goal DEXA scan. Due on 9 due Goal Influenza vaccin e. Due on due Goal Colonoscopy. Due on due Goal Depression scree walt. Due on due Goal ECG. Due on due Goal Influenza vaccin e. Due on due Goal Colonoscopy. Due on due Goal DEXA scan. Due on 9 due Goal Mammogram. Due on 0 due Goal Depression scree walt. Due on due Goal Lipid panel. Due on due Goal SHINGRIX due Goal ECG. Due on due Goal Depression scree walt. Due on due Goal Colonoscopy. Due on due Goal Influenza vaccin e. Due on due Goal DEXA scan. Due on 9 due Goal Mammogram. Due on 0 due Goal Influenza vaccin e. Due on due Goal Mammogram. Due on 0 due Goal Depression scree walt. Due on due Goal Lipid panel. Due on due Goal DEXA scan. Due on 9 due Goal Colonoscopy. Due on due Goal Depression scree walt. Due on due Goal Lipid panel. Due on due Goal Colonoscopy. Due on due Goal DEXA scan. Due on 9 due Goal Mammogram. Due on 0 due Goal Influenza vaccin e. Due on due Goal Mammogram. Due on 0 due Goal Colonoscopy. Due on due Goal Tdap due Goal DEXA scan. Due on 9 due Goal Influenza vaccin e. Due on due Goal Depression scree walt. Due on due Goal Zoster vaccine due Goal Pneumococcal vaccine due Goal Lipid panel. Due on due Goal Zoster vaccine due Goal Influenza vaccin e. Due on due Goal Tdap due Goal Depression scree walt. Due on due Goal DEXA scan. Due on 9 due Goal Mammogram. Due on 8 due Goal Pneumococcal vaccine due Goal Colonoscopy. Due on due Goal FOBT. Due on due Goal Depression scree walt. Due on due Goal Pneumococcal vaccine due Goal Influenza vaccin e. Due on due Goal Lipid panel. Due on 017 due Goal Tdap due Goal DEXA scan. Due on 8 due Goal Zoster vaccine due Goal Colonoscopy. Due on 018 due Goal Mammogram. Due on due Goal Sigmoidoscopy. Due on due Goal Lipid panel. Due on 017 due Goal Influenza vaccin e. Due on due Goal Pneumococcal vaccine due Goal FOBT. Due on due Goal Depression scree walt. Due on due Goal Zoster vaccine due Goal Mammogram. Due on 8 due Goal Tdap due Goal Sigmoidoscopy. Due on due Goal Colonoscopy. Due on 018 due Goal DEXA scan. Due on 8 due Referral Referred To: Lang Garcia [address] [facility] [address] [place], [address] [id number] Ordered: Referrals: Allopathic & Osteopathic Physicians : Internal Medicine : Nephrology. Lang Garcia Consult ordered Referral Referred To: Fabiana Kinney [address] [facility] [place], [address] [id number] Ordered: Referrals: Pain Medicine. Fabiana Kinney. Evaluate and treat ordered Referral Referred To: Tika Orellana [address] [facility] [address] [place], [address] [phone] Ordered: Referrals: Pain Medicine. Tika Supriyaomar. Evaluate and treat ordered Referral Referred To: Physical Therapy Ordered: Referrals: Referrals: Physical Therapy. Evaluate and treat Physical Therapy. Evaluate and treat ordered Referral Referred To: Physical Therapy Ordered: Referrals: Physical Therapy. Follow-up and Treat ordered Referral Referred To: Physical Therapy Ordered: Referrals: Physical Therapy. Evaluate and treat ordered Referral Referred To: Christen Jasso MD [address] [place], [address] [phone] Ordered: Referrals: Neurology. Christen Jasso MD. Evaluate and treat ordered Referral Referred To: Lavonne Elam MD [address] [facility] [place] [address] [place], [address] [phone] Ordered: Referrals: Rheumatology. Lavonne Elam MD. Evaluate and treat ordered Future Order: Radiology Order CT CHEST W/O CONTRAST ([id number]), Sent on: Sent Future Order: Radiology Order CT CHEST W/O CONTRAST ([id number]), Sent on: Sent Future Order: Radiology Order US RENAL ([id number]), Ordered on: Ordered Future Order: Radiology Order US PELVIS LIMITED OR FOLLOW UP ([id number]), Ordered on: Ordered Future Order: Lab Order COVID-19 PCR (CVSUN), Sent on: Sent Future Order: Radiology Order DX SACRUM / COCCYX ([id number]), Ordered on: Ordered Future Order: Radiology Order DX SHOULDER RT COMPLETE ([id number]), Ordered on: Ordered Future Order: Radiology Order CT ABD/PELVIS W CONTRAST ([id number]), Ordered on: Ordered Future Order: Radiology Order CT CHEST WITH CONTRAST ([id number]), Ordered on: Ordered Future Order: Lab Order OCCULT B LOOD-STOOL (STLOB), Sent on: Sent Future Order: Lab Order CBC (CBC), Ordere d on: Ordered Future Order: Lab Order THYROID PANEL WITH TSH (T/TSH), Ordered on: Ordered Future Order: Lab Order FERRITIN (MEAGHAN), Ordered on: Ordered Future Order: Lab Order IRON/TIB C (IRONB), Ordered on: Ordered Future Order: Lab Order SED RATE -ESR (ESR), Ordered on: Ordered Future Order: Lab Order URINE CU LTURE (URNC), Ordered on: Ordered Future Order: Lab Order T4 FREE ([id number]), Appointment on: , Sent on: Sent Future Order: Lab Order Urinalys is/reflex to micro ([id number]), Appointment on: , Sent on: Sent Future Order: Lab Order TSH ([id number]), Appointment on: , Sent on: Sent Future Order: Lab Order CBC ([id number]), Appointment on: , Sent on: Sent Future Order: Lab Order Vitamin D, 25 [place] ([id number]), Appointment on: , Sent on: Sent Future Order: Lab Order LIPID PA JONY ([id number]), Appointment on: , Sent on: Sent Future Order: Lab Order CMP ([id number]), Appointment on: , Sent on: Sent Future Order: Lab Order TBD4 (IM UGEN) ([id number]), Appointment on: , Sent on: Sent Future Order: Lab Order Vitamin D, 25 [place] ([id number]), Sent on: Sent Future Order: Lab Order LIPID PA JONY ([id number]), Sent on: Sent Future Order: Lab Order T4 FREE ([id number]), Sent on: Sent Future Order: Lab Order CMP ([id number]), Sent on: Sent Future Order: Lab Order TSH ([id number]), Sent on: Sent History Of Present Illness Encounter Date Complaint History Of Prese nt Illness [facility] admission for Exacerbation of COPD/ weakness discharged 11/30/22Currently using oxygen at 2 liters via nasal cannula Pulmonary Comments: Active Problem List:Moderate COPD (FEV1: 0.80L, 50%)Chronic Hypoxemic Resp FailurePMHx: Lumbago s/p Lumbar Fusion --> Morphine pumpGlaucomaMood d/oCarotid StenosisTOB: FORMER; 2ppd x 51yrs. Quit 2011VAPE: NoneE-Cig: Suzi is a 76-year-old female presenting as a hospital follow-up previously followed by Dr. Greer Presenting to establish care and switch. She has a longstanding history of O2 dependent COPD and is a former quite heavy smoker. She is on chronic morphine via implanted pump due to complications from spinal fusion surgery. She was seen in the hospital for a mild exacerbation of COPD, has had 2 in the past year. She is maintained on Breztri and albuterol. She states she has a spacer but has trouble using it and does not use it correctly. She demonstrates decreased inspiratory capacity today probably too low to try Ellipta therapy. She denies any coughing or wheezing. No chest pain. No lower extremity swelling10/08/22: no exacerbations since last seen. States she is doing well with Breztri and feels like she is getting adequate dose of the medication. Has had no UV need for rescue inhaler use. Did receive for portable oxygen concentrator is still learning how to use it regularly. Using 2 L pulse, saturating 93% at rest but did walk and saturating 80%. Did not know to increase the O2 demand on exertion as we previously discussed Pulmonary Comments: Active Problem List:Moderate COPD (FEV1: 0.80L, 50%)Chronic Hypoxemic Resp FailurePMHx: Lumbago s/p Lumbar Fusion --> Morphine pumpGlaucomaMood d/oCarotid StenosisTOB: FORMER; 2ppd x 51yrs. Quit 2011VAPE: NoneE-Cig: Suzi is a 76-year-old female presenting as a hospital follow-up previously followed by Dr. Greer Presenting to establish care and switch. She has a longstanding history of O2 dependent COPD and is a former quite heavy smoker. She is on chronic morphine via implanted pump due to complications from spinal fusion surgery. She was seen in the hospital for a mild exacerbation of COPD, has had 2 in the past year. She is maintained on Breztri and albuterol. She states she has a spacer but has trouble using it and does not use it correctly. She demonstrates decreased inspiratory capacity today probably too low to try Ellipta therapy. She denies any coughing or wheezing. No chest pain. No lower extremity swelling f/u discharged 2/2 S [facility] leg numbness Only in morning has leg numbness that does effect balance. Insomnia Follow Up of back pain Follow Up of Asthma COPD Iron deficiency Hypoxia She feels (re re spiratory) no different now than yesterday or last week. A little tired because did a lot of activities (clean basement). Now catching up on sleep. Back pain COPD (follow up) Pertinent negat ric include nausea and wheezing. hair loss Follow Up of Aspiration pneumoni a The symptoms are reported as being Mod-severe. The context of the symptoms include bronchiectasis/weight loss. The client states the symptoms are chronic. 2-month follow-up on this 75-year-old female regarding workup of her aspiration pneumonia which we suspect is chronic in the setting of a patient with chronic hypoxemic respiratory failure as well as asthma with COPD and pulmonary emphysema. She has had hypercapnia as well and does have bronchiectasis in both lungs right greater than left. She did have multiple small pulmonary nodules less than or equal to 6 mm with mucus impaction in the right lower lobe. She has had significant weight loss but today we got 98.5 pounds last visit was 99.4 pounds. She has trouble eating both based on appetite but also some swallowing issues as well for which she recently saw her doctor tomorrow for speech and swallow evaluation on August 08, 2021 where a modified barium swallow was completed by him with impression by Dr. Paz of radiology indicated decreased esophageal motility especially with solids and delayed emptying and solids were cleared with warm liquids. Dr. Das's findings indicated severe esophageal dysphagia with risk for reflux-induced aspiration. Findings included:- He recommended to reduce her rate of ingestion at all times, avoiding eating for 2 hours or more prior to going to bed, and avoid consuming cold liquids when eating and to alternate warm water with solid textures so as to ensure more complete esophageal clearance before taking a subsequent presentation.- Also instructed to consider initiation of a reflux management diet,- GI follow-up suggested for further evaluation of the esophagus of which I concurwith this as well as the other recommendations. Interval CT scan of the chest was performed and I had the optimal range to review the report and the images in comparison to May 2021 study and the one in November 24, 2020. Findings demonstrated advanced emphysema with no consolidation or pleural effusions. Bronchial wall thickening was again seen with scattered foci of mucous plugging. Stable tubular low attenuation foci in the medial aspect right lower lobe most consistent with bronchiectasis and mucous plugging. Most importantly there was resolution of previously seen opacities in the posterior right lower lobe. This was significant. There were no new or suspicious pulmonary nodules. Overall patient is feeling a bit better. She comes in without any portable oxygen and initial reading was 74% and later 85% when I came in the room and we were speaking but at rest 92% on room air. Patient is compliant with her Breztri 2 puffs every 12 hours with act up Ventolin for unit dose albuterol by nebulizer which I reinforced as few 4-6 hours when necessary. Other medications were reviewed. BACK PAIN WEIGHT LOSS Hospital follow-up Patient last seen by me in the office April 24, 2021. Patient with long nodule was known to be up to 6 mm with mucus impactions and while waiting for her to get us for him copy of [facility] CT scan she was hospitalized at [facility] May 07 through May 14, 2021. She is known to have pulmonary emphysema and asthma with chronic COPD. She is known to have hypoxemic respiratory failure and was on home oxygen. The main recommendation at that visit on April 24 with that she struggles severelywith a small oxygen tanks that the supplier gave her a new we made contact to get POC and she's heard nothing. July 2021 will be her 10 year anniversary of not having a cigarette. Weight loss is also concerned having lost 30 pounds over several months. Hospitalization May 07 through May 14 she was admitted with COPD exacerbation with increased dyspnea and fatigueand was actually found to have an ABG with some compensative hypercarbia. Patient was found to have chronic anemia and new patchy bilateral lower lobe airspace opacities and small bilateral parapneumonic pleural effusions very concerning for chronic/recurrent aspiration with pneumonia. Patient has plans to follow-up with daily the next week, myself, and seeing Dr. Taylor within the week in follow-up of anemia. She was continually prednisone 10 mg tablets and finished tapering from 30 mg to 10 mg finished just yesterday. 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 Recent hospitalization diagnoses acute exacerbation COPD, bacterial pneumonia, acute on chronic respiratory failure, anemia, chronic back pain with morphine pump, and had apparently somecandidiasis of the mouth which she says has resolved. I referred him directly in our office today which shoos off reading 99.4 pounds which is an improvement from what she said was 96 at home and was 94 at our last visit April 24. She had recently lost 30 pounds over the summer. Currently the patient denies symptoms of productive cough of purulent sputum or hemoptysis. She does have a mild chronic cough without current expectoration. She is back on her Breztri which she uses 2 puffs twice a day with mouth rinse. She does have a backup albuterol inhaler which is effective and although she was given a flutter valve for her bronchiectasis and mucus impactions she is using a couple times a day but reminded her that the goal was 8-10 times a day as able. [facility] 05/07/2021 L ow Oxygen anemia Pertinent negati ves include black tarry stools. Hospital follow-up (comments) Hospital follow-up Patient retur ns for a pulmonary follow-up related to a hospital follow-up where she presented to [facility] 04/11/21 and was admitted 924 through 04/15 2021. Patient presented there with 20-30 pound weight loss in 4 months after she received morphine pump for chronic low back pain. She has complained of fatigue, loss of appetite, and exertional dyspnea worsening. With the switch not too long ago to Breztri, her breathing overall was improved with that medication. She was found to by hypoxic at her primary physician's office 83% and was sent to the [facility] emergency room for further evaluation. During the night of April 11 she did undergo a CT scan of the chest with pulmonary artery angiogram showing no pulmonary embolism. There was some centimeter nodules up to 6 mm in the right lower lobe with emphysematous/COPD changes. There was mucoid plugging and several right lower lobe bronchi. Patient was admitted and arrangements were made for home oxygen therapy which they Thought from [employer] which included instead of a POC, self filling small tanks the patient patient complaint to me today is very hard for her to carry out of the home to the car for testing as well as DrKellee visits.Patient is seen today with her 2 L portable oxygen tank. O2 sats 91-95% or on the oxygen. Patient had clear-cut evidence, for her home oxygen therapy including resting oxygen saturation 83% on room air at [facility].She is stable and in no acute distress today. She looks like she lost a lot of weight. She looks chronically ill-appearing. Discharge medication profile did include atorvastatin 20 mg per history 2 puff twice a day, vitamin D3 5000 units, Plavix 75 mg, Colace 1 every at bedtime, duloxetine 30 mg daily, folic acid 1 mg daily, gabapentin 600 mg 3 times a day, eyedrops, metformin 500 mg 2 tablets dinnertime extended release. Mirtazapine 45 mg at bedtime multivitamin, senna laxative, albuterol inhaler when necessary, tramadol 50 mg every 6 hours when necessary.. [facility] 04/11/20 21 Low Oxygen Fatigue Fatigue (comments) 75 yo female with pmh COPD, anemia, carotid artery stenosis s/p right sided stent, impaired glucose tolerance on metformin, chronic lower back pain, multiple surgeries, s/p pain pump insertion early November 2020 presents today with fatigue, weakness, lack of appetite, weight loss and dyspnea on exertion which is getting worse. She is sleeping for 12-14 hours a day. Her o2 in office today is between 82%-88% She denies fever, chills, n/v/d, headache, night sweats, cp, cough. She is vaccinated against COVID. abnormal voiding pattern 75-year -old female who looks older than her stated age recently had a morphine pump placed in her abdomen with the catheter in her spine secondary to intractable spinal pain she really does not drink enough liquids during the day she does void normally for the first void in the morning but after that voids scanty amounts and this is because she does not drink liquid. She does empty her bladder her kidneys appear normal. No pelvic masses are noted abnormal voiding pattern Urinary complaints The client do es not report any of the following neurological symptoms: diabetes. Associated symptoms include incomplete emptying and strain to urinate. COPD (follow up) The COPD (follo w up) has improved. The client rates the severity of the symptoms as mildly severe. Symptom is aggravated by moderate activity. Symptoms relieved by resting, use of beta agonist inhalers and Breztri. Associated symptoms include dyspnea with exertion and wheezing. Pertinent negatives include awakening with cough, awakening with wheezing, dyspnea at rest, excessive sputum, hemoptysis, lower extremity edema, morning phlegm production, nocturnal dyspnea, pleuritic pain and purulent sputum. COPD (follow up) (comments) 12/2020: Pulmonary follow-up: Patient again comes in with some confusion about her medications. Explicitly that R May 04, 2020 visit she was indicating that she was on Wixela 250/50 at one puff every 12 hours. Now she says she was never on it and is only on a pro-air inhaler 2 puffs when necessary. Once again she is not on any maintenance/controller COPD/asthma medication. She does seem very engaged and interested in feeling better. She had been on Symbicort in the more distant past and more recently had been on Advair and later possibly would've been on Wixela. When she got into the office. Initial O2 sat reading was 84 but a bunch of resting room air O2 sats were 92 by web press operator assistant and 94-95 when I took it several times. 01/18/2021: Patient describes an amazing improvement with the Breztri which she is very compliant with. She feels that her shortness of breath now is nowhere near as bad as it was prior. She is not coughing and not having sputum production currently. She is extremely pleased with these results and intends to stay on this medicine with full compliance. Her oxygen saturation was 86% at rest when she got here after walking in from the waiting room. When I was examining her, her O2 sat on room air was 92% sitting in a chair with a pulse of 80. Patient describes no new or unusual complaints and she is still hopeful that her morphine pump that goes directly into her spine will cause further improvement of her back pain and allow her to walk and get more limited exercise that we both hope will improve her overall respiratory status as well. We also discussed the possibility that she may very well require home oxygen therapy and with that understanding she will let me know if the breathing worsens and we will pursue home oxygen therapy. She would like to hold off at this time. chronic conditions *See Chronic Conditions HPI UTI Presenting/Initi al symptoms include abdominal pain, dribbling, frequency and urgency. UTI (comments) Patient is a 75 y/o F with a PMHx of urinary tract infections presents to the clinic for recurrent UTI symptoms. It began a few weeks ago with an increase in frequency, urgency and dribbling. Patient denies fever, hematuria, suprapubic tenderness or burning sensation. Patient is on no current medications to make it better. Follow Up of COPD COPD (comments) Patient is a 75 year old female with PMH of history of TIA, HLD, HTN, asthma, COPD, chronic back pain, glaucoma, diabetes mellitus, depression presenting to clinic for COPD follow up. Patient was seen in clinic yesterday with Dr. Villegas with low oxygen saturation and given Solumedrol and told to follow up today.Patient has been recording her O2sats at home while restin-95%. Patient feels better since yesterday, but has mostly been sedentary. She said she went to use the shower yesterday and she felt better compared to prior to when this episode began two weeks ago. Patient quit tobacco use in 2011, 100 pack year history of tobacco use prior to that. Patient scheduled to see Dr. Greer ([employer]) January 18.Denies fever, chills, N/V, headache, cough, chest pain, palpitations, shortness of breath, abdominal pain, numbness, tingling. COPD (consult) Urinary symptoms Open surgery follow up The joaquín cam presents for open surgery followup. The client reports a pain score of 5/10 Medical Clearance Procedure: Imp lant of Morphine pumpDate: 11/20/2020octor: Dr. Rashaun Wu[facility] showed that she had a UTI. Patient has no dentures or bridges.The patient does not have any chest pain, orthopnea, paroxysmal nocturnal dyspnea or claudication.PMHX- HTN, HLD, Asthma, TIA, Chronic back pain PSHX-. Left carotid, Mul back surgeries, perforated bowel COPD (follow up) The COPD (follo w up) has persisted. The client rates the severity of the symptoms as mildly severe. Symptom is aggravated by mild activity and moderate activity. Symptoms relieved by resting, sitting and use of beta agonist inhalers. Associated symptoms include dyspnea with exertion and wheezing. Pertinent negatives include awakening with cough, awakening with wheezing, dyspnea at rest, excessive sputum, hemoptysis, irregular heartbeat/palpitations, lower extremity edema, morning phlegm production, nocturnal dyspnea, orthopnea, productive cough and purulent sputum. COPD (follow up) (comments) Pulm onary follow-up: Patient again comes in with some confusion about her medications. Explicitly that R May 04, 2020 visit she was indicating that she was on Wixela 250/50 at one puff every 12 hours. Now she says she was never on it and is only on a pro-air inhaler 2 puffs when necessary. Once again she is not on any maintenance/controller COPD/asthma medication. She does seem very engaged and interested in feeling better. She had been on Symbicort in the more distant past and more recently had been on Advair and later possibly would've been on Wixela.When she got into the office. Initial O2 sat reading was 84 but a bunch of resting room air O2 sats were 92 by web press operator assistant and 94-95 when I took it several times. See comprehensive review of systems. Back pain COPD (follow up) The COPD (follo w up) has persisted.The patient rates the severity of the symptoms as moderate out of 10. Symptom is aggravated by moderate activity. Symptoms relieved by resting and use of long-acting beta agonist/steroid inhaler. Associated symptoms include dry cough, dyspnea with exertion, morning cough, morning phlegm production and wheezing. Pertinent negatives include awakening with cough, awakening with wheezing, dyspnea at rest, excessive sputum, hemoptysis, oral thrush, orthopnea, pleuritic pain, productive cough and purulent sputum. COPD (follow up) (comments) Jacinta gabriel is seen for pulmonary follow-up about 9 months after her August 19, 2019 visit. Because of the Covid her left carotid endarterectomy was deferred but eventually she had it done successfully without complications. She has had no exacerbations of her COPD and I even went through the progress notes of her primary provider. She indicates that she is taking Wixela 250/50 at one 1 puff every 12 hours with mouth rinse but how he got there is unclear as when I saw her last on August 19 she had not been taking any maintenance medication for a long time as she stopped her Flovent Diskus 100 µg twice a day for some time without problems. She still indicates that she has never ever taken her Pro Air/short acting bronchodilator.Patient has been off cigarettes since specifically July 31, 2011. I see that at one point James was listed in her medication list but she is not on that and another time it seems that she was being restarted on her Flovent but she is not on that either but rather on the Wixela.Patient feels at her baseline now without any new or unusual complaints regarding her pulmonary status. Follow Up of hospitalization pt was admitted to [facility] on 03/30/2020, sx on left carotid endarterectomy, d/c'ed on 04/02/2020Hospital record reviewed, had hypotension needing ICU and phenylephrine.Sats go down with walking from waiting room to closest exam room (80s) Shortness of breath Associated s ymptoms include fatigue. Pertinent negatives include anxiety, fever and night sweats. Additional information: Been sob 3 mos, has no rescue inhaler- has upcoming pulmonary appointment- only had steroids perioperatively. MCL- Left carotid artery Patient has no dentures or bridges.The patient does not have any chest pain, orthopnea, paroxysmal nocturnal dyspnea or claudication.PMHx- TIA, Asthma, HLD, Abnormal EKG (Qs in V1-V2), GERD, PAD, gout and chronic severe low back pain.PSHx- Right carotid stent 2012, Spinal fusion 2014, redone 11/2017CTA carotids- High grade 75% stenosis [facility] Medical Clearance (comments) Re patient back's pain: Has had unsuccessful spinal stimulation, steroid injections, in about two weeks will get bilateral injections directly into sacroiliac jointPt has tentatively scheduled L endarterectomy for 03/30 but will come back for another pre-op appointment within 30 days of the operation Medical Clearance Right [facility] 3 month follow up asthma The initial visi t date was 08/02/2013. Pertinent negatives include wheezing. COPD Medical Clearance surgery on 08/20 at [facility] with Dr Bernadette Dubon for Left Carotid stent placement Patient has no dentures and has temporary bridges.The patient does not have any chest pain, orthopnea, paroxysmal nocturnal dyspnea or claudication.Patient does have shortness of breath with minimal exertion. Cleared by cardio and pulmonary (5 doses of prednisone perioperatively) COPD (follow up) The COPD (follo w up) has stabilized.The patient rates the severity of the symptoms as moderate out of 10. Symptom is aggravated by moderate activity. Symptoms relieved by resting. Associated symptoms include dyspnea with exertion and wheezing. Pertinent negatives include dyspnea at rest, hemoptysis, lower extremity edema, morning phlegm production, nocturnal dyspnea, orthopnea, productive cough and purulent sputum. COPD (follow up) (comments) Jacinta gabriel is here for a pulmonary follow-up F to being noncompliant with any follow-up since July [id number] which is a 3 year interval. She is being treated by me for asthma with COPD and had been doing very well when I last saw her. At that time she has not been seen for 15 months prior to that. At that time it was due to being recovering from major spine surgery in the lumbar region including multiple fusions by Dr. Salazar Romero of [facility] and she had to go back for a second surgery as well. During all this she indicates that her asthma has been fine without any exacerbations, ED visits, or any prednisone use. Somewhere during that time she stopped being on her maintenance Flovent Diskus 100 g at one-2 puffs twice a day. She remains with chronic low back pain and she states that she seems to have been on physical therapy indefinitely.Patient here primarily not only for pulmonary follow-up but more specifically for a preoperative pulmonary evaluation for left carotid artery surgery with stent scheduled for September 01, 2019 at [facility] by Dr. brewer. Her PCP remains Dr. Villegas and change management director Dr. Philip Koch. I have received no reports from Dr. Fleming or any of the other physicians here. Patient however indicates that her left carotid artery has a 75% stenosis and she has previously had right carotid artery surgery several years ago.Pulmonary review of system indicates that she has never used her short acting Pro Air inhaler. She has basically been on no medication for obstructive airways disease. She has been doing fine. Further pulmonary and other multisystem review of systems are unremarkable. See review of systems. hyperlipidemia Risk factors inc lude age over 50. hypertension Transition of Care pt was mike harden from the care center on 12/14 Leg cramping Patient presents today complaining of leg cramps. She had one episode last night about 3am. The episode passed within 15-30 minutes. The patient had just got back from [place]. She reports being more active than usual. She is taking Plavix. She denies SOB, cough, edema, fever, headache. FOLLOW UP PATIENT PRESENTS FOR FOLLOW UP FOR PAIN Follow up on lab test(s) hypertension neuropathic pain follow up for pain PAIN MANAGEMENT FOLLOW UP back pain Additional infor yenny: Dr Loya is changing a lot of the opiates, patient very happy with her care. hyperlipidemia Risk factors inc maia age over 50. Pertinent negatives include chest pain, constipation, diarrhea, dyspnea, hematuria, joint pain, nausea, rash, vomiting, weight gain and weight loss. follow up pain management follow up visit Follow Up of Pain Management Follow Up of Pain Management pain management patient is here for pain management. her pain is in her lower back below the waist, in the past 2 1/2 years she has had 2 surgeries on her back and 2 surgeries for diverticulitis. on November she had her second back surgery, she states her pain has not lessened since she has gotten the surgery. after seeing her PCP she was referred to pain management. Follow Up of back pain Follow Up of back pain (comments ) 72 year old female with pmhx of asthma/COPD, HLD, CAD, right CEA (2011), lumbar fracture with fusion of L1-S1 and colon resection after diverticulitis (02/2017) presents for follow up. She has had continued pain that is less responsive to her opoid regimen since her last lower back procedure this spring. She has a follow up appointment with Dr. Ewing in 3 weeks. Her pain is right in the area of the surgical site and around 6/10 on average with her current medications (50 mcg fentanyl and 4, 4mg Dilaudid PO). The pain does not travel, no numbness, weakness or burning in her LE. She is currently doing PT which has helped make her stronger, but does not help with the pain. She has not had any injury or change in the character of her pain. She has regular bowel movements with her current bowel regimen. depression hyperlipidemia Risk factors inc lude age over 50. Pertinent negatives include chest pain, constipation, diarrhea, dyspnea, hematuria, joint pain, nausea, rash, vomiting, weight gain and weight loss. hypertension Pertinent negati ves include Pertinent negatives include chest pain dyspnea, headache, hematuria, nausea and vomiting., chest pain, dyspnea, headache, hematuria, nausea and vomiting. back pain Severity level i s moderate-severe. Additional information: Saw neurosurgery an reassured although still in pain. spinal surgery post op medications refills hyperlipidemia Medical clearance Lumbar illac s crews repair on 12/03/[address] Romero at [place]. Fax to [phone] overall well. Optimistic that her pain will finally begin to improve. Pain currently poorly controlled due to instability related to the loose screws.Has been less active, but hopeful that the upcoming surgery will finally get her pain under control.PMHx-Asthma - Uses flovent daily with good control of symptoms. Never uses a rescue inhaler-Peptic Ulcer disease with esophagitis - Resolved after EGD and treatment. Has not had any other symptoms. Last saw GI in Jul for Colonoscopy for diverticulitis-Diverticulitis - Hx of severe diverticulitis with abscess, had colon surgery and developed peritonitis. ICU visit at that time 30 day hospital stay. Had a colostomy bad at that time, then had colostomy reanastomosis in Jul 2017 Symptoms resolved and doing well since then. Got clearance from Dr Bueno to go ahead with spinal surgery. On a bowel regimen: Lactulose and colace every evening with a bowel movement the next morning. no pain, discomfort. Perfectly formed elpojp-LON-Zkcwh carotid artery stenosis s/p endarterectomy with stent in 2012. No issues since that surgery. - Sees cardiology 2 times a year for followup US and care. Saw change management director 2 weeks ago, got a stress test 1 week ago and has a a series of carotid US, Cardiac Echo, and Aortic US schedule tomorro, and will be getting cardiac clearance pending her test results.-Chronic low back pain s/p surgical repair - Taking Fentanyl, Hydromorphone, Gabapentin, and Duloxetine with poor control, which is anticipated to be improved by the upcoming surgery.Tobacco- Former smoker. Quit Jul 31, 2011ETOH- noneNo illicit drugsBaseline activity- Sedentary, brief errands throughout the day, shopping. No cardiac symptoms when doing errands. Uses a walker at home, and a cane outside. post OP The symptoms gen erally last 2 Months. The location is Abdomen. s/p reversal colosstomy, colon resection 2 months ago. Doing very well. Has gained weight, bowel function is excellent. No nausea, vomiting, fever or chills. Hospital discharge Discharged from [facility] post OP Doing well s/p c olostomy reversal at [facility] of July.. She has had a good appetite and tolerating well. Reports daily BM, +flatus. Only complaint at this time is some dysuria/pressure when she urinates. Denies hematuria, pneumoturia, fecaluria, frequency or urgency. ambulating with a walker and states she has been gaining weight. C/o back pain from previous orthopedic procedure which she plans to have fixed in the future post OP Doing well s/p c olostomy reversal 3 weeks ago. She is still currently at the rehab facility, which she states is going well and continues to make progress. She has had a good appetite and tolerating well. Reports daily BM, +flatus. Only complaint at this time is some dysuria/pressure when she urinates. Denies hematuria, pneumoturia, fecaluria, frequency or urgency. medical clearance pt states she is having a laparotomy, colon resection, and reversal colostomy on 07/24/2016 at [facility]. medical clearance (comments) Divine bal is here for preop clearance. Went for pre-op testing 07/10/17. Has appt for cardiac clearance with Dr. Koch tomorrow.Currently feels well. Her only complaint is chronic back pain- which she plans to go for revision of spinal surgery next year after abdominal surgeries heal. She denies any problems with the colostomy. Ambulates with cane and walker due to back pain. No SOB at rest or while walking. Pt has limited ability to ambulate more than one block or go up/down stairs due to back pain.Uses flovent regularly for asthma control. Has rescue inhaler, but has never used it. Pulmolnologist is .Denies urinary frequency, dysuria, or hematuria.Denies any problems with anesthesia. Denies any difficuly with extubation.Quit smoking 07/2011. Denies EtOH. Denies drug use. Diverticulitis Diverticulitis (comments) milad cam had a history of diverticulitis requiring colonic resection followed by a anastomotic breakdown sepsis ICU management of acute emergent repeat laparotomy with colostomy and Gerardo's pouch. After a 30 day hospitalization including ICU management and respiratory ventilatory support she recovered with additional outpatient therapy. She now reports normal function of the ostomy. She still has some persistent weight loss. She was previously seen by Dr. Hoyt for unexplained weight loss at that time an EGD colonoscopy is recommended EGD revealed a distal esophagitis with the a.m. site of bleeding requiring Endo Clip and therefore further evaluation by colostomy was aborted. Patient had no other GI symptoms and socially elected to undergo fecal DNA testing that was negative.Patient has a history of right carotid stent placed 2012 requiring Plavix therapy shows a history of TIA CVA and a small PFO. She denies any artery artery disease heart attack etc. she is maintained on Plavix she is not taking any other blood thinners all anticoagulants she is not taking aspirin. colostomy reversal Pt is a 71 yo female with a PMHx of perforated diverticulitis with colostomy creation who now presents for colostomy reversal. Pt reports that she has been doing well with the colostomy and has been regaining weight recently. Pt is currently scheduled to have a colonoscopy with Dr. Clay on 07/21/16 and she is scheduled for colostomy reversal on 07/24/16. She would like to avoid having to do 2 bowel preps for the colonoscopy and colostomy reversal if possible. Pt also has a number of medical comorbidities that will require coordination with the pt's PCP, change management director, anesthesia, and gastroenterology. Diverticulitis Additional infor yenny: s/p colon resection, colostomy for diverticular disease 4 months ago, Seen now to plan colostomy reversal. Patient will have colonoscopy prior to surgery. Patient has never had colonoscopy in past. Patient appears to be in optimal condition for elective colostomy reversal. colostomy 71 year old femfaisal larson with pmhx of asthma/COPD, HLD, chronic LBP and recent colon resection after diverticulitis (02/2017) presents for follow up. She is feeling well overall. She was recently seen in the ED 05/22/17 for a pressure ulcer on her right buttock. She is not getting seen in the wound care center and is following with Dr. Awad for both her ostomy and the wound. [id number] She states the s ymptoms are acute. right gluteal wound Has [facility] care and is changing wound dressing has an appointment with Dr. Awad on for wound check on 06/10/17. Tender with pressure. She goes to the wound care center weekly. She is gaining some weight, currently eating ensure plus, turkey sandwhich. back pain The problem is s table. It occurs persistently. Location of pain is lower back.There is no radiation of pain. post OP 71 yr female s/p colon resection complicated by anastomotic leak, seen for follow up. It has been 3 months since Gerardo procedure. Patient is candidate for reversal of colostomy. Patient does have chronic back issues for which surgery has been advised. However, neurosurgeon would prefer to defer this surgery until colostomy reversed. Patient has gained weight. Approaching optimization medically for semi-elective colostomy reversal. Will require additional medical input prior to scheduling such surgery. ostomy had some feces a nd gas from rectum in am-- hospital and rehab fuv diverticu litis post OP Doing well since last visit. Has gained weight. No fever or chills. Colostomy function has been excellent. Patient also states back pain is considerably less since she began rehab.Overall, significant clinical progress; enough to discuss colostomy reversal over next 2 months. post OP The symptoms gen erally last 4 Weeks. The location is Abdomen. s/p [place] procedure 4 weeks ago. Doing very well in rehab. Appetite has improved. No fever or chills. post OP This 71 year old female here for follow up appointment s/p Erin. She is currently at rehab at [facility]. Walkng 200 feet a day. PO intake is slowly improving. No complaints of abdominal pain. Back pain is the same. Good output in ostomy and wound vac with good seal. Denies fever, chills, cp, SOB, nausea, vomiting. abdominal pain Onset: 3 weeks a go. Severity is 1. Duration is 3 Weeks. It occurs daily. The problem is resolved. Location is LLQ. The patient describes it as sharp. Additional information: 70 yo F recently admitted to hospital with diverticulitis w abscess here for 2nd post hospitalization visit. Currently doing very well. Off abx for 1 week. Denies f/c/NV/CP/sob/ARCOS/dizziness/pain. Diverticulitis Additional infor mation: 70 yo F s/p localized perf diverticulitis with pericolic abscess, treated conservatively and responded well, was DCed 1 week ago on invanz qD, has continued to do well, diminished if not resolved abd pain, no f/c, no n/v, tolerating diet, some constipation (no BM in 5 days), otherwise feels well. Hospital discharge Discharged du e to diverticulitis Wed 12/09 back pain The problem is r esolved. hip pain... 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 She had a fusion of L1-S1 last Jul. Recently was started on hydocodone for breakthrough pain around 12/01. Patient mistakenly stopped taking Embeta and was only taking hydocodone every 6 hours. This was in addition to Gabapentin 300mg TID. Pain not controlled. Present when standing/sitting/walking. Non-radiating, achey, R worse than L side. Relief with lying supine. Has questions about neuro-stimulator implant.Recently discharged from [facility] for diverticulitis on 12/10, IR drainage was unsuccessful during hospital stay. With L-PICC line and IV antibiotics, following up with Dr. Awad next thursday. Back pain hyperlipidemia Risk factors inc lude age over 50. back pain The problem is s table. It occurs persistently. There is no radiation of pain. Constipation The patient desc ribes it as hard. Relieving factors include increased fiber. Pertinent negatives include change in stool pattern. medication alternative Back pain Location of pain is lower back. Pain is radiated to the left thigh. Symptoms are aggravated by daily activities. Symptoms are relieved by pain meds/drugs. asthma The initial visi t date was 08/02/2013. The symptoms have stabilized. The severity level is persistent mild. Context: exercise-induced. Aggravating factors include environmental allergens. Symptom relief is noted with steroid inhaler. Associated symptoms include wheezing. Pertinent negatives include awakening with cough, awakening with dyspnea, awakening with wheeze, dry cough, dyspnea at rest, dyspnea with intense exercise, dyspnea with moderate exercise, excessive sputum, hemoptysis, hoarseness, irregular heartbeat/palpitations, mucus plug production, oral thrush, pleuritic pain, post nasal drainage, productive cough, reflux, seasonal rhinitis symptoms, sinusitis, stridor and tremor after inhaler use. Additional information: Essentially asymptomatic on the present regimen without wheeze, cough, chest tightness, or dyspnea with almost all her activities. asthma (comments) This patient f ollowed for asthma with mild COPD is doing very well. I have not seen her in 15 months mostly because she underwent major spine surgery in the lumbar region with straightening of the spine and multiple fusions by Dr. Salazar Romero at [facility]. She had 6 weeks of rehabilitation at the [facility]. and is doing very well although she is getting off narcotics slowly and uses a cane for balance.Patient's asthma has been fine. She has never needed to use her pro-air in the 15 months since I last saw her. She indicates she almost feels like she doesn't have asthma. She missed her Flovent for a couple of days in rehabilitation and it did not make a difference but I did explain to her that it is a maintenance anti-inflammatory medication. She has had no exacerbations, ER visits, hospitalizations, or courses of prednisone for her pulmonary condition. She is very pleased with her control. back pain Onset: 2 weeks a go. Severity level is 8. The problem is worsening. It occurs persistently. Location of pain is lower back and below waist.There is no radiation of pain. The patient describes the pain as dull and intense. Additional information: States her medication is not as effective anymore. She is also taking Tylenol 1000mg/!000mg along with the 3 tablets of Tramadol every 6 hours. States this does not provide any relief of her pain. chronic pain never had a colo noscopy, had a negative cologuard test this yearUTD with mammogamshasn't seen [facility] worker in years follow up bilateral hips, had [id number] female status post lumbo-sacral fusion done in July [address] [facility] [address] Latonya Romero states her back pain is better but she's developed new pain in the sacroiliac area no radiation down the lower extremities states she's not improved at all with physical therapy is not scheduled to go back and see the operating surgeon for July 2015 and doesn't think she can get in any center, she is asking for injectionPhysical exam lumbar spine well-healed midline surgical scar tender to palpation bilateral sacroiliac joints no masses or deformityAble to heel and toe walk negative straight leg raisingX-rays reviewed with T12-S1 fusion pedicle screws mild sacroiliac degenerative changesImpression probable sacroiliitis possibly secondary to increased stress from fusionPlan options reviewed with the patient, she is requesting that I inject sacroiliac area and this was done sterile 2% lidocaine and 40 mg of Depo-Medrol,well tolerated with excellent pain relief I recommend she try to call and get in to see her surgeon sooner fall 70 year old fema le with recent lumbar fusion presents after falling 10 days ago. She fell down about 4 stairs going down her deck. She fell on her right arm and shoulder. She additionally noticed pain at her tailbone. She has taken her ususal pain medications with out much relief. the pain is 5/10. She is able to do all activities with out problems, but is having pain with specific arm movements. She is sleeping without any problems and denies any numbness or weakness. constipation Onset: gradual. It occurs constantly. The problem is with no change. She is also experiencing back pain. Pertinent negatives include abdominal pain, anorexia, black tarry stools, bleeding with bowel movement, bloating, change in appetite, change in stool caliber, change in stool pattern, flatulence, nausea, pain with passing stool, sedentary activity, vomiting, weight gain and weight loss. Additional information: still having issues. back pain Onset: 6 months ago. The problem is stable. It occurs persistently. Location of pain is lower back.There is no radiation of pain. The patient describes the pain as an ache and dull.The patient denies aggravating factors. Symptoms are relieved by pain meds/drugs and physical therapy. Associated symptoms include decreased mobility, joint pain, spasms and tenderness. Pertinent negatives include abdominal pain, bladder dysfunction not spinal related, bladder incontinence, bladder retention, bowel dysfunction not spinal related, bowel incontinence, bowel retention, diarrhea, limping, loss of balance, numbness, rash, tingling in the arms, tingling in the legs, weakness and weight loss. Additional information: in sacral region. tried omt with good results but did not last. Follow Up of Weight loss (charito malagon) 70 y/o white female presents for follow up of weight loss. Had an EGD preformed 02/22/16 which showed Childers's esophagus and peptic ulcer. Pt reports that she has had no abdominal pain, nausea, or vomiting previous. Admits only to a decrease in appetite and feeling villanueva more quickly. She has been taking omeprazole as prescribed with slight improvement in appetite and adjusted diet to improve calorie intake. Admits that month prior to weight loss she had been taking oxycodone for lower back pain with constipation. Was switched to tramadol and had improvement of constipation. Continues to have bowel movement every 2 days and takes ducolax when needed. Takes maximum of 4-5 tablets/ week. She is unwilling to undergo prep for colonoscopy but agrees to cologuard testing at this time. Savage Lagunas, S-IV - scribe Follow Up of Weight loss The pat valeriano has lost 1010lbs (459.09kgs). The patient's weight is stable. The context of the weight loss includes Usage of opioids and peptic ulcer. Factors resulting in weight stabilization or gain include: compliance to diet and compliance to medications. Associated symptoms include constipation. Pertinent negatives include cold intolerance, decreased appetite, diaphoresis, diarrhea, hair loss, heat intolerance, increased thirst, irregular heartbeat/palpitations, pigment change, polyuria, syncope, tremors, vision changes and vomiting. Additional information: pt is here to f/u with EGD resuls that was performed on 02/22/2016. gastric ulcer clipped bleed al so broke up shatski ring follow up Screening Colonoscopy Prior scre ening: none. Denies risk factors. Associated symptoms include constipation and weight loss. Pertinent negatives include abdominal pain, decreased appetite, diarrhea, nausea, rectal bleeding, vomiting and weight gain. Additional information: No family history of colon cancer, No family history of Crohn's/colitis and No NSAID/ASA use. Weight loss The patient has lost 13.00lbs (5.91kgs) over a period of 1 week. Associated symptoms include constipation. Pertinent negatives include decreased appetite, diarrhea and vomiting. Additional information: bristol stool type 2 & 3. no heartburn. Lower back pain initial office visit Pt is a 70 y/o female with pmhx thoracolumbar osteoarthritis s/p spinal fusion (07/2015), asthma with COPD, CVD, carotid artery disease s/p stenting, hx of multiple TIA's presents to office for lower back pain. Pt reports history of low back pain related to osteoarthritis. Had tried PT/epidural injections w/o relief. On 07/2015, pt underwent spinal fusion of thoracolumbar spine and tolerated the procedure well. Pt reports back pain lower down her spine since the operation for which she feels is secondary to her compensating from many years of back pain and 'the weight of the rods.' Had sacroiliac injections by pain management (Dr. Maldonado) recently which helped ease some of her pain. Has tried NMM treatments w/short-term relief of pain. Pt reports pain is constant, dull in quality w/radiation slightly lateral to spine. Denies any hip, shoulder or extremity pain. Reports minimal morning stiffness. Reports some numbness of skin to where operation was done but reports feeling pressure to area with touch. Otherwise denies any numbness or tingling, saddle anesthesia, incontinence, fever, chills, mouth sores/ulcers, fluid on her heart or lungs, night sweats. No other joint pain/ swelling/ significant morning stiffness weight loss Additional infor matchandni: Also reports unintentional 13 lb weight loss over last several weeks and was told to f/u with GI and rheumatology. Reports having appetite but does not have access to wide-selection of food. No change in stools. Colonoscopy planned in near future. Buttocks pain. 69 y/o female alonso azael presents with PMH of lumbar spine degenerative changes s/p thoracolumbar fusion in 07/2015, COPD, Carotid Artery stenting, cardiovascular disease, who presented for NMM for pain is located in the lower back bilaterally without radiation. She states that her back pain was originally local in the lower back and she underwent epidural injections and PT which were not helpful. She then opted for surgery of her back which she underwent this past july with instrumentation where rods were placed bilaterally in the lower thoracic and entire lumbar spine to help realignmentTODAY she states that after OMT her LBP has resolved and now she suffers primarly from b/l butock and hip pain as well as stiffness. buttock pain localized 3-4/10 aching and not relieved with pain regimen so far.She has noted weight loss and decreased apetite as well and has been sent for a rheumatology consult by Dr. Villegas her PCP. Follow Up of Back pain Follow Up Pt had rods put in her back and lumbar fusion in July of this year, she is continually improving. She is now able to drive, and walks with a cane. She has weaned off of oxycodone and now uses tramadol. She uses Gabapentin for the nerve pain and started mobic last month. Most of the pain now is centered in the hips. She does well with OMT and corticosteroid injections. Patient states that tramadol is no longer effective. back pain buttocks pain. 69 y/o female alonso addison presents with PMH of lumbar spine degenerative changes s/p thoracolumbar fusion in 07/2015, COPD, Carotid Artery stenting, cardiovascular disease, who presented for NMM for pain is located in the lower back bilaterally without radiation. She states that her back pain was originally local in the lower back and she underwent epidural injections and PT which were not helpful. She then opted for surgery of her back which she underwent this past july with instrumentation where rods were placed bilaterally in the lower thoracic and entire lumbar spine to help realignment. She states that she has pain is located in the lower back and is described at her lumbosacral base and bilateral SI joint right worse than the left, she states that she has stiffness in the morning and becomes dull and achy. She also explains that her mid back region is sore. She rates that her pain is a 6/10 and at its worst it is a 8/10. thoracolumbar back pain. 69 y/o female patient presents with PMH of lumbar spine degenerative changes s/p thoracolumbar fusion in 07/2015, COPD, Carotid Artery stenting, cardiovascular disease, who presented for NMM for pain is located in the lower back bilaterally without radiation. She states that her back pain was originally local in the lower back and she underwent epidural injections and PT which were not helpful. She then opted for surgery of her back which she underwent this past july with instrumentation where rods were placed bilaterally in the lower thoracic and entire lumbar spine to help realignment. She states that she has pain is located in the lower back and is described at her lumbosacral base and bilateral SI joint right worse than the left, she states that she has stiffness in the morning and becomes dull and achy. She also explains that her mid back region is sore. She rates that her pain is a 6/10 and at its worst it is a 8/10. TODAY SHE STATES SHE IS GRADUALLY INCREASING MOBILITY WITH OMT BUT C/O B/L BUTTOCKS TODAY AFTER RECEIVING STEROID INJECTIONS AT PAIN MANAGEMENT FOR SCIATIC TYPE le PAIN COMPLAINS. back pain The problem is i mproving. Location of pain is lower back.There is no radiation of pain. Symptoms are aggravated by lying/rest and walking. Additional information: stiffness. surgery follow up Follow Up of Back pain Additiona l information: 69 y/o female patient presents with PMH of lumbar spine degenerative changes s/p thoracolumbar fusion in 07/2015, COPD, carotid artery stenting, cardiovascular disease, here c/o low back pain x 1.5yr. Pt has tried PT and had epidural injections. Follow Up of Back pain (comments ) Pain today is located in lumbosacral area b/l, no radiation, 7/10, aching./dull pain. Worse with flexion, lifting. Better laying down and with tylenol/tramadol. NO weakness, paresthesias or b/b incontinence. Uses cane to walk for support. Pt walks x 30m daily. Mid to Low back pain. 69 y/o fem becca patient presents with PMH of lumbar spine degenerative changes s/p thoracolumbar fusion in 07/2015, COPD, Carotid Artery stenting, cardiovascular disease, who presents for initial NMM evaluation who states that her pain is located in the lower back bilaterally without radiation. She states that her back pain was originally local in the lower back and she underwent epidural injections and PT which were not helpful. She then opted for surgery of her back which she underwent this past July with instrumentation where rods were placed bilaterally in the lower thoracic and entire lumbar spine to help realignment. She states that she was on oxycodone for pain which she was developing tolerance on and was recently (4 weeks ago) switched to tramadol which she states is not helpful. She underwent home PT for 2 months with [place] [facility] to help her ambulate with walker and cane. She states that she has pain is located in the lower back and is described at her lumbosacral base and bilateral SI joint right worse than the left, she states that she has stiffness in the morning and becomes dull and achy. She also explains that her mid back region is sore. She rates that her pain is a 6/10 and at its worst it is a 8/10. She admits that the tramadol is not helping with her pain and she also used heat, ice, and stretches without much relief. She notices that her lower extremities have been swollen for the last three days and has not been moving much due to her increased pain. She denies numbness, tingling or radiculopathy. She does admit to a gait instability.After the last treatment she mentions that she received about 3-4 days of relief of pain, but has noticed reoccurrence since then. She has also visited her orthopedic surgeon last week and was told that her procedure was successful and is healing well as visualized on xray. Thoracolumbar pain. 69 y/o femal e patient presents with PMH of lumbar spine degenerative changes s/p thoracolumbar fusion in 07/2015, COPD, Carotid Artery stenting, cardiovascular disease, who presents for initial NMM evaluation who states that her pain is located in the lower back bilaterally without radiation. She states that her back pain was originally local in the lower back and she underwent epidural injections and PT which were not helpful. She then opted for surgery of her back which she underwent this past july with instrumentation where rods were placed bilaterally in the lower thoracic and entire lumbar spine to help realignment. She states that she was on oxycodone for pain which she was developing tolerance on and was recently (3 weeks ago) switched to tramadol which she states is not helpful. She underwent home PT for 2 months with [place] [facility] to help her ambulate with walker and cane. She states that she has pain is located in the lower back and is described at her lumbosacral base and bilateral SI joint right worse than the left, she states that she has stiffness in the morning and becomes dull and achy. She also explains that her mid back region is sore. She rates that her pain is a 6/10 and at its worst it is a 8/10. She admits that oxycodone was not helping with her pain and she also used heat, ice, and stretches without much relief. She denies numbness, tingling or radiculopathy. She does admit to a gait instability. Follow Up of Chronic Pain Follow Up of spinal surgery She is status post back surgery in July, being followed by Dr. Romero in [place] and is compliant with her appointments. Pt states she is receiving Physical Therapy and the therapist stated "I've done all I could do. Pt stated that she was taught how to use the cane and walker to ambulate. Currently, the Pt. is afraid to ambulate by herself and admits to being wobbly and is also afraid to drive. She stated that current oxycodone dosing of 2.5mg q6 keeps the pain levels controlled, and reported that she only takes two pills, one in am and one in afternoon. Pt. expressed desire to eventually stop taking oxycodone for pain relief. Pt admitted to still feeling dizziness and attributed this to her pain medications, gabapentin and oxycodone. She denies having any CP, palpitations, SOB, changes in bowel movements, nausea or headaches. post op 08/13/15 surgery in hospital 6 days then home 09/13 medical clearance Lumbar spinal fusion Dr Latonya Romero Patient has no dentures or bridges.The patient does not have any chest pain, orthopnea, paroxysmal nocturnal dyspnea or claudication. asthma The initial visi t date was 08/02/2013. The symptoms have not changed. The severity level is moderate. Aggravating factors include exercise. Pertinent negatives include awakening with cough, awakening with dyspnea, awakening with wheeze, dyspnea with moderate exercise, excessive sputum, hemoptysis, oral thrush, pleuritic pain, productive cough, reflux, seasonal rhinitis symptoms, sinusitis and wheezing. asthma (comments) Patient return s for a pulmonary follow-up with her history of asthma with probably some COPD. She remains limited with her low back pain but is scheduled probably by May to have lumbosacral spine surgery with Dr. Tc Romero at [facility]. She is going to have a fusion and is having her preoperative clearance medically with Dr. Villegas. She does not believe that any pulmonary preoperative evaluation is being requested. She has no new or unusual pulmonary complaints. She has no acute or chronic cough and no significant sputum. Please see review of systems multi-system for further details. She is very compliant with her Qvar and seldom needs her short acting bronchodilator. She is feeling perhaps a little bit better but does not challenge herself with any increase activity due to her back issues.New spirometry today in evaluation of her lung disease progress, demonstrates an FEV1 of 1.28 L which is gone from 57% to 61% of predicted. The FEV1 now is 59% of the FVC and her vital capacity has improved from 70% of predicted up to 78%. These findings are compatible with a moderate obstructive ventilatory defect with some mild interval improvement. hypercholesterolemia pt is follo wing up on labs back pain Additional infor yenny: pt is following up on radiology tests. Tick Bite The symptoms beg an 3 days ago. The location is mid back. COPD (follow up) The COPD (follo w up) has stabilized. Pertinent negatives include awakening with cough, awakening with wheezing, chest pain, chest pressure/discomfort, dry cough, dry mouth, dyspnea at rest, dyspnea with exertion, excessive sputum, hemoptysis, irregular heartbeat/palpitations, lower extremity edema, morning cough, morning phlegm production, nausea, nocturnal dyspnea, oral thrush, orthopnea, pleuritic pain, productive cough, purulent sputum, stridor, tremors and wheezing. COPD (follow up) (comments) 6 mo [facility] COPD follow-up. Patient is doing very well and has not needed to use her Shell in those 6 months. She has had no flares or exacerbations including the lack of need for antibiotics or oral steroids. She is pleased with her progress.I did review with her the fact that she has both asthma with COPD. The asthma with COPD can be related to both chronic asthma as well as her previous smoking history. back pain hypercholesterolemia pt is follo wing up on her labs and needs refills medical clearance pt is getting a spinal injection and does not need any pre op testingPt is having a procedure on Thursday at [facility], Dr Álvaro Ewing, (spinal sugeon). ; . Will be having an epidural injection. There will be local anesthesia.PMHx: had a carotid stent placed 4 years ago. No problems tolerating the surgery or the general anesthesia.Pt taking Plavix and ASA 81 mg, these were stopped this past Thursday.No Dentures or bridges.No chest pain, orthopnea, PND or claudication.Stopped asa/plavix 7 days prior to procedure Asthma w/ COPD The symptoms are reported as being mild. The symptoms occur occassional. She states the symptoms are chronic and are controlled. 68 yo wf with controlled asthma with just ICS at mild dose with spirometry /PFT last done recently with findings c/w Mild COPD in addition. Doing very well with very rare need SHELL.Interval dx spinal stenosis with epidural steroid pending 05/22. hip pain Onset: 5 months ago. Location of pain is bilateral. hypercholesterolemia pt is follo wing up on her labs Instructions Date Instruction Additional Infor yenny Healing nicely Related to Sacra l wound, sequela See Derm Dr Vance [phone] labs, consider spironolactone but would need to watch bp and salts (potassium) Related to Hair loss - Plan/trial of pred nisone low dose 5 mg by mouth daily with food or snack, #45 with no refills. Prompt pulmonary follow-up in 4-6 weeks. Patient agrees with this plan and we did discuss the potential side effects versus the benefits of a trial of low-dose prednisone. Related to Asthma with COPD Recommend interval f ollow-up CT scan of the chest to ensure further improvement or resolution of basilar infiltrates in 6-8 weeks of which should be done in early or mid July 2021 with follow-up. Shortly thereafter with me As well as pulmonary follow-up when necessary. Related to Aspiration pneumonia of both lower lobes, unspecified aspiration pneumonia type - Recommend a lightw eight portable concentrator (POC). This unfortunate is not optional but is medically necessary. My office to send a prescription not received previously for this to her oxygen supplier with a copy of my progress note if required. Related to Hypoxemic respiratory failure, chronic - Recommend a lightw eight portable concentrator (POC). Last my office to send a prescription for this to her oxygen supplier with a copy of my progress note if required. Related to Hypoxemic respiratory failure, chronic Recommend repeat CT scan of the chest with no IV contrast in about 8 weeks with a pulmonary follow-up soon thereafter. This would take just the end of May for the follow-up study. Patient is asked to do the study at [place] which would be okay to do it at the [facility]. Patient agrees to get a disc from the study at [facility] for comparison when she goes for the new study To assure clearance. Patient understands and agrees to this plan. Related to Pulmonary nodules/lesions, multiple Patient advised to g o to the ER given low 02 sat and weakness. She declined EMS and her friend came to pick her up to take her there. Related to Low O2 saturation -RV for 3-4 months a nd sooner prn.Pro-air to continue to be used on a when necessary basis as backup.-Follow-up recommended in about 6 weeks to review her progress and compliance.-We'll recheck her oxygenation by pulse oximetry at rest and walking at next visit. Despite her O2 desaturation when she walked in from the outside, her 6 minute walk test of October 15, 2020 did not demonstrate during 4 minutes of the 6 minute walk test any oxygen saturations less than 90%. She was back up to 92 Kasie 1 minute of recovery. Patient's back issues and use of a cane limited her completing the full 6 minute walk study. Related to Asthma with COPD Will send patient to Nephrology at her [facility] for elevated creatinine level. She states remote history of kidney problem where she was hospitalized in the past. Related to Elevated serum creatinine Will treat dalia raza for UTI with Ciprofloxacin 500mg PO QD x3 days. Advised patient if she continues to feel urinary symptoms to return to clinic. Will send urine for UA with micro and culture and call patient with results. Advised patient to see her OBGYN for a pelvic exam as she may be experiencing atrophic vaginitis or may have THEATRICAL DRESSER related issue. Related to Suspected UTI Advised patient to f inish her course of Prednisone 40mg PO QD for the remainder of the course (total of 5 days). Advised patient that if she begins to have increased oxygen demand, increased sputum production, change in color of sputum to go to ER. Told patient to call clinic on Thursday to let me know how she is feeling for further advise. Advised patient to keep her follow up appointment with Dr. Greer (pulmonology) for January 18 to discuss this episode. Related to Chronic obstructive pulmonary disease with acute exacerbation May-19-2021 RBAs discussed start metformin er 500mg one nightly for 7 days then 2 Related to Elevated glucose Use Top rated bp cuf fs, OMRON 10, [facility] [id number], ReliOn BP200 Related to Essential hypertension check bp at home 1-2 x week bring in BP cuff at least once year Related to Essential hypertension The patient is clear ed/optimized for surger under Dr Wu- She is to hold her clopidogrel 5 days before surgery and have nothing by mouth from the night prior except duloxetine 60mg, gabapentin 300mg tramadol 50mg and prednisone Rxd by pulmonary. She will also use her prophylactic inhaler. Related to Pre-op evaluation Recommendations:-I s pent 7.5 minutes educating, demonstrating inhaler technique, and dosing of Breztri at 2 puffs every 12 hours with mouth rinse. Patient did demonstrate understanding of the inhaler apparatus use and dosing of medication. We also reviewed adverse drug reactions and we checked with ophthalmology to confirm that she has open angle glaucoma.Pro-air to continue to be used on a when necessary basis as backup.-Follow-up recommended in about 6 weeks to review her progress and compliance.-We'll recheck her oxygenation by pulse oximetry at rest and walking at next visit. Despite her O2 desaturation when she walked in from the outside, her 6 minute walk test of October 15, 2020 did not demonstrate during 4 minutes of the 6 minute walk test any oxygen saturations less than 90%. She was back up to 92 Kasie 1 minute of recovery. Patient's back issues and use of a cane limited her completing the full 6 minute walk study. Related to Asthma with COPD 1. Please do inhaler properly 1. shake 2. full exhale 3. activate 4. full inhale and 5. hold. Repeat 30-60 seconds2. Asthma triggers: 1. Infection, 2. Allergens, 3. Cold air, 4. Exercise and some folks 5. aspirin and / or advil3. Use inhaler 2 puffs every 4 hours as needed. Related to Mild persistent asthma without complication Recommendations:-Sarah barker pulmonary function study at [facility].-Pulmonary follow-up in about 4-5 months.-Communicate with the patient results of her pulmonary function study and because her oxygen level was 88% when she first came to the office today, I will add on to the PFT and additional study: 6 minute walk test to establish whether she truly has exercise-induced oxygen desaturation.Patient was unable to get her flu shot at primary office. We'll give her the high-strength flu shot today as we have available. Related to Asthma with COPD 1. Please do inhaler properly 1. shake 2. full exhale 3. activate 4. full inhale and 5. hold. Repeat 30-60 seconds2. Asthma triggers: 1. Infection, 2. Allergens, 3. Cold air, 4. Exercise and some folks 5. aspirin and / or advil3. Use inhaler 2 puffs every 4 hours as needed. Please use at least 2 x day for a week. Related to Asthma with COPD The patient is clear ed/optimized for surgery under Dr Fleming. She is to be cleared by pulmonary (Dr Greer) and Cardio. She is to have nothing by mouth from the night prior except gabapentin, duloxetine and perhaps tramadol with a sip of water and hold the clopidogrel as per cardiology (usually 5 days prior). Related to Pre-op evaluation 1. Please do inhaler properly 1. shake 2. full exhale 3. activate 4. full inhale and 5. hold. Repeat 30-60 seconds2. Asthma triggers: 1. Infection, 2. Allergens, 3. Cold air, 4. Exercise and some folks 5. aspirin and / or advil3. Use inhaler 2 puffs every 4 hours as needed. Please use at least 2 x day for a week.4. Montelukast (singulair) 10mg one daily for 7-14 days Related to Asthma, unspecified asthma severity, unspecified whether complicated, unspecified whether persistent After discussion wit h Cardio and vascular surgery with patient we decided to POSTPONE surgery in hope of improving shortness of breath and back pain.I have maximized the statin to 80mg of atorvastatin and will continue the clopidogrel for now Related to Preoperative clearance Recommendations:--St art using and give prescription for Pro Air HFA inhaler 2 puffs every 4-6 hours when necessary--Patient declines and really not needed to have a maintenance medication at this time based on her pulmonary status over the past 6-12 months off of it.--Spirometry today indicating a moderate obstructive ventilatory defect however very similar or slightly improved compared to that of a study of May 04, 2015.-- Patient is asked to return for pulmonary follow-up within 3-4 months with a full pulmonary function test prior. Related to Asthma with COPD and 300mg mid day an d 600mg at bed then call Dr Villegas Related to Lumbar radiculopathy, chronic 2 weeks, then 600mg am and 600mg at bed for 2 weeks then 600mg am Related to Lumbar radiculopathy, chronic increase gabapentin to 300mg am, 300mg mid day and 600mg at bed for Related to Lumbar radiculopathy, chronic Get plenty of restDr ink plenty of fluids, enough so that your urine is light yellow or clear.Eat a banana as a snackLet us know if you have more episodes of crampingWill check your electrolytes today and let you know the results. Related to Leg cramp The patient was advi sed to call the PCP's office if symptoms worsen or do not improve. Signs and symptoms of infection were discussed with the patient. Related to Skin lesion The patient was advi sed to call the office if symptoms worsen or do not improve. Related to Neuropathic pain The patient was advi sed to call the office if symptoms worsen or do not improve. Related to Chronic bilateral low back pain, with sciatica presence unspecified Patient education:Di scussed with patient common GI side effects of opioids, constipation being the most common one in my practice.It has long been recognized that opioids affect gastrointestinal motility. The usual effects include increased segmental motility and decreased peristalsis. The outcome usually is manifest as constipation. Nausea, bloating, early satiety, and pain are also possible. Prevention is the preferred strategy. All patients with predisposing factors like- advanced age, immobility, poor diet, intra-abdominal pathology, neuropathy, hypercalcemia, concurrent use of other constipating drugs, should be considered for prophylactic laxative therapy when opioid treatment is initiated. Related to Constipation due to opioid therapy Patient education:Prabha scussed with patient common GI side effects of opioids, constipation being the most common one in my practice.It has long been recognized that opioids affect gastrointestinal motility. The usual effects include increased segmental motility and decreased peristalsis. The outcome usually is manifest as constipation. Nausea, bloating, early satiety, and pain are also possible. Prevention is the preferred strategy. All patients with predisposing factors like- advanced age, immobility, poor diet, intra-abdominal pathology, neuropathy, hypercalcemia, concurrent use of other constipating drugs, should be considered for prophylactic laxative therapy when opioid treatment is initiated. Patient encouraged to increase fluid intake, mobility, and dietary fiber (unless severely debilitated with limited oral fluid intake). In addition, comfort and privacy for defecation must be ensured. Related to Constipation due to opioid therapy Plan-Stop Oxycodone 20 mg q 6 hrs pain as pain is uncontrolled.Restart Dilaudid 4-6 mg q 6 hrs prn poStop Fentanyl patch; will rotate to Oxycodone 40 mg bid for now and reassess in 1 week.If no improvement in pain, will consider LS XR.Has an appt with pain management- Dr. Matthews on 08/18/18Toradol 30 mg today IM due to severe pain.The patient was advised to call the office if symptoms worsen or do not improve. The patient verbalized an understanding of the plan. Related to Chronic bilateral low back pain, with sciatica presence unspecified The patient was advi sed to call the office if symptoms worsen or do not improve. Related to Chronic bilateral low back pain, with sciatica presence unspecified Patient education:Prabha scussed with patient common GI side effects of opioids, constipation being the most common one in my practice.It has long been recognized that opioids affect gastrointestinal motility. The usual effects include increased segmental motility and decreased peristalsis. The outcome usually is manifest as constipation. Nausea, bloating, early satiety, and pain are also possible. Prevention is the preferred strategy. All patients with predisposing factors like- advanced age, immobility, poor diet, intra-abdominal pathology, neuropathy, hypercalcemia, concurrent use of other constipating drugs, should be considered for prophylactic laxative therapy when opioid treatment is initiated. All patients should be encouraged to increase fluid intake, mobility, and dietary fiber (unless severely debilitated with limited oral fluid intake, or bowel obstruction is suspected). In addition, comfort and privacy for defecation must be ensured. Related to Constipation due to opioid therapy The patient was advi sed to call the office if symptoms worsen or do not improve. Related to Chronic bilateral low back pain without sciatica The patient was advi sed to call the office if symptoms worsen or do not improve. Related to Neuropathic pain Maintain a low-sodiu m diet (less than 2 grams per day). Related to Essential hypertension Patient education:Di scussed with patient common GI side effects of opioids, constipation being the most common one in my practice.It has long been recognized that opioids affect gastrointestinal motility. The usual effects include increased segmental motility and decreased peristalsis. The outcome usually is manifest as constipation. Nausea, bloating, early satiety, and pain are also possible. Prevention is the preferred strategy. All patients with predisposing factors like- advanced age, immobility, poor diet, intra-abdominal pathology, neuropathy, hypercalcemia, concurrent use of other constipating drugs, should be considered for prophylactic laxative therapy when opioid treatment is initiated. All patients should be encouraged to increase fluid intake, mobility, and dietary fiber (unless severely debilitated with limited oral fluid intake, or bowel obstruction is suspected). In addition, comfort and privacy for defecation must be ensured. Related to Constipation due to opioid therapy Follow a low sodium diet. Relate d to Essential hypertension Increase activity. Related to Es sential hypertension - follow up with Dr. Ewing - Schedule an appointment with palliative care for pain management - in the meantime, increase fentanyl to 75 mcg transdermal every three days and decrease the need for regular hydromorphone - narcan sent to pharmacy Related to Fusion of lumbar spine Stop trazadone and i ncrease mirtazapine to 45mg at bed. Related to Weight loss follow up in 1 month continue to encourage oral intake, boost shakes and well balanced diet plan for orthopedic procedure after next followup Related to Diverticulitis UA/Ucx to r/o UTIEnc ourage PO intake, fluid hydrationEncourage physical activity at rehab facilityf/up in 2 weeks Shower QD, leave steristrips in place, they will fall off on their own Related to Encounter for other specified surgical aftercare Information Packet g iven and discussed Related to Diverticulitis golyte prep discussed and given Related to Diverticulitis Risks of maintaining /stopping anticoagulants reviewed Related to Diverticulitis scheduled colonoscopy Related to Diverticulitis - continue meal supp lementation and vitamins Related to Weight loss - schedule and appoi ntment with Dr. Bueno for wound care and planning for reanastomosis Related to Decubitus ulcer of right buttock, stage 2 No need for further follow up. Follow up w PMD and GI. Recommend colonoscopy in 4-6 weeks. Related to Diverticulitis of large intestine with abscess without bleeding -no further ABx need ed-PICC line removed-suppository or colace for constipation-encouraged hydration-follow up in 1-2 weeks to monitor progress Related to Diverticulitis of large intestine with abscess without bleeding Restart Embeda 1 tab let daily. With hydrocodone as needed every 6hours for breakthrough pain. Your nightly dose of gabapentin will have an addition 600mg pill for a total of 900mg in the evening, this should help with your pain.Follow up with Dr. Jasso for her opinion on a neuro-stimulator and then followup with Dr. Fleming about possible placement. Make an appointment Dr Ewing to follow up on whether or not to see Dr. Lopez. Related to Radiculopathy, lumbar region Embeda plus hydrocod one , may need patch Related to Radiculopathy, lumbar region Dr Fleming [phone] Lopez [phone] Related to Radiculopathy, lumbar region Colace 100mg 2 x a d ay, metamucil wafers, prunes then miralax and supposit Related to Drug-induced constipation Dr Ewing [phone] see outpatient Related to Radiculopathy, lumbar region --renewed the Floven t discus 100 g at one puff twice a day. Patient reminded to rinse mouth although she has had no voice or thrush issues.--Full pulmonary function tests recommended in 8 months.--Return visit as a compromise of 9 months instead of 6 months. Related to Asthma with COPD Reviewed importance of mouth rinse with inhaled corticosteroid Related to Asthma with COPD - continue PT Related to Sacro iliac dysfunction postinjection instructions given Related to Sacroiliac dysfunction Dr Addy Alas ortho [phone] ask for Ashley Related to Right shoulder injury, initial encounter drink water Related to Slow transit constipation metamucil or citracelle for fibe r Related to Slow transit constipation will start cymbalta 30 mg Relate d to Chronic bilateral low back pain without sciatica eat 5 servings of ve gatables a day and fiber supplement if not able to Related to Slow transit constipation use dulcolax for lalitha akthrough constipations Related to Slow transit constipation use dulcolax for lalitha akthrough constipations Related to Slow transit constipation miralax 17 gm once a day Related to Slow transit constipation Colace 100 mg twice a day Relate d to Slow transit constipation Start new bowel regimen. Related to Slow transit constipation follow up with Dr. Waddell Relat ed to Pulmonary emphysema, unspecified emphysema type continue current aci d suppressionrepeat egd with biopsy within 8 weeks.we will wait for her cologuard results as well and if it is positive and she agrees to colonoscopy will do them simultaneously Related to Esophagitis, Lipscomb grade A check cologuard Related to Weigh t loss Gained back some weight Related to Weight loss Consider resee Dr Jasso [phone] Related to Occlusion and stenosis of unspecified carotid artery restart clopidogrel 75mg a day, hold aspirin for now Related to Occlusion and stenosis of unspecified carotid artery Avoid provocative fo ods: citrus, alcohol, coffee, chocolate, mints Related to Acute gastric ulcer with bleeding Please do 3 stools f or blood- 3 seperate days Related to Acute gastric ulcer with bleeding - d/r/b egd/colonosc opy reviewed and patient wishes to proceed alternative reviewed and declined- labs Radha Oconnor, Internal Medicine PGY III. Pt seen and examined with Attending Physician Dr. Hoyt. Plan discussed at length. Related to Unexplained weight loss Patient might be bet ter controlled on nucynta, as it is a stronger Mu agonist , and continue to follow up with [facility] perhaps weekly . Consider PT when [facility] is plateud Related to Low back pain Pt got a notice from [facility] stating it was time for her annual mammography . Her previous Birads score was 1. USPSTF recommendation is recommends every two years. We will plan to perform a repeat screening next year. Related to H/O screening mammography -->warm heat to butt ocks while laying prone-->hamstring stretches with just extending leg for relaxed position Related to Low back pain Dr Maldonado to haydee avendano n his bag of tricks Related to Spinal stenosis, lumbar region consider OMT with Dr Sequeira for back pain- check if covered Related to Spinal stenosis, lumbar region Please see Dr. Ayanna soto for eval for OMT at [facility] Related to Acute right-sided low back pain without sciatica Please follow up with Dr. Whitehead od Related to Dizziness [facility] [phone] Related to Dizziness Stop Simvastitin. St art lipitor (atorvastatin) 20 mg daily before bedtime Related to History of carotid artery disease Please try and wean (slowly) oxycodone with the 2.5mg option Related to Lumbar radiculopathy, chronic CoQH 100mg day 100mg UBIQIONOL select made by [employer] Related to Pure hypercholesterolemia Gonzalez EPA/DHA HP puneet ct fish oil 3 day [phone] [employer] Related to Pure hypercholesterolemia Medications are revi ewed and renewed where necessary. Dr. Villegas has most recently renewed her Qvar.Pulmonary follow-up is advised in about 6 months where we will either do a new spirometry at that time or recommend apical pulmonary function test. Related to Asthma with COPD Dr Fleming [phone] for epidur als Related to Spinal stenosis of lumbar region Derm Dr Vance [phone] Relate d to Suspicious nevus CoQH 100mg day 100mg UBIQIONOL select made by [employer] Related to Hypercholesterolemia - if fever, chill,s or joint pains develop return to clinic- extremely low liklihood of tick borne illness given that the tick was not engorged and there is no bullseye rash... however if one develops seek medical attention darlene Related to Insect bite -Recommend that she stays on the present Qvar dose and frequency.-I have asked that she liberalize as needed her use of the pro-air.-It is noted that her current pro-air in her pocketbook in 2011 and she is admonished to get a new one and keep them up to date for when they are needed.-It is noted that patient suffers from chronic back pain now with spinal stenosis and is getting pain center management. This is limiting her activity which could underestimate her degree of exertional dyspnea.-Pulmonary follow-up is advised in about 6 months and we will determine the need for spirometry at that time. Related to Asthma with COPD asthma triggers are: infection, allergy, exercise, cold air & aspirin/advil Related to Asthma Dr Bowers & Renetta Martinez ff [phone] ortho spine Related to Spinal stenosis of lumbar region Patient is cleared/o ptimized for surgey. Nothing by mouth form the night Related to Preoperative clearance prior. Related to Preop erative clearance Has been off aspirin /advil/plavix and fish oil over 7 days prior to surgery Related to Preoperative clearance will add updayed labs Related to Preoperative clearance CoQH 100mg day 100mg UBIQIONOL select made by [employer] Related to Hypercholesterolemia [employer] EPA/DHA HP puneet ct fish oil 3 day [phone] [employer] Related to Hypercholesterolemia check fasting choles terol have water that morning Related to CAD, Unspecified See Cardio at least [address] Olsen/group [phone] Related to CAD, Unspecified always carry rescue inhaler albuterol 2 puffs 1 minute apart every 4 hrs Related to Asthma use inhaler at least 2 x day for a week Related to Asthma asthma triggers infe ction allergy exercise cold air aspirin/advil Related to Asthma Dr Lopez [phone] Related to Spin al stenosis of lumbar region Clonazepam wafers 1- 3 sublingually at bed for sleep. Related to Insomnia, Other [employer] EPA/DHA HP puneet ct fish oil 3 day [phone] [employer] Related to Hypercholesterolemia Consider CoQ10 or Co QH 100mg day 100mg UBIQIONOL Vit Nutrients Related to Hypercholesterolemia trazadone 1/2 at bed for a week then 1 at bed. Dont stop if mild headache Related to Insomnia, Other vital nutrients high potency fish oil 3 day [phone] [employer] Related to Hypercholesterolemia Consider CoQ10 or Co QH 100mg day 100mg UBIQIONOL Vit Nutrients Related to Hypercholesterolemia proventil puffer (al buterol) 2 puffs every 4 hrs as needed for rescue Related to Asthma Use Qvar 2 inhal TWI CE DAILY, rinse mouth after use. Related to Asthma Trazadone max of 200mg Related t o Insomnia Clonazepam wafers 1- 3 sublingually at bed for sleep. Related to Insomnia trazadone 1/2 at bed 3 nights and increase by 1/2 every 3d til 7 hrs sleep Related to Insomnia Consider CoQ10 or CoQH 100mg day Related to Hypercholesterolemia assure plavix, simva statin, coQh and fish oil Related to Bilateral carotid artery disease holter monitor today Related to Near syncope get labs and see cardio next rsuty harden Related to Near syncope Saline GEL not spray at bed. Rel ated to Sinusitis nasonex/flonase 2 pu mps nose to toes daily for 7-14 days Related to Sinusitis Use 3/4 tsp sea salt in 1 liter H2O into NETTI pot. Related to Sinusitis proventil puffer (al buterol) 2 puffs every 4 hrs as needed for rescue Related to Asthma Assessments Type Assessment Date No Information Goals Health Concern Goal Type Priority Status Date Chronic pain; as evidenced by pain scale 2/10 or greater. Patient will report pain less than 2/10 on pain scale. Patient Goal Continued
--- OUTSIDE RECORDS SUMMARY | 2025-05-03 15:30 | XMS_ITS | Encounter Summary ---
Author Organization [facility] Address [address] [place] [address] Phone Care Team Providers Care Product Support Engineer Name Role Phone Kprock Sophie Bueno MD Primary Care Provider Encounter Details Date Type Department Care Team ([facility] st Contact Info) Description 05/03/2025 3:30 PM EDT Office Visit [facility] All[facility] Medicine [address] [facility] [place] [address] Reji Carter MD [address] [place] [phone] [email or web address] COPD, very severe (Primary Dx); Pulmonary emphysema; Chronic respiratory failure with hypoxia and hypercapnia; Pulmonary hypertension Social History Tobacco Use Types Packs/Day Years [...] on file documented as of this encounter Last Filed Vital Signs Vital Sign Reading Time Taken Comments Blood Pressure 142/72 05/03/2025 3:24 PM EDT Pulse 69 05/03/2025 3:24 PM EDT Temperature 37.1 C (98.7 F) 05/03/2025 3:24 PM EDT Respiratory Rate - - Oxygen Saturation 94% 05/03/2025 3:24 PM EDT Inhaled Oxygen Concentration - - Weight 47.4 kg (104 lb 9.6 oz) 05/03/2025 3:24 P M EDT Height 144.8 cm (4' 9 ) 05/03/2025 3:24 PM EDT Body Mass Index 22.64 05/03/2025 3:24 PM EDT documented in this encounter Patient Instructions * Patient Instructions* Reji Carter MD - 05/03/2025 3:30 PM EDT Dear Vania Castellanos, It was a pleasure seeing you today in clinic. If lung function tests or imaging (chest x-ray, CT scan) have been ordered, you can set these up today at our office or you can call central scheduling at [phone]. If blood tests were ordered, you can get these done today (located immediately to the left when exiting the clinic office). If any questions arise in the meantime or if you experience worsening of your symptoms, please callthe office at [phone]. Reji Carter MD documented in this encounter Progress Notes * Reji Carter MD - 05/03/2025 3:30 PM EDT Pulmonary Outpatient Follow-up Visit Patient: Vania Castellanos Date: 05/03/2025 HPI: Vania Castellanos is a 79 y.o. female here for follow-up of COPD, very severe [J44.9]. Interim history: History of Present Illness Vania Castellanos is a 79 year old female with very severe COPD and chronic respiratory failure who presents for follow-up of hypoxia and hypercapnia. She experiences significant fatigue, often sleeping 15 to 16 hours a day. Her oxygen concentrator is set at 3 L/min, but she occasionally reduces it during walks to 'increase my energy and strengthenmy muscles'. Her oxygen levels are usually in the low 90s, and she monitors them to ensure they remain above 90%. She is not currently using any inhalers, including Breztri, which she would like to resume. She is not sure why she has not restarted Breztri in the interim between her last visit and now. We discussed sending in a prescription. She experiences tremulousness, describing her hands as 'very shaky.' A neurologist previously assessed her condition and concluded there was nothing that could be done for her tremulousness. She has a morphine pump for chronic back pain, which delivers morphine intrathecally. She also takes Tylenol and gabapentin. The morphine helps but does not completely alleviate her pain. She lives at [facility] in [place] and is unable to drive, relying on her sister for transportation. This loss of independence has been difficult. ROS: All systems were reviewed in detail and are negative except as mentioned in HPI. Vitals: BP (!) 142/72 (BP Location: Right arm, Patient Position: Sitting, Cuff Size: Small) Pulse69 Temp 37.1 ??C (98.7 ??F) (Temporal) Ht 144.8 cm (4' 9 ) Wt 47.4 kg (104 lb 9.6 oz) SpO2 94% BMI 22.64 kg/m?? Physical exam: Gen: Well-appearing, elderly female in no acute distress HEENT: Sclerae anicteric, wearing nasal cannula with 3 L/min pulsed oxygen from POC Chest: Normal effort, mildly diminished breath sounds throughout, +mild expiratory wheeze Cardiovascular: Regular rate and rhythm, no murmurs Extremities: Warm and well-perfused, no peripheral clubbing, no lower extremity edema Neuro: Alert, oriented to self, confused at times (having difficulties remembering certain things, such as the name of the facility in [place] where she lives) Skin: No jaundice or rashes Laboratory data: Laboratory data reviewed. Additional interpretation by myself otherwise noted elsewhere. Imaging: Radiographs reviewed and corroborated by radiologist report. Additional interpretation by myself otherwise noted elsewhere. Pulmonary function testing reviewed. Most recent data: FEV1 Date Value Ref Range Status 04/30/2023 0.49 liters Final FVC Date Value Ref Range Status 04/30/2023 1.64 liters Final FEV1/FVC Date Value Ref Range Status 04/30/2023 30 % Final TLC Date Value Ref Range Status 04/30/2023 4.24 liters Final DLCO Date Value Ref Range Status 04/30/2023 5.35 ml/mmHg sec Final Assessment and plan: Vania Castellanos is a 79 y.o. female who presents for follow-up of COPD, very severe [J44.9]. 1. COPD, very severe (Primary) Assessment & Plan: Severe COPD and emphysema. PFTs from 04/2023 with very severe fixed obstruction with an FEV1 of 0.49 L or 30% predicted (though, with a significant post- bronchodilator increase in FEV1), air trappingwithout overt hyperinflation, and a severe diffusion impairment. Her COPD and related symptoms werepreviously well-controlled on ICS/LABA/LAMA maintenance inhaler therapy. Previously, plan was for patient to pursue pulmonary rehabilitation when she completed physical therapy for her hip. At some point before spring, her oxygen requirement increased from 2 to 3 L/min, and several months prior to this time, she stopped taking her inhalers. In spring 2024, we discussed a trial of restarting her Breztri. Additionally, we again addressed the possibility of pulmonary rehabilitation. Previously, she was potentially interested in pursuing pulmonary rehabilitation, however, she was not certain whether she would be able to get a ride 3 times per week. Not using inhalers, including Breztri,which could improve symptoms by opening airways and aiding ventilation. She does not recall why shehas not restarted Breztri since last visit. Significant fatigue and intermittent confusion is likely in part due to chronic CO2 retention. - Restart Breztri (ICS/LABA/LAMA)--patient provided with prescription for Breztri today - Albuterol as needed - Defer pulmonary rehabilitation at present (in addition to interval PFTs with 6MWT, which were notperformed since last visit); previously, patient wanted to learn more about the program, think about this further, and discuss with her sister--presently, she would not appear able to participate pending clinical improvement - Discussed potential use of low-dose oral morphine for dyspnea if symptoms were to worsen, balancing with potential increased sleepiness Orders: - buqtbzrizu-dbwvjesb-vrpmjmjkso (BREZTRI AEROSPHERE) 160-9-4.8 mcg/actuation inhaler Dispense: 10.7 g; Refill: 11 2. Pulmonary emphysema - nyemvbbuwi-jwvnfien-aqczwabqqn (BREZTRI AEROSPHERE) 160-9-4.8 mcg/actuation inhaler Dispense: 10.7 g; Refill: 11 3. Chronic respiratory failure with hypoxia and hypercapnia Assessment & Plan: Secondary to severe COPD and emphysema suggested on chest x-ray (no prior chest CT imaging available for review). Was chronically on 2 L/min supplemental oxygen. Uses an [employer] POC when out of the house. ABG from 07/2023 with chronic respiratory acidosis secondary to chronic hypoventilation related to very severe COPD. This could also be compounded by chronic opiate use. Astral iVAPS with auto EPAP was previously prescribed with sleep (DME is [facility]), however, she stopped using the machine after 2 nights due to claustrophobia and anxiety. We previously discussed trying the mask during the day while awake for periods of time when she is relaxed, such as when watching TV or reading. Additionally, she was encouraged to call her DME to discuss trying other mask interfaces which might be better tolerated. Ultimately, she could not tolerate NIV and her machine was returned to her DME. Since last visit, now requiring 3 L/min oxygen. Also, describes ongoing generalized fatigue (and some confusion) which is likely related to worsening chronic hypercarbia in the absence of NIV therapy. Lung transplant not an option due to age, comorbidities, and goals of care. Non- invasive ventilation is the only effective method to reduce CO2 levels, however is intolerable. - Goal SpO2 > 89% and < 96% on supplemental oxygen (important to avoid hyperoxia in light of known chronic CO2 retention without nocturnal noninvasive ventilation therapy) - Confirmed with patient that noninvasive ventilation remains not within her goals of care - Minimize sedating medications as possible (patient chronically takes gabapentin and has an intrathecal morphine pump for chronic back pain) - The above being said, patient has end-stage pulmonary disease and at this juncture, discussed that if she were to have worsening dyspnea it would be very reasonable to consider palliation of symptoms with oral morphine (noting that this balance would favor managing symptoms of end-stage disease with the risk of worsening hypercarbia, sleepiness, etc.) Orders: - zmcrscljcl-iponkxgu-puadotjfvd (BREZTRI AEROSPHERE) 160-9-4.8 mcg/actuation inhaler Dispense: 10.7 g; Refill: 11 4. Pulmonary hypertension Assessment & Plan: Echo from 05/2024 with normal LVEF (60-65%), grade 2 diastolic impairment, normal RV size and function, estimated RVSP of 41 mmHg. Elevated pulmonary pressures likely reflect secondary pulmonary hypertension (predominantly WHO group III, secondary to chronic lung disease and chronic respiratory failure with hypoxia). I obtained verbal consent from the patient or their proxy to record this visit for purposes of producing a draft of the encounter documentation. Greater than 50% of the time spent was devoted to counseling and coordinating care including reviewof records, pertinent lab data and studies, as well as discussing diagnostic evaluation and work-up, plan therapeutic interventions, and future disposition of care. This includes any additional research needed to obtain further information and formulating the plan of care of this patient. I have maintained a long-term, longitudinal relationship with this patient, overseeing care of chronic conditions, including very severe COPD, pulmonary hypertension, chronic respiratory failure withhypoxia and hypercapnia. This care relationship has significantly influenced my decision-making andtreatment plans during today's encounter. Total clinical care time: 50 minutes. Follow-up: Return in about 6 months (around 11/01/2025) for Next scheduled follow up. documented in this encounter Miscellaneous Notes * Assessment & Plan Note - Reji Carter MD - 05/03/2025 3:45 PM EDT Associated Problem(s): Chronic respiratory failure with hypoxia and hypercapnia Secondary to severe COPD and emphysema suggested on chest x-ray (no prior chest CT imaging available for review). Was chronically on 2 L/min supplemental oxygen. Uses an [employer] POC when out of the house. ABG from 07/2023 with chronic respiratory acidosis secondary to chronic hypoventilation related to very severe COPD. This could also be compounded by chronic opiate use. Astral iVAPS with auto EPAP was previously prescribed with sleep (DME is [facility]), however, she stopped using the machine after 2 nights due to claustrophobia and anxiety. We previously discussed trying the mask during the day while awake for periods of time when she is relaxed, such as when watching TV or reading. Additionally, she was encouraged to call her DME to discuss trying other mask interfaces which might be better tolerated. Ultimately, she could not tolerate NIV and her machine was returned to her DME. Since last visit, now requiring 3 L/min oxygen. Also, describes ongoing generalized fatigue (and some confusion) which is likely related to worsening chronic hypercarbia in the absence of NIV therapy. Lung transplant not an option due to age, comorbidities, and goals of care. Non- invasive ventilation is the only effective method to reduce CO2 levels, however is intolerable. - Goal SpO2 > 89% and < 96% on supplemental oxygen (important to avoid hyperoxia in light of known chronic CO2 retention without nocturnal noninvasive ventilation therapy) - Confirmed with patient that noninvasive ventilation remains not within her goals of care - Minimize sedating medications as possible (patient chronically takes gabapentin and has an intrathecal morphine pump for chronic back pain) - The above being said, patient has end-stage pulmonary disease and at this juncture, discussed that if she were to have worsening dyspnea it would be very reasonable to consider palliation of symptoms with oral morphine (noting that this balance would favor managing symptoms of end-stage disease with the risk of worsening hypercarbia, sleepiness, etc.) * Assessment & Plan Note - Reji Carter MD - 05/03/2025 3:43 PM EDT Associated Problem(s): Pulmonary hypertension Echo from 05/2024 with normal LVEF (60-65%), grade 2 diastolic impairment, normal RV size and function, estimated RVSP of 41 mmHg. Elevated pulmonary pressures likely reflect secondary pulmonary hypertension (predominantly WHO group III, secondary to chronic lung disease and chronic respiratory failure with hypoxia). * Assessment & Plan Note - Reji Carter MD - 05/03/2025 2:46 PM EDT Associated Problem(s): COPD, very severe Severe COPD and emphysema. PFTs from 04/2023 with very severe fixed obstruction with an FEV1 of 0.49 L or 30% predicted (though, with a significant post- bronchodilator increase in FEV1), air trappingwithout overt hyperinflation, and a severe diffusion impairment. Her COPD and related symptoms werepreviously well-controlled on ICS/LABA/LAMA maintenance inhaler therapy. Previously, plan was for patient to pursue pulmonary rehabilitation when she completed physical therapy for her hip. At some point before spring, her oxygen requirement increased from 2 to 3 L/min, and several months prior to this time, she stopped taking her inhalers. In spring 2024, we discussed a trial of restarting her Breztri. Additionally, we again addressed the possibility of pulmonary rehabilitation. Previously, she was potentially interested in pursuing pulmonary rehabilitation, however, she was not certain whether she would be able to get a ride 3 times per week. Not using inhalers, including Breztri,which could improve symptoms by opening airways and aiding ventilation. She does not recall why shehas not restarted Breztri since last visit. Significant fatigue and intermittent confusion is likely in part due to chronic CO2 retention. - Restart Breztri (ICS/LABA/LAMA)--patient provided with prescription for Breztri today - Albuterol as needed - Defer pulmonary rehabilitation at present (in addition to interval PFTs with 6MWT, which were notperformed since last visit); previously, patient wanted to learn more about the program, think about this further, and discuss with her sister--presently, she would not appear able to participate pending clinical improvement - Discussed potential use of low-dose oral morphine for dyspnea if symptoms were to worsen, balancing with potential increased sleepiness documented in this encounter Plan of Treatment Upcoming Encounters Date Type Department Care Team (Late st Contact Info) Description 05/10/2025 10:15 AM EDT Appointment [facility] [address] [place] [phone] Emir Disla, [address] [address] 05/10/2025 11:00 AM EDT Appointment [facility] [address] [place] [phone] Dorothy Kunz, DNP [address] [place] [phone] 05/30/2025 10:00 AM EST Office Visit [facility] [address] [place] [address] [address] [facility], [address] [place] [address] Reji Carter MD [address] [place] [phone] [email or web address] [email or web address] MD [address] [address] 11/13/2025 3:30 PM EDT Office Visit [facility] 10 [place] [address] Reji Carter MD [address] [place] [phone] [email or web address] documented as of this encounter Visit Diagnoses Diagnosis COPD, very severe- Primary Pulmonary emphysema Other emphysema Chronic respiratory failure with hypoxia and hypercapnia Pulmonary hypertension Other chronic pulmonary heart diseases documented in this encounter Care Teams Product Support Engineer Relationship Specialty Start Date End Date Sophie Martin MD [address] [place] [address] [email or web address] PCP - General Internal Medicine 03/25/23 documented as of this encounter Additional Source Comments The information contained in this document represents components of the legal health record. It is not the complete legal health record.[facility]
--- NOTE | 2025-05-04 13:12 | A.OFFVIS_ITS ---
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 Her level of pain today as 2 to 3/10. She reports the pain is aggravated when she stands up. The intrathecal pain pump refill is as below. There is discrepancy is still 4 cc in between delivered and escalated doses. With 40 cc pump I do not think it is a significant number however we will be continuing observation. Prior: very pleasant 77 years old female who recently moved to [place] from [facility]. History of postlaminectomy syndrome treated with implantation of the pain pump elsewhere.. [facility] Medical History (Updated 02/27/25 @ 13:13 by ANNY Lawson) Presence of intrathecal pump Postlaminectomy syndrome Chronic pain syndrome COPD (chronic obstructive pulmonary disease) Social History Patient Tobacco Use Status: Never used Tobacco Review of Systems Const All systems reviewed & are unremarkable except as noted in HPI and below Physical Exam Vital Signs: BMI result Body Mass Index 22.6 General: Appears afebrile. Alert and oriented. Mood and affect appropriate. Follows and participates in conversation appropriately. Respiratory effort is unlabored. No cough. Able to transition from sit to stand unassisted. Ambulates with bilaterally normal heel strike and toe off. Psych Appearance: grossly normal Mental Status: mental status grossly normal Speech and movement: Normal speech and movement present Affect: normal affect Attitude: cooperative Thought process: Normal thought process present Thought content: Normal thought content present and Depressive thoughts present Insight: Good insight present (Psych) Judgement: Good judgement present (Psych) Assessment & Plan Assessment & Plan (1) Postlaminectomy syndrome: Code(s): M96.1 - Postlaminectomy syndrome, not elsewhere classified Category: Medical (2) Chronic pain syndrome: Code(s): G89.4 - Chronic pain syndrome Category: Medical Plan: Continue as previous doses of the morphine and bupivacaine. Continue with the same concentration. Next pump refill is 07/12/2025 12/26/2024. (3) COPD (chronic obstructive pulmonary disease): Code(s): J44.9 - Chronic obstructive pulmonary disease, unspecified Category: Medical Plan ? Intrathecal pump refill. The patient came today in the office FOR THE CHANGE OF THE MEDICATION IN her PAIN PUMP. The name and date of were verified and informed consent was obtained for the procedure. The pump was interrogated and the residual amount of fluid was found to be 3.1 mL. She was positioned prone on the bed AND THE AREA OF THE INTRATHECAL PUMP WAS PREPPED WITH CHLORAPREP. The fenestrated drape was sterilely applied over the area of the pump. Sterile gloves were worn and of the aspiration system was assembled containing 2 in 22 gauge noncoring needle, the needle was connected to extension tubing which was connected to the 20 cc sterile syringes. The pain pump was palpated under the skin in the patient's left abdominal area. The needle was inserted through the skin and the central plug of the pain pump and fluid was aspirated. The clear fluid was going into the syringe the total amount of the fluid was 7.0 mL .. After that a new batch? of medication was obtained which was containing morphine 10 milligrams/mL and bupivacaine 20 milligrams/mL . The syringe was connected to the bacterial filter, and then connected to the extension tubing. After that the medication in the syringe was slowly instilled into the pump with aspirations at 15 and 5 cc soriano.? The pump was programmed for the doses of morphine 5.608 mg per day with corresponding dose of bup ivacaine of 11.216 mg per day. Next appointment 07/12/2025 Coding Level of Care Code Est Pt Level 3 (55556) Procedure Only Diagnoses Postlaminectomy syndrome M96.1 Chronic pain syndrome G89.4 COPD (chronic obstructive pulmonary disease) J44.9
[2025-05-04 13:13] VITALS: BMI 22.6
--- OUTSIDE RECORDS SUMMARY | 2025-05-04 16:30 | XMS_ITS | Encounter Summary ---
Author Organization [facility] Address [address] [facility] [address] [place] [address] Phone Care Team Providers Care Bread Molder Name Role Phone Kati Sophie Bueno MD Primary Care Provider Encounter Details Date Type Department Care Team (Late st Contact Info) Description 12/29/2023 Procedure Pass Echo [facility] [address] [place] [address] Social History Tobacco Use Types Packs/Day Years [...] Info) Description 05/10/2025 10:15 AM EDT Appointment [facility] [address] [place] [phone] Emir Disla, PROVIDER SCRIBE [address] [place] [phone] 05/10/2025 11:00 AM EDT Appointment [facility] [address] [place] [phone] Dorothy Kunz, DNP [address] [place] [phone] 05/30/2025 10:00 AM EST Office Visit [facility] [address] [place] [address], [address] [address] Reji Carter MD [address] [place] [phone] [email or web address] Roge Marcos MD [address] [place] [phone] 11/13/2025 3:30 PM EDT Office Visit [facility] [address] [place] [address] Reji Carter MD [address] [place] [phone] [email or web address] documented as of this encounter Visit Diagnoses Not on filedocumented in this encounter Care Teams Bread Molder Relationship Specialty Start Date End Date Sophie Martin MD [address] [place] [phone] [email or web address] PCP - General Internal Medicine 03/25/23 documented as of this encounter Additional Source Comments The information contained in this document represents components of the legal health record. It is not the complete legal health record.[facility]
--- OUTSIDE RECORDS SUMMARY | 2025-05-04 16:30 | XMS_ITS | Encounter Summary ---
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) Social History Tobacco Use Types Packs/Day Years [...] 05/10/2025 10:15 AM EDT Appointment [facility] [address] [place] [phone] Emir Disla, SHRIMP PEELING MACHINE OPERATOR [address] [place] [phone] 05/10/2025 11:00 AM EDT Appointment [facility] [address] [place] [phone] Dorothy Kunz, DNP [address] [place] [phone] 05/30/2025 10:00 AM EST Office Visit [facility] [address] [place] [address], [address] [address] Reji Carter MD [address] [place] [phone] [email or web address] Roge Marcos MD [address] [place] [phone] 11/13/2025 3:30 PM EDT Office Visit [facility] [address] [place] [address] [place] [address] Reji Carter MD [address] [phone] [email or web address] documented as of this encounter Visit Diagnoses Diagnosis Spinal stenosis of lumbar region without neurogenic claudication- Primary documented in this encounter Care Teams Food Crops Farm Hand Relationship Specialty Start Date End Date Sophie Martin MD [address] [place] [address] [email or web address] PCP - General Internal Medicine 03/25/23 documented as of this encounter Additional Source Comments The information contained in this document represents components of the legal health record. It is not the complete legal health record.[facility]
--- OUTSIDE RECORDS SUMMARY | 2025-05-04 16:30 | XMS_ITS | Clinical Summary ---
Author Organization [facility] Address [address] [place] [address] Care Team Providers Care Sap Data Analyst Name Role Phone Sophie Parikh MD Primary Care Provider [phone] Medications No known medications Active Problems Problem [...] 2) 1996 RSV Vaccine (60+ years old and patients) (1 - 1-dose 75+ series) 2021 Alcohol/Substance Use Screening 07/20/2024 Depression Screening and Follow-Up 07/20/2024 Health Care Proxy Review 07/20/2024 Social Drivers of Health Tiffanie ual Screening 07/20/2024 COVID-19 Vaccine (1 - 2024-2 6 season) 2025 Influenza Vaccine (#1) 2025 Hepatitis B Vaccines Aged Out No long er eligible based on patient's age to complete this topic Insurance MEDICARE [facility] SUPP AARP Care Teams Sap Data Analyst Relationship Specialty Start Date End Date Sophie Parikh MD [address] [place] [phone] PCP - General 02/23/24
--- OUTSIDE RECORDS SUMMARY | 2025-05-04 16:30 | XMS_ITS | Clinical Summary ---
Author Organization [address] Address [address] [place] [address] Phone Care Team Providers Care Corn Grinder Name Role Phone Jeffery Villegas MD Primary Care Provider Allergies No known active allergies Family History [...] - 1-dose 75+ series) 2021 Influenza vaccine 02/17/2025 Covid-19 vaccine series ( - 2023- season) 2025 Breast cancer screening Discontinued Cervical cancer screening Discontinued Colon cancer screening, Colonoscopy Discontinued Meningococcal B Vaccine Aged Out No l onger eligible based on patient's age to complete this topic Meningococcal Vaccine Aged Out No sirena mary eligible based on patient's age to complete this topic Insurance MEDICARE [facility] MEDICARE [facility] MEDICARE [facility] Care Teams Corn Grinder Relationship Specialty Start Date End Date Jeffery Villegas MD [address] [place] [phone] PCP - General Family Medicine 01/15/23
--- OUTSIDE RECORDS SUMMARY | 2025-05-04 16:31 | XMS_ITS | Clinical Summary ---
Author Organization [facility] Address [address] [place] [address] Phone Care Team Providers Care Emergency Veterinarian Name Role Phone Kati MylesSophie Magno SCOTT Primary Care Provider Allergies No known active allergies Medications clopidogrel (PLAVIX) 75 mg tablet Take 1 tablet (75 mg total) by mouth daily. 7 tablet 01/17/20 23 Active DULoxetine (CYMBALTA) 60 MG capsule Take 1 capsule (60 mg total) by mouth daily. 7 capsule 01/17/20 23 Active morphine 1 mg/mL Inject 0-10 mg/hr into the vein continuous. Implanted pump Active traMADoL (ULTRAM) 50 mg tablet Take 50 mg by mouth every 6 (six) hours as needed for pain (specific location in comments). Active latanoprost, PF, 0.005 % Drop Apply 1 drop in each eye to eye daily. Active atorvastatin (LIPITOR) 20 MG tablet Take 20 mg by mouth nightly at bedtime. Active gabapentin (NEURONTIN) 600 MG tablet Take 600 mg by mouth 3 (three) times a day. Active multivitamin/iron/ folic acid (MULTI COMPLETE WITH IRON ORAL) Take 1 tablet by mouth daily. Active cyanocobalamin, vitamin B-12, 1000 MCG tablet Take 1,000 mcg by mouth daily. Active cholecalciferol (VITAMIN D3) 400 unit tablet Take 400 Units by mouth daily. Active biotin 1 mg tablet Take 5,000 mcg by mouth daily. Active folic acid (FOLVITE) 800 MCG tablet Take 800 mcg by mouth daily. Active bisacodyl (DULCOLAX) [address] 1 suppository (10 mg total) rectally daily as needed. 12 suppository 05/26/20 Active senna (SENOKOT) 8.6 mg tablet Take 2 tablets by mouth nightly at bedtime. 60 tablet 05/26/20 Active thiamine (VITAMIN B-1) 100 mg Tab tablet Take 1 tablet (100 mg total) by mouth daily. 30 tablet 05/27/20 Active mirtazapine (REMERON HOLA-TAB) 45 MG disintegrating tablet Take 1 tablet by mouth daily. Active calcium citrate (CALCITRATE) 950 mg (200 mg elemental) tablet Take 1 tablet by mouth daily. Active budesonide-glycopy r-formoterol (BREZTRI AEROSPHERE) 160-9-4.8 mcg/actuation inhalerIndications :COPD, very severe,Pulmonary emphysema,Chronic respiratory failure with hypoxia and hypercapnia Inhale 2 puffs into the lungs 2 (two) times a day. 10.7 g 11 05/03/20 Active Active Problems Problem Noted Date Diagnosed Date Pulmonary emphysema 05/03/2025 Leg pain 03/07/2025 Assessment & Plan (03/07/2025 12:39 PM EDT): Patient reports ongoing leg heaviness tingling and numbness with exertion to bilateral legs. Patient unsure why she never got the ultrasound done that Dr. Michel ordered. Order is already in for PASCALE. Patient will get PASCALE done and we will see patient afterwards. Pulmonary hypertension 10/25/2024 Assessment & Plan (05/03/2025 3:45 PM EDT): Echo from 05/2024 with normal LVEF (60-65%), grade 2 diastolic impairment, normal RV size and function, estimated RVSP of 41 mmHg. Elevated pulmonary pressures likely reflect secondary pulmonary hypertension (predominantly WHO group III, secondary to chronic lung disease and chronic respiratory failure with hypoxia). Assessment & Plan (10/25/2024 2:34 PM EDT): Echo from 05/2024 with normal LVEF (60-65%), grade 2 diastolic impairment, normal RV size and function, estimated RVSP of 41 mmHg. Elevated pulmonary pressures likely reflect secondary pulmonary hypertension (predominantly group 3). Counseling regarding goals of care 10/25/2024 Assessment & Plan (10/25/2024 3:36 PM EDT): Discussed advanced stage of COPD and limited treatment options. Patient understands non-invasive ventilation is the only method to reduce CO2 levels but previously found it intolerable. Lung transplant not considered due to age and personal preference. She is DNR/DNI. Aims to maintain quality of life and manage symptoms effectively without invasive interventions. COPD, very severe 07/10/2023 Assessment & Plan (05/03/2025 4:35 PM EDT): Severe COPD and emphysema. PFTs from 04/2023 with very severe fixed obstruction with an FEV1 of 0.49 L or 30% predicted (though, with a significant post- bronchodilator increase in FEV1), air trapping without overt hyperinflation, and a severe diffusion impairment. Her COPD and related symptoms were previously well-controlled on ICS/LABA/LAMA maintenance inhaler therapy. Previously, [...] times per week. Not using inhalers, including Breztri, which could improve symptoms by opening airways and aiding ventilation. She does not recall why she has not restarted Breztri since last visit. Significant fatigue and intermittent confusion is likely in part due to chronic CO2 retention. - Restart Breztri (ICS/LABA/LAMA)--patient provided with prescription for Breztri today - Albuterol as needed - Defer pulmonary rehabilitation at present (in addition to interval PFTs with 6MWT, which were not performed since last visit); previously, patient wanted to learn more about the program, think about this further, and discuss with her sister--presently, she would not appear able to participate pending clinical improvement - Discussed potential use of low-dose oral morphine for dyspnea if symptoms were to worsen, balancing with potential increased sleepiness Assessment & Plan (10/25/2024 3:30 PM EDT): Severe COPD and emphysema. PFTs from 04/2023 with very severe fixed obstruction with an FEV1 of 0.49 L or 30% predicted (though, with a significant post- bronchodilator increase in FEV1), air trapping without overt hyperinflation, and a severe diffusion impairment. Her COPD and related symptoms were previously well-controlled on ICS/LABA/LAMA maintenance inhaler therapy. Previously, plan was for patient to pursue pulmonary rehabilitation when she completed physical therapy for her hip. Since last visit, her oxygen requirement increased from 2 to 3 L/min, and several months prior she stopped taking her inhalers. We discussed a trial of restarting her Breztri. Additionally, we again addressed the possibility of pulmonary rehabilitation. She is potentially interested in pursuing pulmonary rehabilitation, however, she is not certain whether she would be able to get a ride 3 times per week. - Re-start Breztri (ICS/LABA/LAMA). - Albuterol as needed - Referral placed for pulmonary rehabilitation--additionally, placed orders for interval PFTs + 6MWT which will need to be completed prior to starting pulmonary rehabilitation program; patient wants to learn more about the program and we will plan to think about this further, discuss with her sister Assessment & Plan (12/22/2023 9:54 AM EDT): Severe COPD and emphysema. PFTs from 04/2023 with very severe fixed obstruction with an FEV1 of 0.49 L or 30% predicted (though, with a significant post- bronchodilator increase in FEV1), air trapping without overt hyperinflation, and a severe diffusion impairment. Her COPD and related symptoms are well-controlled on ICS/LABA/LAMA maintenance inhaler therapy. -The patient's condition has remained stable over the past 3 months. The current inhaler regimen will be maintained. -Continue Breztri (ICS/LABA/LAMA). -Albuterol as needed. -We discussed pursuing pulmonary rehabilitation in the future (once she has completed physical therapy for her hip). -Patient should receive Pneumococcal vaccination (ideally, PCV20) if she has not already received this (there is no record of this in our system). Assessment & Plan (09/24/2023 12:39 PM EST): Severe COPD and emphysema. PFTs from 04/2023 with very severe fixed obstruction with an FEV1 of 0.49 L or 30% predicted (though, with a significant post- bronchodilator increase in FEV1), air trapping without overt hyperinflation, and a severe diffusion impairment. Her COPD and related symptoms are well-controlled on ICS/LABA/LAMA maintenance inhaler therapy. -Continue Breztri (ICS/LABA/LAMA) -Albuterol as needed Assessment & Plan (07/10/2023 12:17 PM EST): Severe COPD and emphysema. PFTs from 04/2023 with very severe fixed obstruction with an FEV1 of 0.49 L or 30% predicted (though, with a significant post- bronchodilator increase in FEV1), air trapping without overt hyperinflation, and a severe diffusion impairment. Her COPD and related symptoms are well-controlled on ICS/LABA/LAMA maintenance inhaler therapy. -Continue Breztri (ICS/LABA/LAMA) -Albuterol as needed -We discussed obtaining ABG on room air (to evaluate for chronic hypoventilation in the setting of severe COPD which could be compounded by chronic opiate use)--patient is amenable to start NIV if this were to be clinically indicated -Can check A1AT level in the future Constipation 05/24/2023 Assessment & Plan (05/24/2023 8:41 AM EST): Duplex suppository later today if no stooling. Continue with other stool softeners. Acute anemia 05/24/2023 Assessment & Plan (05/24/2023 8:48 AM EST): Historical values for iron and transferrin were on the low side of normal. Trending hemoglobin and hematocrit downward but stabilizing. Likely related to IV fluids and operative intervention. No active signs of bleeding. We will repeat a CBC in the morning and start on supplementation as an outpatient. SVT (supraventricular tachycardia) 05/22/2023 Assessment & Plan (03/07/2025 12:40 PM EDT): Asymptomatic on exam today. Assessment & Plan (05/24/2023 8:41 AM EST): Patient has had intermittent episodes of self-limiting SVT. When observed on the monitor, this may be atrial flutter although it is very difficult to discern. At this point, no indication for adding medications. Patient has not had any syncopal events and has no symptoms related to these episodes. Recommendations for outpatient cardiac event monitor. COPD with emphysema 05/21/2023 Overview (05/24/2023): f/b Dr. Carter. PFTs scheduled for June 2023. Chronically on 2L oxygen Assessment & Plan (03/07/2025 12:46 PM EDT): She tells me her breathing is at baseline. She continues to be on 2 L of oxygen nasal cannula. She will continue to follow-up with pulmonary she has a follow-up in fall. She is euvolemic on exam today no symptoms concerning for heart failure exacerbation. Most recent echo showed EF of 60-65% with grade 2 diastolic impairment. I did suggest treatment for HFpEF however patient reports she would like to hold off on this for now as her breathing is back to baseline. Educated patient on daily weights. Advised If a weight gain of more than 3 pounds in a day or 5 pounds in a week call the office. Of note when patient saw Dr. Michel last visit he commented on patient's EKG he reported shows sinus rhythm with a question of old anteroseptal MD this could be also due to COPD loss of R waves in V1 V2. Patient is very much oxygen dependent and does not give any history of acute MD. Will first review the echocardiogram . I will touch base with Dr. Garcia in regards to this as patient had an echo done on 05/2024. Assessment & Plan (05/24/2023 8:41 AM EST): Stable, and at baseline. Patient states breathing is the best its been. Chronically on 2 L. Assessment & Plan (05/22/2023 12:52 PM EDT): - cont Combivent - no acute exacerbation - monitor for increasing sedation - if worsening ABG - target sat 90% Closed fracture of femur, in tertrochanteric, right, initial encounter 05/21/2023 Assessment & Plan (05/24/2023 8:40 AM EST): Surgery continues to follow. PT to continue. Weightbearing status per surgery. Wound appears clean and dry. Surgical notes indicate detritus found within the cannulated instrument after it had been introduced into the body, and after the IM nail had been placed, however no signs of infection or concerns at this time. Continue to monitor wound closely. Assessment & Plan (05/22/2023 12:55 PM EDT): - Plan is for fixation today with ORTHO -Hemoglobin has decreased but is modest does not require transfusion continue to trend -Continue the current pain regimen with IV morphine/oxycodone -She has an intrathecal pump -Would add continuous pulse oximetry if she has increasing sedation she will need an end-tidal CO2 monitor Carotid stenosis 05/21/2023 Overview (05/21/2023): s/p stenting on Plavix Assessment & Plan (03/07/2025 12:37 PM EDT): Echo done on 12/29/2023-Impression: 50% bilateral ICA stenoses. Patient reports carotid stent years ago in [place]. She wishes to follow-up here for this. I have ordered an updated carotid ultrasound bilaterally. She will continue on Plavix 75 mg daily and atorvastatin 20 mg daily. Most recent LDL 55. Assessment & Plan (05/22/2023 12:55 PM EDT): History of carotid stenting more than 1 year ago. - clopidogrel held on presentation - will discuss with ortho resuming it tomorrow Chronic pain syndrome 05/21/2023 Overview (05/21/2023): Intrathecal morphine pump Assessment & Plan (05/24/2023 8:42 AM EST): Continuing with intrathecal morphine pump. Avoid Narcan use in the future. Assessment & Plan (05/22/2023 12:56 PM EDT): She has an intrathecal morphine pump. -It has been continued at its basal rate and she is not using bolus dosing while she is receiving systemic opioids --Also continue Cymbalta and gabapentin which are part of her chronic regimen Chronic respiratory failure with hypoxia and hyp ercapnia 05/21/2023 Assessment & Plan (05/03/2025 4:36 PM EDT): Secondary to severe COPD and emphysema suggested on chest x-ray (no prior chest CT imaging available for review). Was chronically on 2 L/min supplemental oxygen. Uses an [employer] POC when out of the house. ABG [...] to age, comorbidities, and goals of care. Non-invasive ventilation is the only effective method to [...] the risk of worsening hypercarbia, sleepiness, etc.) Assessment & Plan (10/25/2024 3:37 PM EDT): Secondary to severe COPD and emphysema suggested [...] visit, now requiring 3 L/min oxygen. Also, describing generalized fatigue which is likely related to worsening chronic hypercarbia in the absence of NIV therapy. Non- invasive ventilation intolerable, the only effective method to reduce CO2 levels. Lung transplant not an option due to age, comorbidities, and goals of care. - Discussed goal SpO2 > 88% and < 96% on supplemental oxygen (important to avoid hyperoxia in light of known chronic CO2 retention without nocturnal noninvasive ventilation therapy) - Confirmed with patient that noninvasive ventilation remains not within her goals of care Assessment & Plan (12/22/2023 9:56 AM EDT): Secondary to severe COPD and emphysema suggested on chest x-ray (no prior chest CT imaging available for review). Chronically on 2 L/min supplemental oxygen. Uses an [employer] POC (2 L/min, pulsed) when out of the house. ABG from 07/2023 with chronic respiratory acidosis secondary to chronic hypoventilation related to very severe COPD. This could also be compounded by chronic opiate use. Astral iVAPS with auto EPAP was prescribed with sleep (DME is [employer]), however, she stopped using the machine after [...] her machine was returned to her DME. -Goal SpO2 > 88% and < 96% Assessment & Plan (09/24/2023 12:42 PM EST): Secondary to severe COPD and emphysema suggested on chest x-ray (no prior chest CT imaging available for review). Chronically on 2 L/min supplemental oxygen. Uses an [employer] POC (2 L/min, pulsed) when out of the house. ABG from 07/2023 with chronic respiratory acidosis secondary to chronic hypoventilation related to very severe COPD. This could also be compounded by chronic opiate use. Astral iVAPS with auto EPAP was prescribed with sleep (DME is [employer]), however, she stopped using the machine after 2 nights due to claustrophobia and anxiety. -We discussed trying the mask during the day while awake for periods of time when she is relaxed, such as when watching TV or reading -She was also encouraged to call her DME to discuss trying other mask interfaces which might be better tolerated -Once patient is routinely using NIV, would plan to perform overnight oximetry on iVAPS with 2 L/min oxygen -Goal SpO2 > 88% and < 96% Assessment & Plan (07/10/2023 12:15 PM EST): Secondary to severe COPD and emphysema suggested on chest x-ray (no prior chest CT imaging available for review). Chronically on 2 L/min supplemental oxygen. Uses an [employer] POC (2 L/min, pulsed) when out of the house. Assessment & Plan (05/22/2023 12:58 PM EDT): On supplemental oxygen at 2 L/min chronically - monitoring for hypercapnea Hyperlipidemia 05/21/2023 Encounters Date Type Department Care Team Description 05/03/2025 3:30 PM EDT Office Visit [facility]monary, Allergy and Critical Care Medicine [address] [place] [address] [place] [address] Reji Carter MD COPD, very severe (Primary Dx); Pulmonary emphysema; Chronic respiratory failure with hypoxia and hypercapnia; Pulmonary hypertension 03/07/2025 11:00 AM EDT Office Visit [facility] [address] [place] [address] Dorothy Kunz DNP Obstruction of carotid artery, unspecified laterality (Primary Dx); Shortness of breath; Stenosis of carotid artery, unspecified laterality; Pain of lower extremity, unspecified laterality; Pulmonary emphysema, unspecified emphysema type; SVT (supraventricular tachycardia) 03/07/2025 Telephone [facility] [address], [address] [place] [address] Dorothy Kunz DNP 03/01/2025 7:28 PM EDT - 03/01/2025 11:59 PM EDT Hospital Encounter [facility] Specimen Processing [address] [place] [address] Sophie Martin MD Discharge Disposition: Home or Self Care 03/01/2025 Transcribe Orders [facility] Laboratory [address] [place] [address] Sophie Martin MD Leukopenia, unspecified type (Primary Dx); Pure hypercholesterolemia 02/17/2025 9:22 AM EDT - 02/17/2025 11:59 PM EDT Hospital Encounter [facility] Specimen Processing [address] [place] [address] Sophie Martin MD Discharge Disposition: Home or Self Care 02/17/2025 Transcribe Orders [facility] Specimen Processing [address] [place] [address] Sophie Martin MD Anemia, unspecified type (Primary Dx); Hyperlipidemia, unspecified hyperlipidemia type; 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 Social History Tobacco Use Types Packs/Day Years Used Date Smoking Tobacco: Former Cigarettes Q uit: 07/31/2011 Passive Smoke Exposure: Past Smokeless Tobacco: Never Tobacco Cessation:Counseling Given: Not Answered Alcohol Use Standard Drinks/Week Comments Not Currently [...] file Not on file Not on file Last Filed Vital Signs Vital Sign Reading Time Taken Comments Blood Pressure 142/72 05/03/2025 3:24 PM EDT Pulse 69 05/03/2025 3:24 PM EDT Temperature 37.1 C (98.7 F) 05/03/2025 3:24 PM EDT Respiratory Rate 20 05/26/2023 8:08 AM EST Oxygen Saturation 94% 05/03/2025 3:24 PM EDT Inhaled Oxygen Concentration - - Weight 47.4 kg (104 lb 9.6 oz) 05/03/2025 3:24 PM EDT Height 144.8 cm (4' 9 ) 05/03/2025 3:24 PM EDT Body Mass Index 22.64 05/03/2025 3:24 PM EDT Plan of Treatment Upcoming Encounters Date Type Department Care Team (Late st Contact Info) Description 05/10/2025 10:15 AM EDT Appointment [facility] [address] [place] [phone] mEir Disla, COMPOSING MACHINE OPERATOR/TENDER [address] [place] [phone] 05/10/2025 11:00 AM EDT Appointment [facility] [address] [place] [phone] Dorothy Kunz, DNP [address] [place] [phone] 05/30/2025 10:00 AM EST Office Visit [facility] [address] [place] [address], [address] [address] Reji Carter MD [address] [place] [phone] [email or web address] Marcos MD [address] [place] [phone] 11/13/2025 3:30 PM EDT Office Visit [facility], Allergy and Critical Care Medicine [address] [place] [phone] Reji Carter MD [address] [place] [phone] [email or web address] Health Maintenance Due Date Last Done Comments Adult Td,Tdap Booster 1946 DEPRESSION SCREENING 1958 SMOKING Hx and SMOKELESS TOBACCO SCREENING 01/01/1960 HEPATITIS C SCREENING 1964 PNEUMOCOCCAL VACCINES (50+ years) (1 of 2 - PCV) 1965 ZOSTER VACCINES (1 of 2) 1996 OSTEOPOROSIS SCREENING INITI AL (ONE-TIME) 01/01/2012 RSV VACCINE (1 - 1-dose 75+ series) 2021 INFLUENZA VACCINE (#1) 2025 COVID-19 VACCINE (2024-2 6 season) 2025 LIPID PANEL 02/17/2026 02/17/2025, 01/07/2024, 04/02/2023 HEPATITIS A VACCINES Aged Out No long er eligible based on patient's age to complete this topic HIB VACCINES Aged Out No longer eligi ble based on patient's age to complete this topic MENINGOCOCCAL VACCINES (ACWY) Aged Out No longer eligible based on patient's age to complete this topic MENINGOCOCCAL VACCINES (B) Aged Out N o longer eligible based on patient's age to complete this topic Medical Devices Implanted Type Area Lead Qa Analyst Device Identifier Shelf Expiration Date Model / Serial / Lot Intrathecal Pain Pump Left: Abdomen Nail Bone 10mm 235 125deg Ti Cannulated Tfn Advanced Rt - [id number] Implanted:Qty: 1 on 05/22/2023 by Wilian Parmar DO at [facility] Right: Femur [employer] 12/17/2025 04.037.014 S / / [id number] Screw Bone 10.5x90mm Ti Gold Perforated Tfn-Advanced Nail Femoral Proximal - [id number] Implanted:Qty: 1 on 05/22/2023 by Wliian Parmar DO at [facility] Right: Femur [employer] 10/17/2032 04.038.190 S / / [id number] Screw Bone 5x36mm Locking Im Nail - [id number] Implanted:Qty: 1 on 05/22/2023 by Wilian Parmar DO at [facility] Right: Femur [employer] 04/18/2032 04.045.036 S / / [id number] Procedures Procedure Name Priority Date/Time Associated Diagnosis Comments COMPREHENSIVE METABOLIC PANEL STAT 03/01/2025 7:29 PM EDT Leukopenia, unspecified type Pure hypercholesterolemia CBC AND DIFFERENTIAL STAT 03/01/2025 7:29 PM EDT Leukopenia, unspecified type Pure hypercholesterolemia COMPREHENSIVE METABOLIC PANEL Routine 02/17/2025 7:24 AM EDT Anemia, unspecified type Hyperlipidemia, unspecified hyperlipidemia type Myxedema heart disease LIPID PANEL Routine 02/17/2025 7:24 AM EDT Anemia, unspecified type Hyperlipidemia, unspecified hyperlipidemia type Myxedema heart disease CBC AND DIFFERENTIAL Routine 02/17/2025 7:24 AM EDT Anemia, unspecified type Hyperlipidemia, unspecified hyperlipidemia type Myxedema heart disease FOLATE Routine 02/17/2025 7:24 AM EDT Anemia, unspecified type Hyperlipidemia, unspecified hyperlipidemia type Myxedema heart disease FERRITIN Routine 02/17/2025 7:24 AM EDT Anemia, unspecified type Hyperlipidemia, unspecified hyperlipidemia type Myxedema heart disease IRON AND IRON BINDING CAPACITY Routine 02/17/2025 7:24 AM EDT Anemia, unspecified type Hyperlipidemia, unspecified hyperlipidemia type Myxedema heart disease TSH Routine 02/17/2025 7:24 AM EDT Anemia, unspecified type Hyperlipidemia, unspecified hyperlipidemia type 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 Results * (ABNORMAL) Comprehensive metabolic panel (03/01/2025 7:29 PM EDT) Only the most recent of2 resultswithin the time period is included. SODIUM 144 133 - 146 mmol/L [facility] POTASSIUM 4.6 3.3 - 5.1 mmol/L [facility] CHLORIDE 100 96 - 108 mmol/L [facility] CO2 34 21 - 35 mmol/L [facility] BUN 22(H) 6 - 19 mg/dL [facility] CREATININE 0.90 0.5 - 1.5 mg/dL [facility] GLUCOSE 102(H) 70 - 99 mg/dL [facility] ALBUMIN 4.4 3.9 - 4.8 g/dL [facility] TOTAL PROTEIN 7.3 6.5 - 8.0 g/dL [facility] CALCIUM 9.1 8.4 - 10.3 mg/dL [facility] ALKALINE PHOSPHATASE 88 39 - 117 U/L [facility] TOTAL BILIRUBIN <0.2 0.0 - 1.2 mg/dL [facility] AST 21 0 - 37 U/L [facility] ALT 9 0 - 40 U/L [facility] GLOBULIN 2.9 1 - 4.8 g/dL [facility] EGFR 65 >59 mL/min/1.7 3m2 [facility] Comment:Estimated glomerular filtration rate calculated using the CKD-EPI refit equation. ANION GAP 15 10 - 20 mmol/L [facility] Blood 03/01/2025 7:29 PM EDT 03/01/2025 7:32 PM EDT us Barrios A Kati Bueno MD LAB BLOOD ORDERABLES F inal Result [address] [id number] * (ABNORMAL) CBC and differential (03/01/2025 7:29 PM EDT) Only the most recent of2 resultswithin the time period is included. WBC 6.42 4.00 - 11.00 K/uL [facility] RBC 3.77(L) 4.00 - 5.20 M/uL [facility] HGB 11.4(L) 12.0 - 16.0 g/dL [facility] HCT 39.1 36.0 - 46.0 % [facility] PLT 183 150 - 450 K/uL [facility] MCV 103.7(H) 80.0 - 100.0 fL [facility] MCH 30.2 27.0 - 31.0 pg [facility] MCHC 29.2(L) 32.0 - 36.0 g/dL [facility] RDW 14.0 11.5 - 14.5 % [facility] MPV 10.6 8.4 - 12.0 [facility] NRBC 0.00 0.00 /100 WBCs [facility] ABSOLUTE NRBC 0.00 0.00 K/uL [facility] DIFF METHOD Auto [facility] NEUTS 56.2 48.0 - 76.0 % [facility] LYMPHS 20.1 18.0 - 41.0 % [facility] MONOS 14.3(H) 4.0 - 11.0 % [facility] EOS 8.6(H) 0.0 - 5.0 % [facility] BASOS 0.5 0.0 - 1.5 % [facility] Granulocytes, immature (%) 0.3 0.0 - 0.9 % [facility] ABSOLUTE NEUTS 3.61 1.92 - 7.60 K/uL [facility] ABSOLUTE LYMPHS 1.29 0.72 - 4.10 K/uL [facility] ABSOLUTE MONOS 0.92 0.16 - 1.10 K/uL [facility] ABSOLUTE EOS 0.55(H) 0.00 - 0.50 K/uL [facility] ABSOLUTE BASOS 0.03 0.00 - 0.15 K/uL [facility] Granulocytes, immature 0.02 0.00 - 0.09 K/uL [facility] Blood 03/01/2025 7:29 PM EDT 03/01/2025 7:32 PM EDT us May Magno Bueno MD LAB BLOOD ORDERABLES F inal Result Performing Organization Address City/[facility]/ZIP Co de Phone Number [address] [address] * Iron and iron binding capacity (02/17/2025 7:24 AM EDT) IRON 48 30 - 160 ug/dL [facility] IRON BINDING CAPACITY 250 228 - 428 ug/dL [facility] TRANSFERRIN SATURAT. 19 15 - 50 % [facility] Blood 02/17/2025 7:24 AM EDT 02/17/2025 9:29 AM EDT us Sophie Bueno MD LAB BLOOD ORDERABLES F inal Result Performing Organization Address City/[facility]/ZIP Co de Phone Number [address] [address] * TSH (02/17/2025 7:24 AM EDT) TSH 0.68 0.27 - 4.20 uIU/mL [facility] Blood 02/17/2025 7:24 AM EDT 02/17/2025 9:29 AM EDT us May A Kati Bueno MD LAB BLOOD ORDERABLES F inal Result Performing Organization Address City/[facility]/ZIP Co de Phone Number [address] [address] * (ABNORMAL) Folate (02/17/2025 7:24 AM EDT) [facility] FOLIC ACID >20.0(H) 4.2 - 19.9 ng/mL [facility] Blood 02/17/2025 7:24 AM EDT 02/17/2025 9:29 AM EDT us May Magno Bueno MD LAB BLOOD ORDERABLES F inal Result Performing Organization Address [facility] Co de Phone Number [address] [address] * Ferritin (02/17/2025 7:24 AM EDT) Pathologist [facility] FERRITIN 46 13 - 150 ug/L [facility] Blood 02/17/2025 7:24 AM EDT 02/17/2025 9:29 AM EDT us May A Kati Bueno MD LAB BLOOD ORDERABLES F inal Result Performing Organization Address [facility] Co de Phone Number [address] [address] * (ABNORMAL) Lipid panel (02/17/2025 7:24 AM EDT) Pathologist [facility] HDL 61 mg/dL [facility] Comment: Interpretation <40 mg/dL: Low HDL cholesterol (major risk factor for CHD) Greater than or equal to 60 mg/dL: High HDL cholesterol ( negative risk factor for CHD) HDL - cholesterol is affected by a number of factors, e.g. smoking, excerise, hormones, sex and age. CHOLESTEROL 128 0 - 240 mg/dL [facility] TRIGLYCERIDES 61 30 - 160 mg/dL [facility] LDL 55 50 - 129 mg/dL [facility] Comment: LDL levels in terms of risk for coronary heart disease: <100 mg/dL: Optimal 100-129 mg/dL: Near or above optimal 130-159 mg/dL: Borderline high 160-189 mg/dL: High >190 mg/dL: Very High CARDIAC RISK RATIO 2.1(L) 3.3 - 4.4 C [facility] Blood 02/17/2025 7:24 AM EDT 02/17/2025 9:30 AM EDT us May A Kati Bueno MD LAB BLOOD ORDERABLES F inal Result [address] [address] from Last 3 Months Insurance MEDICARE PART A & B [facility] MEDICARE SUPPLEMENT MEDICARE PART A & B MEDICARE SUPPLEMENT MEDICARE PART A & B [facility] MEDICARE SUPPLEMENT MEDICARE PART A & B [facility] MEDICARE SUPPLEMENT MEDICARE PART A & B [facility] MEDICARE SUPPLEMENT MEDICARE PART A & B [facility] MEDICARE SUPPLEMENT Advance Directives For more information, please contact: [phone] (9AM - 5PM [facility], Thursday-Thursday) Documents on File Type Date Recorded Patient Interstate Bus Driver Pollo AQUINO 05/27/2023 2:04 PM Healthcare Proxy 05/27/2023 2:04 PM * DNR/DNI (No CPR/No Intubation) (Latest Code Status on File) Date Activated Date Inactivated Comments 05/22/2023 7:49 AM Question Answer Comments Code Status Confirmed With: Patient Healthcare Agents on File Name Relationship Healthcare Agent Relationship Communication Billie Moreno Sister .Primary Health Care Agent (Proxy form on file) Shirin Moreno Alternate H ealthcare Agent (Proxy form on file) Care Teams Emergency Veterinarian Relationship Specialty Start Date End Date Sophie Martin MD [address] [place] [phone] [email or web address] PCP - General Internal Medicine 03/25/23 Additional Source Comments The information contained in this document represents components of the legal health record. It is not the complete legal health record.[facility]
--- OUTSIDE RECORDS SUMMARY | 2025-05-04 16:31 | XMS_ITS | Encounter Summary ---
Author Organization [facility] Address [address] [facility] [address] [place] [address] Phone Care Team Providers Care Doctor Of Podiatric Medicine Name Role Phone Kati Sophie Bueno MD Primary Care Provider Encounter Details Date Type Department Care Team (Late st Contact Info) Description 07/16/2023 Transcribe Orders [facility] [address] [place] [address] Reji Carter MD [address] [place] [phone] [email or web address] Social History Tobacco Use Types Packs/Day Years [...] 05/10/2025 10:15 AM EDT Appointment [facility] [address] [place] [address] Emir [email or web address], GOLF COURSE PATROLLER [address] [place] [phone] 05/10/2025 11:00 AM EDT Appointment [facility] [address] [place] [address] Dorothy Kunz, DNP [address] [place] [phone] 05/30/2025 10:00 AM EST Office Visit [facility] [address] [place] [address] [place] [address], [address] [address] Reji Carter MD [address] [place] [phone] [email or web address] Roge Marcos MD [address] [place] [address], [address] [address] 11/13/2025 3:30 PM EDT Office Visit [facility] [address] [facility] [place] [address] Reji Carter MD [address] [address] [email or web address] documented as of this encounter Visit Diagnoses Not on filedocumented in this encounter Care Teams Doctor Of Podiatric Medicine Relationship Specialty Start Date End Date Sophie Martin MD 3 [place] [address] [email or web address] PCP - General Internal Medicine 03/25/23 documented as of this encounter Additional Source Comments The information contained in this document represents components of the legal health record. It is not the complete legal health record.[facility]
--- OUTSIDE RECORDS SUMMARY | 2025-05-04 16:31 | XMS_ITS | Encounter Summary ---
Author Organization [facility] Address [address] [facility] [address] [place] [address] Phone Care Team Providers Care Engine Mechanic Name Role Phone Kati Sophie Bueno MD Primary Care Provider Encounter Details Date Type Department Care Team (Late st Contact Info) Description 05/22/2023 Procedure Pass OR Admitting Dept - Virtual Department [address] [place] [address] Social History Tobacco Use Types Packs/Day Years Used Date Smoking Tobacco: Former Cigarettes Q uit: 07/31/2011 Smokeless Tobacco: Never Alcohol Use Standard Drinks/Week [...] 05/10/2025 10:15 AM EDT Appointment [facility] [address] [place] [phone] Emir Disla, SKIN PILER [address] [place] [phone] 05/10/2025 11:00 AM EDT Appointment [facility] [address] [place] [address] Dorothy Kunz, DNP [address] [place] [phone] 05/30/2025 10:00 AM EST Office Visit [facility] [address] [place] [address], [address] [address] Reji Carter MD [address] [place] [address] [email or web address] Roge Marcos MD [address] [place] [phone] 11/13/2025 3:30 PM EDT Office Visit [facility] [address] [place] [address] Reji Carter MD [address] [place] [phone] [email or web address] documented as of this encounter Visit Diagnoses Not on filedocumented in this encounter Care Teams Engine Mechanic Relationship Specialty Start Date End Date Sophie Martin MD [address] [place] [phone] [email or web address] PCP - General Internal Medicine 03/25/23 documented as of this encounter Additional Source Comments The information contained in this document represents components of the legal health record. It is not the complete legal health record.[facility]
== END 2025-05-04 13:41 | disposition home or self-care (01) ==
PROVIDERS: PCP Internal Medicine; Visit Provider Anesthesiology
DX: M96.1 Postlaminectomy syndrome, not elsewhere classified (principal); G89.4 Chronic pain syndrome; J44.9 Chronic obstructive pulmonary disease, unspecified; Z45.1 Encounter for adjustment and management of infusion pump
CPT/HCPCS: 62370; 99213

== ENCOUNTER → 2025-05-04 13:11 | Outpatient (BNVA) | payer MEDICARE, SELFPAY | PROVIDERS: PCP Internal Medicine; Visit Provider Anesthesiology | DX: Z45.1 Encounter for adjustment and management of infusion pump (principal); M96.1 Postlaminectomy syndrome, not elsewhere classified; G89.4 Chronic pain syndrome; Z79.891 Long term (current) use of opiate analgesic | CPT/HCPCS: 62370; 99212 ==

== ENCOUNTER 2025-07-06 12:56 | Outpatient (AMB) | payer MEDICARE, SELFPAY ==
[2025-07-06 13:13] VITALS: BP 127/88; PULSE 183; RESP 16; O2SAT 83; BMI 22.6
--- NOTE | 2025-07-06 13:13 | MHC.OFFVIS ---
Vital Signs 07/06/25 13:13 Height 4 ft 10 in Weight 108 lb BMI 22.6 BP 127/88 Blood Pressure Location Lt brachial Position Sitting Respiration 16 Pulse 183 H Pulse Source Pulse Oximeter Pulse Oximetry (%) 83 L Oxygen Delivery Method Room Air Intake Visit Reasons: ITDD REFILL Classroom Instructional Aide Required: No Accompanied by: Self / Same As Patient Allergies No Known Allergies Allergy (Verified 07/06/25 13:23) [facility] Medical History (Updated 02/27/25 @ 13:13 by ANNY Lawson) Presence of intrathecal pump Postlaminectomy syndrome Chronic pain syndrome COPD (chronic obstructive pulmonary disease) Social History Patient Tobacco Use Status: Never used Tobacco Physical Exam Vital Signs: Last Vital Signs Pulse 183 H 07/06/25 13:13 Resp 16 07/06/25 13:13 BP 127/88 07/06/25 13:13 Pulse Ox 83 L 07/06/25 13:13 Oxygen Delivery Method Room Air 07/06/25 13:13 BMI result Body Mass Index 22.6 Assessment & Plan Assessment & Plan (1) Postlaminectomy syndrome: Code(s): M96.1 - Postlaminectomy syndrome, not elsewhere classified Category: Medical (2) Chronic pain syndrome: Code(s): G89.4 - Chronic pain syndrome Category: Medical Plan: Continue as previous doses of the morphine and bupivacaine. Continue with the same concentration. Next pump refill is 07/12/2025 12/26/2024. (3) COPD (chronic obstructive pulmonary disease): Code(s): J44.9 - Chronic obstructive pulmonary disease, unspecified Category: Medical Plan ? Intrathecal pump refill. The patient came today in the office FOR THE CHANGE OF THE MEDICATION IN her PAIN PUMP. The name and date of were verified and informed consent was obtained for the procedure. The pump was interrogated and the residual amount of fluid was found to be 4.2 mL. She was positioned prone on the bed AND THE AREA OF THE INTRATHECAL PUMP WAS PREPPED WITH CHLORAPREP. The fenestrated drape was sterilely applied over the area of the pump. Sterile gloves were worn and of the aspiration system was assembled containing 2 in 22 gauge noncoring needle, the needle was connected to extension tubing which was connected to the 20 cc sterile syringes. The pain pump was palpated under the skin in the patient's left abdominal area. The needle was inserted through the skin and the central plug of the pain pump and fluid was aspirated. The clear fluid was going into the syringe the total amount of the fluid was 7.9 mL .. After that a new batch? of medication was obtained which was containing morphine 10 milligrams/mL and bupivacaine 20 milligrams/mL . The syringe was connected to the bacterial filter, and then connected to the extension tubing. After that the medication in the syringe was slowly instilled into the pump with aspirations at 15 and 5 cc soriano.? The pump was programmed for the doses of morphine 5.608 mg per day with corresponding dose of bupivacaine of 11.216 mg per day. Next appointment 09/07/25 Coding Level of Care Code Procedure Only Diagnoses Postlaminectomy syndrome M96.1 Chronic pain syndrome G89.4 COPD (chronic obstructive pulmonary disease) J44.9
--- OUTSIDE RECORDS SUMMARY | 2025-07-06 16:50 | XMS_ITS | Encounter Summary ---
Author Organization [facility] Address [address] [facility] [address] [place] [address] Phone Care Team Providers Care Piano Stringer Name Role Phone Kati Sophie Bueno MD Primary Care Provider Encounter Details Date Type Department Care Team (Late st Contact Info) Description 12/29/2023 Procedure Pass [facility] [address] [place] [address] Social History Tobacco Use Types Packs/Day Years [...] Care Team (Late st Contact Info) Description 07/26/2025 3:00 PM EST Appointment [facility] [address] [place] [address] Emir Disla, PUT IN BEAT ADJUSTER [address] [place] [address] 07/26/2025 3:45 PM EST Appointment [facility] [address] [place] [address] Dorothy Kunz, DNP [address] [place] [address] 07/31/2025 12:30 PM EST Office Visit [facility] [address], [address] [place] [address] Sandra Menjivar PA-C [address] [place] [address] 08/01/2025 4:15 PM EST Appointment [facility] [address] [place] [address] Reji Carter MD [address] [place] [address] [email or web address] 11/13/2025 3:30 PM EDT Office Visit [facility] [address] [place] [address] [place] [address] Reji Carter MD 10 [facility] 2nd [place] [address] [email or web address] documented as of this encounter Visit Diagnoses Not on filedocumented in this encounter Care Teams Piano Stringer Relationship Specialty Start Date End Date Sophie Martin MD 3 [place] [address] [email or web address] PCP - General Internal Medicine 03/25/23 documented as of this encounter Additional Source Comments The information contained in this document represents components of the legal health record. It is not the complete legal health record.[facility]
--- OUTSIDE RECORDS SUMMARY | 2025-07-06 16:50 | XMS_ITS | Data Portability ---
Author Organization [facility] [address] Address [address] [place] [address] Assessment No assessment recorded. Plan of Treatment Reminders Order Date Submit Date Provider Last Modified By Organization Details Last Modified Time Details Appointments None recorded. Lab None recorded. Referral None recorded. Procedures None recorded. Surgeries None recorded. Imaging None recorded. Medication Orders tobramycin 0.3 %-dexametha sone 0.1 % eye drops,suspe nsion [address] [facility][id number], [address] [facility], [place], [address], 3 15:27:43 Patient TargetsNo targets recorded. Patient Instructions Encounter Date Encounter Id Patient Instructions Last Modified By Organization Details Last Modified Time 02/24/2023 [id number] karina: care instructions [email or web address] Not available 02/24/2023 19:44:47 Reason for Referral None Reported. Problems Name Problem SNOMED Code Status Onset Date Resolution Date Notes Provider Name and Address Organization Details Recorded Time Chronic obstructive pulmonary disease 59166937 Active 023 [facility] 3 15:08:15 Problem Notes None recorded. [...] [Score] - Reported Respiratory rate Oxygen saturation Heart rate Body temperature Systolic And Diastolic Provider Name and Address Organization Details Last Updated DateTime 3 147.32 cm 21.5 kg/m2 30211.0 1 g 0 18 /min 87 % 73 /min 98.2 [degF] 153/64 mm[Hg] Janessa De La Fuente [facility] 3 15:13:14 Social History Question Answer Notes LastModified by Organizat ion Details LastModified Time Tobacco Smoking Status Former Smoker [facility] 02/24/2023 15:09:35 When Did You Quit Smoking? 11-15yearssi oswaldo villareal Information not available 02/24/2023 Have You Recently Traveled Abroad? No Information not available 02/24/2023 Sex: Unknown Functional Status Question Answer Note LastModified by Organizat ion Details LastModified Time Do you use any illicit or recreational drugs? No Information not available 02/24/2023 Do you or have you ever used any other forms of tobacco or nicotine? No Information not available 02/24/2023 What is your level of alcohol consumption? None Information not available 02/24/2023 Mental Status None recorded. Family History Relationship [...] Diagnosis SNOMED-CT Code Diagnosis ICD10 Code Diagnosis IMO Codes Diagnosis Note [id number] [address] [facility] [address] [place] [address] 07/16/2018 17:52:56 07/16/2018 18:39:22 [id number] [place] [address] [place] [address] 02/24/2023 14:55:33 02/24/2023 15:28:26 Acute conjunctivitis [id number] H10.33 Based on your presentati on and [...] Recorded Advance Directives Directive None Recorded Payers Insurance Date Sequence Insurance Name Policy Number Policy Johnson Covered Member ID Johnson Member ID Guarantor Name 02/24/2023 1 MEDICARE [place]: [employer] [facility] Vania Kraus Jasmin [id number] Vania Castellanos 02/24/2023 2 [facility] Vania Jasmin [id number] Vania Castellanos Notes Date Note Type Note Provider Name and Address Organization Details Recorded Time 02/24/2023 text/html Eye problemsRepo rted by PatientHPIFor eye symptoms, patient reportsredness,discharg e, anditchingbut reportsno sensitivity to light. For source of patient information, patient reportsinformation obtained from patientandpatient arrived at urgent care ambulatory. For location, patient reportsbilateral. For severity, patient reportsmoderate. For onset/timing, patient glzqmob0glof. For modifying factors, patient reportsnothing gives relief. Sharon Garner NP [address] [place], [address], [place] - [facility] 02/24/2023 19:45:01 OBGyn Episode No OBEpisode recorded.
--- OUTSIDE RECORDS SUMMARY | 2025-07-06 16:51 | XMS_ITS | Data Portability ---
Author Organization [facility], [place] Address [address] [place] [address] [place] [address] Care Team Providers Care Egg And Spice Mixer Name Role Phone DANIELLE WATERS Referring Provider [phone] EVELINDANIELLE Primary Care Provider [phone] Assessment Encounter Date Assessment Date Assessment LastModified by Organization Details LastModified Time 2023 2023 IMPRESSION: Possible myelopathy as explanation of: S aiden 2022 gradual onset of sensory abnormality in [...] back pain pain with morphine pouch and abdomen a nd so per patient MRI contraindicated; no middle back or neck pain. Laboratories for metabolic myelopathy as detailed below Follow-up after studies mrossen Not available 2023 19:29:51 04/26/2024 04/26/2024 IMPRESSION: Possible myelopathy as explanation of: Mustapha wolfe 2022 gradual onset of sensory abnormality in [...] 03, 2024, per dictation Dr. Nancy Ortiz [facility] [facility]: Multilevel degenerative changes without acute fracture or high-grade or significant stenosis. No abnormality is seen in the partially visualized upper thoracic posterior fusion hardware. There is no abnormal enhancement. Note is made of narrowing of trachea suggestive of tracheomalacia. >>>>>>LABORATORIES March 31, 2024 & April 07, 2024: Copper 92 n ormal, Lyme IgG and IgM antibodies negative, vitamin B12 greater than 2000, homocysteine 5.9, MMA 0.24, vitamin E11.6 n ormal, CMP without relevant abnormalities, iron studies normal, TSH 0.98, CBC with borderline low WBC, hematocrit, MCV high 1 03.5. >>>>>>COGNITION >>>>>>>>>>>>END DATA REVIEW >>>>>>>>>>>>Octobe r 2023 There is no relevant or concerning [...] of exclusion at this time. >>>>>>>>>>>> KAYLA Vania Castellanos April 26, 2024 CT C-spine with and without contrast with concern for cervical myelopathy with sensory changes symmetrically worsening, now to lower abdomen, brisk reflexes, history of lumbar stenosis, chronic lower back pain pain with morphine pouch and abdomen a nd so per patient MRI contraindicated; no middle back or neck pain. Folate is pending; I will investigate Follow-up after studies mrossen Not available 04/26/2024 12:17:54 06/15/2024 06/15/2024 IMPRESSION: Possible myelopathy as explanation of: Mustapha wolfe 2022 gradual onset of sensory abnormality in [...] 03, 2024, per dictation Dr. Nancy Ortiz [facility] neur[facility]adiology: Multilevel degenerative changes without acute fracture or high-grade or significant stenosis. No abnormality is seen in the partially visualized upper thoracic posterior fusion hardware. There is no abnormal enhancement. Note is made of narrowing of trachea suggestive of tracheomalacia. >>>>>>LABORATORIES March 31, 2024 & April 07, 2024: Copper 92 n ormal, Lyme IgG and IgM antibodies negative, vitamin B12 greater than 2000, homocysteine 5.9, MMA 0.24, vitamin E11.6 n ormal, CMP without relevant abnormalities, iron studies normal, TSH 0.98, CBC with borderline low WBC, hematocrit, MCV high 1 03.5. >>>>>>COGNITION >>>>>>>>>>>>END DATA REVIEW >>>>>>>>>>>>Novemb er [id number] With CT spine, and thoracic spine CT previously both providing no answer for her lower body sensory symptoms, the differential is not remote from the neurological perspective: Small fiber exclusive neuropathy versus side effect from morphine. Skin biopsy may diagnose small fiber neuropathy. We discussed the procedure and brought brush I would defer the details of such [...] without her coming back to the office. >>>>>>>>>>>>Octobe r 82023 There is no relevant or concerning abnormality [...] will follow-up as needed, As detailed above. beckie Not available 06/15/2024 12:50:25 03/06/2025 03/06/2025 IMPRESSION: Gait difficuty and action tremor. P revious focus: Summer 2022 gradual onset of sensory abnormality [...] tablet, eyedrops, mirtazapine 30 mg daily. Amoxicillin. --March 06, 2025 needs to glide on furniture or use a walker, slouches with the walker. Multifactorial action tremor. >>>>>>>>>>>>March 06, 2025 I suggest physical therapy for her imbalance and slouching. She is already doing physical therapy. The physical therapy was already working on her core strength with the goal of improving her balance indirectly through improving her core strength. I do not believe I can add to this treatment for her worsening gait imbalance. She is disappointed. Action tremor may relate to essential tremor and/or medication effects. Albuterol is the particular medication that most plausibly might participate. I discussed pharmacological treatments for her action tremor. They all have risk either of lightheadedness/di zziness and/or cognitive slowing. I think the risk outweighs the potential benefit. She hears. She is again disappointed. I briefly discussed that her more labored breathing and her increased blood pressure are matters for primary care or other specialists. She had thought that since the nerves are all connected I might be able to come up with something. >>>>>>>>>>>> PLAN Vania Castellanos March 06, 2025 We agree that she will follow-up as needed, beckie Not available 03/06/2025 09:37:19 Plan of Treatment Reminders Order Date Submit Date Provider Last Modified By Organization Details Last Modified Time Details Appointments None recorded. Lab vitamin B12, serum [address] [facility] [address] [place], [address], 4 16:40:51 folate, serum [address] [facility] [place], [address], 4 16:40:51 mma (methylmalo brian acid), serum - lab code [id number], if [facility] 2023 024 vlefebvre [address] [place], [address], 16:40:51 homocystein e, serum or plasma 2023 024 vlefebvre [address] [place], [address], 16:40:51 lyme antibody screen, EIA/joaquin, serum - A69.20 [facility] 138236= Lyme Antibodies, Modified 2-Tier Testing Profile, Serum / Plasma 2023 024 vlefebvre [address] [place], [address], 16:40:51 vitamin E, serum - E56.0 2023 024 vlefebvre [address] [place], [address], 16:40:52 copper, serum or plasma - E83.00 [address] [place], [address], 16:40:51 Referral None recorded. Procedures None recorded. Surgeries None recorded. Imaging CT, cervical spine, w/wo contrast - CT C-spine with and without contrast with concern for cervical myelopathy with sensory changes symmetrical ly worsening, now to lower abdomen, brisk reflexes, history of lumbar stenosis, chronic lower back pain pain with morphine pouch and abdomen a nd so per patient MRI contraindic ated; no middle back or neck pain. CT T-spine unrevealing . 2023 024 vlefebvre 1 [facility]), [address] [facility], [place], [address], 5 15:05:12 CT, thoracic spine, w/wo contrast - CT C-spine with and without contrast with concern for thoracic myelopathy with sensory changes symmetrical ly worsening, now to lower abdomen, brisk reflexes, history of lumbar stenosis, chronic lower back pain pain with morphine pouch and abdomen a nd so per patient MRI contraindic ated; no middle back or neck pain. 2023 024 shamar 1 [facility]), [address] [facility], [place], [address], 4 16:37:27 Medication Orders None recorded. Patient TargetsNo targets recorded. Patient Instructions Encounter Date Encounter Id Patient Instructions Last Modified By Organization Details Last Modified Time 2023 [id number] Discussion acros s issues of diagnoses and management and same day associated chart review and management greater than 50% greater than 90 minutes mrossen Not available 2023 19:29:59 04/26/2024 [id number] Discussion acros s issues of diagnoses and management and same day associated chart review and management greater than 50% greater than 40 minutes mrossen Not available 04/26/2024 12:17:39 06/15/2024 [id number] Discussion acros s issues of diagnoses and management and same day associated chart review and management greater than 50% greater than 40 minutes mrossen Not available 06/15/2024 12:17:59 03/06/2025 [id number] PREVIOUS DISCUSSIONS: >>>>>>>>>>>>>>>>>> >>>>>>>>>>>>>>>>>> >>>>>>>>>>>> Summer 2022 gradual onset of sensory abnormality in the lower part of her body, first with prickly and soon after with numbness, starting distally but since progressing and now intermittently all the way up to her lateral hip and inferior abdomen. >>>>>>>>>>>>>>>>>> >>>>>>>>>>>>>>>>>> >>>>>>>>>>>> I remain without the results of the folate assay that I sent initially, summer 2023. At this point I defer to primary care on that issue. >>>>>>>>>>>>Novemb er [id number] With CT spine, and thoracic spine CT previously both providing no answer for her lower body sensory symptoms, the differential from the neurological perspective: Small fiber exclusive neuropathy versus side effect from morphine. Skin biopsy may diagnose small fiber neuropathy. We discussed the procedure in broad brush I would defer the details of such [...] without her coming back to the office. >>>>>>>>>>>>Octobe r 82023 There is no relevant or concerning abnormality [...] a diagnosis of exclusion at this time. Discussion across issues of diagnoses and management and same day associated chart review and management greater than 50% greater than 30 minutes mrossen Not available 03/06/2025 09:37:04 Reason for Referral None Reported. Results Created Date Observation Date Name Description Value Unit Range Abnormal Flag Note LastModifiedBy Organization Detail LastModifiedTime 04/14/2004/14/2024 lab* homocysteine 5.9 Not Astrid [facility] [address] [facility], [place], [address], 04/19/2024 08:42:16 04/14/2004/14/2024 lab* copper 92 Not Available [facility] [address] [place], [address], 04/19/2024 08:42:16 04/14/20 24 04/14/2024 lab* [facility] [address] [place], [address], 04/19/2024 08:42:16 04/14/20 24 04/14/2024 lab* [facility] [address] [place], [address], 04/19/2024 08:42:16 04/14/20 24 04/14/2024 lab* B12 >2000 Not Available [facility] [address] [place], [address], 04/19/2024 08:42:16 04/14/20 24 04/14/2024 lab* mma .24 Not Available [facility] [address] [place], [address], 04/19/2024 08:42:16 04/14/20 24 04/14/2024 lab* vit E 11.6 Not Available [facility] [address] [place], [address], 04/19/2024 08:42:16 04/14/20 24 04/14/2024 lab* TSH .99 Not Available [facility] [address] [place], [address], 04/19/2024 08:42:16 04/14/20 24 04/14/2024 lab* complete metabolic panel Not Available [facility] [address] [place], [address], 04/19/2024 08:42:16 03/03/20 24 03/03/2024 CT thora [...] of T10, and visual ized in the desk monitor ior and left thecal sac to at [...] visual izatio n of upper thorac ic desk monitor ior fusion hardwa re. The visual ized [...] radha at T12-L1 . Scatte red mild desk monitor ior disc osteop hyte are presen t, [...] re or high-g rade stenos is. WSN: [id number] Orderi ng Physic regis: Toni Morrow Dictat ed By: Freddy Ortiz MD Dictat ed Date/T mimi: 4:34 pm Review ed By: Freddy Ortiz MD Signed By: Freddy Ortiz MD Signed Date/T mimi: 4:34 pm Transc ribed By: KRISTIE Transc ribed Date/T mimi: 3:41 pm Patien t Class: 101 [email or web address] [facility]) [address] [facility], [place], [address], 03/08/2024 10:11:01 05/25/20 24 05/23/2024 CT, cervi [...] nal stenos is. C3-C4: Mild broad- based desk monitor ior disc-o steoph yte comple x and [...] t's sympto ms and neurol ogical examin ation. 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 Multiplanar reconstructions were generated and reviewed. Dose reduction technique was utilized. COMPARISON: No prior studies are available for comparison at the time of interpretation. FINDINGS: There is reversal of the cervical lordosis with degenerative anterolisthesis of C4 on C5 measuring 3.6 mm and C5 on C6 measuring 2.5 mm. Slight degenerative anterolisthesis of C7 on T1 is also noted. The cervical vertebral bodies are normal in height. No perched or jumped facets. The occipital condyles and dens are intact, and there is no atlantodental interval widening. Severe loss of height of C6-C7 with marginal spurring and mild discogenic sclerosis. Moderate loss of height at C4-C5 and C5-C6. Marginal osteophytes and facet arthroses are present at multiple levels. The cervical spinal canal is widely patent. No intraspinal enhancement is suspected. The paraspinal soft tissues are unremarkable. Emphysematous changes of the visualized lungs. Mosaic attenuation of the right lung apex may represent air trapping. C2-C3: Facet arthrosis. No central canal or foraminal stenosis. C3-C4: Mild broad-based posterior disc-osteophyte complex and facet arthrosis. No significant central canal narrowing. Mild-moderate right and mild left foraminal narrowing. C4-C5: Degenerative anterolisthesis and facet arthrosis. No central canal stenosis. Probable moderate right and mild left foraminal stenosis. C5-C6: Mild degenerative anterolisthesis. No significant central canal narrowing. At least moderate right and mild left foraminal stenosis. C6-C7: Concentric marginal spurring. No central canal stenosis. Probable mild right and mild to mild-moderate left foraminal narrowing. C7-T1: Mild degenerative anterolisthesis. Facet arthrosis. No central canal stenosis. Mild foraminal narrowing. IMPRESSION: Degenerative changes of the cervical spine without significant central canal narrowing or suspected cord compression. Multilevel foraminal stenoses are present, which can be correlated with the patient's symptoms and neurological examination. WSN: [id number] Ordering Physician: Mike Morrow Dictated By: Phill Hedrick MD Dictated Date/Time: 05/25/24 3:21 pm Reviewed By: Phill Hedrick MD Signed By: Phill Hedrick MD Signed Date/Time: 05/25/24 3:21 pm Transcribed By: KRISTIE Transcribed Date/Time: 05/25/24 3:12 pm Patient Class: Luis BallMarlen tyler MA [facility] Neurology [facility] 05/30/2024 10:54:37 Procedures Surgical History Date Name Laterality Status Provider Name and Address Organization Details Recorded Time 03/06/2025 DATA REVIEW completed Mike Morrow MD [address] [place] [address] [place], [address], [facility] Neurology [facility] 03/06/2025 09:33:30 Imaging Results None recorded. Procedure Notes None recorded. Medical Equipment None [...] Updated DateTime 2023 154.94 cm 21.2 kg/m2 64968.35 g 12 /min June Lebron [facility] 2023 16:16:31 Social History Question Answer Notes LastModified by Organizat ion Details LastModified Time Tobacco Smoking Status Former Smoker June Lebron [facility] 2023 16:17:13 What Is Your Level Of Caffeine Consumption? None Information not available 2023 What Is The Highest Grade Or Level Of School You Have Completed Or The Highest Degree You Have Received? [id number] Information not available 2023 Which Of Your Hands Is Dominant? Right Information not available 2023 Sex: Unknown Functional Status Question Answer Note LastModified by Organization D etails LastModified Time What is your level of alcohol consumption? None Information not available 2023 Mental Status None recorded. Family History Relationship [...] Pressure or Hypertension N Thyroid Problems N Lung Disease N COPD or emphysema Y Brain Tumors N Depression N Encephalitis N Vitamin B12 deficiency N PTSD N Spine Problems N Heart Attack ([place]) N Obstructive Sleep Apnea N Alcoholism N Diabetes N Autoimmune disease N Bleeding Disorder N Arthritis N Tuberculosis N Developmental Problems N Cerebral Palsy N Neck Problems N Cancer N Back Problems N Stroke Y Asthma N Heartburn, acid reflux, GERD N Vitamin D Deficiency N Epilepsy/Seizures N Bipolar Disorder N Sleep Disorder N Hepatitis N Aneurysm N Liver Disease N Heart Disease N Headaches N Fibromyalgia N Osteoporosis N High Cholesterol or Hyperlipidemia N Kidney Disease N Gynecological HistoryNo gynecological history recorded. Obstetrics History GPAL:G 0 P 0 0 0 0 Past Encounters Encounter ID Performer Location Encounter Start Date Encounter Closed Date Diagnosis/Indication Diagnosis SNOMED-CT Code Diagnosis ICD10 Code Diagnosis IMO Codes Diagnosis Note [id number] Mike Morrow MD [facility] [address] [place] [address] [place] [address] 2023 14:39:18 01/04/2024 09:45:15 Thoracic disc prolapse with myelopathy 477806490 M51.04 Unsteadiness present 267 838468 R26.81 Vitamin B1 2 deficiency anemia due to dietary causes 275295612 D51.0 Serum chandrakant er level outside reference range 848782611 R79.0 Acute lyme disease 75941 7005 A69.20 [id number] Mike Morrwo MD [facility] [address] [place] [address] [place] [address] 04/26/2024 11:18:37 04/26/2024 12:24:17 Unsteadiness present 185672824 R26.81 Cervical d isc prolapse with myelopathy 716581128 M50.021 [id number] Mike Morrow MD [facility] [address] [place] [address] [place] [address] 06/15/2024 12:02:25 06/15/2024 15:30:51 Unsteadiness present 540777694 R26.81 Cervical d isc prolapse with myelopathy 651283426 M50.021 [id number] Mike Morrow MD [facility] [address] [place] [address] [place] [address] 03/06/2025 08:57:35 03/08/2025 13:46:24 Unsteadiness present 450088579 R26.81 Essential tremor 1427021 09 G25.0 99250 Health Concerns Section Related Observation LastModified by Organization Detai ls LastModified Time None Recorded Concern Status LastModified by Organization Details LastModified Time None Recorded Advance Directives Directive None Recorded Payers Insurance Date Sequence Insurance Name Policy Number Policy Johnson Covered Member ID Johnson Member ID Guarantor Name 03/06/2025 2 [employer] [facility] (HMO) Vania Castellanos [id number] Vanai Castellanos 03/08/2025 1 [place] [employer]MENT [employer] Vania Castellanos [id number] Vania Michellenar 03/06/2025 2 [employer] (MEDICARE SUPPLEMENT) Vania Castellanos [id number] Vania Castellanos 03/06/2025 1 [facility] (MEDICARE REPLACEMENT/ ADVANTAGE - PPO) Vania Castellanos [id number] Vania Castellanos Notes Date Note Type Note [...] to her lateral hip and inferior abdomen. Past history includes dyslipidemia, carotid artery stenosis, failed back syndrome context spinal stenosis status post lumbar fusion, on morphine from left lower abdominal morphine pouch, hip fracture status post ORIF 2022, depression, constipation. She lives in the [facility], and is recently moved from [place]. She is unaccompanied in the exam room [...] point when she was still living in [place], before her 2022 move to [facility] [place].Her chief issue relates to new symptoms, symptoms [...] in time correlation with her moved from [place] to [place]. She provides details:In summer 2022 she had [...] has no middle back pain or neck pain j ust lower back pain. Her feet and toes [...] with stable occasional constipation. Mike Morrow MD [address] [place] [address] [place], [address], [facility] Neurology [facility] 2023 19:30:37 04/26/2024 text/html Neurology follow-up of summer 2022 gradual onset of sensory abnormality in the lower part of her body, first with prickly and soon after with numbness, starting distally but since progressing and now intermittently all the way up to her lateral hip and inferior abdomen. Past history includes dyslipidemia, carotid artery stenosis, failed back syndrome context spinal stenosis status post lumbar fusion, on morphine from left lower abdominal morphine pouch, hip fracture status post ORIF 2022, depression, constipation. She lives in the [facility], and is recently moved from [place]. She is unaccompanied in the exam room; [...] point when she was still living in [place], before her 2022 move to [facility] [place].Her chief issue relates to new symptoms, symptoms [...] in time correlation with her moved from [place] to [place]. She provides details:In summer 2022 she had [...] has no middle back pain or neck pain j ust lower back pain. Her feet and toes [...] with stable occasional constipation. Mike Morrow MD [address] [place] [address] [place], [address], [facility] 04/26/2024 12:18:21 06/15/2024 text/html Neurology follow-up of summer 2022 gradual onset of sensory abnormality in the lower part of her body, first with prickly and soon after with numbness, starting distally but since progressing and now intermittently all the way up to her lateral hip and inferior abdomen. Past history includes dyslipidemia, carotid artery stenosis, failed back syndrome context spinal stenosis status post lumbar fusion, on morphine from left lower abdominal morphine pouch, hip fracture status post ORIF 2022, depression, constipation. She lives in the [facility], and is recently moved from [place]. She is unaccompanied in the exam room; [...] point when she was still living in [place], before her 2022 move to [facility] [place].Her chief issue relates to new symptoms, symptoms [...] in time correlation with her moved from [place] to [place]. She provides details:In summer 2022 she had [...] has no middle back pain or neck pain j ust lower back pain. Her feet and toes [...] with stable occasional constipation. Mike Morrow MD [address] [place] [address], [phone], [facility] Neurology [facility] 06/15/2024 12:50:30 03/06/2025 text/html Neurology reconsultation for Gait difficuty and action tremor. --Previously seen for: summer 2022 gradual onset of sensory abnormality in the lower part of her body, first with prickly and soon after with numbness, starting distally but since progressing and now intermittently all the way up to her lateral hip and inferior abdomen. Past history includes dyslipidemia, carotid artery stenosis, failed back syndrome context spinal stenosis status post lumbar fusion, on morphine from left lower abdominal morphine pouch, hip fracture status post ORIF 2022, depression, constipation. She lives in the [facility], and is recently moved from [place]. She is unaccompanied in the exam room; she has previously been brought here by her sister. >>>>>>>>>>>>March 06, 2025Since June 15, 2024 Neurology follow-up encounter, in recent times she finds that her breathing is more labored. She has difficulty walking s he cannot walk alone Has to hold on h as to glide on furniture. Walking with a walker, she slouches a lot.In addition, she is shaky s he demonstrates, holding her hands out, a fine high-frequency bilateral postural tremor.Additionally, , her blood pressure has gone up s ystolic 120 => 145 s o that she thinks high blood pressure is emerging. >>>>>>>>>>>>June 15, 2024Since April 26, 2024 Neurology [...] point when she was still living in [place], before her 2022 move to [facility] [place].Her chief issue relates to new symptoms, symptoms [...] in time correlation with her moved from [place] to [place]. She provides details:In summer 2022 she had [...] has no middle back pain or neck pain j ust lower back pain. Her feet and toes [...] with stable occasional constipation. Mike Morrow MD [address] [place] [address] [place], [phone], [facility] Neurology [facility] 03/06/2025 09:38:44 OBGyn Episode No OBEpisode recorded.
--- OUTSIDE RECORDS SUMMARY | 2025-07-06 16:51 | XMS_ITS | Encounter Summary ---
Author Organization [facility] Address [address] [facility] [address] [place] [address] Phone Care Team Providers Care New Car Get Ready Mechanic Name Role Phone Kati Sophie Bueno MD Primary Care Provider Encounter Details Date Type Department Care Team (Late st Contact Info) Description 05/22/2023 Procedure Pass OR Admitting Dept - Virtual Department [address] [place] [address] Social History Tobacco Use Types Packs/Day Years [...] PM EST Appointment [facility] [address] [place] [phone] Emir Disla, SENIOR TRAINER [address] [place] [address] 07/26/2025 3:45 PM EST Appointment [facility] [address] [place] [address] Dorothy Kunz, DNP [address] [place] [address] 07/31/2025 12:30 PM EST Office Visit [facility] [address], [address] [place] [address] Sandra Menjivar PA-C [address] [place] [address] 08/01/2025 4:15 PM EST Appointment [facility] [address] [place] [address] Reji Carter MD [address] [place] [address] [email or web address] 11/13/2025 3:30 PM EDT Office Visit [facility] [address] [facility] [place] [address] Reji Carter MD [address] [facility] 2nd [place] [address] [email or web address] documented as of this encounter Visit Diagnoses Not on filedocumented in this encounter Care Teams New Car Get Ready Mechanic Relationship Specialty Start Date End Date Sophie Martin MD 3 [place] [address] [email or web address] PCP - General Internal Medicine 03/25/23 documented as of this encounter Additional Source Comments The information contained in this document represents components of the legal health record. It is not the complete legal health record.[facility]
--- OUTSIDE RECORDS SUMMARY | 2025-07-06 16:51 | XMS_ITS | Clinical Summary ---
Author Organization [facility] Address [address] [facility] [address] [place] [address] Phone Care Team Providers Care Medical Care Evaluation Specialist Name Role Phone Kati MylesSophie Magno SCOTT [...] rhythm with a question of old anteroseptal OR this could be also due to COPD loss of R waves in V1 V2. Patient is very much oxygen dependent and does not give any history of acute OR. Will first review the echocardiogram . I [...] Patient reports carotid stent years ago in [place]. She wishes to follow-up here for this. [...] on 2 L/min supplemental oxygen. Uses an [employer] POC when out of the house. ABG [...] Description 05/03/2025 3:30 PM EDT Office Visit [facility] Pul[facility]ology[facility] [address] [place] [address] Reji Carter MD COPD, very severe (Primary Dx); Pulmonary emphysema; Chronic respiratory failure with hypoxia and hypercapnia; Pulmonary hypertension from Last 3 Months Social History Tobacco [...] PM EST Appointment [facility] [address] [place] [address] Emir Disla, RIVET TESTER [address] [place] [address] 07/26/2025 3:45 PM EST Appointment [facility] [address] [place] [address] Megan Kunz, DNP [address] [place] [address] 07/31/2025 12:30 PM EST Office Visit [facility] [address], [address] [place] [address] Sandra Menjivar PA-C [address] [place] [address] 08/01/2025 4:15 PM EST Appointment [facility] 30 [place] [address] Reji Carter MD [address] [place] [address] [email or web address] 11/13/2025 3:30 PM EDT Office Visit [facility] 10 [place] [address] Reji Carter MD [address] [place] [address] 2[address] [place] [address] [email or web address] Health Maintenance Due Date Last Done Comments Adult Td,Tdap Booster 1946 DEPRESSION SCREENING 1958 SMOKING Hx and SMOKELESS TOBACCO SCREENING 01/01/1960 HEPATITIS C SCREENING 1964 PNEUMOCOCCAL VACCINES (50+ years) (1 of 2 - PCV) 1965 ZOSTER VACCINES (1 of 2) 1996 OSTEOPOROSIS SCREENING INITI AL (ONE-TIME) 01/01/2012 RSV VACCINE (1 - 1-dose 75+ series) 2021 INFLUENZA VACCINE (#1) 2025 COVID-19 VACCINE ( - 2024-2 6 season) 2025 LIPID PANEL 02/17/2026 02/17/2025, [...] on patient's age to complete this topic Goals Goal Patient Goal Type Associated Problems Recent Progress Patient-Stated? Author Autogenerat ed Goal Care Plan Autogenerated Problem No Cayla Nice, RN Medical Devices Implanted Type Area Torpedoman'S Mate Device Identifier Shelf Expiration Date Model / Serial / Lot Intrathecal Pain Pump Left: Abdomen Nail Bone 10mm 235 125deg Ti Cannulated Tfn Advanced Rt - [id number] Implanted:Qty: 1 on 05/22/2023 by Wilian Parmar DO at [facility] Right: Femur [employer] 12/17/2025 [id number] S / / [id number] Screw Bone 10.5x90mm Ti Gold Perforated Tfn-Advanced Nail Femoral Proximal - [id number] Implanted:Qty: 1 on 05/22/2023 by Wilian Parmar DO at [facility] Right: Femur [employer] 10/17/2032 [id number] S / / [id number] Screw Bone 5x36mm Locking Im Nail - [id number] Implanted:Qty: 1 on 05/22/2023 by Wilian Parmar DO at [facility] Right: Femur [employer] 04/18/2032 04.045.036 S / / [id number] Procedures Procedure Name Priority Date/Time Associated Diagnosis Comments LIPID PANEL Routine 02/17/2025 7:24 AM EDT Anemia, unspecified type Hyperlipidemia, unspecified hyperlipidemia type 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 smoking, excerise, hormones, sex and age. CHOLESTEROL 128 0 - 240 mg/dL [facility] TRIGLYCERIDES 61 30 - 160 mg/dL [facility] LDL 55 50 - 129 mg/dL [facility] Comment: LDL levels in terms of risk for coronary heart disease: <100 mg/dL: Optimal 100-129 mg/dL: Near or above optimal 130-159 mg/dL: Borderline high 160-189 mg/dL: High >190 mg/dL: Very High CARDIAC RISK RATIO 2.1(L) 3.3 - 4.4 [facility] Blood 02/17/2025 7:24 AM EDT 02/17/2025 9:30 AM EDT us Sophie Bueno MD LAB BLOOD BKR ORDERABL ES Final Result [facility] [address] [place] [address] from Last 3 Months or Most Recently Relevant to Health Maintenance Additional Health Concerns Active Problems Noted Date Diagnosed Date Autogenerated Problem 05/22/2025 Insurance MEDICARE PART A & B MEDICARE SUPPLEMENT The [address] [place] [address] MEDICARE PART A & B Member Subscriber Plan / Payer (Ef fective 2011-Present) Name:Vania Catsellanos Member ID:[id number] Relation to Subscriber:Self Name:Vania Castellanos Subscriber ID:[id number] Payer ID:[id number] Group ID:Not on file Type:Medicare Address: [address] [place] [id number] [place] [address] MEDICARE SUPPLEMENT MEDICARE PART A & B [facility] MEDICARE SUPPLEMENT MEDICARE PART A & B [facility] MEDICARE SUPPLEMENT MEDICARE PART A & B [facility] MEDICARE SUPPLEMENT MEDICARE PART A & B [facility] MEDICARE SUPPLEMENT Advance Directives For more information, please contact: [phone] (9AM - 5PM [facility], Thursday-Thursday) Documents on File Type Date Recorded Patient Medicaid Collection Specialist Expl anation MOLST 05/27/2023 2:04 PM Healthcare Proxy 05/27/2023 2:04 PM * DNR/DNI (No CPR/No Intubation) (Latest Code Status on File) Date Activated Date Inactivated Comments 05/22/2023 7:49 AM Question Answer Comments Code Status Confirmed With: Patient Healthcare Agents on File Name Relationship Healthcare Agent Relationship Communication Billie Moreno Sister .Primary Health Care Agent (Proxy form on file) Shirin Moreno [facility] H ealthcare Agent (Proxy form on file) Care Teams Medical Care Evaluation Specialist Relationship Specialty Start Date End Date Sophie Martin MD [address] [place] [phone] [email or web address] PCP - General Internal Medicine 03/25/23 Additional Source Comments The information contained in this document represents components of the legal health record. It is not the complete legal health record.[facility]
--- OUTSIDE RECORDS SUMMARY | 2025-07-06 16:51 | XMS_ITS | Clinical Summary ---
Author Organization [address] Address [address] [place] [address] Phone Care Team Providers Care Manager Internal Name Role Phone Jeffery Villegas MD Primary Care Provider [phone] Allergies No known active allergies Family History [...] vaccine 02/17/2025 Covid-19 vaccine series ( - 2024- season) 2025 Breast cancer screening Discontinued Cervical cancer screening Discontinued Colon cancer screening, Colonoscopy Discontinued Meningococcal B Vaccine Aged Out No l onger eligible based on patient's age to complete this topic Meningococcal Vaccine Aged Out No sirena mary eligible based on patient's age to complete this topic Insurance MEDICARE [facility] MEDICARE [facility] MEDICARE [facility] Care Teams Manager Internal Relationship Specialty Start Date End Date Jeffery Villegas MD [address] [place] [phone] PCP - General Family Medicine 01/15/23
--- OUTSIDE RECORDS SUMMARY | 2025-07-06 16:51 | XMS_ITS | Clinical Summary ---
Author Organization [facility] Address [address] [place] [address] Care Team Providers Care Burlap Worker Name Role Phone Sophie Parikh MD Primary Care Provider [phone] Medications No known medications Active Problems Problem [...] Screening 07/20/2024 Depression Screening and Follow-Up 07/20/2024 Fall Risk Screening 07/20/2024 Health Care Proxy Review 07/20/2024 Social Drivers of Health Tiffanie ual Screening 07/20/2024 Influenza Vaccine (#1) 2025 COVID-19 Vaccine (2024-2 6 season) 2025 Hepatitis B Vaccines Aged Out No long er eligible based on patient's age to complete this topic Insurance MEDICARE [facility] SUPP AARP Care Teams Burlap Worker Relationship Specialty Start Date End Date Sophie Parikh MD [address] [place] [phone] PCP - General 02/23/24
--- OUTSIDE RECORDS SUMMARY | 2025-07-06 16:51 | XMS_ITS | Encounter Summary ---
Author Organization [facility] Address [address] [facility] [address] [place] [address] Phone Care Team Providers Care Soloist Dancer Name Role Phone Kprock Sophie Bueno MD Primary Care Provider Encounter Details Date Type Department Care Team (Late st Contact Info) Description 11/26/2023 Transcribe Orders Virtual Department [address] [place] [address] Angela Freedman, FORTUNATO [address] [place] [address] Spinal stenosis of lumbar region without neurogenic [...] PM EST Appointment [facility] [address] [place] [address] Emir Disla, HAND BLOCKER [address] [place] [address] 07/26/2025 3:45 PM EST Appointment [facility] [address] [place] [address] Megan Kunz, NEHA [address] [place] [address] 07/31/2025 12:30 PM EST Office Visit [facility] [address] [facility], [address] [place] [address] Sandra Menjivar PA-C [address] [place] [address] 08/01/2025 4:15 PM EST Appointment [facility] [address] [place] [address] Reji Carter MD [address] [place] [phone] [email or web address] 11/13/2025 3:30 PM EDT Office Visit [facility] [address] [place] [address] Reji Carter MD 10 [facility] 2nd [place] [address] [email or web address] documented as of this encounter Visit Diagnoses Diagnosis Spinal stenosis of lumbar region without neurogenic claudication- Primary documented in this encounter Care Teams Soloist Dancer Relationship Specialty Start Date End Date Sophie Martin MD [address] [place] [address] [email or web address] PCP - General Internal Medicine 03/25/23 documented as of this encounter Additional Source Comments The information contained in this document represents components of the legal health record. It is not the complete legal health record.[facility]
--- OUTSIDE RECORDS SUMMARY | 2025-07-06 16:51 | XMS_ITS | Encounter Summary ---
Author Organization [facility] Address [address] [facility] [address] [place] [address] Phone Care Team Providers Care Item Processor Name Role Phone Kati Sophie Bueno MD Primary Care Provider Encounter Details Date Type Department Care Team (Late st Contact Info) Description 07/16/2023 Transcribe Orders [facility] [address] [place] [address] Reji Carter MD [address] [place] [address] [phone] [email or web address] Social History Tobacco Use Types Packs/Day [...] PM EST Appointment [facility] [address] [place] [address] Emir Disla, PATIENT CARE TECHNICIAN [address] [place] [address] 07/26/2025 3:45 PM EST Appointment [facility] [address] [place] [address] Dorothy Kunz DNP [address] [place] [phone] 07/31/2025 12:30 PM EST Office Visit [facility] [address] [facility], [address] [place] [address] Sandra Menjivar PA-C [address] [place] [address] 08/01/2025 4:15 PM EST Appointment [facility] [address] [place] [address] Reji Carter MD [address] [place] [address] [email or web address] 11/13/2025 3:30 PM EDT Office Visit [facility] 10 [place] [address] Reji Carter MD 10 [facility] 2nd [place] [address] [email or web address] documented as of this encounter Visit Diagnoses Not on filedocumented in this encounter Care Teams Item Processor Relationship Specialty Start Date End Date Sophie Martin MD 3 [place] [address] [email or web address] PCP - General Internal Medicine 03/25/23 documented as of this encounter Additional Source Comments The information contained in this document represents components of the legal health record. It is not the complete legal health record.[facility]
== END 2025-07-06 13:44 | disposition home or self-care (01) ==
LOC: HO.PMC 12:57
PROVIDERS: PCP Internal Medicine; Visit Provider Anesthesiology
DX: M96.1 Postlaminectomy syndrome, not elsewhere classified (principal); G89.4 Chronic pain syndrome; J44.9 Chronic obstructive pulmonary disease, unspecified; Z45.1 Encounter for adjustment and management of infusion pump
CPT/HCPCS: 62370

== ENCOUNTER → 2025-07-06 12:56 | Outpatient (BNVA) | payer MEDICARE, SELFPAY | PROVIDERS: PCP Internal Medicine; Visit Provider Anesthesiology | DX: M96.1 Postlaminectomy syndrome, not elsewhere classified (principal); G89.4 Chronic pain syndrome | CPT/HCPCS: 62370 ==